=== PATIENT | male | born 1960 | race Caucasian/White ===

== ENCOUNTER 2017-08-21 08:51 | Inpatient (IN) | payer OTHER ==
[2017-08-21 10:01] VITALS: BMI 24.3
--- NOTE | 2017-08-21 10:26 | HP ---
Admission [facility] Chief Complaint: I keep using, I want to stop, I need help, maybe halfway after detox Allergies/Adverse Reactions: Allergies Allergy/AdvReac Type Severity Reaction Status Date / Time No Known Drug Allergies Allergy Verified 08/21/17 10:13 History of Present Illness: 57 yo gentleman here for detox from alcohol, also using crack/cocaine. History of black outs, no seizures. Urine tox + opiates but patient denies use of opiates - states he was in [facility] Emergency Room last night because of chronic right ankle pain and was given a shot of 2mg morphine sulfate. Urine tox + benzo but states benzo + must be mixed with cocaine as he does not use that separately. Exam Limitations: Clinical Condition - Ebola screening Have you traveled outside of the country in the last 21 days: No (N) Have you had contact with anyone from an Ebola affected area: No Have you been sick,other than usual withdrawal symptoms: No Do you have a fever: No - Review of Systems Constitutional: Loss of Appetite, Malaise, Changes in sleep, Weakness, Unintentional Wgt. Loss EENT: reports: Blurred Vision Respiratory: reports: No Symptoms reported Cardiac: reports: No Symptoms Reported GI: reports: Nausea, Poor Appetite : reports: Frequency Musculoskeletal: reports: Back Pain, Muscle Pain Integumentary: reports: Dryness Neuro: reports: Headache Endocrine: reports: No Symptoms Reported Hematology: reports: No Symptoms Reported Psychiatric: reports: Judgement Intact, Mood/Affect Appropiate, Anxious Other Systems: Reviewed and Negative Patient History - Patient Medical History Hx Anemia: No Hx Asthma: No Hx Chronic Obstructive Pulmonary Disease (COPD): No Hx Cancer: No Hx Cardiac Disorders: No Hx Congestive Heart Failure: No Hx Hypertension: Yes (on meds) Hx Hypercholesterolemia: Yes (on meds) Hx Pacemaker: No HX Cerebrovascular Accident: No Hx Seizures: No Hx Dementia: No Hx Diabetes: Yes (on meds, well controlled) Hx Gastrointestinal Disorders: No Hx Liver Disease: No Hx Genitourinary Disorders: No Hx Sexually Transmitted Disorders: No Hx Renal Disease (ESRD): No Hx Thyroid Disease: No Hx Human Immunodeficiency Virus (HIV): No Hx Hepatitis C: No Hx Depression: Yes Hx Suicide Attempt: Yes (Attempted to cut wrist in 2009; DENIES CURRENT IDEATIONS) Hx Bipolar Disorder: Yes (on meds, [facility]) Hx Schizophrenia: Yes - Patient Surgical History Past Surgical History: Yes Hx Neurologic Surgery: No Hx Cataract Extraction: No Hx Cardiac Surgery: No Hx Lung Surgery: No Hx Breast Surgery: No Hx Breast Biopsy: No Hx Abdominal Surgery: No Hx Appendectomy: Yes (at age 6) Hx Cholecystectomy: No Hx Genitourinary Surgery: No Hx Section: No Hx Orthopedic Surgery: Yes (hx right ankle fracture ) Anesthesia Reaction: No - PPD History Previous Implant?: Yes Documented Results: Negative w/proof Implanted On Prior [facility] Admission?: Yes Date: 04/07/15 Results: 0MM PPD to be Administered?: No - Reproductive History Patient is a Female of Child Bearing Age (11 -55 yrs old): No (male) Patient : No - Smoking Cessation Smoking history: Current every day smoker Have you smoked in the past 12 months: Yes Aproximately how many cigarettes per day: 20 Hx Chewing Tobacco Use: No Initiated information on smoking cessation: Yes 'Breaking Loose' booklet given: 08/21/17 (give on floor) - Substance & Tx. History Hx Alcohol Use: Yes Hx Substance Use: Yes Substance Use Type: Alcohol, Cocaine Hx Substance Use Treatment: Yes (detox, rehab) - Substances Abused Cocaine Route: Inhalation Frequency: Daily Amount used: 4 GRAM Age of first use: 20 Date of Last Use: 08/20/17 Crack Route: Smoking Frequency: 1-3 times last 30 days Amount used: 1GRAM Age of first use: 34 Date of Last Use: 07/22/17 ETOH Route: Oral Frequency: Daily Amount used: 2 PINT Age of first use: 20 Date of Last Use: 08/21/17 Family Disease History - Family Disease History Family Disease History: Diabetes: Grandparent, Mother (living, ), Heart Disease : Father (, renal failure), Other: Father, Mother, Brother (one living - healthy, ), Sister (two living - healthy) Admission Physical Exam [facility] - Vital Signs Vital Signs: Vital Signs - 24 hr 08/21/17 09:54 Temperature 96.5 F L Pulse Rate 72 Respiratory 18 Rate Blood Pressure 138/72 - Physical General Appearance: Yes: Nourished, Appropriately Dressed, Mild Distress, Anxious HEENTM: Yes: Hearing grossly Normal, Normal ENT Inspection, Normocephalic, Normal Voice Respiratory: Yes: Normal Breath Sounds, No Respiratory Distress Neck: Yes: No masses,lesions,Nodules Breast: Yes: Breast Exam Deferred Cardiology: Yes: Regular Rhythm, Regular Rate Abdominal: Yes: Non Tender, Flat Genitourinary: Yes: Frequency Back: Yes: Normal Inspection Musculoskeletal: Yes: full range of Motion, Gait Steady Extremities: Yes: Other (left ankle mildly reduced ROM, non red, states chronic pain) Neurological: Yes: Fully Oriented, Alert, Normal Mood/Affect, Normal Response Integumentary: Yes: Normal Color, Warm Lymphatic: Yes: Within Normal Limits - Diagnostic (1) Alcohol dependence with uncomplicated withdrawal Current Visit: Yes Status: Chronic (2) Cocaine dependence Current Visit: Yes Status: Chronic Qualifiers: Substance use status: in withdrawal Qualified Code(s): F14.23 - Cocaine dependence with withdrawal (3) Diabetes mellitus Current Visit: Yes Status: Chronic Qualifiers: Diabetes mellitus type: type 2 Diabetes mellitus complication status: without complication Diabetes mellitus residential insulin use: without residential use Qualified Code(s): E11.9 - Type 2 diabetes mellitus without complications Comment: 85 (4) Ankle arthropathy Current Visit: Yes Status: Chronic (5) Hypercholesterolemia Current Visit: Yes Status: Chronic (6) HTN (hypertension) Current Visit: Yes Status: Chronic Qualifiers: Hypertension type: essential hypertension Qualified Code(s): I10 - Essential (primary) hypertension (7) Nicotine dependence Current Visit: Yes Status: Chronic Qualifiers: Nicotine product type: cigarettes Substance use status: uncomplicated Qualified Code(s): F17.210 - Nicotine dependence, cigarettes, uncomplicated Cleared for Admission S - Detox or Rehab [facility] Level of Care: Medically Managed Detox Regimen/Protocol: Librium [facility] Breath Alcohol Content Breath Alcohol Content: 0 Urine Drug Screen - Results Urine Drug Screen Results: PALLAVI-Cocaine, OPI-Opiates, BZO-Benzodiazepines
[2017-08-21] MEDS ORDERED: ACETAMINOPHEN 325 MG TABLET (FP) PO PRN (10:32)
[2017-08-21] MEDS ORDERED: MAGNESIUM HYDROX 2400MG/30ML ORAL SUSPENSION 30 ML CUP PO PRN (10:32)
[2017-08-21] MEDS ORDERED: hydrOXYzine PAMOATE 25 MG CAPSULE (FP) PO PRN (10:32)
[2017-08-21] MEDS ORDERED: MENTHOL/PHENOL 1 EACH UD MM PRN (10:32)
[2017-08-21] MEDS ORDERED: chlordiazePOXIDE HCL 25 MG CAPSULE PO PRN (10:32)
[2017-08-21] MEDS ORDERED: MAG HYDROX/AL HYDROX/SIMETH 30 ML UNIT-DOSE CUP PO PRN (10:32)
[2017-08-21] MEDS ORDERED: P-EPHED 60MG/TRIPROLIDI 2.5MG TABLET PO PRN (10:32)
[2017-08-21] MEDS ORDERED: MAGNESIUM CITRATE 300 ML BOTTLE PO PRN (10:32)
[2017-08-21] MEDS ORDERED: guaiFENesin/D-METHORPHAN HB 10 ML UNIT-DOSE CUPS PO PRN (10:32)
[2017-08-21] MEDS ORDERED: LOPERAMIDE HCL 2 MG CAPSULE PO PRN (10:32)
[2017-08-21] MEDS ORDERED: chlordiazePOXIDE HCL 25 MG CAPSULE PO ONE ×2 (12:00→17:50)
[2017-08-21] MEDS ORDERED: INSULIN (NOVOLOG) ASPART 100 UNITS/ML 10ML VIAL ONE (17:15)
[2017-08-21] MEDS: INSULIN SLIDING SCALE (NOVOLOG) 1 VIAL SQ SCH ×2 (17:16→22:46)
[2017-08-21] MEDS: metFORMIN HCL 500 MG TABLET (FP) PO SCH (17:19)
[2017-08-21 17:35] LABS: URINE APPEARANCE CLEAR; URINE BILIRUBIN NEGATIVE (NEGATIVE); URINE BLOOD NEGATIVE (NEGATIVE); URINE COLOR YELLOW; URINE GLUCOSE (UA) NEGATIVE (NEGATIVE); URINE KETONE NEGATIVE (NEGATIVE); URINE LEUK ESTERASE NEGATIVE (NEGATIVE); URINE NITRITE NEGATIVE (NEGATIVE); URINE PROTEIN NEGATIVE (NEGATIVE); URINE UROBILINOGEN NEGATIVE mg/dL (0.2-1.0)
[2017-08-21] MEDS: THIAMINE HCL 100 MG TABLET (FP) PO SCH (22:46)
[2017-08-21] MEDS: chlordiazePOXIDE HCL 25 MG CAPSULE PO SCH (22:46)
[2017-08-22] MEDS: chlordiazePOXIDE HCL 25 MG CAPSULE PO SCH ×4 (05:36→22:37)
[2017-08-22] MEDS: metFORMIN HCL 500 MG TABLET (FP) PO SCH ×2 (08:00→16:53)
[2017-08-22] MEDS: INSULIN SLIDING SCALE (NOVOLOG) 1 VIAL SQ SCH ×4 (08:00→22:37)
[2017-08-22] MEDS ORDERED: LISINOPRIL 5 MG TABLET (FP) PO SCH (10:00)
[2017-08-22] MEDS ORDERED: ASPIRIN 81 MG CHEWABLE TABLETS PO SCH (10:00)
[2017-08-22] MEDS ORDERED: PRENATAL VITAMINS W/ FOLIC ACID TABLET (FP) PO SCH (10:00)
[2017-08-22 10:31] LABS: HEMATOCRIT 40.5 % (35.4-49); HEMOGLOBIN 13.9 GM/dL (11.7-16.9); MCHC 34.3 g/dl (32.0-35.9); MEAN CELL VOLUME 93.3 fl (80-96); MEAN PLT VOLUME 10.1 fl (7.5-11.1); PLATELET COUNT 182 K/MM3 (134-434); RBC 4.34 M/mm3 (4.00-5.60); RDW 13.2 % (11.9-15.9); WHITE BLOOD COUNT 6.2 K/mm3 (4.0-10.0)
[2017-08-22 10:35] LABS: ALBUMIN 3.8 g/dl (3.4-5.0); ANION GAP 3 (8-16); BILIRUBIN,TOTAL 0.5 mg/dL (0.2-1.0); BLOOD UREA NITROGEN 19 mg/dL (7-18); CALCIUM 8.3 mg/dL (8.5-10.1); CHLORIDE 104 mmol/L (98-107); CO2 32 mmol/L (21-32); CREATININE 0.8 mg/dL (0.7-1.3); GLUCOSE,RANDOM 168 mg/dL (74-106); POTASSIUM 4.1 mmol/L (3.5-5.1); SGOT/AST 79 U/L (15-37); SGPT/ALT 86 U/L (12-78); SODIUM 139 mmol/L (136-145); TOT PROT 7.1 g/dl (6.4-8.2)
[2017-08-22 10:37] LABS: ALK PHOS 123 U/L (45-117)
--- NOTE | 2017-08-22 11:04 | CONSULT ---
[facility] Psychiatric Consult - Data Date of interview: 08/22/17 Admission source: [facility] Identifying data: Mr Veliz is a 57 years old single male, father of a 39 years old stepson, unemployed on SSI, homeless seeking detox treatment for alcohol and cocaine Substance Abuse History: Reports history of alcohol and cocaine use. Refer to addiction counselor's note for further information Medical History: Significant for history of hypertension, hyperlipidemia, type 2 diabetes mellitus and history of surgeries for fracture right ankle and removal of appendix. Smokes cigarettes 1ppd Psychiatric History: Reports being diagnosed with Schizoaffective Disorder in 2001 and has had multiple psychiatric hospitalizations.Most recent in 2000 at [facility]. Reports receiving OPD care at [facility] and he is prescribed Seroquel 200 mg po HS and Trazadone 100 mg po HS. As per pharmacy claims, patient filled scripts for Seroquel 200 mg #60, Trazadone 100 # 30 from provider Swati Harvey and Haldol 5 mg #3, Cogentin 1 mg #3 by provider Pedro Myers. 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 Reports history of multiple suicidal attempts by cutting wrist, abdomen. At present, reports feeling depressed and sleeping poorly Physical/Sexual Abuse/Trauma History: Denies history of emotional, physical or sexual abuse as well as DV relationship Additional Comment: Denies criminal history Mental Status Exam - Mental Status Exam Alert and Oriented to: Time, Place, Person Cognitive Function: Fair Patient Appearance: Well Groomed Mood: Depressed Affect: Appropriate Patient Behavior: Cooperative Speech Pattern: Clear Voice Loudness: Normal Thought Process: Intact, Goal Oriented Hallucinations: Denies Suicidal Ideation: Denies Homicidal Ideation: Denies Insight/Judgement: Poor Sleep: Poorly Appetite: Good Muscle strength/Tone: Normal Gait/Station: Normal Psychiatric Findings - Problem List ([place] 1, 2,3) (1) Schizoaffective disorder Current Visit: No Status: Chronic (2) Bipolar disorder, curr episode depressed, severe, w/psychotic features Current Visit: No Status: Ruled-out (3) Substance induced mood disorder Current Visit: Yes Status: Acute (4) Substance-induced sleep disorder Current Visit: Yes Status: Acute (5) Alcohol dependence with uncomplicated withdrawal Current Visit: Yes Status: Acute (6) Cocaine dependence Current Visit: Yes Status: Acute Qualifiers: Substance use status: in withdrawal Qualified Code(s): F14.23 - Cocaine dependence with withdrawal (7) Nicotine dependence Current Visit: Yes Status: Chronic Qualifiers: Nicotine product type: cigarettes Substance use status: uncomplicated Qualified Code(s): F17.210 - Nicotine dependence, cigarettes, uncomplicated (8) Ankle arthropathy Current Visit: Yes Status: Chronic (9) Diabetes mellitus Current Visit: Yes Status: Chronic Qualifiers: Diabetes mellitus type: type 2 Diabetes mellitus complication status: without complication Diabetes mellitus buttermaker continuous churn insulin use: without buttermaker continuous churn use Qualified Code(s): E11.9 - Type 2 diabetes mellitus without complications Comment: 85 (10) HTN (hypertension) Current Visit: Yes Status: Chronic Qualifiers: Hypertension type: essential hypertension Qualified Code(s): I10 - Essential (primary) hypertension (11) Hypercholesterolemia Current Visit: Yes Status: Chronic - Initial Treatment Plan Initial Treatment Plan: 1) Continue Seroquel 200 mg po BID and Trazadone 100 mg po HS. 2) Continue inpatient detoxification
--- NOTE | 2017-08-22 12:22 | PN ---
S CIWA - CIWA Score Nausea/Vomitin-Mild Nausea/No Vomiting Muscle Tremors: 4-Moderate,w/Arms Extend Anxiety: 4-Mod. Anxious/Guarded Agitation: 4-Moderately Restless Paroxysmal Sweats: 1-Minimal Palms Moist Orientation: 0-Oriented Tacttile Disturbances: 1-Very Mild Itch/Numbness Auditory Disturbances: 0-None Visual Disturbances: 0-None Headache: 1-Very Mild CIWA-Ar Total Score: 16 BHS Progress Note (SOAP) Subjective: sweat tremor restlessness anxiety mild headache Objective: 08/22/17 12:21 Vital Signs Temperature 97.9 F 08/22/17 10:34 Pulse Rate 66 08/22/17 10:34 Respiratory Rate 18 08/22/17 10:34 Blood Pressure 124/67 08/22/17 10:34 O2 Sat by Pulse Oximetry (%) Laboratory Last Values WBC 6.2 K/mm3 (4.0-10.0) 08/22/17 06:00 RBC 4.34 M/mm3 (4.00-5.60) 08/22/17 06:00 Hgb 13.9 GM/dL (11.7-16.9) 08/22/17 06:00 Hct 40.5 % (35.4-49) 08/22/17 06:00 MCV 93.3 fl (80-96) 08/22/17 06:00 MCH 32.0 pg (25.7-33.7) 08/22/17 06:00 MCHC 34.3 g/dl (32.0-35.9) 08/22/17 06:00 RDW 13.2 % (11.9-15.9) 08/22/17 06:00 Plt Count 182 K/MM3 (134-434) 08/22/17 06:00 MPV 10.1 fl (7.5-11.1) D 08/22/17 06:00 Sodium 139 mmol/L (136-145) 08/22/17 06:00 Potassium 4.1 mmol/L (3.5-5.1) 08/22/17 06:00 Chloride 104 mmol/L (98-107) 08/22/17 06:00 Carbon Dioxide 32 mmol/L (21-32) 08/22/17 06:00 Anion Gap 3 (8-16) L 08/22/17 06:00 BUN 19 mg/dL (7-18) H D 08/22/17 06:00 Creatinine 0.8 mg/dL (0.7-1.3) 08/22/17 06:00 Creat Clearance w eGFR > 60 (>60) 08/22/17 06:00 POC Glucometer 150 UNITS (80-120) 08/22/17 11:16 Random Glucose 168 mg/dL (74-106) H D 08/22/17 06:00 Calcium 8.3 mg/dL (8.5-10.1) L 08/22/17 06:00 Total Bilirubin 0.5 mg/dL (0.2-1.0) D 08/22/17 06:00 AST 79 U/L (15-37) H D 08/22/17 06:00 ALT 86 U/L (12-78) H D 08/22/17 06:00 Alkaline Phosphatase 123 U/L (45-117) H 08/22/17 06:00 Total Protein 7.1 g/dl (6.4-8.2) 08/22/17 06:00 Albumin 3.8 g/dl (3.4-5.0) 08/22/17 06:00 Urine Color Yellow 08/21/17 15:25 Urine Appearance Clear 08/21/17 15:25 Urine pH 6.0 (5.0-8.0) 08/21/17 15:25 Ur Specific [place] 1.026 (1.001-1.035) 08/21/17 15:25 Urine Protein Negative (NEGATIVE) 08/21/17 15:25 Urine Glucose (UA) Negative (NEGATIVE) 08/21/17 15:25 Urine Ketones Negative (NEGATIVE) 08/21/17 15:25 Urine Blood Negative (NEGATIVE) 08/21/17 15:25 Urine Nitrite Negative (NEGATIVE) 08/21/17 15:25 Urine Bilirubin Negative (NEGATIVE) 08/21/17 15:25 Urine Urobilinogen Negative mg/dL (0.2-1.0) 08/21/17 15:25 Ur Leukocyte Esterase Negative (NEGATIVE) 08/21/17 15:25 lab noted Assessment: 08/22/17 12:22 rosy michelle Plan: continue detox
--- NOTE | 2017-08-22 14:29 | EKG ---
Test Reason : Blood Pressure : / mmHG Vent. Rate : 074 BPM Atrial Rate : 074 BPM P-R Int : 156 ms QRS Dur : 102 ms QT Int : 392 ms P-R-T Axes : 067 -08 059 degrees QTc Int : 435 ms NORMAL SINUS RHYTHM POSSIBLE LEFT ATRIAL ENLARGEMENT INCOMPLETE RIGHT BUNDLE BRANCH BLOCK LEFT VENTRICULAR HYPERTROPHY ABNORMAL ECG NO PREVIOUS ECGS AVAILABLE Confirmed by MD TAMI, YANDEL ([id number]) on 08/22/2017 2:29:16 PM Referred By: Confirmed By:YANDEL GARRETT MD
[2017-08-22] MEDS: QUEtiapine FUMARATE 200 MG TABLET PO SCH ×2 (14:50→22:37)
[2017-08-22] MEDS ORDERED: traZODone HCL 100 MG TABLET (FP) PO SCH (22:00)
[2017-08-22] MEDS: THIAMINE HCL 100 MG TABLET (FP) PO SCH (22:37)
[2017-08-23] MEDS: chlordiazePOXIDE HCL 25 MG CAPSULE PO SCH (05:33)
[2017-08-23] MEDS: metFORMIN HCL 500 MG TABLET (FP) PO SCH (06:14)
[2017-08-23] MEDS: INSULIN SLIDING SCALE (NOVOLOG) 1 VIAL SQ SCH (07:10)
--- NOTE | 2017-08-23 09:35 | PN ---
S CIWA - CIWA Score Nausea/Vomitin Muscle Tremors: 3 Anxiety: 3 Agitation: 3 Paroxysmal Sweats: 1-Minimal Palms Moist Orientation: 0-Oriented Tacttile Disturbances: 1-Very Mild Itch/Numbness Auditory Disturbances: 1-Very Mild Visual Disturbances: 0-None Headache: 2-Mild CIWA-Ar Total Score: 17 BHS Progress Note (SOAP) Subjective: ALERT,IRRITABLE,ANXIOUS,INTERRUPTED SLEEP,TREMOR,PAIN IN THE BODY Objective: 08/23/17 09:33 Vital Signs Temperature 97.3 F L 08/23/17 06:00 Pulse Rate 104 H 08/23/17 06:00 Respiratory Rate 18 08/23/17 06:00 Blood Pressure 124/66 08/23/17 06:00 O2 Sat by Pulse Oximetry (%) Assessment: 08/23/17 09:34 WITHDRAWAL SYMPTOM Plan: CONTINUE DETOX
--- NOTE | 2017-08-23 09:36 | PN ---
S Progress Note Note: PATIENT DID NOT WANT TO COMPLETE TREATMENT,SEEN BY COUNSELOR,SIGNED RELEASE AMA, HAD ALL MEDICATIONS AT HOME
--- NOTE | 2017-08-23 09:42 | DS ---
[place] [facility] Discharge Summary Admission Date: 08/21/17 Discharge Date: 08/23/17 - History Additional Comments: PATIENT DID NOT WANT TO COMPLETE TREATMENT,SEEN BY COUNSELOR,SIGNED RELEASE AMA, HAS ALL MEDICATIONS AT HOME Pertinent Past History: ALCOHOL DEPENDENCE COCAINE DEPENDENCE HYPERTENSION TYPE 2 DM NICOTINE DEPENDENCE - Physical Exam Results Vital Signs: Vital Signs Temperature 97.3 F L 08/23/17 06:00 Pulse Rate 104 H 08/23/17 06:00 Respiratory Rate 18 08/23/17 06:00 Blood Pressure 124/66 08/23/17 06:00 O2 Sat by Pulse Oximetry (%) Pertinent Admission Physical Exam Findings: WITHDRAWAL SIGNS AND SYMPTOM - Medication Discharge Medications: Ambulatory Orders metFORMIN HCL [Glucophage -] 500 mg PO BID 12/13/14 Aspirin [ASA -] 81 mg PO DAILY #0 tab.chew 04/06/15 traZODone HCL [Desyrel -] 50 mg PO HS #30 tablet 08/24/15 Lisinopril [Zestril] 2.5 mg PO DAILY 08/21/17 Quetiapine Fumarate [Seroquel] 200 mg PO BID 08/21/17 - AMA Did Patient Leave Against Medical Advice: Yes
[2017-08-23 11:17] VITALS: BP 119/50; PULSE 85; TEMP 97.7
[2017-08-23] MEDS ORDERED: chlordiazePOXIDE 5 MG CAPSULE PO SCH (23:00)
[2017-08-24] MEDS ORDERED: chlordiazePOXIDE HCL 10 MG CAPSULE PO SCH (23:00)
== END 2017-08-23 10:00 | disposition left against medical advice (07) | DRG 770 ==
LOC: YASAS 08:51 → Y6N 12:58
PROVIDERS: ADMIT Internal Medicine; ATTEND Internal Medicine
PROC: HZ2ZZZZ Detoxification Services for Substance Abuse Treatment (ICD-10-PCS; principal; 2017-08-21)
DX: F10.230 Alcohol dependence with withdrawal, uncomplicated (principal); F14.20 Cocaine dependence, uncomplicated; F17.210 Nicotine dependence, cigarettes, uncomplicated; F25.9 Schizoaffective disorder, unspecified; F31.5 Bipolar disorder, current episode depressed, severe, with psychotic features; F19.24 Other psychoactive substance dependence with psychoactive substance-induced mood disorder; F19.282 Other psychoactive substance dependence with psychoactive substance-induced sleep disorder; I10 Essential (primary) hypertension; E11.9 Type 2 diabetes mellitus without complications; E78.5 Hyperlipidemia, unspecified; M12 Other and unspecified arthropathy; Z79.84 Long term (current) use of oral hypoglycemic drugs; Z91.5 Personal history of self-harm
CPT/HCPCS: 36415; 80053; 81003; 82962; 85027; 86593; 93005; 93010

== ENCOUNTER 2017-09-20 09:43 | Inpatient (IN) | payer OTHER ==
[2017-09-20 09:59] VITALS: BMI 24.4
--- NOTE | 2017-09-20 12:41 | HP ---
CIWA Score - CIWA Score Nausea/Vomitin Muscle Tremors: 3 Anxiety: 3 Agitation: 3 Paroxysmal Sweats: 1-Minimal Palms Moist Orientation: 0-Oriented Tacttile Disturbances: 2-Mild Itch/Numbness/Burn Auditory Disturbances: 2-Mild Harshness/Frighten Visual Disturbances: 2-Mild Sensitivity Headache: 2-Mild CIWA-Ar Total Score: 21 Admission ROS BHS - HPI Chief Complaint: i am here to stop drinking alcohol ,cocaine and crack Allergies/Adverse Reactions: Allergies Allergy/AdvReac Type Severity Reaction Status Date / Time No Known Drug Allergies Allergy Verified 09/20/17 13:57 tuna oil Allergy Verified 09/20/17 13:57 History of Present Illness: THIS 57 YEARS OLD MALE WITH ALCOHOL,CRACK DEPENDENCE,SEEKING DETOX,WITHDRAWAL SYMPTOM,LAST DETOX [facility] 08/21/17 TO 08/23/17 SYNCOPE ALCOHOL RELATED HYPERTENSION,TYPE 2 DM, BIPOLAR DISORDER,DEPRESSION NICOTINE DEPENDENCE LONGEST PERIOD OF SOBRIETY 1 YEAR Exam Limitations: No Limitations - Ebola screening Have you traveled outside of the country in the last 21 days: No Have you had contact with anyone from an Ebola affected area: No Have you been sick,other than usual withdrawal symptoms: No Do you have a fever: No - Review of Systems Constitutional: Loss of Appetite, Malaise, Night Sweats, Changes in sleep, Weakness, Unintentional Wgt. Loss EENT: reports: Tearing, Nose Congestion Respiratory: reports: No Symptoms reported Cardiac: reports: No Symptoms Reported GI: reports: Nausea, Vomiting, Abdominal cramping : reports: No Symptoms Reported Musculoskeletal: reports: Back Pain, Muscle Pain Integumentary: reports: Dryness Neuro: reports: Headache, Tremors Endocrine: reports: No Symptoms Reported Hematology: reports: No Symptoms Reported Psychiatric: reports: No Sypmtoms Reported, Judgement Intact, Mood/Affect Appropiate, Orientated x3, other (BIPOLAR DISORDER DEPRESSION) Patient History - Patient Medical History Hx Anemia: No Hx Asthma: No Hx Chronic Obstructive Pulmonary Disease (COPD): No Hx Cancer: No Hx Cardiac Disorders: No Hx Congestive Heart Failure: No Hx Hypertension: Yes (on meds) Hx Hypercholesterolemia: Yes (on meds) Hx Pacemaker: No HX Cerebrovascular Accident: No Hx Seizures: No Hx Dementia: No Hx Diabetes: Yes (on meds, well controlled) Hx Gastrointestinal Disorders: No Hx Liver Disease: No Hx Genitourinary Disorders: No Hx Sexually Transmitted Disorders: No Hx Renal Disease (ESRD): No Hx Thyroid Disease: No Hx Human Immunodeficiency Virus (HIV): No Hx Hepatitis C: No Hx Depression: Yes Hx Suicide Attempt: Yes (Attempted to cut wrist in 2009; DENIES CURRENT IDEATIONS) Hx Bipolar Disorder: Yes (on meds, [facility]) Hx Schizophrenia: Yes Other Medical History: NO SUICIDAL,NO HOMICIDAL - Patient Surgical History Past Surgical History: Yes Hx Neurologic Surgery: No Hx Cataract Extraction: No Hx Cardiac Surgery: No Hx Lung Surgery: No Hx Breast Surgery: No Hx Breast Biopsy: No Hx Abdominal Surgery: No Hx Appendectomy: Yes (at age 6) Hx Cholecystectomy: No Hx Genitourinary Surgery: No Hx Section: No Hx Orthopedic Surgery: Yes (hx right ankle fracture ) Anesthesia Reaction: No - PPD History Previous Implant?: Yes Documented Results: Negative w/o proof Date: 04/07/15 Results: 0MM PPD to be Administered?: Yes - Smoking Cessation Smoking history: Current every day smoker Have you smoked in the past 12 months: Yes Aproximately how many cigarettes per day: 20 Hx Chewing Tobacco Use: No Initiated information on smoking cessation: Yes 'Breaking Loose' booklet given: 09/20/17 - Substance & Tx. History Hx Alcohol Use: Yes Hx Substance Use: Yes Substance Use Type: Alcohol, Cocaine Hx Substance Use Treatment: Yes ([facility] 08/21/17 TO 08/23/17) - Substances Abused Alcohol Route: Oral Frequency: Daily Amount used: ONE AND A HALF PNIT OF CECI Age of first use: 20 Date of Last Use: 09/20/17 Crack Route: Smoking Frequency: Daily Amount used: 180$ Age of first use: 20 Date of Last Use: 09/20/17 Family Disease History - Family Disease History Family Disease History: Diabetes: Grandparent, Mother (living, ), Heart Disease : Father (, renal failure), Other: Father, Mother, Brother (one living - healthy, ), Sister (two living - healthy) Admission Physical Exam S - Vital Signs Vital Signs: Vital Signs - 24 hr 09/20/17 09:58 Temperature 96.1 F L Pulse Rate 84 Respiratory 16 Rate Blood Pressure 137/77 - Physical General Appearance: Yes: Moderate Distress, Irritable, Sweating, Anxious HEENTM: Yes: Normal ENT Inspection, Normocephalic, BOOGIE, Pharynx Normal Respiratory: Yes: Lungs Clear, Normal Breath Sounds, No Respiratory Distress Neck: Yes: Within Normal Limits, Supple, Trachea in good position Breast: Yes: Within Normal Limits Cardiology: Yes: Within Normal Limits, Regular Rhythm, Regular Rate, S1, S2 Abdominal: Yes: Within Normal Limits, Normal Bowel Sounds, Non Tender, Flat, Soft Genitourinary: Yes: Within Normal Limits Back: Yes: Muscle Spasm Musculoskeletal: Yes: Back pain, Muscle Pain Extremities: Yes: Within Normal Limits, Normal Range of Motion, Tremors Neurological: Yes: 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 instructor II-XII NML intact, Fully Oriented, Alert, Motor Strength 5/5 Integumentary: Yes: Dry Lymphatic: Yes: Within Normal Limits - Diagnostic (1) Alcohol dependence with uncomplicated withdrawal Status: Acute (2) Bipolar disorder Status: Acute (3) Cocaine dependence Status: Acute Qualifiers: Substance use status: uncomplicated Qualified Code(s): F14.20 - Cocaine dependence, uncomplicated (4) HTN (hypertension) Status: Chronic Qualifiers: Hypertension type: essential hypertension Qualified Code(s): I10 - Essential (primary) hypertension (5) Hypercholesterolemia Status: Chronic (6) Nicotine dependence Status: Acute Qualifiers: Nicotine product type: cigarettes Substance use status: in withdrawal Qualified Code(s): F17.213 - Nicotine dependence, cigarettes, with withdrawal (7) DM2 (diabetes mellitus, type 2) Status: Chronic Cleared for Admission [facility] - Detox or Rehab [facility] Level of Care: Medically Managed Detox Regimen/Protocol: Librium S Breath Alcohol Content Breath Alcohol Content: 0 Urine Drug Screen - Results Drug Screen Negative: No Urine Drug Screen Results: PALLAVI-Cocaine, BZO-Benzodiazepines
[2017-09-20] MEDS ORDERED: hydrOXYzine PAMOATE 25 MG CAPSULE (FP) PO PRN (13:11)
[2017-09-20] MEDS ORDERED: MAGNESIUM CITRATE 300 ML BOTTLE PO PRN (13:11)
[2017-09-20] MEDS ORDERED: MAG HYDROX/AL HYDROX/SIMETH 30 ML UNIT-DOSE CUP PO PRN (13:11)
[2017-09-20] MEDS ORDERED: NICOTINE POLACRILEX 2 MG GUM BC PRN (13:11)
[2017-09-20] MEDS ORDERED: LOPERAMIDE HCL 2 MG CAPSULE PO PRN (13:11)
[2017-09-20] MEDS ORDERED: guaiFENesin/D-METHORPHAN HB 10 ML UNIT-DOSE CUPS PO PRN (13:11)
[2017-09-20] MEDS ORDERED: chlordiazePOXIDE HCL 25 MG CAPSULE PO PRN (13:11)
[2017-09-20] MEDS ORDERED: IBUPROFEN 400 MG TABLET (FP) PO PRN (13:11)
[2017-09-20] MEDS ORDERED: MENTHOL/PHENOL 1 EACH UD MM PRN (13:11)
[2017-09-20] MEDS ORDERED: ACETAMINOPHEN 325 MG TABLET (FP) PO PRN (13:11)
[2017-09-20] MEDS ORDERED: MAGNESIUM HYDROX 2400MG/30ML ORAL SUSPENSION 30 ML CUP PO PRN (13:11)
[2017-09-20] MEDS ORDERED: P-EPHED 60MG/TRIPROLIDI 2.5MG TABLET PO PRN (13:11)
[2017-09-20] MEDS ORDERED: chlordiazePOXIDE HCL 25 MG CAPSULE PO ONE (15:30)
[2017-09-20] MEDS: chlordiazePOXIDE HCL 25 MG CAPSULE PO SCH ×2 (17:43→22:18)
[2017-09-20] MEDS: metFORMIN HCL 500 MG TABLET (FP) PO SCH (17:43)
[2017-09-20 20:17] LABS: URINE APPEARANCE SLCLOUDY; URINE BILIRUBIN NEGATIVE (<2.0 mg/dL); URINE BLOOD NEGATIVE (NEGATIVE); URINE COLOR YELLOW; URINE GLUCOSE (UA) NEGATIVE (NEGATIVE); URINE KETONE NEGATIVE (NEGATIVE); URINE LEUK ESTERASE NEGATIVE (NEGATIVE); URINE NITRITE NEGATIVE (NEGATIVE); URINE PROTEIN NEGATIVE (NEGATIVE)
[2017-09-20] MEDS ORDERED: MELATONIN 5 MG TABLETS PO PRN (22:00)
[2017-09-20] MEDS: ATORVASTATIN CA 40 MG TABLET (FP) PO SCH (22:18)
[2017-09-20] MEDS: THIAMINE HCL 100 MG TABLET (FP) PO SCH (22:18)
[2017-09-21] MEDS: chlordiazePOXIDE HCL 25 MG CAPSULE PO SCH ×4 (05:43→22:23)
[2017-09-21] MEDS: metFORMIN HCL 500 MG TABLET (FP) PO SCH ×2 (06:19→17:06)
[2017-09-21 09:56] LABS: HEMATOCRIT 41.5 % (35.4-49); HEMOGLOBIN 14.2 GM/dL (11.7-16.9); MCH 31.7 pg (25.7-33.7); MCHC 34.3 g/dl (32.0-35.9); MEAN CELL VOLUME 92.6 fl (80-96); PLATELET COUNT 216 K/MM3 (134-434); RBC 4.47 M/mm3 (4.00-5.60); RDW 13.4 % (11.9-15.9); WHITE BLOOD COUNT 7.6 K/mm3 (4.0-10.0)
[2017-09-21 10:11] LABS: CHLORIDE 104 mmol/L (98-107); POTASSIUM 4.5 mmol/L (3.5-5.1); SODIUM 140 mmol/L (136-145)
--- NOTE | 2017-09-21 10:15 | EKG ---
Test Reason : Blood Pressure : / mmHG Vent. Rate : 076 BPM Atrial Rate : 076 BPM P-R Int : 144 ms QRS Dur : 096 ms QT Int : 380 ms P-R-T Axes : 067 -11 047 degrees QTc Int : 427 ms NORMAL SINUS RHYTHM MINIMAL VOLTAGE CRITERIA FOR LVH, MAY BE NORMAL VARIANT BORDERLINE ECG WHEN COMPARED WITH ECG OF 21-AUG-2017 15:01, NO SIGNIFICANT CHANGE WAS FOUND Confirmed by Baudilio Edwards MD ([id number]) on 09/21/2017 10:14:40 AM Referred By: Confirmed By:Baudilio Edwards MD
[2017-09-21 10:16] LABS: ALBUMIN 3.9 g/dl (3.4-5.0); ALK PHOS 130 U/L (45-117); ANION GAP 5 (8-16); BILIRUBIN,TOTAL 0.3 mg/dL (0.2-1.0); BLOOD UREA NITROGEN 19 mg/dL (7-18); CALCIUM 9.2 mg/dL (8.5-10.1); CO2 31 mmol/L (21-32); CREATININE 0.8 mg/dL (0.7-1.3); GLUCOSE,RANDOM 89 mg/dL (74-106); SGOT/AST 76 U/L (15-37); SGPT/ALT 67 U/L (12-78); TOT PROT 7.5 g/dl (6.4-8.2)
[2017-09-21] MEDS: LISINOPRIL 5 MG TABLET (FP) PO SCH (10:16)
[2017-09-21] MEDS: ASPIRIN 81 MG CHEWABLE TABLETS PO SCH (10:16)
[2017-09-21] MEDS: PRENATAL VITAMINS W/ FOLIC ACID TABLET (FP) PO SCH (10:17)
--- NOTE | 2017-09-21 11:12 | PN ---
[facility] CIWA - CIWA Score Nausea/Vomitin-No Nausea/No Vomiting Muscle Tremors: 4-Moderate,w/Arms Extend Anxiety: 4-Mod. Anxious/Guarded Agitation: 4-Moderately Restless Paroxysmal Sweats: 1-Minimal Palms Moist Orientation: 0-Oriented Tacttile Disturbances: 3-Moderate Itch/Numb/Burn Auditory Disturbances: 0-None Visual Disturbances: 0-None Headache: 0-None Present CIWA-Ar Total Score: 16 [facility] Progress Note (SOAP) Subjective: ANXIETY,SWEATS,IRRITABILITY,TREMORS, INTERMITTENT SLEEP. REPORTS HE TAKES SEROQUEL FOR SLEEP. Objective: 09/21/17 11:12 Vital Signs Temperature 97.4 F L 09/21/17 09:13 Pulse Rate 81 09/21/17 09:13 Respiratory Rate 20 09/21/17 09:13 Blood Pressure 110/68 09/21/17 09:13 O2 Sat by Pulse Oximetry (%) Laboratory Last Values WBC 7.6 K/mm3 (4.0-10.0) 09/21/17 06:10 RBC 4.47 M/mm3 (4.00-5.60) 09/21/17 06:10 Hgb 14.2 GM/dL (11.7-16.9) 09/21/17 06:10 Hct 41.5 % (35.4-49) 09/21/17 06:10 MCV 92.6 fl (80-96) 09/21/17 06:10 MCH 31.7 pg (25.7-33.7) 09/21/17 06:10 MCHC 34.3 g/dl (32.0-35.9) 09/21/17 06:10 RDW 13.4 % (11.9-15.9) 09/21/17 06:10 Plt Count 216 K/MM3 (134-434) 09/21/17 06:10 MPV 10.0 fl (7.5-11.1) 09/21/17 06:10 Sodium 140 mmol/L (136-145) 09/21/17 06:10 Potassium 4.5 mmol/L (3.5-5.1) 09/21/17 06:10 Chloride 104 mmol/L (98-107) 09/21/17 06:10 Carbon Dioxide 31 mmol/L (21-32) 09/21/17 06:10 Anion Gap 5 (8-16) L 09/21/17 06:10 BUN 19 mg/dL (7-18) H 09/21/17 06:10 Creatinine 0.8 mg/dL (0.7-1.3) 09/21/17 06:10 Creat Clearance w eGFR > 60 (>60) 09/21/17 06:10 POC Glucometer 151 UNITS (80-120) 09/21/17 05:42 Random Glucose 89 mg/dL (74-106) D 09/21/17 06:10 Calcium 9.2 mg/dL (8.5-10.1) 09/21/17 06:10 Total Bilirubin 0.3 mg/dL (0.2-1.0) D 09/21/17 06:10 AST 76 U/L (15-37) H 09/21/17 06:10 ALT 67 U/L (12-78) D 09/21/17 06:10 Alkaline Phosphatase 130 U/L (45-117) H 09/21/17 06:10 Total Protein 7.5 g/dl (6.4-8.2) 09/21/17 06:10 Albumin 3.9 g/dl (3.4-5.0) 09/21/17 06:10 Urine Color Yellow 09/20/17 17:30 Urine Appearance Slcloudy 09/20/17 17:30 Urine pH 7.0 (5.0-8.0) 09/20/17 17:30 Ur Specific [place] 1.020 (1.001-1.035) 09/20/17 17:30 Urine Protein Negative (NEGATIVE) 09/20/17 17:30 Urine Glucose (UA) Negative (NEGATIVE) 09/20/17 17:30 Urine Ketones Negative (NEGATIVE) 09/20/17 17:30 Urine Blood Negative (NEGATIVE) 09/20/17 17:30 Urine Nitrite Negative (NEGATIVE) 09/20/17 17:30 Urine Bilirubin Negative (<2.0 mg/dL) 09/20/17 17:30 Urine Urobilinogen 2.0 mg/dL (0.2-1.0) 09/20/17 17:30 Ur Leukocyte Esterase Negative (NEGATIVE) 09/20/17 17:30 Assessment: 09/21/17 11:12 WITHDRAWAL SX Plan: CONTINUE DETOX FOLLOW UP WITH PSYCH CONSULT TODAY
--- NOTE | 2017-09-21 12:58 | CONSULT ---
[facility] Psychiatric Consult - Data Date of interview: 09/21/17 Admission source: [facility] Identifying data: This is one of [facility] admissions to [facility] for this 57 y/ o male seeking detox treatment on for lcohol and cocaine (crack ) dependence.Patient is single without children,homeless,unemployed and supported on SSI benefits. Substance Abuse History: Confirmed by patient in this session.Details in current [facility] report : Smoking history: Current every day smoker. Have you smoked in the past 12 months: Yes. Aproximately how many cigarettes per day: 20. Hx Chewing Tobacco Use: No. Initiated information on smoking cessation: Yes. 'Breaking Loose' booklet given: 09/20/17. - Substance & Tx. History. Hx Alcohol Use: Yes. Hx Substance Use: Yes. Substance Use Type: Alcohol, Cocaine. Hx Substance Use Treatment: Yes ([facility] 08/21/17 TO 08/23/17). - Substances Abused. Alcohol. Route: Oral. Frequency: Daily. Amount used: ONE AND A HALF PNIT OF CECI. Age of first use: 20. Date of Last Use: . Crack. Route: Smoking. Frequency: Daily. Amount used: 180$. Age of first use: 20. Date of Last Use: 09/20/17 Medical History: Diabetes mellitus,hypertension,dyslipidemia,history of appendectomy + orthosurgery for fracture of right ankle. Psychiatric History: Extensive history of mental illness.Multiple psychiatric hospitalizations ([facility]).Patient endorses the diagnosis of Bipolar Disorder.He sees a psychiatrist at the [facility].Medicated with seroquel 200 mg po bid + trazodone 50 mg po hs as per self -report.Onset of psychiatric disturbances had occurred around age 27.Mr Richard admits to a history of suicide attempts (self-mutilation). Physical/Sexual Abuse/Trauma History: Patient denies. Additional Comment: Urine Drug Screen Results: PALLAVI-Cocaine, BZO- Benzodiazepines.Noted. Mental Status Exam - Mental Status Exam Alert and Oriented to: Time, Place, Person Cognitive Function: Good Patient Appearance: Well Groomed Mood: Nervous, Withdrawn Affect: Mood Congruent Patient Behavior: Fatigued, Cooperative Speech Pattern: Clear Voice Loudness: Normal Thought Process: Goal Oriented Thought Disorder: Not Present Hallucinations: Denies Suicidal Ideation: Denies Homicidal Ideation: Denies Insight/Judgement: Fair Sleep: Poorly, Difficulty falling asleep Appetite: Good Muscle strength/Tone: Normal Gait/Station: Normal Psychiatric Findings - Problem List ([place] 1, 2,3) (1) Alcohol dependence with uncomplicated withdrawal Current Visit: Yes Status: Acute (2) Cocaine dependence Current Visit: Yes Status: Acute Qualifiers: Substance use status: uncomplicated Qualified Code(s): F14.20 - Cocaine dependence, uncomplicated (3) Nicotine dependence Current Visit: Yes Status: Acute Qualifiers: Nicotine product type: cigarettes Substance use status: in withdrawal Qualified Code(s): F17.213 - Nicotine dependence, cigarettes, with withdrawal (4) Substance induced mood disorder Current Visit: Yes Status: Acute (5) Schizoaffective disorder Current Visit: Yes Status: Chronic (6) Insomnia Current Visit: Yes Status: Acute - Initial Treatment Plan Initial Treatment Plan: Records revisited.Psychoeducation.Detoxification in progress.Sleep hygiene.Medications : seroquel 200 mg po hs + 100 mg po daily ( reduced) + trazodone 50 mg po hs.Side effects/benefits of both drugs are discused with the patient,including the potential for priapism,metabolic syndrome,oversedation and abnormal involuntary movements.Mr Veliz agrees with this careplan.Observation.
[2017-09-21] MEDS ORDERED: QUEtiapine FUMARATE 100 MG TABLET (FP) PO SCH (13:00)
[2017-09-21] MEDS: QUEtiapine FUMARATE 100 MG TABLET (FP) PO SCH (15:43)
[2017-09-21] MEDS ORDERED: QUEtiapine FUMARATE 200 MG TABLET PO SCH (22:00)
[2017-09-21] MEDS ORDERED: traZODone HCL 50 MG TABLET (FP) PO SCH (22:00)
[2017-09-21] MEDS: ATORVASTATIN CA 40 MG TABLET (FP) PO SCH (22:23)
[2017-09-21] MEDS: THIAMINE HCL 100 MG TABLET (FP) PO SCH (22:23)
[2017-09-22] MEDS: chlordiazePOXIDE HCL 25 MG CAPSULE PO SCH (05:26)
[2017-09-22 06:05] VITALS: BP 100/63; PULSE 67; TEMP 97.2
[2017-09-22] MEDS: metFORMIN HCL 500 MG TABLET (FP) PO SCH (07:39)
[2017-09-22] MEDS: PRENATAL VITAMINS W/ FOLIC ACID TABLET (FP) PO SCH (09:26)
[2017-09-22] MEDS: QUEtiapine FUMARATE 100 MG TABLET (FP) PO SCH (09:26)
[2017-09-22] MEDS: LISINOPRIL 5 MG TABLET (FP) PO SCH (09:26)
[2017-09-22] MEDS: ASPIRIN 81 MG CHEWABLE TABLETS PO SCH (09:26)
--- NOTE | 2017-09-22 11:25 | PN ---
[facility] Progress Note (SOAP) Subjective: PT DECLINED TO CONTINUE WITH DETOX STATING " I GOT BUSINESS TO TAKE CARE OF". ALERT O X 3. Objective: 09/22/17 11:24 Vital Signs Temperature 97.2 F L 09/22/17 06:05 Pulse Rate 67 09/22/17 06:05 Respiratory Rate 18 09/22/17 06:05 Blood Pressure 100/63 09/22/17 06:05 O2 Sat by Pulse Oximetry (%) Laboratory Last Values WBC 7.6 K/mm3 (4.0-10.0) 09/21/17 06:10 RBC 4.47 M/mm3 (4.00-5.60) 09/21/17 06:10 Hgb 14.2 GM/dL (11.7-16.9) 09/21/17 06:10 Hct 41.5 % (35.4-49) 09/21/17 06:10 MCV 92.6 fl (80-96) 09/21/17 06:10 MCH 31.7 pg (25.7-33.7) 09/21/17 06:10 MCHC 34.3 g/dl (32.0-35.9) 09/21/17 06:10 RDW 13.4 % (11.9-15.9) 09/21/17 06:10 Plt Count 216 K/MM3 (134-434) 09/21/17 06:10 MPV 10.0 fl (7.5-11.1) 09/21/17 06:10 Sodium 140 mmol/L (136-145) 09/21/17 06:10 Potassium 4.5 mmol/L (3.5-5.1) 09/21/17 06:10 Chloride 104 mmol/L (98-107) 09/21/17 06:10 Carbon Dioxide 31 mmol/L (21-32) 09/21/17 06:10 Anion Gap 5 (8-16) L 09/21/17 06:10 BUN 19 mg/dL (7-18) H 09/21/17 06:10 Creatinine 0.8 mg/dL (0.7-1.3) 09/21/17 06:10 Creat Clearance w eGFR > 60 (>60) 09/21/17 06:10 POC Glucometer 114 UNITS (80-120) 09/22/17 05:25 Random Glucose 89 mg/dL (74-106) D 09/21/17 06:10 Calcium 9.2 mg/dL (8.5-10.1) 09/21/17 06:10 Total Bilirubin 0.3 mg/dL (0.2-1.0) D 09/21/17 06:10 AST 76 U/L (15-37) H 09/21/17 06:10 ALT 67 U/L (12-78) D 09/21/17 06:10 Alkaline Phosphatase 130 U/L (45-117) H 09/21/17 06:10 Total Protein 7.5 g/dl (6.4-8.2) 09/21/17 06:10 Albumin 3.9 g/dl (3.4-5.0) 09/21/17 06:10 Urine Color Yellow 09/20/17 17:30 Urine Appearance Slcloudy 09/20/17 17:30 Urine pH 7.0 (5.0-8.0) 09/20/17 17:30 Ur Specific [place] 1.020 (1.001-1.035) 09/20/17 17:30 Urine Protein Negative (NEGATIVE) 09/20/17 17:30 Urine Glucose (UA) Negative (NEGATIVE) 09/20/17 17:30 Urine Ketones Negative (NEGATIVE) 09/20/17 17:30 Urine Blood Negative (NEGATIVE) 09/20/17 17:30 Urine Nitrite Negative (NEGATIVE) 09/20/17 17:30 Urine Bilirubin Negative (<2.0 mg/dL) 09/20/17 17:30 Urine Urobilinogen 2.0 mg/dL (0.2-1.0) 09/20/17 17:30 Ur Leukocyte Esterase Negative (NEGATIVE) 09/20/17 17:30 HIV 1&2 Antibody Screen Negative 09/21/17 06:10 HIV P24 Antigen Negative 09/21/17 06:10 Assessment: 09/22/17 11:24 NAD Plan: PT SIGNED AMA
--- NOTE | 2017-09-22 11:48 | DS ---
[facility] Detox Discharge Summary Admission Date: 09/20/17 Discharge Date: 09/22/17 - History Present History: Alcohol Dependence, Cocaine Dependence Additional Comments: PT SIGNED OUT AMA STATING "I GOT BUSINESS TO TAKE CARE OF". PT STATES HIS PRIMARY CARE IS WITH [facility] AND WILL FOLLOW UP FOR HIS MEDICAL CARE NEEDED. - Physical Exam Results Vital Signs: Vital Signs Temperature 97.2 F L 09/22/17 06:05 Pulse Rate 67 09/22/17 06:05 Respiratory Rate 18 09/22/17 06:05 Blood Pressure 100/63 09/22/17 06:05 O2 Sat by Pulse Oximetry (%) - Medication Discharge Medications: Ambulatory Orders metFORMIN HCL [Glucophage -] 500 mg PO BID 12/13/14 Aspirin [ASA -] 81 mg PO DAILY #0 tab.chew 04/06/15 traZODone HCL [Desyrel -] 50 mg PO HS #30 tablet 08/24/15 Lisinopril [Zestril] 2.5 mg PO DAILY 08/21/17 Quetiapine Fumarate [Seroquel] 200 mg PO BID 08/21/17 Atorvastatin Ca [Lipitor] 40 mg PO HS 09/20/17 - Diagnosis (1) DM2 (diabetes mellitus, type 2) Status: Chronic (2) Alcohol dependence with uncomplicated withdrawal Status: Acute (3) Cocaine dependence Status: Acute Qualifiers: Substance use status: uncomplicated Qualified Code(s): F14.20 - Cocaine dependence, uncomplicated (4) HTN (hypertension) Status: Chronic Qualifiers: Hypertension type: essential hypertension Qualified Code(s): I10 - Essential (primary) hypertension (5) Hypercholesterolemia Status: Chronic (6) Nicotine dependence Status: Acute Qualifiers: Nicotine product type: cigarettes Substance use status: in withdrawal Qualified Code(s): F17.213 - Nicotine dependence, cigarettes, with withdrawal
[2017-09-22] MEDS ORDERED: chlordiazePOXIDE 5 MG CAPSULE PO SCH (17:00)
[2017-09-23] MEDS ORDERED: chlordiazePOXIDE HCL 10 MG CAPSULE PO SCH (17:00)
== END 2017-09-22 09:10 | disposition left against medical advice (07) | DRG 770 ==
LOC: YASAS 09:43 → Y3N 14:56
PROVIDERS: ADMIT Internal Medicine; ATTEND Internal Medicine
PROC: HZ2ZZZZ Detoxification Services for Substance Abuse Treatment (ICD-10-PCS; principal; 2017-09-20)
DX: F10.230 Alcohol dependence with withdrawal, uncomplicated (principal); F14.20 Cocaine dependence, uncomplicated; F17.213 Nicotine dependence, cigarettes, with withdrawal; F20.9 Schizophrenia, unspecified; F19.24 Other psychoactive substance dependence with psychoactive substance-induced mood disorder; G47.00 Insomnia, unspecified; I10 Essential (primary) hypertension; E78.00 Pure hypercholesterolemia, unspecified; E11.9 Type 2 diabetes mellitus without complications; Z79.84 Long term (current) use of oral hypoglycemic drugs
CPT/HCPCS: 36415; 80053; 81003; 82962; 85027; 86593; 87389; 93005; 93010

== ENCOUNTER 2017-10-29 11:03 | Inpatient (IN) | payer OTHER ==
[2017-10-29 12:20] VITALS: BMI 24.6
--- NOTE | 2017-10-29 15:38 | HP ---
Admission [facility] Chief Complaint: "I want to stop using." Patient is here for Rehab for Alcohol and Cocaine. Allergies/Adverse Reactions: Allergies Allergy/AdvReac Type Severity Reaction Status Date / Time No Known Drug Allergies Allergy Verified 10/29/17 15:02 TUNA FISH Allergy Severe Rash Uncoded 10/29/17 15:02 History of Present Illness: Patient is a 57 YO male here for Rehab for Alcohol and Cocaine use. Patient has had several previous Detox admissions at [facility] (Last: 09/2017, Left AMA). Patient had a Detox admission at [facility] ([place], [place] that he completed yesterday. Patient fell on sidewalk near [facility] yesterday after leaving Detox unit there. Patient was taken back to [facility] ER for evaluation. Patient currently wearing supportive boot on Right lower leg and using a cane to assist with ambulation. Patient advised to follow-up at [facility] in 1 month (as recommended by ER medical provider) after discharge from Rehab for further medical evaluation. Exam Limitations: No Limitations - Ebola screening Have you traveled outside of the country in the last 21 days: No Have you had contact with anyone from an Ebola affected area: No Have you been sick,other than usual withdrawal symptoms: No Do you have a fever: No - Review of Systems Constitutional: Malaise, Changes in sleep EENT: reports: No Symptoms Reported Respiratory: reports: No Symptoms reported Cardiac: reports: No Symptoms Reported GI: reports: No Symptoms Reported : reports: No Symptoms Reported Musculoskeletal: reports: No Symptoms Reported Integumentary: reports: No Symptoms Reported Neuro: reports: Headache Endocrine: reports: No Symptoms Reported Hematology: reports: No Symptoms Reported Psychiatric: reports: Judgement Intact, Mood/Affect Appropiate, Orientated x3, Depressed (Takes meds.) Other Systems: Reviewed and Negative Patient History - Patient Medical History Hx Anemia: No Hx Asthma: No Hx Chronic Obstructive Pulmonary Disease (COPD): No Hx Cancer: No Hx Cardiac Disorders: No Hx Congestive Heart Failure: No Hx Hypertension: Yes (on meds) Hx Hypercholesterolemia: Yes (on meds) Hx Pacemaker: No HX Cerebrovascular Accident: No Hx Seizures: No Hx Dementia: No Hx Diabetes: Yes (on meds, well controlled) Hx Gastrointestinal Disorders: No Hx Liver Disease: No Hx Genitourinary Disorders: No Hx Sexually Transmitted Disorders: No Hx Renal Disease (ESRD): No Hx Thyroid Disease: No Hx Human Immunodeficiency Virus (HIV): No (Last Tested: 2016: NEGATIVE.) Hx Hepatitis C: No (Never Tested.) Hx Depression: Yes (Meds.) Hx Suicide Attempt: Yes (Attempted to cut wrist in 2009; DENIES CURRENT IDEATIONS) Hx Bipolar Disorder: Yes (on meds, [facility]) Hx Schizophrenia: Yes (Meds.) Other Medical History: Fall, fracture of bone in right foot, yesterday. Currently wearing boot. - Patient Surgical History Past Surgical History: Yes Hx Neurologic Surgery: No Hx Cataract Extraction: No Hx Cardiac Surgery: No Hx Lung Surgery: No Hx Breast Surgery: No Hx Breast Biopsy: No Hx Abdominal Surgery: No Hx Appendectomy: Yes (at age 6) Hx Cholecystectomy: No Hx Genitourinary Surgery: No Hx Section: No Hx Orthopedic Surgery: No Other Surgical History: DENIES. Anesthesia Reaction: No - PPD History Previous Implant?: Yes Documented Results: Negative w/o proof Implanted On Prior [facility] Admission?: Yes Date: 04/07/15 Results: 0MM PPD to be Administered?: Yes - Reproductive History Patient is a Female of Child Bearing Age (11 -55 yrs old): No (PATIENT IS MALE.) - Smoking Cessation Smoking history: Current every day smoker Have you smoked in the past 12 months: Yes Aproximately how many cigarettes per day: 20 Cigars Per Day: 0 Hx Chewing Tobacco Use: No Initiated information on smoking cessation: Yes 'Breaking Loose' booklet given: 10/29/17 (GIVEN TO PATIENT.) - Substance & Tx. History Hx Alcohol Use: Yes Hx Substance Use: Yes Substance Use Type: Alcohol, Cocaine Hx Substance Use Treatment: Yes (Detox at [facility] (11/05); Previous Detox at [facility] (Last: 10/06).) - Substances Abused Cocaine Route: Inhalation Frequency: Daily Amount used: $80 Age of first use: 24 Date of Last Use: 10/24/17 Alcohol-dave Route: Oral Frequency: Daily Amount used: 1 1/2 pts. Age of first use: 20 Date of Last Use: 10/24/17 Family Disease History - Family Disease History Family Disease History: Diabetes: Grandparent, Mother (living.), Other: Father ( , renal failure), Mother, Brother (one living -healthy, ), Sister (two living - healthy) Admission Physical Exam S - Vital Signs Vital Signs: Vital Signs - 24 hr 10/29/17 12:18 Temperature 97.6 F Pulse Rate 88 Respiratory 20 Rate Blood Pressure 117/82 - Physical General Appearance: Yes: No Apparent Distress, Nourished, Appropriately Dressed , Anxious, Other (Patient ambulates with asssitance of a cane and wearing supportive boot on Right lower leg.) HEENTM: Yes: Hearing grossly Normal, Normocephalic, Normal Voice, BOO[place], Pharynx Normal Respiratory: Yes: Chest Non-Tender, Lungs Clear, No Respiratory Distress, No Accessory Muscle Use Neck: Yes: No masses,lesions,Nodules, Supple, Trachea in good position Breast: Yes: Breast Exam Deferred Cardiology: Yes: Regular Rhythm, Regular Rate, S1, S2 Abdominal: Yes: Normal Bowel Sounds, Non Tender, Flat, Soft Genitourinary: Yes: Within Normal Limits Back: Yes: Normal Inspection Musculoskeletal: Yes: Gait Steady Extremities: Yes: Normal Capillary Refill, Other (Supportive boot on Right Lower Leg for injury to Right foot that occurred yesterday.) Neurological: Yes: Fully Oriented, Alert, Normal Mood/Affect, Normal Response Integumentary: Yes: Normal Color, Dry, Warm Lymphatic: Yes: Within Normal Limits - Diagnostic (1) Alcohol dependence, uncomplicated Current Visit: Yes Status: Chronic (2) Bipolar disorder Current Visit: Yes Status: Chronic Qualifiers: Active/Remission status: remission status unspecified Qualified Code(s): F31.9 - Bipolar disorder, unspecified (3) Cocaine dependence Current Visit: Yes Status: Acute Qualifiers: Substance use status: uncomplicated Qualified Code(s): F14.20 - Cocaine dependence, uncomplicated (4) Insomnia Current Visit: Yes Status: Chronic Qualifiers: Insomnia type: unspecified Qualified Code(s): G47.00 - Insomnia, unspecified (5) Nicotine dependence Current Visit: Yes Status: Chronic Qualifiers: Nicotine product type: cigarettes Substance use status: uncomplicated Qualified Code(s): F17.210 - Nicotine dependence, cigarettes, uncomplicated (6) DM2 (diabetes mellitus, type 2) Current Visit: Yes Status: Chronic Qualifiers: Diabetes mellitus economics consultant insulin use: without chcf use Diabetes mellitus complication status: without complication Qualified Code(s): E11.9 - Type 2 diabetes mellitus without complications (7) HTN (hypertension) Current Visit: Yes Status: Chronic Qualifiers: Hypertension type: essential hypertension Qualified Code(s): I10 - Essential (primary) hypertension (8) Hypercholesterolemia Current Visit: Yes Status: Chronic (9) Use of cane as ambulatory aid Current Visit: Yes Status: Acute (10) Injury of right foot Current Visit: Yes Status: Acute Qualifiers: Encounter type: subsequent encounter Qualified Code(s): S99.921D - Unspecified injury of right foot, subsequent encounter (11) History of schizophrenia Current Visit: Yes Status: Suspected (12) Depression Current Visit: Yes Status: Chronic Qualifiers: Depression Type: unspecified Qualified Code(s): F32.9 - Major depressive disorder, single episode, unspecified Cleared for Admission [facility] - Detox or Rehab Claeared for Rehab Admission: Yes [facility] Breath Alcohol Content Breath Alcohol Content: 0 Urine Drug Screen - Results Drug Screen Negative: No Urine Drug Screen Results: PALLAVI-Cocaine, BZO-Benzodiazepines Inpatient Rehab Admission - Initial Determination Are CD services needed?: Yes Free of communicable disease: Yes Not in need of hospitalization: Yes - Rehab Admission Criteria Previous failed treatment: Yes Poor recovery environment: Yes Comorbidities: Yes Patient is meeting Inpatient Rehab admission criteria:: Yes
[2017-10-29] MEDS ORDERED: MAG HYDROX/AL HYDROX/SIMETH 30 ML UNIT-DOSE CUP PO PRN (16:09)
[2017-10-29] MEDS ORDERED: MENTHOL/PHENOL 1 EACH UD MM PRN (16:09)
[2017-10-29] MEDS ORDERED: guaiFENesin/D-METHORPHAN HB 10 ML UNIT-DOSE CUPS PO PRN (16:09)
[2017-10-29] MEDS ORDERED: MAGNESIUM HYDROX 2400MG/30ML ORAL SUSPENSION 30 ML CUP PO PRN (16:09)
[2017-10-29] MEDS ORDERED: MAGNESIUM CITRATE 300 ML BOTTLE PO PRN (16:09)
[2017-10-29] MEDS ORDERED: LOPERAMIDE HCL 2 MG CAPSULE PO PRN (16:09)
[2017-10-29] MEDS ORDERED: P-EPHED 60MG/TRIPROLIDI 2.5MG TABLET PO PRN (16:09)
[2017-10-29] MEDS ORDERED: ACETAMINOPHEN 325 MG TABLET (FP) PO PRN (16:26)
[2017-10-29] MEDS ORDERED: TUBERCULIN PPD 5 TU/0.1ML VIAL ID ONE (17:16)
[2017-10-29] MEDS: metFORMIN HCL 500 MG TABLET (FP) PO SCH (17:21)
[2017-10-29] MEDS: ASPIRIN 81 MG CHEWABLE TABLETS PO SCH (17:22)
[2017-10-29] MEDS: LISINOPRIL 5 MG TABLET (FP) PO SCH (17:22)
--- NOTE | 2017-10-29 20:12 | PN ---
[facility] Progress Note Note: Psychiatrist chief controller tower note: Called by nursing staff to order medications for newly admitted patient from [facility] today. Medications reconciled.Seroquel 200 mg po BID ad Trazadone 100 mg po HS ordered
[2017-10-29] MEDS: traZODone HCL 50 MG TABLET (FP) PO SCH (21:35)
[2017-10-29] MEDS: THIAMINE HCL 100 MG TABLET (FP) PO SCH (21:35)
[2017-10-29] MEDS: QUEtiapine FUMARATE 100 MG TABLET (FP) PO SCH (21:35)
[2017-10-29] MEDS: ATORVASTATIN CA 40 MG TABLET (FP) PO SCH (21:36)
[2017-10-29] MEDS ORDERED: MELATONIN 5 MG TABLETS PO PRN (22:00)
[2017-10-30] MEDS: metFORMIN HCL 500 MG TABLET (FP) PO SCH ×2 (06:44→16:37)
--- NOTE | 2017-10-30 09:22 | EKG ---
Test Reason : Blood Pressure : / mmHG Vent. Rate : 086 BPM Atrial Rate : 086 BPM P-R Int : 138 ms QRS Dur : 102 ms QT Int : 394 ms P-R-T Axes : 069 -03 072 degrees QTc Int : 471 ms NORMAL SINUS RHYTHM POSSIBLE LEFT ATRIAL ENLARGEMENT BORDERLINE ECG WHEN COMPARED WITH ECG OF 20-SEP-2017 15:36, NONSPECIFIC T WAVE ABNORMALITY NOW EVIDENT IN LATERAL LEADS Confirmed by PAMELA MADRID, JOSESITO ([id number]) on 10/30/2017 9:22:37 AM Referred By: Jose Alberto Neff Confirmed By:JOSESITO SANTIAGO MD
[2017-10-30] MEDS: ASPIRIN 81 MG CHEWABLE TABLETS PO SCH (10:04)
[2017-10-30] MEDS: QUEtiapine FUMARATE 100 MG TABLET (FP) PO SCH ×2 (10:04→21:26)
[2017-10-30] MEDS: PRENATAL VITAMINS W/ FOLIC ACID TABLET (FP) PO SCH (10:04)
[2017-10-30] MEDS: LISINOPRIL 5 MG TABLET (FP) PO SCH (10:04)
[2017-10-30] MEDS: PANTOPRAZOLE 40 MG TABLET (FP) PO SCH (10:05)
[2017-10-30 10:06] LABS: HEMATOCRIT 38.3 % (35.4-49); HEMOGLOBIN 13.4 GM/dL (11.7-16.9); MCHC 34.9 g/dl (32.0-35.9); MEAN CELL VOLUME 91.8 fl (80-96); MEAN PLT VOLUME 9.4 fl (7.5-11.1); PLATELET COUNT 187 K/MM3 (134-434); RBC 4.17 M/mm3 (4.00-5.60); RDW 13.4 % (11.9-15.9); WHITE BLOOD COUNT 5.7 K/mm3 (4.0-10.0)
[2017-10-30] MEDS: IBUPROFEN 400 MG TABLET (FP) PO PRN ×2 (10:07→21:28)
[2017-10-30 10:32] LABS: ALBUMIN 3.2 g/dl (3.4-5.0); ALK PHOS 109 U/L (45-117); ANION GAP 5 (8-16); BILIRUBIN,TOTAL 0.8 mg/dL (0.2-1.0); BLOOD UREA NITROGEN 15 mg/dL (7-18); CALCIUM 8.1 mg/dL (8.5-10.1); CHLORIDE 105 mmol/L (98-107); CO2 29 mmol/L (21-32); CREATININE 0.7 mg/dL (0.7-1.3); GLUCOSE,RANDOM 126 mg/dL (74-106); POTASSIUM 3.8 mmol/L (3.5-5.1); SGOT/AST 87 U/L (15-37); SGPT/ALT 95 U/L (12-78); SODIUM 139 mmol/L (136-145); TOT PROT 6.2 g/dl (6.4-8.2)
[2017-10-30 16:52] LABS: URINE APPEARANCE CLEAR; URINE BILIRUBIN NEGATIVE (<2.0 mg/dL); URINE COLOR YELLOW; URINE GLUCOSE (UA) NEGATIVE (NEGATIVE); URINE KETONE NEGATIVE (NEGATIVE); URINE LEUK ESTERASE NEGATIVE (NEGATIVE); URINE NITRITE NEGATIVE (NEGATIVE); URINE PROTEIN NEGATIVE (NEGATIVE)
[2017-10-30] MEDS: THIAMINE HCL 100 MG TABLET (FP) PO SCH (21:26)
[2017-10-30] MEDS: ATORVASTATIN CA 40 MG TABLET (FP) PO SCH (21:26)
[2017-10-30] MEDS: traZODone HCL 50 MG TABLET (FP) PO SCH (21:26)
[2017-10-31] MEDS: metFORMIN HCL 500 MG TABLET (FP) PO SCH (06:47)
[2017-10-31 07:12] VITALS: TEMP 97.8
[2017-10-31] MEDS: IBUPROFEN 400 MG TABLET (FP) PO PRN (07:25)
[2017-10-31] MEDS: QUEtiapine FUMARATE 100 MG TABLET (FP) PO SCH (10:01)
[2017-10-31] MEDS: ASPIRIN 81 MG CHEWABLE TABLETS PO SCH (10:01)
[2017-10-31] MEDS: LISINOPRIL 5 MG TABLET (FP) PO SCH (10:01)
[2017-10-31] MEDS: PANTOPRAZOLE 40 MG TABLET (FP) PO SCH (10:02)
[2017-10-31] MEDS: PRENATAL VITAMINS W/ FOLIC ACID TABLET (FP) PO SCH (10:02)
[2017-10-31 11:24] VITALS: BP 122/42; PULSE 81
--- NOTE | 2017-10-31 13:44 | PN ---
S Progress Note Note: Psychiatrist land acquisition specialist note: Called by nursing staff regarding patient wanting to leave today against medical advice. Reportedly patient was determined to leave despite encouragement by nursing staff to stay to complete the program. Told by nursing staff that patient has enough supply of medications(Seroquel 200 mg po BID & Trazadone 100 mg po HS) till he can see his medical provider. Refer to nursing staff note for further information
== END 2017-10-31 13:50 | disposition left against medical advice (07) | DRG 770 ==
LOC: YASAS 11:03 → Y5N 15:36
PROVIDERS: ADMIT Psychiatry & Neurology Psychiatry; ATTEND Psychiatry & Neurology Psychiatry
PROC: HZ42ZZZ Group Counseling for Substance Abuse Treatment, Cognitive-Behavioral (ICD-10-PCS; principal; 2017-10-29)
DX: F10.20 Alcohol dependence, uncomplicated (principal); F14.20 Cocaine dependence, uncomplicated; F17.210 Nicotine dependence, cigarettes, uncomplicated; F20.9 Schizophrenia, unspecified; F31.9 Bipolar disorder, unspecified; G47.00 Insomnia, unspecified; I10 Essential (primary) hypertension; E78.00 Pure hypercholesterolemia, unspecified; R26.89 Other abnormalities of gait and mobility; Z99.89 Dependence on other enabling machines and devices; S99.821D Other specified injuries of right foot, subsequent encounter; Z91.81 History of falling; E11.9 Type 2 diabetes mellitus without complications; Z79.84 Long term (current) use of oral hypoglycemic drugs
CPT/HCPCS: 36415; 80053; 81003; 82962; 85027; 86593; 93005; 93010

== ENCOUNTER 2018-05-07 08:02 | Inpatient (IN) | payer OTHER ==
[2018-05-07 08:58] VITALS: BMI 26.6
--- NOTE | 2018-05-07 10:32 | HP ---
CIWA Score Nausea/Vomitin Muscle Tremors: 2 Anxiety: 3 Agitation: 0-Normal Activity Paroxysmal Sweats: No Perspiration Orientation: 1-Uncertain about Date Tacttile Disturbances: 0-None Auditory Disturbances: 1-Very Mild Visual Disturbances: 1-Very Mild Sensitivity Headache: 3-Moderate CIWA-Ar Total Score: 13 - Admission Criteria OASAS Guidelines: Admission for Medically Managed Detox: Requires at least one of the followin. CIWA greater than 12 2. Seizures within the past 24 hours 3. Delirium tremens within the past 24 hours 4. Hallucinations within the past 24 hours 5. Acute intervention needed for co occurring medical disorder 6. Acute intervention needed for co occurring psychiatric disorder 7. Severe withdrawal that cannot be handled at a lower level of care (continued vomiting, continued diarrhea, abnormal vital signs) requiring intravenous medication and/or fluids 8. Patient presents the following: CIWA greater than 12, Acute intervention needed for co-occurring med or psych disorder Admission Criteria Met: Admission criteria met Admission ROS S - [facility] Chief Complaint: I'm tired, I have to stop, want to really try Allergies/Adverse Reactions: Allergies Allergy/AdvReac Type Severity Reaction Status Date / Time No Known Drug Allergies Allergy Verified 05/07/18 09:01 TUNA FISH Allergy Severe Rash Uncoded 05/07/18 09:01 History of Present Illness: 58 yo gentleman here for detox from alcohol. This is one of multiple admissions for treatment. Reviewed with him that has not completed treatment here, leaving AMA, every visit for the last year including rehab. Counseled him that recovery is more likely if he stays and then goes to aftercare program. He agrees. He denies seizures but does have black outs. He is homeless, states 'I lost everything'. Exam Limitations: Clinical Condition - Ebola screening Have you traveled outside of the country in the last 21 days: No (N) Have you had contact with anyone from an Ebola affected area: No Have you been sick,other than usual withdrawal symptoms: No Do you have a fever: No - Review of Systems Constitutional: Loss of Appetite, Changes in sleep, Weakness EENT: reports: Blurred Vision Respiratory: reports: No Symptoms reported Cardiac: reports: No Symptoms Reported GI: reports: Nausea, Poor Appetite, Abdominal cramping Musculoskeletal: reports: No Symptoms Reported Integumentary: reports: Dryness Neuro: reports: Headache, Tremors Endocrine: reports: No Symptoms Reported Hematology: reports: No Symptoms Reported Psychiatric: reports: Judgement Intact, Mood/Affect Appropiate, Anxious Other Systems: Reviewed and Negative Patient History - Patient Medical History Hx Anemia: No Hx Asthma: No Hx Chronic Obstructive Pulmonary Disease (COPD): No Hx Cancer: No Hx Cardiac Disorders: No Hx Congestive Heart Failure: No Hx Hypertension: Yes (ON LISINOPRIL) Hx Hypercholesterolemia: Yes (on meds-LIPITOR) Hx Pacemaker: No HX Cerebrovascular Accident: No Hx Seizures: No Hx Dementia: No Hx Diabetes: Yes (NIDDM-ON METFORMIN 500 MG PO BID) Hx Gastrointestinal Disorders: Yes (acid reflux-ON OMEPRAZOLE 40 MG PO DAILY) Hx Liver Disease: No Hx Genitourinary Disorders: No Hx Sexually Transmitted Disorders: No (DENIES) Hx Renal Disease (ESRD): No Hx Thyroid Disease: No Hx Human Immunodeficiency Virus (HIV): No (Last Tested: 2016: NEGATIVE HX) Hx Hepatitis C: No (NEGATIVE TEST RESULT 9 MONTHS AGO) Hx Depression: Yes (ON MEDS) Hx Suicide Attempt: Yes (10-15 YEARS AGO cut abdominal wall) Hx Bipolar Disorder: Yes (on meds, [facility]) Hx Schizophrenia: Yes (hospitalized 2013) - Patient Surgical History Past Surgical History: Yes Hx Neurologic Surgery: No Hx Cataract Extraction: No Hx Cardiac Surgery: No Hx Lung Surgery: No Hx Breast Surgery: No Hx Breast Biopsy: No Hx Abdominal Surgery: No Hx Appendectomy: Yes (at age 6) Hx Cholecystectomy: No Hx Genitourinary Surgery: No Hx Section: No Hx Orthopedic Surgery: No Other Surgical History: DENIES. Anesthesia Reaction: No - PPD History Previous Implant?: Yes Documented Results: Negative w/proof Implanted On Prior [facility] Admission?: Yes Date: 10/31/17 Results: NEGATIVE PPD to be Administered?: No - Reproductive History Patient is a Female of Child Bearing Age (11 -55 yrs old): No (male) - Smoking Cessation Smoking history: Current every day smoker Have you smoked in the past 12 months: Yes Aproximately how many cigarettes per day: 20 Cigars Per Day: 0 Hx Chewing Tobacco Use: No Initiated information on smoking cessation: Yes 'Breaking Loose' booklet given: 05/07/18 (give on floor) - Substances Abused Alcohol Route: Oral Frequency: Daily Amount used: 1-2 PINTS OF CECI Age of first use: 20 Date of Last Use: 05/07/18 Cocaine Route: Inhalation Frequency: Daily Amount used: 1-2 GRAMS Age of first use: 24 Date of Last Use: 05/07/18 Crack Route: Smoking Frequency: 1-2 times per week Amount used: 1.5 GRAMS Age of first use: 34 Date of Last Use: 05/06/18 Family Disease History - Family Disease History Family Disease History: Diabetes: Grandparent, Mother (living.), Other: Father ( , renal failure), Mother, Brother (one living -healthy, ), Sister (two living - healthy) Admission Physical Exam [facility] - Vital Signs Vital Signs: Vital Signs - 24 hr 05/07/18 08:54 Temperature 98.0 F Pulse Rate 89 Respiratory 18 Rate Blood Pressure 128/80 - Physical General Appearance: Yes: Nourished, Appropriately Dressed, Moderate Distress, Tremorous, Anxious HEENTM: Yes: EOMI, Hearing grossly Normal, Normocephalic, Normal Voice, Pharynx Normal Respiratory: Yes: Normal Breath Sounds, No Respiratory Distress Neck: Yes: No masses,lesions,Nodules, Supple Breast: Yes: Breast Exam Deferred Cardiology: Yes: Regular Rhythm, Regular Rate Abdominal: Yes: Non Tender, Soft Genitourinary: Yes: Frequency Back: Yes: Normal Inspection Musculoskeletal: Yes: full range of Motion, Gait Steady Extremities: Yes: Normal Inspection, Normal Range of Motion, Non-Tender, Tremors Neurological: Yes: Alert, Motor Strength 5/5, Normal Mood/Affect, Normal Response Integumentary: Yes: Normal Color, Dry, Warm Lymphatic: Yes: Within Normal Limits - Addiitonal Findings: SOP=045 - Diagnostic (1) Alcohol dependence with uncomplicated withdrawal Current Visit: Yes Status: Chronic (2) Cocaine dependence Current Visit: Yes Status: Chronic Qualifiers: Substance use status: uncomplicated Qualified Code(s): F14.20 - Cocaine dependence, uncomplicated (3) Nicotine dependence Current Visit: Yes Status: Chronic Qualifiers: Nicotine product type: cigarettes Substance use status: uncomplicated Qualified Code(s): F17.210 - Nicotine dependence, cigarettes, uncomplicated (4) DM2 (diabetes mellitus, type 2) Current Visit: Yes Status: Chronic Qualifiers: Diabetes mellitus shelter insulin use: without athletics director use Diabetes mellitus complication status: without complication Qualified Code(s): E11.9 - Type 2 diabetes mellitus without complications Cleared for Admission [facility] - Detox or Rehab [facility] Level of Care: Medically Managed Detox Regimen/Protocol: Librium [facility] Breath Alcohol Content Breath Alcohol Content: 0 Urine Drug Screen - Results Drug Screen Negative: No Urine Drug Screen Results: PALLAVI-Cocaine, BZO-Benzodiazepines
[2018-05-07] MEDS ORDERED: NICOTINE POLACRILEX 4 MG GUM BUC PRN (10:40)
[2018-05-07] MEDS ORDERED: ACETAMINOPHEN 325 MG TABLET (FP) PO PRN (10:40)
[2018-05-07] MEDS ORDERED: IBUPROFEN 400 MG TABLET (FP) PO PRN (10:40)
[2018-05-07] MEDS ORDERED: chlordiazePOXIDE HCL 25 MG CAPSULE PO PRN (10:40)
[2018-05-07] MEDS ORDERED: MENTHOL/PHENOL 1 EACH UD MM PRN (10:40)
[2018-05-07] MEDS ORDERED: MAG HYDROX/AL HYDROX/SIMETH 30 ML UNIT-DOSE CUP PO PRN (10:40)
[2018-05-07] MEDS ORDERED: LOPERAMIDE HCL 2 MG CAPSULE PO PRN (10:40)
[2018-05-07] MEDS ORDERED: MAGNESIUM HYDROX 2400MG/30ML ORAL SUSPENSION 30 ML CUP PO PRN (10:40)
[2018-05-07] MEDS ORDERED: guaiFENesin/D-METHORPHAN HB 10 ML UNIT-DOSE CUPS PO PRN (10:40)
[2018-05-07] MEDS ORDERED: MAGNESIUM CITRATE 300 ML BOTTLE PO PRN (10:40)
[2018-05-07] MEDS ORDERED: P-EPHED 60MG/TRIPROLIDI 2.5MG TABLET PO PRN (10:40)
[2018-05-07] MEDS: INSULIN SLIDING SCALE (NOVOLOG) 1 VIAL SQ SCH ×3 (11:57→22:29)
[2018-05-07] MEDS: ASPIRIN COATED 81 MG TABLET.EC PO SCH (12:14)
[2018-05-07] MEDS: LISINOPRIL 5 MG TABLET (FP) PO SCH (12:14)
[2018-05-07] MEDS: PANTOPRAZOLE 20 MG TABLET (FP) PO SCH (12:16)
--- NOTE | 2018-05-07 14:57 | EKG ---
Test Reason : Blood Pressure : / mmHG Vent. Rate : 092 BPM Atrial Rate : 092 BPM P-R Int : 142 ms QRS Dur : 098 ms QT Int : 354 ms P-R-T Axes : 065 -21 056 degrees QTc Int : 437 ms NORMAL SINUS RHYTHM VOLTAGE CRITERIA FOR LEFT VENTRICULAR HYPERTROPHY LEFT ATRIAL ENLARGEMENT LATERAL INFARCT , AGE UNDETERMINED ABNORMAL ECG WHEN COMPARED WITH ECG OF 06-FEB-2018 11:30, NO SIGNIFICANT CHANGE WAS FOUND Confirmed by Gerald Ledbetter ([id number]) on 05/07/2018 2:57:26 PM Referred By: Confirmed By:Gerald Ledbetter
[2018-05-07] MEDS: metFORMIN HCL 500 MG TABLET (FP) PO SCH (16:45)
[2018-05-07] MEDS: chlordiazePOXIDE HCL 25 MG CAPSULE PO SCH ×2 (17:46→22:27)
[2018-05-07] MEDS ORDERED: INSULIN (NOVOLOG) ASPART 100 UNITS/ML 10ML VIAL ONE (17:47)
[2018-05-07 19:32] LABS: URINE APPEARANCE CLEAR; URINE BILIRUBIN NEGATIVE (<2.0 mg/dL); URINE COLOR YELLOW; URINE GLUCOSE (UA) NEGATIVE (NEGATIVE); URINE KETONE NEGATIVE (NEGATIVE); URINE LEUK ESTERASE NEGATIVE (NEGATIVE); URINE NITRITE NEGATIVE (NEGATIVE); URINE PROTEIN NEGATIVE (NEGATIVE); URINE UROBILINOGEN NEGATIVE mg/dL (0.2-1.0)
[2018-05-07] MEDS: THIAMINE HCL 100 MG TABLET (FP) PO SCH (22:27)
[2018-05-07] MEDS: MELATONIN 5 MG TABLETS PO PRN (22:28)
[2018-05-08] MEDS: chlordiazePOXIDE HCL 25 MG CAPSULE PO SCH ×4 (05:23→23:12)
[2018-05-08] MEDS ORDERED: INSULIN (NOVOLOG) ASPART 100 UNITS/ML 10ML VIAL ONE ×3 (07:39→16:40)
[2018-05-08] MEDS: INSULIN SLIDING SCALE (NOVOLOG) 1 VIAL SQ SCH ×4 (07:44→22:02)
[2018-05-08] MEDS: metFORMIN HCL 500 MG TABLET (FP) PO SCH ×2 (07:44→16:42)
--- NOTE | 2018-05-08 08:26 | CONSULT ---
[facility] Psychiatric Consult - Data Date of interview: 05/08/18 Admission source: Sef-referred Identifying data: Mr Veliz is a 58 years old single male, unemployed on SSI, homeless seeking detox treament for alcohol and cocaine Substance Abuse History: Reports history of alchol and coccaine use. Refer to addiction counselor's summary for further information Medical History: Significant for diabetes mellitus, hypertension, dyslipidemia, GERD, history of appendectomy and orthosurgery for fracture of right ankle. Smokes cigarettes 1 ppd Psychiatric History: Patient presents with an extensive history of mental illness. He is diagnosed with Schizoaffective Disorder in 2001. Reports multiple psychiatric hospitalizations at various facilities including [facility] and recently at [facility]. Mr Ramos sees a psychiatrist at the [facility] and he is prescribed Seroquel 200 mg po BID and Trazodone 100 mg po HS. Reports history of previous suicidal attempts by self-mutilation(wrist and abdomen). At present , reports feeling depressed and sleeping poorly Physical/Sexual Abuse/Trauma History: Denies history of emotional, physical or sexual abuse as well as DV relationship Additional Comment: Reports history of one previous arrest on charges of cocaine possession Mental Status Exam - Mental Status Exam Alert and Oriented to: Time, Place, Person Cognitive Function: Fair Patient Appearance: Well Groomed Mood: Depressed Affect: Appropriate Patient Behavior: Cooperative Speech Pattern: Clear Voice Loudness: Normal Thought Process: Intact, Goal Oriented Thought Disorder: Not Present Hallucinations: Denies Suicidal Ideation: Denies Homicidal Ideation: Denies Insight/Judgement: Fair Sleep: Poorly Appetite: Good Muscle strength/Tone: Normal Gait/Station: Normal Psychiatric Findings - Problem List ([place] 1, 2,3) (1) Schizoaffective disorder Current Visit: Yes Status: Chronic (2) Substance induced mood disorder Current Visit: Yes Status: Acute (3) Substance-induced sleep disorder Current Visit: Yes Status: Acute (4) Alcohol dependence with uncomplicated withdrawal Current Visit: Yes Status: Acute (5) Cocaine dependence Current Visit: Yes Status: Acute Qualifiers: Substance use status: uncomplicated Qualified Code(s): F14.20 - Cocaine dependence, uncomplicated (6) Nicotine dependence Current Visit: Yes Status: Chronic Qualifiers: Nicotine product type: cigarettes Substance use status: uncomplicated Qualified Code(s): F17.210 - Nicotine dependence, cigarettes, uncomplicated (7) Diabetes mellitus Current Visit: No Status: Chronic Qualifiers: Diabetes mellitus type: type 2 Diabetes mellitus custodial insulin use: without custodial use Diabetes mellitus complication status: without complication Qualified Code(s): E11.9 - Type 2 diabetes mellitus without complications Comment: 85 (8) HTN (hypertension) Current Visit: No Status: Chronic Qualifiers: Hypertension type: essential hypertension Qualified Code(s): I10 - Essential (primary) hypertension (9) Hypercholesterolemia Current Visit: No Status: Chronic (10) GERD (gastroesophageal reflux disease) Current Visit: Yes Status: Chronic - Initial Treatment Plan Initial Treatment Plan: 1) Continue Seroquel 200 mg po BID. 2) Continue inpatient detoxification
[2018-05-08] MEDS: LISINOPRIL 5 MG TABLET (FP) PO SCH (10:20)
[2018-05-08] MEDS: PRENATAL VITAMINS W/ FOLIC ACID TABLET (FP) PO SCH (10:20)
[2018-05-08] MEDS: QUEtiapine FUMARATE 200 MG TABLET PO SCH ×2 (10:21→21:56)
[2018-05-08] MEDS: ASPIRIN COATED 81 MG TABLET.EC PO SCH (10:21)
[2018-05-08] MEDS: PANTOPRAZOLE 20 MG TABLET (FP) PO SCH (10:22)
[2018-05-08 10:33] LABS: HEMATOCRIT 40.8 % (35.4-49); HEMOGLOBIN 13.7 GM/dL (11.7-16.9); MCH 30.9 pg (25.7-33.7); MCHC 33.7 g/dl (32.0-35.9); MEAN CELL VOLUME 91.7 fl (80-96); MEAN PLT VOLUME 9.8 fl (7.5-11.1); PLATELET COUNT 236 K/MM3 (134-434); RBC 4.45 M/mm3 (4.00-5.60); RDW 13.4 % (11.9-15.9); WHITE BLOOD COUNT 6.4 K/mm3 (4.0-10.0)
[2018-05-08 10:50] LABS: ALBUMIN 3.2 g/dl (3.4-5.0); ALK PHOS 120 U/L (45-117); ANION GAP 8 MMOL/L (8-16); BILIRUBIN,TOTAL 0.4 mg/dL (0.2-1); BLOOD UREA NITROGEN 16 mg/dL (7-18); CALCIUM 8.3 mg/dL (8.5-10.1); CHLORIDE 102 mmol/L (98-107); CO2 27 mmol/L (21-32); CREATININE 0.7 mg/dL (0.55-1.3); GLUCOSE,RANDOM 130 mg/dL (74-106); SGOT/AST 98 U/L (15-37); SGPT/ALT 82 U/L (13-61); SODIUM 138 mmol/L (136-145); TOT PROT 6.2 g/dl (6.4-8.2)
--- NOTE | 2018-05-08 14:45 | PN ---
[facility] CIWA - CIWA Score Nausea/Vomitin-Mild Nausea/No Vomiting Muscle Tremors: 2 Anxiety: 1-Mildly Anxious Agitation: 2 Paroxysmal Sweats: 1-Minimal Palms Moist Orientation: 1-Uncertain about Date Tacttile Disturbances: 1-Very Mild Itch/Numbness Auditory Disturbances: 1-Very Mild Visual Disturbances: 0-None Headache: 1-Very Mild CIWA-Ar Total Score: 11 BHS Progress Note (SOAP) Subjective: sweat tremor anxiety restlessness trouble sleep at night Objective: 05/08/18 15:04 Vital Signs Temperature 99.0 F 05/08/18 14:13 Pulse Rate 110 H 05/08/18 14:13 Respiratory Rate 18 05/08/18 14:13 Blood Pressure 131/70 05/08/18 14:13 O2 Sat by Pulse Oximetry (%) Laboratory Last Values WBC 6.4 K/mm3 (4.0-10.0) 05/08/18 07:40 RBC 4.45 M/mm3 (4.00-5.60) 05/08/18 07:40 Hgb 13.7 GM/dL (11.7-16.9) 05/08/18 07:40 Hct 40.8 % (35.4-49) 05/08/18 07:40 MCV 91.7 fl (80-96) 05/08/18 07:40 MCH 30.9 pg (25.7-33.7) 05/08/18 07:40 MCHC 33.7 g/dl (32.0-35.9) 05/08/18 07:40 RDW 13.4 % (11.9-15.9) 05/08/18 07:40 Plt Count 236 K/MM3 (134-434) 05/08/18 07:40 MPV 9.8 fl (7.5-11.1) 05/08/18 07:40 Sodium 138 mmol/L (136-145) 05/08/18 07:40 Potassium 4.0 mmol/L (3.5-5.1) 05/08/18 07:40 Chloride 102 mmol/L (98-107) 05/08/18 07:40 Carbon Dioxide 27 mmol/L (21-32) 05/08/18 07:40 Anion Gap 8 MMOL/L (8-16) 05/08/18 07:40 BUN 16 mg/dL (7-18) 05/08/18 07:40 Creatinine 0.7 mg/dL (0.55-1.3) 05/08/18 07:40 Creat Clearance w eGFR > 60 (>60) 05/08/18 07:40 POC Glucometer 120 UNITS (80-120) 05/08/18 11:41 Random Glucose 130 mg/dL (74-106) H 05/08/18 07:40 Calcium 8.3 mg/dL (8.5-10.1) L 05/08/18 07:40 Total Bilirubin 0.4 mg/dL (0.2-1) 05/08/18 07:40 AST 98 U/L (15-37) H 05/08/18 07:40 ALT 82 U/L (13-61) H 05/08/18 07:40 Alkaline Phosphatase 120 U/L (45-117) H 05/08/18 07:40 Total Protein 6.2 g/dl (6.4-8.2) L 05/08/18 07:40 Albumin 3.2 g/dl (3.4-5.0) L 05/08/18 07:40 Urine Color Yellow 05/07/18 17:30 Urine Appearance Clear 05/07/18 17:30 Urine pH 7.0 (5.0-8.0) 05/07/18 17:30 Ur Specific [place] 1.020 (1.010-1.035) 05/07/18 17:30 Urine Protein Negative (NEGATIVE) 05/07/18 17:30 Urine Glucose (UA) Negative (NEGATIVE) 05/07/18 17:30 Urine Ketones Negative (NEGATIVE) 05/07/18 17:30 Urine Blood Negative (NEGATIVE) 05/07/18 17:30 Urine Nitrite Negative (NEGATIVE) 05/07/18 17:30 Urine Bilirubin Negative (<2.0 mg/dL) 05/07/18 17:30 Urine Urobilinogen Negative mg/dL (0.2-1.0) 05/07/18 17:30 Ur Leukocyte Esterase Negative (NEGATIVE) 05/07/18 17:30 RPR Titer Nonreactive (NONREACTIVE) 05/08/18 07:40 lab noted Assessment: 05/08/18 15:05 withdrawal sx Plan: continue detox
[2018-05-08] MEDS: THIAMINE HCL 100 MG TABLET (FP) PO SCH (22:01)
[2018-05-09] MEDS: chlordiazePOXIDE HCL 25 MG CAPSULE PO SCH ×2 (06:22→10:24)
[2018-05-09] MEDS: INSULIN SLIDING SCALE (NOVOLOG) 1 VIAL SQ SCH ×4 (08:00→22:07)
[2018-05-09] MEDS: ASPIRIN COATED 81 MG TABLET.EC PO SCH (10:24)
[2018-05-09] MEDS: PRENATAL VITAMINS W/ FOLIC ACID TABLET (FP) PO SCH (10:24)
[2018-05-09] MEDS: metFORMIN HCL 500 MG TABLET (FP) PO SCH ×2 (10:24→17:03)
[2018-05-09] MEDS: PANTOPRAZOLE 20 MG TABLET (FP) PO SCH (10:24)
[2018-05-09] MEDS: LISINOPRIL 5 MG TABLET (FP) PO SCH (10:24)
[2018-05-09] MEDS: QUEtiapine FUMARATE 200 MG TABLET PO SCH ×2 (10:24→22:07)
--- NOTE | 2018-05-09 14:26 | PN ---
S CIWA - CIWA Score Nausea/Vomitin-No Nausea/No Vomiting Muscle Tremors: 2 Anxiety: 2 Agitation: 2 Paroxysmal Sweats: 1-Minimal Palms Moist Orientation: 0-Oriented Tacttile Disturbances: 1-Very Mild Itch/Numbness Auditory Disturbances: 0-None Visual Disturbances: 0-None Headache: 1-Very Mild CIWA-Ar Total Score: 9 BHS Progress Note (SOAP) Subjective: tremor sweat anxiety restlessness gi distress diarrhea Objective: 05/09/18 14:25 Vital Signs Temperature 98.2 F 05/09/18 12:50 Pulse Rate 90 05/09/18 12:50 Respiratory Rate 16 05/09/18 12:50 Blood Pressure 97/54 L 05/09/18 12:50 O2 Sat by Pulse Oximetry (%) Laboratory Last Values WBC 6.4 K/mm3 (4.0-10.0) 05/08/18 07:40 RBC 4.45 M/mm3 (4.00-5.60) 05/08/18 07:40 Hgb 13.7 GM/dL (11.7-16.9) 05/08/18 07:40 Hct 40.8 % (35.4-49) 05/08/18 07:40 MCV 91.7 fl (80-96) 05/08/18 07:40 MCH 30.9 pg (25.7-33.7) 05/08/18 07:40 MCHC 33.7 g/dl (32.0-35.9) 05/08/18 07:40 RDW 13.4 % (11.9-15.9) 05/08/18 07:40 Plt Count 236 K/MM3 (134-434) 05/08/18 07:40 MPV 9.8 fl (7.5-11.1) 05/08/18 07:40 Sodium 138 mmol/L (136-145) 05/08/18 07:40 Potassium 4.0 mmol/L (3.5-5.1) 05/08/18 07:40 Chloride 102 mmol/L (98-107) 05/08/18 07:40 Carbon Dioxide 27 mmol/L (21-32) 05/08/18 07:40 Anion Gap 8 MMOL/L (8-16) 05/08/18 07:40 BUN 16 mg/dL (7-18) 05/08/18 07:40 Creatinine 0.7 mg/dL (0.55-1.3) 05/08/18 07:40 Creat Clearance w eGFR > 60 (>60) 05/08/18 07:40 POC Glucometer 113 UNITS (80-120) 05/09/18 11:29 Random Glucose 130 mg/dL (74-106) H 05/08/18 07:40 Calcium 8.3 mg/dL (8.5-10.1) L 05/08/18 07:40 Total Bilirubin 0.4 mg/dL (0.2-1) 05/08/18 07:40 AST 98 U/L (15-37) H 05/08/18 07:40 ALT 82 U/L (13-61) H 05/08/18 07:40 Alkaline Phosphatase 120 U/L (45-117) H 05/08/18 07:40 Total Protein 6.2 g/dl (6.4-8.2) L 05/08/18 07:40 Albumin 3.2 g/dl (3.4-5.0) L 05/08/18 07:40 Urine Color Yellow 05/07/18 17:30 Urine Appearance Clear 05/07/18 17:30 Urine pH 7.0 (5.0-8.0) 05/07/18 17:30 Ur Specific [place] 1.020 (1.010-1.035) 05/07/18 17:30 Urine Protein Negative (NEGATIVE) 05/07/18 17:30 Urine Glucose (UA) Negative (NEGATIVE) 05/07/18 17:30 Urine Ketones Negative (NEGATIVE) 05/07/18 17:30 Urine Blood Negative (NEGATIVE) 05/07/18 17:30 Urine Nitrite Negative (NEGATIVE) 05/07/18 17:30 Urine Bilirubin Negative (<2.0 mg/dL) 05/07/18 17:30 Urine Urobilinogen Negative mg/dL (0.2-1.0) 05/07/18 17:30 Ur Leukocyte Esterase Negative (NEGATIVE) 05/07/18 17:30 RPR Titer Nonreactive (NONREACTIVE) 05/08/18 07:40 lab noted Assessment: 05/09/18 14:26 withdrawal sx 05/09/18 14:26 diarrhea Plan: continue detox encourage immodium
[2018-05-09] MEDS ORDERED: INSULIN (NOVOLOG) ASPART 100 UNITS/ML 10ML VIAL ONE ×2 (16:50→22:06)
[2018-05-09] MEDS: chlordiazePOXIDE 5 MG CAPSULE PO SCH ×2 (17:03→22:07)
[2018-05-09] MEDS: MELATONIN 5 MG TABLETS PO PRN (22:07)
[2018-05-09] MEDS: THIAMINE HCL 100 MG TABLET (FP) PO SCH (22:07)
[2018-05-10] MEDS: metFORMIN HCL 500 MG TABLET (FP) PO SCH (06:10)
[2018-05-10] MEDS: chlordiazePOXIDE 5 MG CAPSULE PO SCH ×2 (06:10→10:11)
[2018-05-10] MEDS: INSULIN SLIDING SCALE (NOVOLOG) 1 VIAL SQ SCH ×2 (07:39→11:25)
[2018-05-10] MEDS: PRENATAL VITAMINS W/ FOLIC ACID TABLET (FP) PO SCH (10:10)
[2018-05-10] MEDS: ASPIRIN COATED 81 MG TABLET.EC PO SCH (10:10)
[2018-05-10] MEDS: QUEtiapine FUMARATE 200 MG TABLET PO SCH (10:10)
[2018-05-10] MEDS: LISINOPRIL 5 MG TABLET (FP) PO SCH (10:11)
[2018-05-10] MEDS: PANTOPRAZOLE 20 MG TABLET (FP) PO SCH (10:11)
--- NOTE | 2018-05-10 11:31 | PN ---
BHS Progress Note (SOAP) Subjective: feeling better no tremor sleep better at night less sweat social with peers in day room attend groups Objective: 05/10/18 11:30 Vital Signs Temperature 97.7 F 05/10/18 09:36 Pulse Rate 77 05/10/18 09:36 Respiratory Rate 18 05/10/18 09:36 Blood Pressure 126/74 05/10/18 09:36 O2 Sat by Pulse Oximetry (%) Laboratory Last Values WBC 6.4 K/mm3 (4.0-10.0) 05/08/18 07:40 RBC 4.45 M/mm3 (4.00-5.60) 05/08/18 07:40 Hgb 13.7 GM/dL (11.7-16.9) 05/08/18 07:40 Hct 40.8 % (35.4-49) 05/08/18 07:40 MCV 91.7 fl (80-96) 05/08/18 07:40 MCH 30.9 pg (25.7-33.7) 05/08/18 07:40 MCHC 33.7 g/dl (32.0-35.9) 05/08/18 07:40 RDW 13.4 % (11.9-15.9) 05/08/18 07:40 Plt Count 236 K/MM3 (134-434) 05/08/18 07:40 MPV 9.8 fl (7.5-11.1) 05/08/18 07:40 Sodium 138 mmol/L (136-145) 05/08/18 07:40 Potassium 4.0 mmol/L (3.5-5.1) 05/08/18 07:40 Chloride 102 mmol/L (98-107) 05/08/18 07:40 Carbon Dioxide 27 mmol/L (21-32) 05/08/18 07:40 Anion Gap 8 MMOL/L (8-16) 05/08/18 07:40 BUN 16 mg/dL (7-18) 05/08/18 07:40 Creatinine 0.7 mg/dL (0.55-1.3) 05/08/18 07:40 Creat Clearance w eGFR > 60 (>60) 05/08/18 07:40 POC Glucometer 146 UNITS (80-120) 05/10/18 06:09 Random Glucose 130 mg/dL (74-106) H 05/08/18 07:40 Calcium 8.3 mg/dL (8.5-10.1) L 05/08/18 07:40 Total Bilirubin 0.4 mg/dL (0.2-1) 05/08/18 07:40 AST 98 U/L (15-37) H 05/08/18 07:40 ALT 82 U/L (13-61) H 05/08/18 07:40 Alkaline Phosphatase 120 U/L (45-117) H 05/08/18 07:40 Total Protein 6.2 g/dl (6.4-8.2) L 05/08/18 07:40 Albumin 3.2 g/dl (3.4-5.0) L 05/08/18 07:40 Urine Color Yellow 05/07/18 17:30 Urine Appearance Clear 05/07/18 17:30 Urine pH 7.0 (5.0-8.0) 05/07/18 17:30 Ur Specific [place] 1.020 (1.010-1.035) 05/07/18 17:30 Urine Protein Negative (NEGATIVE) 05/07/18 17:30 Urine Glucose (UA) Negative (NEGATIVE) 05/07/18 17:30 Urine Ketones Negative (NEGATIVE) 05/07/18 17:30 Urine Blood Negative (NEGATIVE) 05/07/18 17:30 Urine Nitrite Negative (NEGATIVE) 05/07/18 17:30 Urine Bilirubin Negative (<2.0 mg/dL) 05/07/18 17:30 Urine Urobilinogen Negative mg/dL (0.2-1.0) 05/07/18 17:30 Ur Leukocyte Esterase Negative (NEGATIVE) 05/07/18 17:30 RPR Titer Nonreactive (NONREACTIVE) 05/08/18 07:40 lab noted Assessment: 05/10/18 11:30 mild withdrawal sx Plan: medi faiza supervised detox
[2018-05-10 13:08] VITALS: BP 133/69; PULSE 97; TEMP 97.4
--- NOTE | 2018-05-10 14:45 | DS ---
[facility] Detox Discharge Summary Admission Date: 05/07/18 Discharge Date: 05/10/18 - History Present History: Alcohol Dependence Additional Comments: 58 years old male admitted on 05/07/18 for alcohol withdrawal sx preferred to go to rehab today that he would like to go home for clothe today alert no acute distress denies suicidal denies homocidal no self destructive behavior aftercare [facility] - Physical Exam Results Vital Signs: Vital Signs Temperature 97.4 F L 05/10/18 13:08 Pulse Rate 97 H 05/10/18 13:08 Respiratory Rate 18 05/10/18 13:08 Blood Pressure 133/69 05/10/18 13:08 O2 Sat by Pulse Oximetry (%) Pertinent Admission Physical Exam Findings: alcohol withdrawal sx Vital Signs Temperature 97.4 F L 05/10/18 13:08 Pulse Rate 97 H 05/10/18 13:08 Respiratory Rate 18 05/10/18 13:08 Blood Pressure 133/69 05/10/18 13:08 O2 Sat by Pulse Oximetry (%) Laboratory Last Values WBC 6.4 K/mm3 (4.0-10.0) 05/08/18 07:40 RBC 4.45 M/mm3 (4.00-5.60) 05/08/18 07:40 Hgb 13.7 GM/dL (11.7-16.9) 05/08/18 07:40 Hct 40.8 % (35.4-49) 05/08/18 07:40 MCV 91.7 fl (80-96) 05/08/18 07:40 MCH 30.9 pg (25.7-33.7) 05/08/18 07:40 MCHC 33.7 g/dl (32.0-35.9) 05/08/18 07:40 RDW 13.4 % (11.9-15.9) 05/08/18 07:40 Plt Count 236 K/MM3 (134-434) 05/08/18 07:40 MPV 9.8 fl (7.5-11.1) 05/08/18 07:40 Sodium 138 mmol/L (136-145) 05/08/18 07:40 Potassium 4.0 mmol/L (3.5-5.1) 05/08/18 07:40 Chloride 102 mmol/L (98-107) 05/08/18 07:40 Carbon Dioxide 27 mmol/L (21-32) 05/08/18 07:40 Anion Gap 8 MMOL/L (8-16) 05/08/18 07:40 BUN 16 mg/dL (7-18) 05/08/18 07:40 Creatinine 0.7 mg/dL (0.55-1.3) 05/08/18 07:40 Creat Clearance w eGFR > 60 (>60) 05/08/18 07:40 POC Glucometer 132 UNITS (80-120) 05/10/18 11:21 Random Glucose 130 mg/dL (74-106) H 05/08/18 07:40 Calcium 8.3 mg/dL (8.5-10.1) L 05/08/18 07:40 Total Bilirubin 0.4 mg/dL (0.2-1) 05/08/18 07:40 AST 98 U/L (15-37) H 05/08/18 07:40 ALT 82 U/L (13-61) H 05/08/18 07:40 Alkaline Phosphatase 120 U/L (45-117) H 05/08/18 07:40 Total Protein 6.2 g/dl (6.4-8.2) L 05/08/18 07:40 Albumin 3.2 g/dl (3.4-5.0) L 05/08/18 07:40 Urine Color Yellow 05/07/18 17:30 Urine Appearance Clear 05/07/18 17:30 Urine pH 7.0 (5.0-8.0) 05/07/18 17:30 Ur Specific [place] 1.020 (1.010-1.035) 05/07/18 17:30 Urine Protein Negative (NEGATIVE) 05/07/18 17:30 Urine Glucose (UA) Negative (NEGATIVE) 05/07/18 17:30 Urine Ketones Negative (NEGATIVE) 05/07/18 17:30 Urine Blood Negative (NEGATIVE) 05/07/18 17:30 Urine Nitrite Negative (NEGATIVE) 05/07/18 17:30 Urine Bilirubin Negative (<2.0 mg/dL) 05/07/18 17:30 Urine Urobilinogen Negative mg/dL (0.2-1.0) 05/07/18 17:30 Ur Leukocyte Esterase Negative (NEGATIVE) 05/07/18 17:30 RPR Titer Nonreactive (NONREACTIVE) 05/08/18 07:40 lab noted - Treatment Hospital Course: Detox Protocol Followed, Detoxed Safely, Responded well, Discharged Condition Good, Rehab Referral Accepted Patient has Accepted a Rehab Referral to: [facility] - Medication Discharge Medications: Ambulatory Orders Lisinopril [Zestril] 2.5 mg PO DAILY 08/21/17 Quetiapine Fumarate [Seroquel] 200 mg PO BID 08/21/17 Omeprazole 20 mg PO DAILY PRN 10/29/17 traZODone HCL [Desyrel -] 100 mg PO HS PRN 10/29/17 Aspirin [Aspirin EC] 81 mg PO DAILY 05/07/18 Quetiapine Fumarate [Seroquel -] 200 mg PO BID #60 tablet 05/08/18 Lisinopril [Prinivil] 2.5 mg PO DAILY #14 tablet 05/10/18 metFORMIN HCL [Glucophage -] 500 mg PO BID #60 tablet 05/10/18 - Diagnosis (1) Diabetes mellitus Current Visit: Yes Status: Chronic Qualifiers: Diabetes mellitus type: type 2 Diabetes mellitus exterminator insulin use: without custodial use Diabetes mellitus complication status: without complication Qualified Code(s): E11.9 - Type 2 diabetes mellitus without complications (2) Hypercholesterolemia Current Visit: Yes Status: Chronic (3) HTN (hypertension) Current Visit: Yes Status: Chronic Qualifiers: Hypertension type: essential hypertension Qualified Code(s): I10 - Essential (primary) hypertension (4) Alcohol dependence with uncomplicated withdrawal Current Visit: Yes Status: Acute (5) Nicotine dependence Current Visit: Yes Status: Acute Qualifiers: Nicotine product type: cigarettes Substance use status: in withdrawal Qualified Code(s): F17.213 - Nicotine dependence, cigarettes, with withdrawal (6) GERD (gastroesophageal reflux disease) Current Visit: Yes Status: Chronic Qualifiers: Esophagitis presence: without esophagitis Qualified Code(s): K21.9 - Gastro -esophageal reflux disease without esophagitis - AMA Did Patient Leave Against Medical Advice: No
[2018-05-10] MEDS ORDERED: chlordiazePOXIDE HCL 10 MG CAPSULE PO SCH (17:00)
== END 2018-05-10 02:49 | disposition home or self-care (01) | DRG 774 ==
LOC: YASAS 08:02 → Y6N 10:48
PROC: HZ2ZZZZ Detoxification Services for Substance Abuse Treatment (ICD-10-PCS; principal; 2018-05-07)
DX: F10.230 Alcohol dependence with withdrawal, uncomplicated (principal); F14.20 Cocaine dependence, uncomplicated; F17.213 Nicotine dependence, cigarettes, with withdrawal; F25.9 Schizoaffective disorder, unspecified; F31.9 Bipolar disorder, unspecified; F19.24 Other psychoactive substance dependence with psychoactive substance-induced mood disorder; F19.282 Other psychoactive substance dependence with psychoactive substance-induced sleep disorder; I10 Essential (primary) hypertension; E11.9 Type 2 diabetes mellitus without complications; Z79.84 Long term (current) use of oral hypoglycemic drugs; E78.00 Pure hypercholesterolemia, unspecified; K21.9 Gastro-esophageal reflux disease without esophagitis; Z91.5 Personal history of self-harm
CPT/HCPCS: 36415; 80053; 81003; 82962; 85027; 86593; 93005; 93010

== ENCOUNTER 2018-06-10 09:38 | Inpatient (IN) | payer OTHER ==
[2018-06-10 10:02] VITALS: BMI 26.4
--- NOTE | 2018-06-10 11:07 | HP ---
CIWA Score - Admission Criteria OASAS Guidelines: Admission for Medically Managed Detox: Requires at least one of the followin. CIWA greater than 12 2. Seizures within the past 24 hours 3. Delirium tremens within the past 24 hours 4. Hallucinations within the past 24 hours 5. Acute intervention needed for co occurring medical disorder 6. Acute intervention needed for co occurring psychiatric disorder 7. Severe withdrawal that cannot be handled at a lower level of care (continued vomiting, continued diarrhea, abnormal vital signs) requiring intravenous medication and/or fluids 8. Admission ROS [facility] Allergies/Adverse Reactions: Allergies Allergy/AdvReac Type Severity Reaction Status Date / Time No Known Drug Allergies Allergy Verified 06/10/18 10:06 TUNA FISH Allergy Severe Rash Uncoded 06/10/18 10:06 History of Present Illness: patient here requesting rehab from etoh and cocaine use , reports in the past 1.5 pints daily , tremors if not drinking , denies seizures , + blackouts , etoh use since age 14 , completed recent detox @ [facility] 2 days ago , denies alcohol use since , + cocaine use 1 gr/day via inhalation x 10 years , latest yesterday , 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 tobacco use : 1 ppd , requesting nrt w/ gum PMHX : DM , HTN , HLD , depression, SAD, bipolar d/o PSHX : appy age 6 MEds : Metformin , Seroquel, aspirin , lisinopril - latest rx > 2 months ago , has not been taking meds Shx : homeless , unemployed . Exam Limitations: No Limitations - Ebola screening Have you traveled outside of the country in the last 21 days: No (N) Have you had contact with anyone from an Ebola affected area: No Have you been sick,other than usual withdrawal symptoms: No Do you have a fever: No - Review of Systems Constitutional: No Symptoms Reported EENT: reports: No Symptoms Reported Respiratory: reports: No Symptoms reported Cardiac: reports: No Symptoms Reported GI: reports: No Symptoms Reported : reports: No Symptoms Reported Musculoskeletal: reports: No Symptoms Reported Integumentary: reports: No Symptoms Reported Neuro: reports: Headache Hematology: reports: No Symptoms Reported Psychiatric: reports: Orientated x3, Anxious Patient History - Patient Medical History Hx Anemia: No Hx Asthma: No Hx Chronic Obstructive Pulmonary Disease (COPD): No Hx Cancer: No Hx Cardiac Disorders: No Hx Congestive Heart Failure: No Hx Hypertension: Yes Hx Hypercholesterolemia: Yes (on meds-LIPITOR) Hx Pacemaker: No HX Cerebrovascular Accident: No Hx Seizures: No Hx Dementia: No Hx Diabetes: Yes (NIDDM) Hx Gastrointestinal Disorders: Yes (acid reflux) Hx Liver Disease: No Hx Genitourinary Disorders: No Hx Sexually Transmitted Disorders: No Hx Renal Disease (ESRD): No Hx Thyroid Disease: No Hx Human Immunodeficiency Virus (HIV): No (Last Tested: 2017: NEGATIVE HX) Hx Hepatitis C: No (NEGATIVE TEST RESULT 9 MONTHS AGO) Hx Depression: Yes Hx Suicide Attempt: No Hx Bipolar Disorder: Yes (on meds, sees [facility]) Hx Schizophrenia: No - Patient Surgical History Past Surgical History: Yes Hx Neurologic Surgery: No Hx Cataract Extraction: No Hx Cardiac Surgery: No Hx Lung Surgery: No Hx Breast Surgery: No Hx Breast Biopsy: No Hx Abdominal Surgery: No Hx Appendectomy: Yes (at age 6) Hx Cholecystectomy: No Hx Genitourinary Surgery: No Hx Section: No Hx Orthopedic Surgery: No Other Surgical History: DENIES. Anesthesia Reaction: No - PPD History Previous Implant?: Yes Documented Results: Negative w/proof Implanted On Prior R Admission?: Yes Date: 10/31/17 Results: 0 mm - Smoking Cessation Smoking history: Current every day smoker Have you smoked in the past 12 months: Yes Aproximately how many cigarettes per day: 20 Cigars Per Day: 0 Hx Chewing Tobacco Use: No Initiated information on smoking cessation: No - Substances Abused Crack Route: Smoking Frequency: Daily Amount used: $80 Age of first use: 34 Date of Last Use: 06/10/18 Alcohol-dave Route: Oral Frequency: Daily Amount used: 1 pt. Age of first use: 20 Date of Last Use: 06/10/18 Family Disease History - Family Disease History Family Disease History: Diabetes: Grandparent, Mother (living.), Other: Father ( , renal failure), Mother, Brother (one living -healthy, ), Sister (two living - healthy) Admission Physical Exam [facility] - Vital Signs Vital Signs: Vital Signs - 24 hr 06/10/18 10:00 Temperature 97.2 F L Pulse Rate 95 H Respiratory 20 Rate Blood Pressure 131/76 - Physical General Appearance: Yes: No Apparent Distress, Disheveled HEENTM: Yes: EOMI, Hearing grossly Normal, Normocephalic, Normal Voice, Other ( bifocals- did not bring , poor dentition, missing teeth) Respiratory: Yes: Chest Non-Tender, Lungs Clear, Normal Breath Sounds Neck: Yes: No masses,lesions,Nodules, Trachea in good position Breast: Yes: Breast Exam Deferred Cardiology: Yes: Regular Rhythm, Regular Rate, S1, S2, Tachycardia Abdominal: Yes: Within Normal Limits Genitourinary: Yes: Within Normal Limits Back: Yes: Normal Inspection Extremities: Yes: Normal Capillary Refill, Normal Inspection Neurological: Yes: Motor Strength 5/5, Normal Mood/Affect Integumentary: Yes: Within Normal Limits - Diagnostic (1) Cocaine dependence Current Visit: No Status: Chronic Qualifiers: Substance use status: uncomplicated Qualified Code(s): F14.20 - Cocaine dependence, uncomplicated (2) Nicotine dependence Current Visit: Yes Status: Chronic Qualifiers: Nicotine product type: cigarettes Substance use status: in withdrawal Qualified Code(s): F17.213 - Nicotine dependence, cigarettes, with withdrawal (3) Alcohol dependence, uncomplicated Current Visit: No Status: Chronic [facility] Breath Alcohol Content Breath Alcohol Content: 0 Urine Drug Screen - Results Drug Screen Negative: No Urine Drug Screen Results: PALLAVI-Cocaine, BZO-Benzodiazepines Inpatient Rehab Admission - Initial Determination Are CD services needed?: Yes Free of communicable disease: Yes Not in need of hospitalization: Yes - Rehab Admission Criteria Previous failed treatment: Yes Poor recovery environment: Yes Comorbidities: Yes Lacks judgement: Yes Patient is meeting Inpatient Rehab admission criteria:: Yes
[2018-06-10] MEDS ORDERED: ACETAMINOPHEN 325 MG TABLET (FP) PO PRN (11:10)
[2018-06-10] MEDS ORDERED: IBUPROFEN 400 MG TABLET (FP) PO PRN (11:10)
[2018-06-10] MEDS ORDERED: MAGNESIUM CITRATE 300 ML BOTTLE PO PRN (11:10)
[2018-06-10] MEDS ORDERED: MAGNESIUM HYDROX 2400MG/30ML ORAL SUSPENSION 30 ML CUP PO PRN (11:10)
[2018-06-10] MEDS ORDERED: guaiFENesin/D-METHORPHAN HB 10 ML UNIT-DOSE CUPS PO PRN (11:10)
[2018-06-10] MEDS ORDERED: MENTHOL/PHENOL 1 EACH UD MM PRN (11:10)
[2018-06-10] MEDS ORDERED: NICOTINE POLACRILEX 2 MG GUM BUC PRN (11:10)
[2018-06-10] MEDS ORDERED: hydrOXYzine PAMOATE 25 MG CAPSULE (FP) PO PRN (11:10)
[2018-06-10] MEDS ORDERED: MAG HYDROX/AL HYDROX/SIMETH 30 ML UNIT-DOSE CUP PO PRN (11:10)
[2018-06-10] MEDS ORDERED: P-EPHED 60MG/TRIPROLIDI 2.5MG TABLET PO PRN (11:10)
[2018-06-10] MEDS: PANTOPRAZOLE 20 MG TABLET (FP) PO SCH (12:56)
[2018-06-10] MEDS: metFORMIN HCL 500 MG TABLET (FP) PO SCH ×2 (12:58→17:37)
--- NOTE | 2018-06-10 13:51 | HP ---
Psychiatrist Admission - Data Date of interview: 06/10/18 Admission source[facility] Identifying data: This is one of the multiple admissions to this facility for this 58 yo single H childless,undomiciled,supported by SSI. Medical History: DM,HTN,Arthritis. Psychiatric History: Long and extensive psychiatric history.Patient was dx with Schizoaffective disorder.He reports multiple psychiatric hospitalizations.Patient obtains psychotropic medivatons from [facility] .Current medications:Seroquel 200 mg po bid and Trazodone 100 mg po hs. Physical/Sexual Abuse/Trauma History: patient denies Vital Signs: Vital Signs - 24 hr 06/10/18 06/10/18 10:00 13:19 Temperature 97.2 F L 98.2 F Pulse Rate 95 H 79 Respiratory 20 18 Rate Blood Pressure 131/76 135/88 Allergies/Adverse Reactions: Allergies Allergy/AdvReac Type Severity Reaction Status Date / Time No Known Drug Allergies Allergy Verified 06/10/18 10:06 TUNA FISH Allergy Severe Rash Uncoded 06/10/18 10:06 Concur with the findings of this exam: Yes - Substance Abuse/Tx History Hx Alcohol Use: Yes Hx Substance Use: Yes Substance Use Type: Alcohol, Cocaine Hx Substance Use Treatment: Yes (longest abstinence about 2 years) Mental Status Exam - Mental Status Exam Alert and Oriented to: Time, Place, Person Cognitive Function: Grossly Intact Patient Appearance: Unkempt Mood: Euthymic Affect: Mood Congruent Patient Behavior: Cooperative Speech Pattern: Clear Voice Loudness: Normal Thought Process: Goal Oriented Thought Disorder: Being Controlled Hallucinations: Denies Suicidal Ideation: Denies Homicidal Ideation: Denies Insight/Judgement: Fair Sleep: Fair Appetite: Good Muscle strength/Tone: Normal Gait/Station: Normal Psychiatric Findings - Problem List ([place] 1, 2,3) (1) Ankle arthropathy Current Visit: Yes Status: Chronic (2) Bipolar disorder Current Visit: Yes Status: Chronic Qualifiers: Active/Remission status: remission status unspecified Qualified Code(s): F31.9 - Bipolar disorder, unspecified (3) Cocaine dependence Current Visit: Yes Status: Chronic (4) Nicotine dependence Current Visit: Yes Status: Chronic Qualifiers: Nicotine product type: cigarettes Substance use status: in withdrawal Qualified Code(s): F17.213 - Nicotine dependence, cigarettes, with withdrawal (5) HTN (hypertension) Current Visit: Yes Status: Acute (6) Diabetes Current Visit: Yes Status: Acute Qualifiers: Diabetes mellitus care home insulin use: with policy writer use - Initial Treatment Plan Initial Treatment Plan: Continue Seroquel 200 mg po bid and Trazodone 100 mg po hs.
[2018-06-10] MEDS ORDERED: QUEtiapine FUMARATE 200 MG TABLET PO SCH (14:20)
[2018-06-10 15:38] LABS: ALBUMIN 3.8 g/dl (3.4-5.0); ALK PHOS 121 U/L (45-117); ANION GAP 8 MMOL/L (8-16); BILIRUBIN,TOTAL 0.4 mg/dL (0.2-1); BLOOD UREA NITROGEN 25 mg/dL (7-18); CALCIUM 8.8 mg/dL (8.5-10.1); CHLORIDE 105 mmol/L (98-107); CO2 25 mmol/L (21-32); GLUCOSE,RANDOM 119 mg/dL (74-106); SGOT/AST 88 U/L (15-37); SGPT/ALT 68 U/L (13-61); SODIUM 139 mmol/L (136-145); TOT PROT 7.1 g/dl (6.4-8.2)
[2018-06-10 15:40] LABS: HEMATOCRIT 42.3 % (35.4-49); HEMOGLOBIN 13.7 GM/dL (11.7-16.9); MCH 29.7 pg (25.7-33.7); MCHC 32.3 g/dl (32.0-35.9); MEAN CELL VOLUME 91.9 fl (80-96); MEAN PLT VOLUME 9.7 fl (7.5-11.1); PLATELET COUNT 263 K/MM3 (134-434); RDW 13.4 % (11.9-15.9); WHITE BLOOD COUNT 9.6 K/mm3 (4.0-10.0)
[2018-06-10] MEDS: INSULIN SLIDING SCALE (NOVOLOG) 1 VIAL SQ SCH (17:38)
[2018-06-10 21:02] LABS: URINE APPEARANCE CLEAR; URINE BILIRUBIN NEGATIVE (<2.0 mg/dL); URINE COLOR YELLOW; URINE GLUCOSE (UA) NEGATIVE (NEGATIVE); URINE KETONE 1+ (NEGATIVE); URINE LEUK ESTERASE NEGATIVE (NEGATIVE); URINE NITRITE NEGATIVE (NEGATIVE); URINE PROTEIN NEGATIVE (NEGATIVE); URINE UROBILINOGEN NEGATIVE mg/dL (0.2-1.0)
[2018-06-10] MEDS: QUEtiapine FUMARATE 200 MG TABLET PO SCH (21:38)
[2018-06-10] MEDS: THIAMINE HCL 100 MG TABLET (FP) PO SCH (21:38)
[2018-06-10] MEDS: traZODone HCL 100 MG TABLET (FP) PO PRN (21:39)
[2018-06-10] MEDS ORDERED: MELATONIN 5 MG TABLETS PO PRN (22:00)
[2018-06-11] MEDS: metFORMIN HCL 500 MG TABLET (FP) PO SCH ×2 (06:33→16:51)
[2018-06-11] MEDS: INSULIN SLIDING SCALE (NOVOLOG) 1 VIAL SQ SCH ×2 (06:33→16:52)
[2018-06-11 07:05] VITALS: PULSE 93; TEMP 99
[2018-06-11] MEDS ORDERED: LISINOPRIL 5 MG TABLET (FP) PO SCH (10:00)
[2018-06-11] MEDS ORDERED: PRENATAL VITAMINS W/ FOLIC ACID TABLET (FP) PO SCH (10:00)
[2018-06-11] MEDS ORDERED: ASPIRIN COATED 81 MG TABLET.EC PO SCH (10:00)
[2018-06-11] MEDS: QUEtiapine FUMARATE 200 MG TABLET PO SCH ×2 (10:08→21:33)
[2018-06-11] MEDS: PANTOPRAZOLE 20 MG TABLET (FP) PO SCH (10:08)
[2018-06-11 11:28] VITALS: BP 130/71
[2018-06-11] MEDS ORDERED: INSULIN (NOVOLOG) ASPART 100 UNITS/ML 10ML VIAL ONE (16:14)
[2018-06-11] MEDS: THIAMINE HCL 100 MG TABLET (FP) PO SCH (21:33)
[2018-06-11] MEDS: traZODone HCL 100 MG TABLET (FP) PO PRN (21:35)
[2018-06-12] MEDS: metFORMIN HCL 500 MG TABLET (FP) PO SCH (06:22)
== END 2018-06-12 07:30 | disposition left against medical advice (07) | DRG 770 ==
LOC: YASAS 09:38 → Y5N 12:02
PROVIDERS: ADMIT Psychiatry & Neurology Psychiatry; ATTEND Psychiatry & Neurology Psychiatry
PROC: HZ42ZZZ Group Counseling for Substance Abuse Treatment, Cognitive-Behavioral (ICD-10-PCS; principal; 2018-06-10)
DX: F10.20 Alcohol dependence, uncomplicated (principal); F14.20 Cocaine dependence, uncomplicated; F17.213 Nicotine dependence, cigarettes, with withdrawal; F25.9 Schizoaffective disorder, unspecified; F31.9 Bipolar disorder, unspecified; I10 Essential (primary) hypertension; E78.00 Pure hypercholesterolemia, unspecified; E11.9 Type 2 diabetes mellitus without complications; Z79.4 Long term (current) use of insulin; K21.9 Gastro-esophageal reflux disease without esophagitis; M12.9 Arthropathy, unspecified
CPT/HCPCS: 36415; 80053; 81003; 82962; 85027; 86593

== ENCOUNTER 2018-08-16 09:34 | Inpatient (IN) | payer OTHER ==
[2018-08-16 10:08] VITALS: BMI 25.0
--- NOTE | 2018-08-16 11:10 | HP ---
CIWA Score Nausea/Vomitin Muscle Tremors: 2 Anxiety: 2 Agitation: 2 Paroxysmal Sweats: 1-Minimal Palms Moist Orientation: 0-Oriented Tacttile Disturbances: 1-Very Mild Itch/Numbness Auditory Disturbances: 1-Very Mild Visual Disturbances: 0-None Headache: 2-Mild CIWA-Ar Total Score: 13 - Admission Criteria OASAS Guidelines: Admission for Medically Managed Detox: Requires at least one of the followin. CIWA greater than 12 2. Seizures within the past 24 hours 3. Delirium tremens within the past 24 hours 4. Hallucinations within the past 24 hours 5. Acute intervention needed for co occurring medical disorder 6. Acute intervention needed for co occurring psychiatric disorder 7. Severe withdrawal that cannot be handled at a lower level of care (continued vomiting, continued diarrhea, abnormal vital signs) requiring intravenous medication and/or fluids 8. Patient presents the following: CIWA greater than 12 Admission Criteria Met: Admission criteria met Admission ROS [facility] - HPI Chief Complaint: i need help to stop drinking alcohol,cocaine Allergies/Adverse Reactions: Allergies Allergy/AdvReac Type Severity Reaction Status Date / Time No Known Drug Allergies Allergy Verified 08/16/18 10:31 TUNA FISH Allergy Severe Rash Uncoded 08/16/18 10:31 History of Present Illness: this 58 years old male with alcohol and cocaine dependence,seeking detox, withdrawal symptom,multiple admissions in detox, but keep relapsing,last detox [facility] 05/07/18 to 05/10/18,rehab 06/10/18 to history of hypertension,hypercholesterolemia,type 2 dm bipolar,schizophrenia nicotine dependence 1 pack/day, weight loss plan for rehab after detox Exam Limitations: No Limitations - Ebola screening Have you traveled outside of the country in the last 21 days: No Have you had contact with anyone from an Ebola affected area: No Have you been sick,other than usual withdrawal symptoms: No Do you have a fever: No - Review of Systems Constitutional: Loss of Appetite, Malaise, Night Sweats, Changes in sleep, Weakness, Unintentional Wgt. Loss EENT: reports: Nose Congestion Respiratory: reports: No Symptoms reported Cardiac: reports: No Symptoms Reported GI: reports: Diarrhea, Nausea, Poor Appetite : reports: No Symptoms Reported Musculoskeletal: reports: Back Pain, Muscle Pain Integumentary: reports: Dryness Neuro: reports: Headache, Tremors Endocrine: reports: No Symptoms Reported Hematology: reports: No Symptoms Reported Psychiatric: reports: No Sypmtoms Reported, Judgement Intact, Mood/Affect Appropiate, Orientated x3, other (bipolar,schizophrenia) Other Systems: Reviewed and Negative Patient History - Patient Medical History Hx Anemia: No Hx Asthma: No Hx Chronic Obstructive Pulmonary Disease (COPD): No Hx Cancer: No Hx Cardiac Disorders: No Hx Congestive Heart Failure: No Hx Hypertension: Yes (on med) Hx Hypercholesterolemia: Yes (on meds-LIPITOR) Hx Pacemaker: No HX Cerebrovascular Accident: No Hx Seizures: No Hx Dementia: No Hx Diabetes: Yes (NIDDM) Hx Gastrointestinal Disorders: Yes (acid reflux) Hx Liver Disease: No Hx Genitourinary Disorders: No Hx Sexually Transmitted Disorders: No Hx Renal Disease (ESRD): No Hx Thyroid Disease: No Hx Human Immunodeficiency Virus (HIV): No (Last Tested: 2016: NEGATIVE HX) Hx Hepatitis C: No (NEGATIVE TEST RESULT 9 MONTHS AGO) Hx Depression: Yes Hx Suicide Attempt: Yes (cutter at age 43) Hx Bipolar Disorder: Yes (on meds, [facility]) Hx Schizophrenia: Yes Other Medical History: no suicidal,no homicidal - Patient Surgical History Past Surgical History: Yes Hx Neurologic Surgery: No Hx Cataract Extraction: No Hx Cardiac Surgery: No Hx Lung Surgery: No Hx Breast Surgery: No Hx Breast Biopsy: No Hx Abdominal Surgery: No Hx Appendectomy: Yes (at age 6) Hx Cholecystectomy: No Hx Genitourinary Surgery: No Hx Section: No Hx Orthopedic Surgery: No Other Surgical History: DENIES. Anesthesia Reaction: No - PPD History Previous Implant?: Yes Documented Results: Negative w/proof Implanted On Prior [facility] Admission?: Yes Date: 10/31/17 Results: 0 mm PPD to be Administered?: No - Smoking Cessation Smoking history: Current every day smoker Have you smoked in the past 12 months: Yes Aproximately how many cigarettes per day: 20 Cigars Per Day: 0 Hx Chewing Tobacco Use: No Initiated information on smoking cessation: Yes 'Breaking Loose' booklet given: 08/16/18 - Substance & Tx. History Hx Alcohol Use: Yes Hx Substance Use: Yes Substance Use Type: Alcohol, Cocaine Hx Substance Use Treatment: Yes - Substances Abused Cocaine Route: Inhalation Frequency: Daily Amount used: $100 Age of first use: 24 Date of Last Use: 08/16/18 Alcohol-dave Route: Oral Frequency: Daily Amount used: 1 pt. Age of first use: 20 Date of Last Use: 08/16/18 Family Disease History - Family Disease History Family Disease History: Diabetes: Grandparent, Mother (living.), Other: Father ( , renal failure), Mother, Brother (one living -healthy, ), Sister (two living - healthy) Admission Physical Exam [facility] - Vital Signs Vital Signs: Vital Signs - 24 hr 08/16/18 10:05 Temperature 97.7 F Pulse Rate 73 Respiratory 20 Rate Blood Pressure 140/77 - Physical General Appearance: Yes: Moderate Distress, Tremorous, Irritable, Sweating, Anxious HEENTM: Yes: Normal ENT Inspection, [place], Pharynx Normal Respiratory: Yes: Lungs Clear, Normal Breath Sounds, No Respiratory Distress Neck: Yes: Within Normal Limits, Supple, Trachea in good position Breast: Yes: Within Normal Limits Cardiology: Yes: Within Normal Limits, Regular Rhythm, Regular Rate, S1, S2 Abdominal: Yes: Within Normal Limits, Normal Bowel Sounds, Non Tender, Flat, Soft, Surgical Scar (s/p appendectomy) Genitourinary: Yes: Within Normal Limits Back: Yes: Muscle Spasm Musculoskeletal: Yes: full range of Motion, Back pain, Muscle Pain Extremities: Yes: Within Normal Limits, Normal Range of Motion, Tremors, Inflammation Neurological: Yes: Fully Oriented, Alert, Motor Strength 5/5 Integumentary: Yes: Dry Lymphatic: Yes: Within Normal Limits - Diagnostic (1) Alcohol dependence with uncomplicated withdrawal Current Visit: Yes Status: Acute (2) HTN (hypertension) Current Visit: No Status: Acute (3) Cocaine dependence Current Visit: Yes Status: Chronic Qualifiers: Substance use status: uncomplicated Qualified Code(s): F14.20 - Cocaine dependence, uncomplicated (4) Hypercholesterolemia Current Visit: No Status: Chronic (5) Nicotine dependence Current Visit: Yes Status: Chronic Qualifiers: Nicotine product type: cigarettes Substance use status: in withdrawal Qualified Code(s): F17.213 - Nicotine dependence, cigarettes, with withdrawal (6) History of schizophrenia Current Visit: No Status: Suspected (7) Bipolar disorder Current Visit: Yes Status: Acute (8) Weight loss Current Visit: Yes Status: Acute Cleared for Admission [facility] - Detox or Rehab [facility] Level of Care: Medically Managed Detox Regimen/Protocol: Librium [facility] Breath Alcohol Content Breath Alcohol Content: 0.003 Urine Drug Screen - Results Drug Screen Negative: No Urine Drug Screen Results: PALLAVI-Cocaine, BZO-Benzodiazepines Inpatient Rehab Admission - Rehab Decision to Admit Inpatient rehab admission?: No
[2018-08-16] MEDS ORDERED: hydrOXYzine PAMOATE 25 MG CAPSULE (FP) PO PRN (11:21)
[2018-08-16] MEDS ORDERED: LOPERAMIDE HCL 2 MG CAPSULE PO PRN (11:21)
[2018-08-16] MEDS ORDERED: MAGNESIUM HYDROX 2400MG/30ML ORAL SUSPENSION 30 ML CUP PO PRN (11:21)
[2018-08-16] MEDS ORDERED: ACETAMINOPHEN 325 MG TABLET (FP) PO PRN (11:21)
[2018-08-16] MEDS ORDERED: MAG HYDROX/AL HYDROX/SIMETH 30 ML UNIT-DOSE CUP PO PRN (11:21)
[2018-08-16] MEDS ORDERED: IBUPROFEN 400 MG TABLET (FP) PO PRN (11:21)
[2018-08-16] MEDS ORDERED: MAGNESIUM CITRATE 300 ML BOTTLE PO PRN (11:21)
[2018-08-16] MEDS ORDERED: MENTHOL/PHENOL 1 EACH UD MM PRN (11:21)
[2018-08-16] MEDS ORDERED: guaiFENesin/D-METHORPHAN HB 10 ML UNIT-DOSE CUPS PO PRN (11:21)
[2018-08-16] MEDS: chlordiazePOXIDE HCL 25 MG CAPSULE PO PRN (12:31)
--- NOTE | 2018-08-16 16:09 | CONSULT ---
[facility] Psychiatric Consult - Data Date of interview: 08/16/18 Admission source: [facility] Identifying data: One of multiple admissions to [facility] for this 58 y/o male self-referred for detoxification treatment (alcohol and cocaine/ crack). Patient is single without children, homeless, unemployed and supported on SSI benefits. Substance Abuse History: Discussed in this session. Patient admits to consuming dave and wine (one pint daily) and snorting cocaine. Rarely uses crack as per self-report. Approximately 30 years of substance abuse and multiple relapses. Details in current [facility] report as follows : Smoking history: Current every day smoker. Have you smoked in the past 12 months: Yes. Aproximately how many cigarettes per day: 20. Cigars Per Day: 0. Hx Chewing Tobacco Use: No. Initiated information on smoking cessation: Yes. 'Breaking Loose' booklet given : 08/16/18. - Substance & Tx. History. Hx Alcohol Use: Yes. Hx Substance Use : Yes. Substance Use Type: Alcohol, Cocaine. Hx Substance Use Treatment: Yes. - Substances Abused. Cocaine. Route: Inhalation. Frequency: Daily. Amount used: $100. Age of first use: 24. Date of Last Use: 08/16/18. Alcohol-dave. Route: Oral. Frequency: Daily. Amount used: 1 pt. Age of first use: 20. Date of Last Use: 08/16/18 Medical History: Remarkable for diabetes mellitus, hypertension, dyslipidemia, history of appendectomy + orthosurgery for fracture of right ankle. Psychiatric History: Long-standing history of mental illness (onset at age 27). Multiple psychiatric hospitalizations ([facility], [facility], [facility]). Diagnosed with Bipolar Disorder. Mr Ramos sees a psychiatrist at the [facility] walk-in [facility]. Patient is currently prescribed seroquel 100 mg po bid + trazodone 100 mg po hs (confirmed by pharmacy claims of 07/31/18 + 08/02/18. Patient endorses a history of suicide attempts (self-mutilation). Physical/Sexual Abuse/Trauma History: Patient denies. Additional Comment: Urine Drug Screen Results: PALLAVI-Cocaine, BZO- Benzodiazepines. Noted. Mental Status Exam - Mental Status Exam Alert and Oriented to: Time, Place, Person Cognitive Function: Good Patient Appearance: Well Groomed Mood: Nervous, Withdrawn, Anxious Affect: Mood Congruent, Constricted Patient Behavior: Fatigued, Cooperative Speech Pattern: Clear, Appropriate Voice Loudness: Normal Thought Process: Intact, Goal Oriented Thought Disorder: Not Present Hallucinations: Denies Suicidal Ideation: Denies Homicidal Ideation: Denies Insight/Judgement: Poor Sleep: Poorly, Difficulty falling asleep Appetite: Good Muscle strength/Tone: Normal Gait/Station: Normal Psychiatric Findings - Problem List ([place] 1, 2,3) (1) Alcohol dependence with uncomplicated withdrawal Current Visit: Yes Status: Acute (2) Cocaine dependence Current Visit: Yes Status: Chronic Qualifiers: Substance use status: uncomplicated Qualified Code(s): F14.20 - Cocaine dependence, uncomplicated (3) Nicotine dependence Current Visit: Yes Status: Chronic Qualifiers: Nicotine product type: cigarettes Substance use status: in withdrawal Qualified Code(s): F17.213 - Nicotine dependence, cigarettes, with withdrawal (4) Substance induced mood disorder Current Visit: Yes Status: Chronic (5) Schizoaffective disorder Current Visit: Yes Status: Chronic (6) Insomnia Current Visit: Yes Status: Chronic Qualifiers: Insomnia type: unspecified Qualified Code(s): G47.00 - Insomnia, unspecified - Initial Treatment Plan Initial Treatment Plan: Psychoeducation. Sleep hygiene. Detoxification in progress. Support. Resume seroquel 100 mg po bid + trazodone 100 mg po hs. Side effects/benefits of both drugs are discussed with the patient (which includes the potential for priapism). Patient agrees to this plan of care. Observation.
[2018-08-16] MEDS ORDERED: traZODone HCL 100 MG TABLET (FP) PO PRN (16:14)
[2018-08-16] MEDS: chlordiazePOXIDE HCL 25 MG CAPSULE PO SCH ×2 (17:13→22:17)
[2018-08-16] MEDS: metFORMIN HCL 500 MG TABLET (FP) PO SCH (17:13)
--- NOTE | 2018-08-16 18:21 | PN ---
[facility] Progress Note Note: Vital Signs Temperature 97.6 F 08/16/18 17:22 Pulse Rate 74 08/16/18 17:22 Respiratory Rate 17 08/16/18 17:22 Blood Pressure 124/67 08/16/18 17:22 O2 Sat by Pulse Oximetry (%) Laboratory Last Values POC Glucometer 130 UNITS (80-120) 08/16/18 16:39 c/o of nasal congestion and stuffiness reports Actifed does not help with his symptoms. Flonase ordered increase PO fluids continue to monitor
[2018-08-16] MEDS: FLUTICASONE PROP 0.05% 16 GM NASAL SPRAY NS SCH (18:32)
[2018-08-16] MEDS: P-EPHED 60MG/TRIPROLIDI 2.5MG TABLET PO PRN (18:35)
[2018-08-16] MEDS ORDERED: MELATONIN 5 MG TABLETS PO PRN (22:00)
[2018-08-16] MEDS: THIAMINE HCL 100 MG TABLET (FP) PO SCH (22:16)
[2018-08-16] MEDS: QUEtiapine FUMARATE 100 MG TABLET (FP) PO SCH (22:17)
[2018-08-17] MEDS: chlordiazePOXIDE HCL 25 MG CAPSULE PO SCH ×4 (05:40→22:05)
[2018-08-17] MEDS: metFORMIN HCL 500 MG TABLET (FP) PO SCH ×2 (07:50→17:19)
[2018-08-17 10:00] LABS: HEMATOCRIT 40.8 % (35.4-49); HEMOGLOBIN 14.3 GM/dL (11.7-16.9); MCH 32.2 pg (25.7-33.7); MCHC 35.1 g/dl (32.0-35.9); MEAN CELL VOLUME 91.9 fl (80-96); MEAN PLT VOLUME 10.8 fl (7.5-11.1); PLATELET COUNT 227 K/MM3 (134-434); RBC 4.44 M/mm3 (4.00-5.60); RDW 13.9 % (11.9-15.9); WHITE BLOOD COUNT 6.9 K/mm3 (4.0-10.0)
[2018-08-17] MEDS ORDERED: LISINOPRIL 5 MG TABLET (FP) PO SCH (10:00)
[2018-08-17] MEDS: PANTOPRAZOLE 20 MG TABLET (FP) PO SCH (10:09)
[2018-08-17] MEDS: PRENATAL VITAMINS W/ FOLIC ACID TABLET (FP) PO SCH (10:09)
[2018-08-17] MEDS: ASPIRIN COATED 81 MG TABLET.EC PO SCH (10:09)
[2018-08-17] MEDS: FLUTICASONE PROP 0.05% 16 GM NASAL SPRAY NS SCH (10:09)
[2018-08-17] MEDS: LISINOPRIL 5 MG TABLET (FP) PO SCH (10:09)
[2018-08-17 10:15] LABS: ALBUMIN 4.1 g/dl (3.4-5.0); ALK PHOS 113 U/L (45-117); ANION GAP 4 MMOL/L (8-16); BILIRUBIN,TOTAL 0.4 mg/dL (0.2-1); BLOOD UREA NITROGEN 16 mg/dL (7-18); CALCIUM 8.9 mg/dL (8.5-10.1); CHLORIDE 105 mmol/L (98-107); CO2 30 mmol/L (21-32); CREATININE 0.8 mg/dL (0.55-1.3); GLUCOSE,RANDOM 64 mg/dL (74-106); POTASSIUM 3.9 mmol/L (3.5-5.1); SGOT/AST 99 U/L (15-37); SGPT/ALT 89 U/L (13-61); SODIUM 140 mmol/L (136-145); TOT PROT 7.4 g/dl (6.4-8.2)
--- NOTE | 2018-08-17 10:56 | PN ---
S CIWA - CIWA Score Nausea/Vomitin-Mild Nausea/No Vomiting Muscle Tremors: 3 Anxiety: 2 Agitation: 2 Paroxysmal Sweats: 1-Minimal Palms Moist Orientation: 0-Oriented Tacttile Disturbances: 0-None Auditory Disturbances: 0-None Visual Disturbances: 0-None Headache: 1-Very Mild CIWA-Ar Total Score: 10 S Progress Note (SOAP) Subjective: tremor sweating low energy trouble sleep at night Objective: 08/17/18 11:03 Vital Signs Temperature 97.1 F L 08/17/18 09:18 Pulse Rate 67 08/17/18 09:18 Respiratory Rate 18 08/17/18 09:18 Blood Pressure 85/60 L 08/17/18 09:18 O2 Sat by Pulse Oximetry (%) Laboratory Last Values WBC 6.9 K/mm3 (4.0-10.0) 08/17/18 05:45 RBC 4.44 M/mm3 (4.00-5.60) 08/17/18 05:45 Hgb 14.3 GM/dL (11.7-16.9) 08/17/18 05:45 Hct 40.8 % (35.4-49) 08/17/18 05:45 MCV 91.9 fl (80-96) 08/17/18 05:45 MCH 32.2 pg (25.7-33.7) 08/17/18 05:45 MCHC 35.1 g/dl (32.0-35.9) 08/17/18 05:45 RDW 13.9 % (11.9-15.9) 08/17/18 05:45 Plt Count 227 K/MM3 (134-434) 08/17/18 05:45 MPV 10.8 fl (7.5-11.1) D 08/17/18 05:45 Sodium 140 mmol/L (136-145) 08/17/18 05:45 Potassium 3.9 mmol/L (3.5-5.1) 08/17/18 05:45 Chloride 105 mmol/L (98-107) 08/17/18 05:45 Carbon Dioxide 30 mmol/L (21-32) 08/17/18 05:45 Anion Gap 4 MMOL/L (8-16) L 08/17/18 05:45 BUN 16 mg/dL (7-18) 08/17/18 05:45 Creatinine 0.8 mg/dL (0.55-1.3) 08/17/18 05:45 Creat Clearance w eGFR > 60 (>60) 08/17/18 05:45 POC Glucometer 108 UNITS (80-120) 08/17/18 05:40 Random Glucose 64 mg/dL (74-106) L 08/17/18 05:45 Calcium 8.9 mg/dL (8.5-10.1) 08/17/18 05:45 Total Bilirubin 0.4 mg/dL (0.2-1) 08/17/18 05:45 AST 99 U/L (15-37) H 08/17/18 05:45 ALT 89 U/L (13-61) H 08/17/18 05:45 Alkaline Phosphatase 113 U/L (45-117) 08/17/18 05:45 Total Protein 7.4 g/dl (6.4-8.2) 08/17/18 05:45 Albumin 4.1 g/dl (3.4-5.0) 08/17/18 05:45 HIV 1&2 Antibody Screen Negative 08/16/18 11:30 HIV P24 Antigen Negative 08/16/18 11:30 lab noted Assessment: 08/17/18 11:03 withdrawal sx Plan: continue alcohol detox
--- NOTE | 2018-08-17 14:34 | PN ---
[place] Progress Note Note: Psychiatry Attending's note : Brief encounter with patient. Mr Richard is upset about not receiving seroquel in AM. Explanation given to patient : trend of hypotension. Refer to vitals readings of 08/17/18. Seroquel will be back to 100 mg po bid if normal BP. Patient is made aware. Firm limits.
[2018-08-17] MEDS: traZODone HCL 50 MG TABLET (FP) PO SCH (22:04)
[2018-08-17] MEDS: THIAMINE HCL 100 MG TABLET (FP) PO SCH (22:04)
[2018-08-17] MEDS: QUEtiapine FUMARATE 100 MG TABLET (FP) PO SCH (22:04)
[2018-08-18] MEDS: chlordiazePOXIDE HCL 25 MG CAPSULE PO SCH ×2 (05:24→10:09)
[2018-08-18] MEDS: metFORMIN HCL 500 MG TABLET (FP) PO SCH ×2 (07:39→17:08)
[2018-08-18] MEDS: LISINOPRIL 5 MG TABLET (FP) PO SCH (10:09)
[2018-08-18] MEDS: ASPIRIN COATED 81 MG TABLET.EC PO SCH (10:09)
[2018-08-18] MEDS: FLUTICASONE PROP 0.05% 16 GM NASAL SPRAY NS SCH (10:09)
[2018-08-18] MEDS: PANTOPRAZOLE 20 MG TABLET (FP) PO SCH (10:09)
[2018-08-18] MEDS: PRENATAL VITAMINS W/ FOLIC ACID TABLET (FP) PO SCH (10:11)
--- NOTE | 2018-08-18 10:55 | PN ---
[facility] CIWA - CIWA Score Nausea/Vomitin-No Nausea/No Vomiting Muscle Tremors: 1-None Visible, but Childs Anxiety: 1-Mildly Anxious Agitation: 1-Slight > Activity Paroxysmal Sweats: 1-Minimal Palms Moist Orientation: 1-Uncertain about Date Tacttile Disturbances: 0-None Auditory Disturbances: 0-None Visual Disturbances: 0-None Headache: 0-None Present CIWA-Ar Total Score: 5 S Progress Note (SOAP) Subjective: doing well with the detox regimen has mild tremor and little sweating patient is isolated himself in the room seldom social with peers in day room patient denies sadness no suicidal ideation Objective: 08/18/18 10:52 Vital Signs Temperature 98.4 F 08/18/18 09:16 Pulse Rate 65 08/18/18 09:16 Respiratory Rate 16 08/18/18 09:16 Blood Pressure 87/54 L 08/18/18 09:16 O2 Sat by Pulse Oximetry (%) Laboratory Last Values WBC 6.9 K/mm3 (4.0-10.0) 08/17/18 05:45 RBC 4.44 M/mm3 (4.00-5.60) 08/17/18 05:45 Hgb 14.3 GM/dL (11.7-16.9) 08/17/18 05:45 Hct 40.8 % (35.4-49) 08/17/18 05:45 MCV 91.9 fl (80-96) 08/17/18 05:45 MCH 32.2 pg (25.7-33.7) 08/17/18 05:45 MCHC 35.1 g/dl (32.0-35.9) 08/17/18 05:45 RDW 13.9 % (11.9-15.9) 08/17/18 05:45 Plt Count 227 K/MM3 (134-434) 08/17/18 05:45 MPV 10.8 fl (7.5-11.1) D 08/17/18 05:45 Sodium 140 mmol/L (136-145) 08/17/18 05:45 Potassium 3.9 mmol/L (3.5-5.1) 08/17/18 05:45 Chloride 105 mmol/L (98-107) 08/17/18 05:45 Carbon Dioxide 30 mmol/L (21-32) 08/17/18 05:45 Anion Gap 4 MMOL/L (8-16) L 08/17/18 05:45 BUN 16 mg/dL (7-18) 08/17/18 05:45 Creatinine 0.8 mg/dL (0.55-1.3) 08/17/18 05:45 Creat Clearance w eGFR > 60 (>60) 08/17/18 05:45 POC Glucometer 138 UNITS (80-120) 08/18/18 05:23 Random Glucose 64 mg/dL (74-106) L 08/17/18 05:45 Calcium 8.9 mg/dL (8.5-10.1) 08/17/18 05:45 Total Bilirubin 0.4 mg/dL (0.2-1) 08/17/18 05:45 AST 99 U/L (15-37) H 08/17/18 05:45 ALT 89 U/L (13-61) H 08/17/18 05:45 Alkaline Phosphatase 113 U/L (45-117) 08/17/18 05:45 Total Protein 7.4 g/dl (6.4-8.2) 08/17/18 05:45 Albumin 4.1 g/dl (3.4-5.0) 08/17/18 05:45 RPR Titer Nonreactive (NONREACTIVE) 08/17/18 05:45 HIV 1&2 Antibody Screen Negative 08/16/18 11:30 HIV P24 Antigen Negative 08/16/18 11:30 lab noted repeat ast discontinue lisinopril Assessment: 08/18/18 10:54 alcohol withdrawal sx Plan: continue detox
[2018-08-18] MEDS: chlordiazePOXIDE HCL 25 MG CAPSULE PO PRN (15:27)
[2018-08-18] MEDS: chlordiazePOXIDE 5 MG CAPSULE PO SCH ×2 (17:08→22:05)
[2018-08-18] MEDS: traZODone HCL 50 MG TABLET (FP) PO SCH (22:03)
[2018-08-18] MEDS: QUEtiapine FUMARATE 100 MG TABLET (FP) PO SCH (22:04)
[2018-08-18] MEDS: THIAMINE HCL 100 MG TABLET (FP) PO SCH (22:04)
[2018-08-19] MEDS: chlordiazePOXIDE 5 MG CAPSULE PO SCH ×2 (05:51→10:09)
[2018-08-19] MEDS: metFORMIN HCL 500 MG TABLET (FP) PO SCH ×2 (06:17→17:06)
[2018-08-19] MEDS: ASPIRIN COATED 81 MG TABLET.EC PO SCH (10:09)
[2018-08-19] MEDS: PANTOPRAZOLE 20 MG TABLET (FP) PO SCH (10:09)
[2018-08-19] MEDS: FLUTICASONE PROP 0.05% 16 GM NASAL SPRAY NS SCH (10:09)
[2018-08-19] MEDS: PRENATAL VITAMINS W/ FOLIC ACID TABLET (FP) PO SCH (10:09)
[2018-08-19] MEDS: P-EPHED 60MG/TRIPROLIDI 2.5MG TABLET PO PRN (10:10)
--- NOTE | 2018-08-19 16:54 | PN ---
[facility] Progress Note (SOAP) Subjective: Patient denies current Withdrawal / Detox symptoms and reports that he feels well overall. Objective: PATIENT A & O X 3. IN NO ACUTE DISTRESS. 08/19/18 16:53 Vital Signs Temperature 98.0 F 08/19/18 13:49 Pulse Rate 108 H 08/19/18 13:49 Respiratory Rate 18 08/19/18 13:49 Blood Pressure 107/76 08/19/18 13:49 O2 Sat by Pulse Oximetry (%) Laboratory Tests 08/16/18 08/16/18 08/16/18 10:52 11:30 16:39 WBC RBC Hgb Hct MCV MCH MCHC RDW Plt Count MPV Sodium Potassium Chloride Carbon Dioxide Anion Gap BUN Creatinine Creat Clearance w eGFR POC Glucometer 156 130 Random Glucose Calcium Total Bilirubin AST ALT Alkaline Phosphatase Total Protein Albumin RPR Titer HIV 1&2 Antibody Screen Negative HIV P24 Antigen Negative 08/17/18 08/17/18 08/17/18 05:40 05:45 05:45 WBC 6.9 RBC 4.44 Hgb 14.3 Hct 40.8 MCV 91.9 MCH 32.2 MCHC 35.1 RDW 13.9 Plt Count 227 MPV 10.8 D Sodium 140 Potassium 3.9 Chloride 105 Carbon Dioxide 30 Anion Gap 4 L BUN 16 Creatinine 0.8 Creat Clearance w eGFR > 60 POC Glucometer 108 Random Glucose 64 L Calcium 8.9 Total Bilirubin 0.4 AST 99 H ALT 89 H Alkaline Phosphatase 113 Total Protein 7.4 Albumin 4.1 RPR Titer HIV 1&2 Antibody Screen HIV P24 Antigen 08/17/18 08/17/18 08/18/18 05:45 16:37 05:23 WBC RBC Hgb Hct MCV MCH MCHC RDW Plt Count MPV Sodium Potassium Chloride Carbon Dioxide Anion Gap BUN Creatinine Creat Clearance w eGFR POC Glucometer 141 138 Random Glucose Calcium Total Bilirubin AST ALT Alkaline Phosphatase Total Protein Albumin RPR Titer Nonreactive HIV 1&2 Antibody Screen HIV P24 Antigen 08/18/18 08/19/18 08/19/18 16:31 05:51 07:00 WBC RBC Hgb Hct MCV MCH MCHC RDW Plt Count MPV Sodium Potassium Chloride Carbon Dioxide Anion Gap BUN Creatinine Creat Clearance w eGFR POC Glucometer 113 148 Random Glucose Calcium Total Bilirubin AST 33 ALT Alkaline Phosphatase Total Protein Albumin RPR Titer HIV 1&2 Antibody Screen HIV P24 Antigen 08/19/18 16:25 WBC RBC Hgb Hct MCV MCH MCHC RDW Plt Count MPV Sodium Potassium Chloride Carbon Dioxide Anion Gap BUN Creatinine Creat Clearance w eGFR POC Glucometer 140 Random Glucose Calcium Total Bilirubin AST ALT Alkaline Phosphatase Total Protein Albumin RPR Titer HIV 1&2 Antibody Screen HIV P24 Antigen LABS NOTED. Assessment: 08/19/18 16:53 WITHDRAWAL SYMPTOMS. Plan: CONTINUE DETOX. ENCOURAGE AMBULATION. PATIENT SCHEDULED FOR D/C TOMORROW.
[2018-08-19] MEDS: chlordiazePOXIDE HCL 10 MG CAPSULE PO SCH ×2 (17:04→22:00)
[2018-08-19] MEDS: traZODone HCL 50 MG TABLET (FP) PO SCH (22:00)
[2018-08-19] MEDS: QUEtiapine FUMARATE 100 MG TABLET (FP) PO SCH (22:00)
[2018-08-19] MEDS: THIAMINE HCL 100 MG TABLET (FP) PO SCH (22:01)
[2018-08-20] MEDS: chlordiazePOXIDE HCL 10 MG CAPSULE PO SCH (06:02)
[2018-08-20] MEDS: metFORMIN HCL 500 MG TABLET (FP) PO SCH (06:15)
[2018-08-20 06:17] VITALS: BP 121/69; PULSE 69; TEMP 97.8
--- NOTE | 2018-08-20 20:15 | DS ---
[facility] Detox Discharge Summary Admission Date: 08/16/18 Discharge Date: 08/20/18 - History Present History: Alcohol Dependence, Cocaine Dependence Additional Comments: PATIENT GOING ON TO [facility] ([place], [place]) FOR AFTERCARE. PATIENT DECLINED OFFER OF MEDICATION PRESCRIPTION FOR HOME MEDICATION AT TIME OF DISCHARGE FROM DETOX, NOTING THAT HE CURRENTLY HAS ADEQUATE SUPPLIES OF ALL PRESCRIBED HOME MEDICATIONS WITH PERSONAL PROPERTY THAT HE BROUGHT WITH HIM AT TIME OF ADMISSION TO DETOX UNIT. PATIENT WAS DISCHARGED FROM DETOX UNIT IN STABLE MEDICAL CONDITION. Pertinent Past History: HTN, Hypercholesterolemia, NIDDM, Nicotine Dependence, Use Of Cane As Ambulatory Aid, History of Depression, History of Bipolar Disorder, Schizoaffective Disorder,History of G.E.R.D., Insomnia. - Physical Exam Results Vital Signs: Vital Signs Temperature 97.8 F 08/20/18 06:17 Pulse Rate 69 08/20/18 06:17 Respiratory Rate 16 08/20/18 06:17 Blood Pressure 121/69 08/20/18 06:17 O2 Sat by Pulse Oximetry (%) Pertinent Admission Physical Exam Findings: WITHDRAWAL SYMPTOMS. Laboratory Tests 08/16/18 08/16/18 08/16/18 10:52 11:30 16:39 WBC RBC Hgb Hct MCV MCH MCHC RDW Plt Count MPV Sodium Potassium Chloride Carbon Dioxide Anion Gap BUN Creatinine Creat Clearance w eGFR POC Glucometer 156 130 Random Glucose Calcium Total Bilirubin AST ALT Alkaline Phosphatase Total Protein Albumin RPR Titer HIV 1&2 Antibody Screen Negative HIV P24 Antigen Negative 08/17/18 08/17/18 08/17/18 05:40 05:45 05:45 WBC 6.9 RBC 4.44 Hgb 14.3 Hct 40.8 MCV 91.9 MCH 32.2 MCHC 35.1 RDW 13.9 Plt Count 227 MPV 10.8 D Sodium 140 Potassium 3.9 Chloride 105 Carbon Dioxide 30 Anion Gap 4 L BUN 16 Creatinine 0.8 Creat Clearance w eGFR > 60 POC Glucometer 108 Random Glucose 64 L Calcium 8.9 Total Bilirubin 0.4 AST 99 H ALT 89 H Alkaline Phosphatase 113 Total Protein 7.4 Albumin 4.1 RPR Titer HIV 1&2 Antibody Screen HIV P24 Antigen 08/17/18 08/17/18 08/18/18 05:45 16:37 05:23 WBC RBC Hgb Hct MCV MCH MCHC RDW Plt Count MPV Sodium Potassium Chloride Carbon Dioxide Anion Gap BUN Creatinine Creat Clearance w eGFR POC Glucometer 141 138 Random Glucose Calcium Total Bilirubin AST ALT Alkaline Phosphatase Total Protein Albumin RPR Titer Nonreactive HIV 1&2 Antibody Screen HIV P24 Antigen 08/18/18 08/19/18 08/19/18 16:31 05:51 07:00 WBC RBC Hgb Hct MCV MCH MCHC RDW Plt Count MPV Sodium Potassium Chloride Carbon Dioxide Anion Gap BUN Creatinine Creat Clearance w eGFR POC Glucometer 113 148 Random Glucose Calcium Total Bilirubin AST 33 ALT Alkaline Phosphatase Total Protein Albumin RPR Titer HIV 1&2 Antibody Screen HIV P24 Antigen 08/19/18 08/20/18 16:25 06:01 WBC RBC Hgb Hct MCV MCH MCHC RDW Plt Count MPV Sodium Potassium Chloride Carbon Dioxide Anion Gap BUN Creatinine Creat Clearance w eGFR POC Glucometer 140 129 Random Glucose Calcium Total Bilirubin AST ALT Alkaline Phosphatase Total Protein Albumin RPR Titer HIV 1&2 Antibody Screen HIV P24 Antigen LABS NOTED. - Treatment Hospital Course: Detox Protocol Followed, Detoxed Safely, Responded well, Discharged Condition Good, Rehab Referral Accepted Patient has Accepted a Rehab Referral to: [facility] ([place], [place]). - Medication Discharge Medications: Ambulatory Orders Omeprazole 20 mg PO DAILY 10/29/17 traZODone HCL [Desyrel -] 100 mg PO HS PRN 10/29/17 Aspirin [Aspirin EC] 81 mg PO DAILY 05/07/18 metFORMIN HCL [Glucophage -] 500 mg PO BID #60 tablet 05/10/18 Folic Acid - 1 mg PO DAILY 08/16/18 Lisinopril [Prinivil] 5 mg PO DAILY 08/16/18 Quetiapine Fumarate [Seroquel] 100 mg PO BID 08/16/18 Thiamine HCl [Vitamin B1] 100 mg PO DAILY 08/16/18 - Diagnosis (1) Alcohol dependence with uncomplicated withdrawal Status: Acute (2) HTN (hypertension) Status: Acute Qualifiers: Hypertension type: unspecified Qualified Code(s): I10 - Essential (primary ) hypertension (3) Substance induced mood disorder Status: Acute (4) Weight loss Status: Acute (5) Cocaine dependence Status: Chronic Qualifiers: Substance use status: uncomplicated Qualified Code(s): F14.20 - Cocaine dependence, uncomplicated (6) HTN (hypertension) Status: Chronic Qualifiers: Hypertension type: essential hypertension Qualified Code(s): I10 - Essential (primary) hypertension (7) Hypercholesterolemia Status: Chronic (8) Nicotine dependence Status: Chronic Qualifiers: Nicotine product type: cigarettes Substance use status: in withdrawal Qualified Code(s): F17.213 - Nicotine dependence, cigarettes, with withdrawal (9) Schizoaffective disorder Status: Chronic Qualifiers: Schizoaffective disorder type: unspecified Qualified Code(s): F25.9 - Schizoaffective disorder, unspecified - AMA Did Patient Leave Against Medical Advice: No
== END 2018-08-20 08:50 | disposition home or self-care (01) | DRG 774 ==
LOC: YASAS 09:34 → Y3N 11:22
PROVIDERS: ADMIT Surgery; ATTEND Surgery
PROC: HZ2ZZZZ Detoxification Services for Substance Abuse Treatment (ICD-10-PCS; principal; 2018-08-16)
DX: F10.230 Alcohol dependence with withdrawal, uncomplicated (principal); F14.20 Cocaine dependence, uncomplicated; F17.213 Nicotine dependence, cigarettes, with withdrawal; F19.24 Other psychoactive substance dependence with psychoactive substance-induced mood disorder; F25.9 Schizoaffective disorder, unspecified; F31.9 Bipolar disorder, unspecified; I10 Essential (primary) hypertension; E78.5 Hyperlipidemia, unspecified; G47.00 Insomnia, unspecified; E11.9 Type 2 diabetes mellitus without complications; K21.9 Gastro-esophageal reflux disease without esophagitis; Z91.013 Allergy to seafood; Z79.82 Long term (current) use of aspirin; Z79.84 Long term (current) use of oral hypoglycemic drugs; Z91.5 Personal history of self-harm
CPT/HCPCS: 36415; 80053; 82962; 84450; 85027; 86593; 87389

== ENCOUNTER 2018-10-14 09:22 | Inpatient (IN) | payer OTHER ==
[2018-10-14 10:22] VITALS: BMI 25.6
--- NOTE | 2018-10-14 11:35 | HP ---
CIWA Score Nausea/Vomitin Muscle Tremors: 2 Anxiety: 2 Agitation: 2 Paroxysmal Sweats: 1-Minimal Palms Moist Orientation: 0-Oriented Tacttile Disturbances: 1-Very Mild Itch/Numbness Auditory Disturbances: 1-Very Mild Visual Disturbances: 0-None Headache: 2-Mild CIWA-Ar Total Score: 13 - Admission Criteria [facility]ASAS Guidelines: Admission for Medically Managed Detox: Requires at least one of the followin. CIWA greater than 12 2. Seizures within the past 24 hours 3. Delirium tremens within the past 24 hours 4. Hallucinations within the past 24 hours 5. Acute intervention needed for co occurring medical disorder 6. Acute intervention needed for co occurring psychiatric disorder 7. Severe withdrawal that cannot be handled at a lower level of care (continued vomiting, continued diarrhea, abnormal vital signs) requiring intravenous medication and/or fluids 8. Admission ROS [facility] - HPI Chief Complaint: i need help to stop drinking alcohol,cocaine Allergies/Adverse Reactions: Allergies Allergy/AdvReac Type Severity Reaction Status Date / Time No Known Drug Allergies Allergy Verified 10/14/18 10:04 TUNA FISH Allergy Severe Rash Uncoded 10/14/18 10:04 History of Present Illness: this 58 years old male with alcohol and cocaine dependence,seeking detox, withdrawal symptom, multiple admissions in detox but keep relapsing last detox [facility] 08/06/18 to 08/20/18 syncope history of hypertension,type 2 dm nicotine dependence 1 pack/day,does not want nicotine replacement bipolar disorder, on med plan for rehab after detox also has hypercholesterolemia Exam Limitations: No Limitations - Ebola screening Have you traveled outside of the country in the last 21 days: No Have you had contact with anyone from an Ebola affected area: No Do you have a fever: No - Review of Systems Constitutional: Loss of Appetite, Malaise, Night Sweats, Changes in sleep, Weakness, Unintentional Wgt. Loss EENT: reports: Nose Congestion Respiratory: reports: No Symptoms reported Cardiac: reports: No Symptoms Reported GI: reports: Nausea, Vomiting, Abdominal cramping : reports: No Symptoms Reported Musculoskeletal: reports: Back Pain, Muscle Pain Integumentary: reports: Dryness Neuro: reports: Headache, Tremors Endocrine: reports: No Symptoms Reported Hematology: reports: No Symptoms Reported Psychiatric: reports: No Sypmtoms Reported, Judgement Intact, Mood/Affect Appropiate, Orientated x3, other (bipolar disorder) Other Systems: Reviewed and Negative Patient History - Patient Medical History Hx Anemia: No Hx Asthma: No Hx Chronic Obstructive Pulmonary Disease (COPD): No Hx Cancer: No Hx Cardiac Disorders: No Hx Congestive Heart Failure: No Hx Hypertension: Yes (on med) Hx Hypercholesterolemia: Yes (on meds-LIPITOR) Hx Pacemaker: No HX Cerebrovascular Accident: No Hx Seizures: No Hx Dementia: No Hx Diabetes: Yes (NIDDM) Hx Gastrointestinal Disorders: Yes (acid reflux) Hx Liver Disease: No Hx Genitourinary Disorders: No Hx Sexually Transmitted Disorders: No Hx Renal Disease (ESRD): No Hx Thyroid Disease: No Hx Human Immunodeficiency Virus (HIV): No (Last Tested: 2017: NEGATIVE HX) Hx Hepatitis C: No (NEGATIVE TEST RESULT 9 MONTHS AGO) Hx Depression: Yes Hx Suicide Attempt: Yes (cutter at age 43) Hx Bipolar Disorder: Yes (on meds, [facility]) Hx Schizophrenia: Yes Other Medical History: no suicidal,no homicidal - Patient Surgical History Past Surgical History: Yes Hx Neurologic Surgery: No Hx Cataract Extraction: No Hx Cardiac Surgery: No Hx Lung Surgery: No Hx Breast Surgery: No Hx Breast Biopsy: No Hx Abdominal Surgery: No Hx Appendectomy: Yes (at age 6) Hx Cholecystectomy: No Hx Genitourinary Surgery: No Hx Section: No Hx Orthopedic Surgery: No Other Surgical History: DENIES. Anesthesia Reaction: No - PPD History Previous Implant?: Yes Documented Results: Negative w/proof Implanted On Prior [facility] Admission?: Yes Date: 10/31/17 Results: 0 mm PPD to be Administered?: No - Smoking Cessation Smoking history: Current every day smoker Have you smoked in the past 12 months: Yes Aproximately how many cigarettes per day: 20 Cigars Per Day: 0 Hx Chewing Tobacco Use: No Initiated information on smoking cessation: Yes 'Breaking Loose' booklet given: 10/14/18 - Substance & Tx. History Hx Alcohol Use: Yes Hx Substance Use: Yes Substance Use Type: Alcohol, Cocaine Hx Substance Use Treatment: Yes ([facility] 08/16/18 to 08/20/18) - Substances abused Alcohol Substance route: Oral Frequency: Daily Amount used: 1 pint of dave Age of first use: 20 Date of last use: 10/14/18 Cocaine Substance route: Inhalation Frequency: Daily Amount used: 2 gram Age of first use: 24 Date of last use: 10/13/18 Crack Substance route: Smoking Frequency: Daily Amount used: 2 gram and a half Age of first use: 34 Date of last use: 10/14/18 Family Disease History - Family Disease History Family Disease History: Diabetes: Grandparent, Mother (living.), Other: Father ( , renal failure), Mother, Brother (one living -healthy, ), Sister (two living - healthy) Admission Physical Exam [facility] - Vital Signs Vital Signs: Vital Signs - 24 hr 10/14/18 10/14/18 10:03 10:35 Temperature 97.1 F L 97.1 F L Pulse Rate 85 85 Respiratory 20 20 Rate Blood Pressure 116/68 116/68 - Physical General Appearance: Yes: Moderate Distress, Tremorous, Irritable, Sweating, Anxious HEENTM: Yes: Normal ENT Inspection, BOOGIE, Pharynx Normal Respiratory: Yes: Lungs Clear, Normal Breath Sounds, No Respiratory Distress Neck: Yes: Within Normal Limits, Supple, Trachea in good position Breast: Yes: Within Normal Limits Cardiology: Yes: Within Normal Limits, Regular Rhythm, Regular Rate, S1, S2 Abdominal: Yes: Within Normal Limits, Normal Bowel Sounds, Non Tender, Flat, Soft, Surgical Scar Genitourinary: Yes: Within Normal Limits Back: Yes: Muscle Spasm Musculoskeletal: Yes: full range of Motion, Back pain, Muscle Pain Extremities: Yes: Within Normal Limits, Normal Range of Motion, Tremors Neurological: Yes: it security manager II-XII NML intact, Fully Oriented, Alert, Motor Strength 5/5 Integumentary: Yes: Within Normal Limits, Dry Lymphatic: Yes: Within Normal Limits - Diagnostic (1) Alcohol dependence with uncomplicated withdrawal Current Visit: No Status: Acute (2) DM2 (diabetes mellitus, type 2) Current Visit: Yes Status: Acute (3) HTN (hypertension) Current Visit: No Status: Acute Qualifiers: Hypertension type: unspecified Qualified Code(s): I10 - Essential (primary ) hypertension (4) Weight loss Current Visit: No Status: Acute (5) Bipolar disorder Current Visit: No Status: Chronic Qualifiers: Active/Remission status: remission status unspecified Qualified Code(s): F31.9 - Bipolar disorder, unspecified (6) Cocaine dependence Current Visit: No Status: Chronic (7) HTN (hypertension) Current Visit: No Status: Chronic Qualifiers: Hypertension type: essential hypertension Qualified Code(s): I10 - Essential (primary) hypertension (8) Hypercholesterolemia Current Visit: No Status: Chronic Cleared for Admission S - Detox or Rehab [facility] Level of Care: Medically Managed Detox Regimen/Protocol: Librium Breathalyzer - Breathalyzer Breathalyzer: 0 Urine Drug Screen - Test Device Lot number: [id number] Expiration date: 05/20/20 - Control Is test valid?: Yes - Results Drug screen NEGATIVE: No Urine drug screen results: PALLAVI-Cocaine, BZO-Benzodiazepines Inpatient Rehab Admission - Rehab Decision to Admit Inpatient rehab admission?: No
[2018-10-14] MEDS ORDERED: ACETAMINOPHEN 325 MG TABLET (FP) PO PRN ×2 (11:44)
[2018-10-14] MEDS ORDERED: BISMUTH SUBSALICYLATE 524 MG/30 ML UD PO PRN (11:44)
[2018-10-14] MEDS ORDERED: IBUPROFEN 400 MG TABLET (FP) PO PRN (11:44)
[2018-10-14] MEDS ORDERED: MAGNESIUM CITRATE 300 ML BOTTLE PO PRN (11:44)
[2018-10-14] MEDS ORDERED: METHOCARBAMOL 500 MG TABLET PO PRN (11:44)
[2018-10-14] MEDS ORDERED: MAG HYDROX/AL HYDROX/SIMETH 30 ML UNIT-DOSE CUP PO PRN (11:44)
[2018-10-14] MEDS ORDERED: hydrOXYzine PAMOATE 25 MG CAPSULE (FP) PO PRN (11:44)
[2018-10-14] MEDS ORDERED: MAGNESIUM HYDROX 2400MG/30ML ORAL SUSPENSION 30 ML CUP PO PRN (11:44)
[2018-10-14] MEDS ORDERED: MELATONIN 5 MG TABLETS PO PRN (11:44)
[2018-10-14] MEDS: chlordiazePOXIDE HCL 25 MG CAPSULE PO PRN (12:34)
[2018-10-14] MEDS ORDERED: ONDANSETRON *ODT* 4 MG TABLET SL PRN (12:37)
[2018-10-14] MEDS: guaiFENesin 200 MG/10 ML 10 ML UNIT-DOSE CUPS PO PRN ×2 (12:54→19:30)
[2018-10-14 14:49] LABS: ALBUMIN 4.1 g/dl (3.4-5.0); ALK PHOS 135 U/L (45-117); ANION GAP 8 MMOL/L (8-16); BILIRUBIN,TOTAL 0.5 mg/dL (0.2-1); BLOOD UREA NITROGEN 20 mg/dL (7-18); CALCIUM 9.6 mg/dL (8.5-10.1); CHLORIDE 101 mmol/L (98-107); CO2 28 mmol/L (21-32); CREATININE 0.7 mg/dL (0.55-1.3); GLUCOSE,RANDOM 82 mg/dL (74-106); POTASSIUM 3.8 mmol/L (3.5-5.1); SGOT/AST 76 U/L (15-37); SGPT/ALT 66 U/L (13-61); SODIUM 136 mmol/L (136-145); TOT PROT 7.8 g/dl (6.4-8.2)
[2018-10-14 14:52] LABS: HEMATOCRIT 40.8 % (35.4-49); HEMOGLOBIN 14.1 GM/dL (11.7-16.9); MCH 31.1 pg (25.7-33.7); MCHC 34.7 g/dl (32.0-35.9); MEAN CELL VOLUME 89.7 fl (80-96); MEAN PLT VOLUME 9.4 fl (7.5-11.1); PLATELET COUNT 255 K/MM3 (134-434); RBC 4.54 M/mm3 (4.00-5.60); RDW 13.5 % (11.9-15.9); WHITE BLOOD COUNT 10.3 K/mm3 (4.0-10.0)
[2018-10-14] MEDS: MENTHOL/PHENOL 1 EACH UD MM PRN ×2 (16:46→22:15)
[2018-10-14] MEDS: chlordiazePOXIDE HCL 25 MG CAPSULE PO SCH ×2 (17:28→22:13)
[2018-10-14] MEDS: metFORMIN HCL 500 MG TABLET (FP) PO SCH (17:29)
[2018-10-14] MEDS: THIAMINE HCL 100 MG TABLET (FP) PO SCH (22:13)
[2018-10-15 00:01] LABS: PH,URINE 5.5 (5.0-8.0); URINE APPEARANCE TURBID; URINE BILIRUBIN 1+ (NEGATIVE); URINE COLOR DK YELLOW; URINE GLUCOSE (UA) NEGATIVE (NEGATIVE); URINE KETONE TRACE (NEGATIVE); URINE LEUK ESTERASE NEGATIVE (NEGATIVE); URINE NITRITE NEGATIVE (NEGATIVE); URINE PROTEIN NEGATIVE (NEGATIVE)
[2018-10-15] MEDS: chlordiazePOXIDE HCL 25 MG CAPSULE PO SCH ×4 (05:41→22:05)
[2018-10-15] MEDS: guaiFENesin 200 MG/10 ML 10 ML UNIT-DOSE CUPS PO PRN ×3 (05:41→22:08)
[2018-10-15] MEDS: metFORMIN HCL 500 MG TABLET (FP) PO SCH ×2 (06:32→16:51)
[2018-10-15] MEDS ORDERED: ASPIRIN COATED 81 MG TABLET.EC PO SCH (10:00)
[2018-10-15] MEDS ORDERED: PRENATAL VITAMINS W/ FOLIC ACID TABLET (FP) PO SCH (10:00)
[2018-10-15] MEDS ORDERED: LISINOPRIL 5 MG TABLET (FP) PO SCH (10:00)
--- NOTE | 2018-10-15 10:10 | PN ---
S CIWA - CIWA Score Nausea/Vomitin-No Nausea/No Vomiting Muscle Tremors: 3 Anxiety: 3 Agitation: 4-Moderately Restless Paroxysmal Sweats: 3 Orientation: 0-Oriented Tacttile Disturbances: 0-None Auditory Disturbances: 0-None Visual Disturbances: 0-None Headache: 0-None Present CIWA-Ar Total Score: 13 S Progress Note (SOAP) Subjective: I need to see the psychiatrist sweats shakes agitation restless Objective: 10/15/18 10:03 Vital Signs Temperature 97.1 F L 10/15/18 09:46 Pulse Rate 69 10/15/18 09:46 Respiratory Rate 16 10/15/18 09:46 Blood Pressure 128/69 10/15/18 09:46 O2 Sat by Pulse Oximetry (%) Laboratory Tests 10/14/18 10/14/18 10/14/18 11:50 12:00 12:00 WBC 10.3 H RBC 4.54 Hgb 14.1 Hct 40.8 MCV 89.7 MCH 31.1 MCHC 34.7 RDW 13.5 Plt Count 255 MPV 9.4 D Sodium 136 Potassium 3.8 Chloride 101 Carbon Dioxide 28 Anion Gap 8 BUN 20 H Creatinine 0.7 Creat Clearance w eGFR 115.43 POC Glucometer 96 Random Glucose 82 Calcium 9.6 Total Bilirubin 0.5 AST 76 H ALT 66 H Alkaline Phosphatase 135 H Total Protein 7.8 Albumin 4.1 Urine Color Urine Appearance Urine pH Ur Specific [place] Urine Protein Urine Glucose (UA) Urine Ketones Urine Blood Urine Nitrite Urine Bilirubin Urine Urobilinogen Ur Leukocyte Esterase RPR Titer 10/14/18 10/14/18 10/14/18 12:00 16:34 18:40 WBC RBC Hgb Hct MCV MCH MCHC RDW Plt Count MPV Sodium Potassium Chloride Carbon Dioxide Anion Gap BUN Creatinine Creat Clearance w eGFR POC Glucometer 96 Random Glucose Calcium Total Bilirubin AST ALT Alkaline Phosphatase Total Protein Albumin Urine Color Dk yellow Urine Appearance Turbid Urine pH 5.5 Ur Specific [place] 1.037 H Urine Protein Negative Urine Glucose (UA) Negative Urine Ketones Trace H Urine Blood Negative Urine Nitrite Negative Urine Bilirubin 1+ H Urine Urobilinogen 1.0 Ur Leukocyte Esterase Negative RPR Titer Nonreactive 10/15/18 05:40 WBC RBC Hgb Hct MCV MCH MCHC RDW Plt Count MPV Sodium Potassium Chloride Carbon Dioxide Anion Gap BUN Creatinine Creat Clearance w eGFR POC Glucometer 128 Random Glucose Calcium Total Bilirubin AST ALT Alkaline Phosphatase Total Protein Albumin Urine Color Urine Appearance Urine pH Ur Specific [place] Urine Protein Urine Glucose (UA) Urine Ketones Urine Blood Urine Nitrite Urine Bilirubin Urine Urobilinogen Ur Leukocyte Esterase RPR Titer aaox3 ambulating no acute distress Assessment: 10/15/18 10:12 withdrawal sx Plan: continue detox increase fluids psych has been ordered
--- NOTE | 2018-10-15 10:27 | CONSULT ---
[facility] Psychiatric Consult - Data Date of interview: 10/15/18 Admission source: [facility] Identifying data: Readmission to [facility] for this 58 y/o male, sent to [address] [place] [address] for detoxification treatment (alcohol, cocaine/crack). Patient is single without children, homeless, unemployed and supported on SSI benefits. Substance Abuse History: Confirmed by the patient in this interview. Details in current [facility] report as follows : Smoking history: Current every day smoker. Have you smoked in the past 12 months: Yes. Aproximately how many cigarettes per day: 20. Cigars Per Day: 0. Hx Chewing Tobacco Use: No. Initiated information on smoking cessation: Yes. 'Breaking Loose' booklet given: . - Substance & Tx. History. Hx Alcohol Use: Yes. Hx Substance Use: Yes. Substance Use Type: Alcohol, Cocaine. Hx Substance Use Treatment: Yes ([facility] to 08/20/18). - Substances abused. Alcohol. Substance route: Oral. Frequency: Daily. Amount used: 1 pint of dave. Age of first use: 20. Date of last use: 10/14/18. Cocaine. Substance route: Inhalation. Frequency: Daily. Amount used: 2 gram. Age of first use: 24. Date of last use: . Crack. Substance route: Smoking. Frequency: Daily. Amount used: 2 gram and a half. Age of first use: 34. Date of last use: 10/14/18 Medical History: Remarkable for diabetes mellitus, hypertension, GERD, dyslipidemia, history of appendectomy + orthosurgery for fracture of right ankle. Psychiatric History: Patient endorses an extensive history of mental illness ( onset at age 27). Multiple psychiatric hospitalizations ([facility], [facility], [facility]). Diagnosed with Bipolar Disorder. Mr Ramos sees a psychiatrist at the [facility]. Patient reports maintenance on a regimen of seroquel 200 mg po bid + trazodone 100 mg po hs. Patient endorses a history of suicide attempts (self-mutilation). Physical/Sexual Abuse/Trauma History: Patient denies. Additional Comment: Urine drug screen results: PALLAVI-Cocaine, BZO- Benzodiazepines. Noted. Mental Status Exam - Mental Status Exam Alert and Oriented to: Time, Place, Person Cognitive Function: Good Patient Appearance: Well Groomed Mood: Hopeful, Euthymic Affect: Appropriate, Normal Range Patient Behavior: Fatigued, Appropriate, Cooperative Speech Pattern: Clear, Appropriate Voice Loudness: Normal Thought Process: Goal Oriented Thought Disorder: Not Present Hallucinations: Denies Suicidal Ideation: Denies Homicidal Ideation: Denies Insight/Judgement: Poor Sleep: Poorly, Difficulty falling asleep Appetite: Good Muscle strength/Tone: Normal Gait/Station: Normal Psychiatric Findings - Problem List ([place] 1, 2,3) (1) Alcohol dependence with uncomplicated withdrawal Current Visit: Yes Status: Acute (2) Cocaine dependence Current Visit: Yes Status: Chronic Qualifiers: Substance use status: uncomplicated Qualified Code(s): F14.20 - Cocaine dependence, uncomplicated (3) Nicotine dependence Current Visit: Yes Status: Chronic Qualifiers: Nicotine product type: cigarettes Substance use status: in withdrawal Qualified Code(s): F17.213 - Nicotine dependence, cigarettes, with withdrawal (4) Insomnia Current Visit: Yes Status: Chronic Qualifiers: Insomnia type: unspecified Qualified Code(s): G47.00 - Insomnia, unspecified (5) Schizoaffective disorder Current Visit: Yes Status: Chronic Qualifiers: Schizoaffective disorder type: unspecified Qualified Code(s): F25.9 - Schizoaffective disorder, unspecified - Initial Treatment Plan Initial Treatment Plan: Psychoeducation. Sleep hygiene. Support. AA meetings. Groups. Principles of relapse prevention (MAT) : discussed with patient. Contact made with pharmacist ([phone]) at the [facility] # [id number] : last contact with this patient was in July 2017. However, Mr Ramos is already known to this fha underwriter. Records ([facility]) are revisited. Will resume seroquel at the dose of 100 mg po daily + 200 mg po hs (reduced) and trazodone 100 mg po hs. Side effects/benefits of both drugs are discussed with patient (including potential for priapism, oversedation and metabolic syndrome). Patient is in agreement with this plan of care. Consent (verbal) addressed to MD. Walton.
[2018-10-15] MEDS: chlordiazePOXIDE HCL 25 MG CAPSULE PO PRN (19:56)
[2018-10-15] MEDS ORDERED: traZODone HCL 50 MG TABLET (FP) PO PRN (22:00)
[2018-10-15] MEDS ORDERED: QUEtiapine FUMARATE 100 MG TABLET (FP) PO SCH (22:00)
[2018-10-15] MEDS ORDERED: QUEtiapine FUMARATE 200 MG TABLET PO SCH (22:00)
[2018-10-15] MEDS: THIAMINE HCL 100 MG TABLET (FP) PO SCH (22:05)
[2018-10-16] MEDS: chlordiazePOXIDE HCL 25 MG CAPSULE PO SCH (06:23)
[2018-10-16] MEDS: metFORMIN HCL 500 MG TABLET (FP) PO SCH (06:23)
[2018-10-16] MEDS: guaiFENesin 200 MG/10 ML 10 ML UNIT-DOSE CUPS PO PRN (06:24)
[2018-10-16 07:00] VITALS: BP 95/46; PULSE 61; TEMP 98.2
[2018-10-16] MEDS ORDERED: QUEtiapine FUMARATE 100 MG TABLET (FP) PO SCH (10:00)
--- NOTE | 2018-10-16 11:37 | PN ---
[facility] Progress Note Note: Patient requested to sign out AMA this morning. Patient stated to provider " I don't want to stay! This place is no good". Patient encouraged to ellaborate but he became angry and said " I want to go!". Despite encouragement to complete detox and explanation of relapse risk factors, patient refused to stay in treatment. Patient denies SI/HI. AMA forms provided by nursing staff and signed by patient. Vital Signs Temperature 98.2 F 10/16/18 06:59 Pulse Rate 61 10/16/18 06:59 Respiratory Rate 18 10/16/18 06:59 Blood Pressure 95/46 L 10/16/18 06:59 O2 Sat by Pulse Oximetry (%)
--- NOTE | 2018-10-16 11:38 | DS ---
[facility] Detox Discharge Summary Admission Date: 10/14/18 Discharge Date: 10/16/18 - History Present History: Alcohol Dependence, Cocaine Dependence - Physical Exam Results Vital Signs: Vital Signs Temperature 98.2 F 10/16/18 06:59 Pulse Rate 61 10/16/18 06:59 Respiratory Rate 18 10/16/18 06:59 Blood Pressure 95/46 L 10/16/18 06:59 O2 Sat by Pulse Oximetry (%) - Medication Discharge Medications: Ambulatory Orders Omeprazole 20 mg PO DAILY 10/29/17 traZODone HCL [Desyrel -] 100 mg PO HS PRN 10/29/17 Aspirin [Aspirin EC] 81 mg PO DAILY 05/07/18 metFORMIN HCL [Glucophage -] 500 mg PO BID #60 tablet 05/10/18 Folic Acid - 1 mg PO DAILY 08/16/18 Lisinopril [Prinivil] 5 mg PO DAILY 08/16/18 Quetiapine Fumarate [Seroquel] 100 mg PO BID 08/16/18 Thiamine HCl [Vitamin B1] 100 mg PO DAILY 08/16/18 - AMA Did Patient Leave Against Medical Advice: Yes
[2018-10-16] MEDS ORDERED: chlordiazePOXIDE HCL 10 MG CAPSULE PO PRN (17:00)
[2018-10-16] MEDS ORDERED: chlordiazePOXIDE HCL 10 MG CAPSULE PO SCH (17:00)
[2018-10-17] MEDS ORDERED: chlordiazePOXIDE HCL 10 MG CAPSULE PO SCH (17:00)
== END 2018-10-16 09:05 | disposition left against medical advice (07) | DRG 770 ==
LOC: YASAS 09:22 → Y6N 11:43
PROVIDERS: ADMIT Surgery; ATTEND Surgery
PROC: HZ2ZZZZ Detoxification Services for Substance Abuse Treatment (ICD-10-PCS; principal; 2018-10-14)
DX: F10.230 Alcohol dependence with withdrawal, uncomplicated (principal); F14.20 Cocaine dependence, uncomplicated; F17.213 Nicotine dependence, cigarettes, with withdrawal; F31.9 Bipolar disorder, unspecified; F25.9 Schizoaffective disorder, unspecified; G47.00 Insomnia, unspecified; I10 Essential (primary) hypertension; E78.00 Pure hypercholesterolemia, unspecified; E11.9 Type 2 diabetes mellitus without complications; Z79.84 Long term (current) use of oral hypoglycemic drugs; R63.4 Abnormal weight loss; Z68.25 Body mass index [BMI] 25.0-25.9, adult; Z91.5 Personal history of self-harm
CPT/HCPCS: 36415; 80053; 81003; 82962; 85027; 86593; Q0162

== ENCOUNTER 2018-11-04 09:42 | Inpatient (IN) | payer OTHER ==
--- NOTE | 2018-11-04 10:45 | HP ---
CIWA Score Nausea/Vomitin Muscle Tremors: 2 Anxiety: 3 Agitation: 3 Paroxysmal Sweats: 1-Minimal Palms Moist Orientation: 0-Oriented Tacttile Disturbances: 1-Very Mild Itch/Numbness Auditory Disturbances: 1-Very Mild Visual Disturbances: 0-None Headache: 2-Mild CIWA-Ar Total Score: 15 - Admission Criteria [facility] Guidelines: Admission for Medically Managed Detox: Requires at least one of the followin. CIWA greater than 12 2. Seizures within the past 24 hours 3. Delirium tremens within the past 24 hours 4. Hallucinations within the past 24 hours 5. Acute intervention needed for co occurring medical disorder 6. Acute intervention needed for co occurring psychiatric disorder 7. Severe withdrawal that cannot be handled at a lower level of care (continued vomiting, continued diarrhea, abnormal vital signs) requiring intravenous medication and/or fluids 8. Admission ROS [facility] - HPI Chief Complaint: i need help to stop drinking alcohol and cocaine Allergies/Adverse Reactions: Allergies Allergy/AdvReac Type Severity Reaction Status Date / Time No Known Drug Allergies Allergy Verified 11/04/18 10:12 TUNA FISH Allergy Severe Rash Uncoded 11/04/18 10:12 History of Present Illness: this 58 years old male with alcohol ,cocaine,crack dependence,seeking detox, withdrawal symptom, multiple admissions in detox but keep relapsing non compliance issue last treatment 10/14/18 to 10/17/18 history of hypertension,type 2 dm, nicotine dependence 1 pack,requesting nicotine gum weight loss longest sobriety 2 years plan for rehab after detox Exam Limitations: No Limitations - Ebola screening Have you traveled outside of the country in the last 21 days: No (N) Have you had contact with anyone from an Ebola affected area: No Do you have a fever: No - Review of Systems Constitutional: Loss of Appetite, Malaise, Night Sweats, Changes in sleep, Weakness, Unintentional Wgt. Loss EENT: reports: Tearing, Nose Congestion Respiratory: reports: No Symptoms reported Cardiac: reports: No Symptoms Reported GI: reports: Diarrhea, Nausea, Poor Appetite, Abdominal cramping : reports: No Symptoms Reported Musculoskeletal: reports: Back Pain, Muscle Pain Integumentary: reports: Dryness Neuro: reports: Headache, Tremors Endocrine: reports: No Symptoms Reported Hematology: reports: No Symptoms Reported Psychiatric: reports: No Sypmtoms Reported, Judgement Intact, Mood/Affect Appropiate, Orientated x3, other (schizophrenia and depression) Patient History - Patient Medical History Hx Anemia: No Hx Asthma: No Hx Chronic Obstructive Pulmonary Disease (COPD): No Hx Cancer: No Hx Cardiac Disorders: No Hx Congestive Heart Failure: No Hx Hypertension: Yes (on med) Hx Hypercholesterolemia: Yes (on meds-LIPITOR) Hx Pacemaker: No HX Cerebrovascular Accident: No Hx Seizures: No Hx Dementia: No Hx Diabetes: Yes (NIDDM) Hx Gastrointestinal Disorders: Yes (acid reflux) Hx Liver Disease: No Hx Genitourinary Disorders: No Hx Sexually Transmitted Disorders: No Hx Renal Disease (ESRD): No Hx Thyroid Disease: No Hx Human Immunodeficiency Virus (HIV): No (last 08/09 negagive) Hx Hepatitis C: No (NEGATIVE TEST RESULT 9 MONTHS AGO) Hx Depression: Yes Hx Suicide Attempt: Yes (cutter at age 43) Hx Bipolar Disorder: Yes (on meds, [facility]) Hx Schizophrenia: Yes Other Medical History: no suicidal,no homicidal - Patient Surgical History Past Surgical History: Yes Hx Neurologic Surgery: No Hx Cataract Extraction: No Hx Cardiac Surgery: No Hx Lung Surgery: No Hx Breast Surgery: No Hx Breast Biopsy: No Hx Abdominal Surgery: No Hx Appendectomy: Yes (at age 6) Hx Cholecystectomy: No Hx Genitourinary Surgery: No Hx Section: No Hx Orthopedic Surgery: No Other Surgical History: DENIES. Anesthesia Reaction: No - PPD History Previous Implant?: Yes Documented Results: Negative w/proof Implanted On Prior [facility] Admission?: Yes Date: 10/31/17 Results: 0 mm PPD to be Administered?: Yes - Smoking Cessation Smoking history: Current every day smoker Have you smoked in the past 12 months: Yes Aproximately how many cigarettes per day: 20 Cigars Per Day: 0 Hx Chewing Tobacco Use: No Initiated information on smoking cessation: Yes 'Breaking Loose' booklet given: 11/04/18 - Substance & Tx. History Hx Alcohol Use: Yes Hx Substance Use: Yes Substance Use Type: Alcohol, Cocaine Hx Substance Use Treatment: Yes ([facility] 10/14/18 to 10/16/18 not completed) - Substances abused Alcohol Substance route: Oral Frequency: Daily Amount used: 1 pint of dave Age of first use: 20 Date of last use: 11/03/18 Cocaine Substance route: Inhalation Frequency: Daily Amount used: 2 gram Age of first use: 24 Date of last use: 11/03/18 Crack Substance route: Smoking Frequency: Daily Amount used: 2 gram and a half Age of first use: 34 Date of last use: 11/03/18 Family Disease History - Family Disease History Family Disease History: Diabetes: Grandparent, Mother (living.), Other: Father ( , renal failure), Mother, Brother (one living -healthy, ), Sister (two living - healthy) Admission Physical Exam [facility] - Vital Signs Vital Signs: Vital Signs - 24 hr 11/04/18 10:05 Temperature 98.1 F Pulse Rate 87 Respiratory 20 Rate Blood Pressure 125/85 - Physical General Appearance: Yes: Moderate Distress, Tremorous, Irritable, Sweating, Anxious HEENTM: Yes: Normal ENT Inspection, BOOGIE, Pharynx Normal Respiratory: Yes: Lungs Clear, Normal Breath Sounds, No Respiratory Distress Neck: Yes: Within Normal Limits, Supple, Trachea in good position Breast: Yes: Within Normal Limits Cardiology: Yes: Within Normal Limits, Regular Rhythm, Regular Rate, S1, S2 Abdominal: Yes: Within Normal Limits, Normal Bowel Sounds, Non Tender, Flat, Soft Genitourinary: Yes: Within Normal Limits Back: Yes: Muscle Spasm Musculoskeletal: Yes: Back pain, Muscle Pain Extremities: Yes: Within Normal Limits, Normal Range of Motion, Tremors Neurological: Yes: child's nurse II-XII NML intact, Fully Oriented, Alert, Motor Strength 5/5 Integumentary: Yes: Dry Lymphatic: Yes: Within Normal Limits - Diagnostic (1) Alcohol dependence with uncomplicated withdrawal Current Visit: Yes Status: Acute (2) DM2 (diabetes mellitus, type 2) Current Visit: No Status: Acute (3) HTN (hypertension) Current Visit: No Status: Acute Qualifiers: Hypertension type: unspecified Qualified Code(s): I10 - Essential (primary ) hypertension (4) Weight loss Current Visit: No Status: Acute (5) Cocaine dependence Current Visit: Yes Status: Chronic Qualifiers: Substance use status: uncomplicated Qualified Code(s): F14.20 - Cocaine dependence, uncomplicated (6) Hypercholesterolemia Current Visit: No Status: Chronic (7) Nicotine dependence Current Visit: Yes Status: Chronic Qualifiers: Nicotine product type: cigarettes Substance use status: in withdrawal Qualified Code(s): F17.213 - Nicotine dependence, cigarettes, with withdrawal (8) Schizoaffective disorder Current Visit: No Status: Chronic Qualifiers: Schizoaffective disorder type: unspecified Qualified Code(s): F25.9 - Schizoaffective disorder, unspecified (9) Syncope Current Visit: Yes Status: Acute Cleared for Admission [facility] - Detox or Rehab [facility] Level of Care: Medically Managed Detox Regimen/Protocol: Librium Breathalyzer - Breathalyzer Breathalyzer: 0 Urine Drug Screen - Test Device Lot number: [id number] Expiration date: 05/20/20 - Control Is test valid?: Yes - Results Drug screen NEGATIVE: No Urine drug screen results: PALLAVI-Cocaine, BZO-Benzodiazepines Inpatient Rehab Admission - Rehab Decision to Admit Inpatient rehab admission?: No
[2018-11-04] MEDS ORDERED: NICOTINE POLACRILEX 2 MG GUM BUC PRN (10:55)
[2018-11-04] MEDS ORDERED: MAG HYDROX/AL HYDROX/SIMETH 30 ML UNIT-DOSE CUP PO PRN (10:55)
[2018-11-04] MEDS ORDERED: MELATONIN 5 MG TABLETS PO PRN (10:55)
[2018-11-04] MEDS ORDERED: IBUPROFEN 400 MG TABLET (FP) PO PRN (10:55)
[2018-11-04] MEDS ORDERED: ACETAMINOPHEN 325 MG TABLET (FP) PO PRN ×2 (10:55)
[2018-11-04] MEDS ORDERED: BISMUTH SUBSALICYLATE 262 MG/15 ML BTL PO PRN (10:55)
[2018-11-04] MEDS ORDERED: MAGNESIUM HYDROX 2400MG/30ML ORAL SUSPENSION 30 ML CUP PO PRN (10:55)
[2018-11-04] MEDS ORDERED: METHOCARBAMOL 500 MG TABLET PO PRN (10:55)
[2018-11-04] MEDS ORDERED: MAGNESIUM CITRATE 300 ML BOTTLE PO PRN (10:55)
[2018-11-04] MEDS ORDERED: MENTHOL/PHENOL 1 EACH UD MM PRN (10:55)
[2018-11-04 11:19] VITALS: BMI 26.1
[2018-11-04] MEDS: chlordiazePOXIDE HCL 25 MG CAPSULE PO PRN (12:12)
[2018-11-04 16:07] LABS: PH,URINE 5.5 (5.0-8.0); URINE APPEARANCE CLEAR; URINE BILIRUBIN NEGATIVE (NEGATIVE); URINE COLOR DK YELLOW; URINE GLUCOSE (UA) NEGATIVE (NEGATIVE); URINE KETONE TRACE (NEGATIVE); URINE LEUK ESTERASE NEGATIVE (NEGATIVE); URINE NITRITE NEGATIVE (NEGATIVE); URINE PROTEIN NEGATIVE (NEGATIVE)
[2018-11-04 16:11] LABS: HEMATOCRIT 43.9 % (35.4-49); HEMOGLOBIN 14.6 GM/dL (11.7-16.9); MCH 30.7 pg (25.7-33.7); MCHC 33.3 g/dl (32.0-35.9); MEAN CELL VOLUME 92.2 fl (80-96); MEAN PLT VOLUME 10.2 fl (7.5-11.1); PLATELET COUNT 263 K/MM3 (134-434); RBC 4.76 M/mm3 (4.00-5.60); RDW 14.1 % (11.9-15.9); WHITE BLOOD COUNT 9.2 K/mm3 (4.0-10.0)
[2018-11-04 16:28] LABS: ALBUMIN 3.9 g/dl (3.4-5.0); BILIRUBIN,TOTAL 0.6 mg/dL (0.2-1); CALCIUM 9.4 mg/dL (8.5-10.1); CREATININE 0.8 mg/dL (0.55-1.3); POTASSIUM 3.9 mmol/L (3.5-5.1); TOT PROT 7.2 g/dl (6.4-8.2)
[2018-11-04] MEDS: chlordiazePOXIDE HCL 25 MG CAPSULE PO SCH ×2 (17:04→22:05)
[2018-11-04] MEDS: metFORMIN HCL 500 MG TABLET (FP) PO SCH (17:04)
--- NOTE | 2018-11-04 17:37 | CONSULT ---
[facility] Psychiatric Consult - Data Date of interview: 11/04/18 Admission source: [facility] Identifying data: Another admission to [facility] for this 58 y/o male, self-referred for detoxification treatment (alcohol, cocaine/crack). Patient is single without children, homeless, unemployed and supported on SSI benefits. Substance Abuse History: Confirmed by the patient. Details ([facility] report) : Smoking history: Current every day smoker. Have you smoked in the past 12 months: Yes. Aproximately how many cigarettes per day: 20. Cigars Per Day: 0. Hx Chewing Tobacco Use: No. Initiated information on smoking cessation: Yes. 'Breaking Loose' booklet given: 11/04/18. - Substance & Tx. History. Hx Alcohol Use: Yes. Hx Substance Use: Yes. Substance Use Type: Alcohol, Cocaine. Hx Substance Use Treatment: Yes ([facility] 10/14/18 to 10/16/18 not completed). - Substances abused. Alcohol. Substance route: Oral. Frequency: Daily. Amount used: 1 pint of dave. Age of first use: 20. Date of last use: 11/03/18. Cocaine. Substance route: Inhalation. Frequency: Daily. Amount used: 2 gram. Age of first use: 24. Date of last use: . Crack. Substance route: Smoking. Frequency: Daily. Amount used: 2 gram and a half. Age of first use: 34. Date of last use: 11/03/18 Medical History: Diabetes mellitus, hypertension, GERD, dyslipidemia, history of appendectomy + orthosurgery for fracture of right ankle. Psychiatric History: Long-standing history of mental illness (onset at age 27). Multiple psychiatric hospitalizations ([facility], [facility]). Diagnosed with Bipolar Disorder. Mr Ramos sees psychiatrists, at times of crisis, at the [facility] walk-in clinic. Patient reports maintenance on a regimen of seroquel 200 mg po hs + haldol 5 mg/bid + cogentin 1 mg/day(confirmed by refills of 10/2018). Patient endorses a history of suicide attempts (self-mutilation). Physical/Sexual Abuse/Trauma History: Patient denies. Additional Comment: Urine drug screen results: PALLAVI-Cocaine, BZO- Benzodiazepines. Noted. Mental Status Exam - Mental Status Exam Alert and Oriented to: Time, Place, Person Cognitive Function: Good Patient Appearance: Well Groomed Mood: Nervous, Withdrawn, Anxious Affect: Mood Congruent Patient Behavior: Fatigued, Cooperative Speech Pattern: Clear Voice Loudness: Normal Thought Process: Goal Oriented Thought Disorder: Not Present Hallucinations: Denies Suicidal Ideation: Denies Homicidal Ideation: Denies Insight/Judgement: Poor Sleep: Poorly, Difficulty falling asleep Appetite: Good Muscle strength/Tone: Normal Gait/Station: Normal Psychiatric Findings - Problem List ([place] 1, 2,3) (1) Alcohol dependence with uncomplicated withdrawal Current Visit: Yes Status: Acute (2) Cocaine dependence Current Visit: Yes Status: Chronic Qualifiers: Substance use status: uncomplicated Qualified Code(s): F14.20 - Cocaine dependence, uncomplicated (3) Nicotine dependence Current Visit: Yes Status: Chronic Qualifiers: Nicotine product type: cigarettes Substance use status: in withdrawal Qualified Code(s): F17.213 - Nicotine dependence, cigarettes, with withdrawal (4) Substance induced mood disorder Current Visit: Yes Status: Chronic (5) Schizoaffective disorder Current Visit: Yes Status: Chronic Comment: By history. (6) Insomnia Current Visit: Yes Status: Chronic Qualifiers: Insomnia type: unspecified Qualified Code(s): G47.00 - Insomnia, unspecified - Initial Treatment Plan Initial Treatment Plan: Psychoeducation. Sleep hygiene. Detoxification. medications discussed with the patient. Mr Veliz requests continuation of seroquel at the dose of 100 mg po hs (reduced) + haldol 5 mg po bid + cogentin 1 mg po daily. Side effects/benefits of these medications are discussed in session. This includes risk nof EPS, tardive dyskinesia, neuroleptic malignant syndrome, akathisia, anticholinergic issues and cardiovascular adverse events. Patient gave his verbal consent for this plan of care. Observation.
[2018-11-04] MEDS ORDERED: QUEtiapine FUMARATE 100 MG TABLET (FP) PO SCH (22:00)
[2018-11-04] MEDS: THIAMINE HCL 100 MG TABLET (FP) PO SCH (22:05)
[2018-11-04] MEDS: HALOPERIDOL 5 MG TABLET (FP) PO SCH ×2 (22:05→22:06)
[2018-11-04] MEDS: ATORVASTATIN CA 10 MG TABLET (FP) PO SCH (22:05)
[2018-11-05] MEDS: chlordiazePOXIDE HCL 25 MG CAPSULE PO SCH ×4 (06:10→22:02)
[2018-11-05] MEDS: metFORMIN HCL 500 MG TABLET (FP) PO SCH ×2 (06:11→17:54)
[2018-11-05] MEDS: PRENATAL VITAMINS W/ FOLIC ACID TABLET (FP) PO SCH (10:13)
[2018-11-05] MEDS: HALOPERIDOL 5 MG TABLET (FP) PO SCH (10:14)
[2018-11-05] MEDS: LISINOPRIL 5 MG TABLET (FP) PO SCH (10:14)
[2018-11-05] MEDS: BENZTROPINE MESYLATE 1 MG TABLET (FP) PO SCH (10:14)
[2018-11-05] MEDS: ASPIRIN COATED 81 MG TABLET.EC PO SCH (10:15)
--- NOTE | 2018-11-05 11:47 | PN ---
[facility] Progress Note Note: Psychiatry Attending's note : Brief meeting with patient. At his request. Reason : adjustment of medications. Mr Veliz wants increase of seroquel dose. Patient is already known to this health technical writer. Seroquel is raised to 200 mg po hs. Consent given.
--- NOTE | 2018-11-05 12:27 | PN ---
S CIWA - CIWA Score Nausea/Vomitin-No Nausea/No Vomiting Muscle Tremors: 4-Moderate,w/Arms Extend Anxiety: 4-Mod. Anxious/Guarded Agitation: 4-Moderately Restless Paroxysmal Sweats: 1-Minimal Palms Moist Orientation: 0-Oriented Tacttile Disturbances: 0-None Auditory Disturbances: 0-None Visual Disturbances: 0-None Headache: 0-None Present CIWA-Ar Total Score: 13 BHS Progress Note (SOAP) Subjective: C/O ANXIETY, SWEATS,"STOMACH SHAKES"-W/S. INTERMITTENT SLEEP. Objective: 11/05/18 12:26 Vital Signs 11/05/18 11/05/18 06:05 09:26 Temperature 97.8 F 97.1 F L Pulse Rate 73 78 Respiratory 18 18 Rate Blood Pressure 99/60 108/72 Laboratory Tests 11/04/18 11/04/18 11/04/18 10:59 11:15 11:15 WBC 9.2 RBC 4.76 Hgb 14.6 Hct 43.9 MCV 92.2 MCH 30.7 MCHC 33.3 RDW 14.1 Plt Count 263 MPV 10.2 Sodium 136 Potassium 3.9 Chloride 103 Carbon Dioxide 25 Anion Gap 9 BUN 24 H Creatinine 0.8 Est GFR (CKD-EPI)AfAm 113.33 Est GFR (CKD-EPI)NonAf 97.78 POC Glucometer 142 Random Glucose 119 H Calcium 9.4 Total Bilirubin 0.6 AST 114 H ALT 97 H Alkaline Phosphatase 120 H Total Protein 7.2 Albumin 3.9 Urine Color Urine Appearance Urine pH Ur Specific [place] Urine Protein Urine Glucose (UA) Urine Ketones Urine Blood Urine Nitrite Urine Bilirubin Urine Urobilinogen Ur Leukocyte Esterase RPR Titer HIV 1&2 Antibody Screen HIV P24 Antigen 11/04/18 11/04/18 11/04/18 11:15 11:15 11:15 WBC RBC Hgb Hct MCV MCH MCHC RDW Plt Count MPV Sodium Potassium Chloride Carbon Dioxide Anion Gap BUN Creatinine Est GFR (CKD-EPI)AfAm Est GFR (CKD-EPI)NonAf POC Glucometer Random Glucose Calcium Total Bilirubin AST ALT Alkaline Phosphatase Total Protein Albumin Urine Color Dk yellow Urine Appearance Clear Urine pH 5.5 Ur Specific [place] 1.037 H Urine Protein Negative Urine Glucose (UA) Negative Urine Ketones Trace H Urine Blood Negative Urine Nitrite Negative Urine Bilirubin Negative Urine Urobilinogen 1.0 Ur Leukocyte Esterase Negative RPR Titer Nonreactive HIV 1&2 Antibody Screen Negative HIV P24 Antigen Negative 11/04/18 11/05/18 16:20 05:53 WBC RBC Hgb Hct MCV MCH MCHC RDW Plt Count MPV Sodium Potassium Chloride Carbon Dioxide Anion Gap BUN Creatinine Est GFR (CKD-EPI)AfAm Est GFR (CKD-EPI)NonAf POC Glucometer 138 132 Random Glucose Calcium Total Bilirubin AST ALT Alkaline Phosphatase Total Protein Albumin Urine Color Urine Appearance Urine pH Ur Specific [place] Urine Protein Urine Glucose (UA) Urine Ketones Urine Blood Urine Nitrite Urine Bilirubin Urine Urobilinogen Ur Leukocyte Esterase RPR Titer HIV 1&2 Antibody Screen HIV P24 Antigen Assessment: 11/05/18 12:26 WITHDRAWAL SX Plan: CONTINUE DETOX INCREASE PO FLUIDS
[2018-11-05] MEDS: chlordiazePOXIDE HCL 25 MG CAPSULE PO PRN ×2 (15:05→20:58)
[2018-11-05] MEDS: hydrOXYzine PAMOATE 25 MG CAPSULE (FP) PO PRN (18:21)
[2018-11-05] MEDS: ATORVASTATIN CA 10 MG TABLET (FP) PO SCH (22:02)
[2018-11-05] MEDS: THIAMINE HCL 100 MG TABLET (FP) PO SCH (22:02)
[2018-11-05] MEDS: QUEtiapine FUMARATE 200 MG TABLET PO SCH (22:02)
[2018-11-06] MEDS: chlordiazePOXIDE HCL 25 MG CAPSULE PO SCH ×2 (05:21→10:13)
[2018-11-06] MEDS: metFORMIN HCL 500 MG TABLET (FP) PO SCH ×2 (06:25→16:59)
[2018-11-06] MEDS: HALOPERIDOL 5 MG TABLET (FP) PO SCH (10:12)
[2018-11-06] MEDS: BENZTROPINE MESYLATE 1 MG TABLET (FP) PO SCH (10:12)
[2018-11-06] MEDS: ASPIRIN COATED 81 MG TABLET.EC PO SCH (10:12)
[2018-11-06] MEDS: LISINOPRIL 5 MG TABLET (FP) PO SCH (10:13)
[2018-11-06] MEDS: PRENATAL VITAMINS W/ FOLIC ACID TABLET (FP) PO SCH (10:13)
--- NOTE | 2018-11-06 11:53 | PN ---
S CIWA - CIWA Score Nausea/Vomitin-Mild Nausea/No Vomiting Muscle Tremors: 2 Anxiety: 2 Agitation: 2 Paroxysmal Sweats: 1-Minimal Palms Moist Orientation: 0-Oriented Tacttile Disturbances: 0-None Auditory Disturbances: 0-None Visual Disturbances: 0-None Headache: 0-None Present CIWA-Ar Total Score: 8 S Progress Note (SOAP) Subjective: diabetes in good control bp within range feeling anxious encourage discuss aftercare with staff Objective: 11/06/18 12:26 Vital Signs Temperature 97.4 F L 11/06/18 09:14 Pulse Rate 90 11/06/18 09:14 Respiratory Rate 20 11/06/18 09:14 Blood Pressure 109/75 11/06/18 09:14 O2 Sat by Pulse Oximetry (%) Laboratory Last Values WBC 9.2 K/mm3 (4.0-10.0) 11/04/18 11:15 RBC 4.76 M/mm3 (4.00-5.60) 11/04/18 11:15 Hgb 14.6 GM/dL (11.7-16.9) 11/04/18 11:15 Hct 43.9 % (35.4-49) 11/04/18 11:15 MCV 92.2 fl (80-96) 11/04/18 11:15 MCH 30.7 pg (25.7-33.7) 11/04/18 11:15 MCHC 33.3 g/dl (32.0-35.9) 11/04/18 11:15 RDW 14.1 % (11.9-15.9) 11/04/18 11:15 Plt Count 263 K/MM3 (134-434) 11/04/18 11:15 MPV 10.2 fl (7.5-11.1) 11/04/18 11:15 Sodium 136 mmol/L (136-145) 11/04/18 11:15 Potassium 3.9 mmol/L (3.5-5.1) 11/04/18 11:15 Chloride 103 mmol/L (98-107) 11/04/18 11:15 Carbon Dioxide 25 mmol/L (21-32) 11/04/18 11:15 Anion Gap 9 MMOL/L (8-16) 11/04/18 11:15 BUN 24 mg/dL (7-18) H 11/04/18 11:15 Creatinine 0.8 mg/dL (0.55-1.3) 11/04/18 11:15 Est GFR (CKD-EPI)AfAm 113.33 11/04/18 11:15 Est GFR (CKD-EPI)NonAf 97.78 11/04/18 11:15 POC Glucometer 124 UNITS (80-120) 11/06/18 05:20 Random Glucose 119 mg/dL (74-106) H 11/04/18 11:15 Calcium 9.4 mg/dL (8.5-10.1) 11/04/18 11:15 Total Bilirubin 0.6 mg/dL (0.2-1) 11/04/18 11:15 AST 114 U/L (15-37) H 11/04/18 11:15 ALT 97 U/L (13-61) H 11/04/18 11:15 Alkaline Phosphatase 120 U/L (45-117) H 11/04/18 11:15 Total Protein 7.2 g/dl (6.4-8.2) 11/04/18 11:15 Albumin 3.9 g/dl (3.4-5.0) 11/04/18 11:15 Urine Color Dk yellow 11/04/18 11:15 Urine Appearance Clear 11/04/18 11:15 Urine pH 5.5 (5.0-8.0) 11/04/18 11:15 Ur Specific [place] 1.037 (1.010-1.035) H 11/04/18 11:15 Urine Protein Negative (NEGATIVE) 11/04/18 11:15 Urine Glucose (UA) Negative (NEGATIVE) 11/04/18 11:15 Urine Ketones Trace (NEGATIVE) H 11/04/18 11:15 Urine Blood Negative (NEGATIVE) 11/04/18 11:15 Urine Nitrite Negative (NEGATIVE) 11/04/18 11:15 Urine Bilirubin Negative (NEGATIVE) 11/04/18 11:15 Urine Urobilinogen 1.0 mg/dL (0.2-1.0) 11/04/18 11:15 Ur Leukocyte Esterase Negative (NEGATIVE) 11/04/18 11:15 RPR Titer Nonreactive (NONREACTIVE) 11/04/18 11:15 HIV 1&2 Antibody Screen Negative 11/04/18 11:15 HIV P24 Antigen Negative 11/04/18 11:15 lab noted ast elevation Assessment: 11/06/18 12:28 alcohol withdrawal sx discuss alcohol misuse related ast elevation Plan: continue detox
[2018-11-06] MEDS: chlordiazePOXIDE HCL 10 MG CAPSULE PO SCH ×2 (16:59→22:02)
[2018-11-06] MEDS ORDERED: chlordiazePOXIDE HCL 10 MG CAPSULE PO PRN (17:00)
[2018-11-06] MEDS: hydrOXYzine PAMOATE 25 MG CAPSULE (FP) PO PRN (17:17)
[2018-11-06] MEDS ORDERED: MELATONIN 5 MG TABLETS PO PRN (21:11)
[2018-11-06] MEDS: ATORVASTATIN CA 10 MG TABLET (FP) PO SCH (22:02)
[2018-11-06] MEDS: QUEtiapine FUMARATE 200 MG TABLET PO SCH (22:02)
[2018-11-06] MEDS: THIAMINE HCL 100 MG TABLET (FP) PO SCH (22:02)
[2018-11-07] MEDS: chlordiazePOXIDE HCL 10 MG CAPSULE PO SCH ×2 (05:17→10:40)
[2018-11-07] MEDS: metFORMIN HCL 500 MG TABLET (FP) PO SCH (06:11)
[2018-11-07 09:14] VITALS: TEMP 97
[2018-11-07] MEDS: HALOPERIDOL 5 MG TABLET (FP) PO SCH (10:40)
[2018-11-07] MEDS: PRENATAL VITAMINS W/ FOLIC ACID TABLET (FP) PO SCH (10:40)
[2018-11-07] MEDS: BENZTROPINE MESYLATE 1 MG TABLET (FP) PO SCH (10:41)
[2018-11-07] MEDS: ASPIRIN COATED 81 MG TABLET.EC PO SCH (10:41)
[2018-11-07] MEDS: LISINOPRIL 5 MG TABLET (FP) PO SCH (10:41)
--- NOTE | 2018-11-07 13:16 | PN ---
S CIWA - CIWA Score Nausea/Vomitin-Mild Nausea/No Vomiting Muscle Tremors: 1-None Visible, but [place] Anxiety: 1-Mildly Anxious Agitation: 1-Slight > Activity Paroxysmal Sweats: No Perspiration Orientation: 0-Oriented Tacttile Disturbances: 0-None Auditory Disturbances: 0-None Visual Disturbances: 0-None Headache: 0-None Present CIWA-Ar Total Score: 4 [facility] Progress Note (SOAP) Subjective: feeling better indigestion request tracy diane tracy diane ordered Objective: 11/07/18 13:15 Vital Signs Temperature 97.0 F L 11/07/18 09:13 Pulse Rate 69 11/07/18 09:13 Respiratory Rate 18 11/07/18 09:13 Blood Pressure 140/83 11/07/18 09:13 O2 Sat by Pulse Oximetry (%) Laboratory Last Values WBC 9.2 K/mm3 (4.0-10.0) 11/04/18 11:15 RBC 4.76 M/mm3 (4.00-5.60) 11/04/18 11:15 Hgb 14.6 GM/dL (11.7-16.9) 11/04/18 11:15 Hct 43.9 % (35.4-49) 11/04/18 11:15 MCV 92.2 fl (80-96) 11/04/18 11:15 MCH 30.7 pg (25.7-33.7) 11/04/18 11:15 MCHC 33.3 g/dl (32.0-35.9) 11/04/18 11:15 RDW 14.1 % (11.9-15.9) 11/04/18 11:15 Plt Count 263 K/MM3 (134-434) 11/04/18 11:15 MPV 10.2 fl (7.5-11.1) 11/04/18 11:15 Sodium 136 mmol/L (136-145) 11/04/18 11:15 Potassium 3.9 mmol/L (3.5-5.1) 11/04/18 11:15 Chloride 103 mmol/L (98-107) 11/04/18 11:15 Carbon Dioxide 25 mmol/L (21-32) 11/04/18 11:15 Anion Gap 9 MMOL/L (8-16) 11/04/18 11:15 BUN 24 mg/dL (7-18) H 11/04/18 11:15 Creatinine 0.8 mg/dL (0.55-1.3) 11/04/18 11:15 Est GFR (CKD-EPI)AfAm 113.33 11/04/18 11:15 Est GFR (CKD-EPI)NonAf 97.78 11/04/18 11:15 POC Glucometer 117 UNITS (80-120) 11/07/18 05:16 Random Glucose 119 mg/dL (74-106) H 11/04/18 11:15 Calcium 9.4 mg/dL (8.5-10.1) 11/04/18 11:15 Total Bilirubin 0.6 mg/dL (0.2-1) 11/04/18 11:15 AST 50 U/L (15-37) H 11/07/18 09:00 ALT 97 U/L (13-61) H 11/04/18 11:15 Alkaline Phosphatase 120 U/L (45-117) H 11/04/18 11:15 Total Protein 7.2 g/dl (6.4-8.2) 11/04/18 11:15 Albumin 3.9 g/dl (3.4-5.0) 11/04/18 11:15 Urine Color Dk yellow 11/04/18 11:15 Urine Appearance Clear 11/04/18 11:15 Urine pH 5.5 (5.0-8.0) 11/04/18 11:15 Ur Specific [place] 1.037 (1.010-1.035) H 11/04/18 11:15 Urine Protein Negative (NEGATIVE) 11/04/18 11:15 Urine Glucose (UA) Negative (NEGATIVE) 11/04/18 11:15 Urine Ketones Trace (NEGATIVE) H 11/04/18 11:15 Urine Blood Negative (NEGATIVE) 11/04/18 11:15 Urine Nitrite Negative (NEGATIVE) 11/04/18 11:15 Urine Bilirubin Negative (NEGATIVE) 11/04/18 11:15 Urine Urobilinogen 1.0 mg/dL (0.2-1.0) 11/04/18 11:15 Ur Leukocyte Esterase Negative (NEGATIVE) 11/04/18 11:15 RPR Titer Nonreactive (NONREACTIVE) 11/04/18 11:15 HIV 1&2 Antibody Screen Negative 11/04/18 11:15 HIV P24 Antigen Negative 11/04/18 11:15 lab noted Assessment: 11/07/18 13:16 withdrawal sx Plan: continue detox
[2018-11-07 13:26] VITALS: BP 132/73; PULSE 72
[2018-11-07] MEDS ORDERED: chlordiazePOXIDE HCL 10 MG CAPSULE PO SCH (17:00)
--- NOTE | 2018-11-07 20:23 | DS ---
[facility] Detox Discharge Summary Admission Date: 11/04/18 Discharge Date: 11/07/18 - History Present History: Alcohol Dependence, Cocaine Dependence Additional Comments: PATIENT DID NOT WISH TO REMAIN TO COMPLETE DETOX REGIMEN. ROOF SLATER UNABLE TO DO MEDICAL ASSESSMENT ON PATIENT PRIOR TO LEAVING DETOX UNIT DUE TO FACT THAT PATIENT LEFT DETOX UNIT BEFORE RN WAS EVEN ABLE TO MAKE ROOF SLATER AWARE THAT HE WAS LEAVING AGAINST MEDICAL ADVICE. Pertinent Past History: TYpe II DM, HTN, Hypercholesterolemia, Nicotine Dependence, Weight Loss, G.E.R.D., Depression, Bipolar Disorder, Schizophrenia, History Of Syncope, Schizoaffective Disorder, Insomnia. - Physical Exam Results Vital Signs: Vital Signs Temperature 97.0 F L 11/07/18 13:24 Pulse Rate 72 11/07/18 13:24 Respiratory Rate 18 11/07/18 13:24 Blood Pressure 132/73 11/07/18 13:24 O2 Sat by Pulse Oximetry (%) Pertinent Admission Physical Exam Findings: WITHDRAWAL SYMPTOMS. Laboratory Tests 11/04/18 11/04/18 11/04/18 10:59 11:15 11:15 WBC 9.2 RBC 4.76 Hgb 14.6 Hct 43.9 MCV 92.2 MCH 30.7 MCHC 33.3 RDW 14.1 Plt Count 263 MPV 10.2 Sodium 136 Potassium 3.9 Chloride 103 Carbon Dioxide 25 Anion Gap 9 BUN 24 H Creatinine 0.8 Est GFR (CKD-EPI)AfAm 113.33 Est GFR (CKD-EPI)NonAf 97.78 POC Glucometer 142 Random Glucose 119 H Calcium 9.4 Total Bilirubin 0.6 AST 114 H ALT 97 H Alkaline Phosphatase 120 H Total Protein 7.2 Albumin 3.9 Urine Color Urine Appearance Urine pH Ur Specific Carbon Urine Protein Urine Glucose (UA) Urine Ketones Urine Blood Urine Nitrite Urine Bilirubin Urine Urobilinogen Ur Leukocyte Esterase RPR Titer HIV 1&2 Antibody Screen HIV P24 Antigen 11/04/18 11/04/18 11/04/18 11:15 11:15 11:15 WBC RBC Hgb Hct MCV MCH MCHC RDW Plt Count MPV Sodium Potassium Chloride Carbon Dioxide Anion Gap BUN Creatinine Est GFR (CKD-EPI)AfAm Est GFR (CKD-EPI)NonAf POC Glucometer Random Glucose Calcium Total Bilirubin AST ALT Alkaline Phosphatase Total Protein Albumin Urine Color Dk yellow Urine Appearance Clear Urine pH 5.5 Ur Specific Carbon 1.037 H Urine Protein Negative Urine Glucose (UA) Negative Urine Ketones Trace H Urine Blood Negative Urine Nitrite Negative Urine Bilirubin Negative Urine Urobilinogen 1.0 Ur Leukocyte Esterase Negative RPR Titer Nonreactive HIV 1&2 Antibody Screen Negative HIV P24 Antigen Negative 11/04/18 11/05/18 11/05/18 16:20 05:53 16:55 WBC RBC Hgb Hct MCV MCH MCHC RDW Plt Count MPV Sodium Potassium Chloride Carbon Dioxide Anion Gap BUN Creatinine Est GFR (CKD-EPI)AfAm Est GFR (CKD-EPI)NonAf POC Glucometer 138 132 152 Random Glucose Calcium Total Bilirubin AST ALT Alkaline Phosphatase Total Protein Albumin Urine Color Urine Appearance Urine pH Ur Specific Carbon Urine Protein Urine Glucose (UA) Urine Ketones Urine Blood Urine Nitrite Urine Bilirubin Urine Urobilinogen Ur Leukocyte Esterase RPR Titer HIV 1&2 Antibody Screen HIV P24 Antigen 11/06/18 11/06/18 11/07/18 05:20 16:26 05:16 WBC RBC Hgb Hct MCV MCH MCHC RDW Plt Count MPV Sodium Potassium Chloride Carbon Dioxide Anion Gap BUN Creatinine Est GFR (CKD-EPI)AfAm Est GFR (CKD-EPI)NonAf POC Glucometer 124 146 117 Random Glucose Calcium Total Bilirubin AST ALT Alkaline Phosphatase Total Protein Albumin Urine Color Urine Appearance Urine pH Ur Specific Carbon Urine Protein Urine Glucose (UA) Urine Ketones Urine Blood Urine Nitrite Urine Bilirubin Urine Urobilinogen Ur Leukocyte Esterase RPR Titer HIV 1&2 Antibody Screen HIV P24 Antigen 11/07/18 11/07/18 09:00 16:17 WBC RBC Hgb Hct MCV MCH MCHC RDW Plt Count MPV Sodium Potassium Chloride Carbon Dioxide Anion Gap BUN Creatinine Est GFR (CKD-EPI)AfAm Est GFR (CKD-EPI)NonAf POC Glucometer 138 Random Glucose Calcium Total Bilirubin AST 50 H ALT Alkaline Phosphatase Total Protein Albumin Urine Color Urine Appearance Urine pH Ur Specific Carbon Urine Protein Urine Glucose (UA) Urine Ketones Urine Blood Urine Nitrite Urine Bilirubin Urine Urobilinogen Ur Leukocyte Esterase RPR Titer HIV 1&2 Antibody Screen HIV P24 Antigen LABS NOTED. - Treatment Hospital Course: Detox Protocol Followed, Detoxed Safely - Medication Discharge Medications: Ambulatory Orders Omeprazole 20 mg PO DAILY 10/29/17 traZODone HCL [Desyrel -] 100 mg PO HS PRN 10/29/17 Aspirin [Aspirin EC] 81 mg PO DAILY 05/07/18 Folic Acid - 1 mg PO DAILY 08/16/18 Quetiapine Fumarate [Seroquel] 100 mg PO BID 08/16/18 Benztropine Mesylate [Cogentin -] 1 mg PO DAILY 11/04/18 Haloperidol [Haldol -] 5 mg PO BID 11/04/18 Atorvastatin Ca [Lipitor] 10 mg PO HS #30 tablet 11/07/18 Lisinopril [Prinivil] 2.5 mg PO DAILY #30 tablet 11/07/18 metFORMIN HCL [Glucophage -] 500 mg PO BID #60 tablet 11/07/18 - Diagnosis (1) Alcohol dependence with uncomplicated withdrawal Status: Acute (2) DM2 (diabetes mellitus, type 2) Status: Acute Qualifiers: Diabetes mellitus longterm insulin use: without longterm use Diabetes mellitus complication status: with unspecified complications Qualified Code(s) : E11.8 - Type 2 diabetes mellitus with unspecified complications (3) HTN (hypertension) Status: Acute Qualifiers: Hypertension type: unspecified Qualified Code(s): I10 - Essential (primary ) hypertension (4) Syncope Status: Acute Qualifiers: Syncope type: unspecified Qualified Code(s): R55 - Syncope and collapse (5) Weight loss Status: Acute (6) Cocaine dependence Status: Chronic Qualifiers: Substance use status: uncomplicated Qualified Code(s): F14.20 - Cocaine dependence, uncomplicated (7) HTN (hypertension) Status: Chronic Qualifiers: Hypertension type: essential hypertension Qualified Code(s): I10 - Essential (primary) hypertension (8) Hypercholesterolemia Status: Chronic (9) Nicotine dependence Status: Chronic Qualifiers: Nicotine product type: cigarettes Substance use status: in withdrawal Qualified Code(s): F17.213 - Nicotine dependence, cigarettes, with withdrawal (10) Schizoaffective disorder Status: Chronic Qualifiers: Schizoaffective disorder type: unspecified Qualified Code(s): F25.9 - Schizoaffective disorder, unspecified (11) Substance induced mood disorder Status: Chronic - AMA Did Patient Leave Against Medical Advice: Yes (PATIENT DID NOT WISH TO REMAIN TO COMPLETE DETOX REGIMEN.)
== END 2018-11-07 16:50 | disposition left against medical advice (07) | DRG 770 ==
LOC: YASAS 09:42 → Y3N 10:55
PROVIDERS: ADMIT Surgery; ATTEND Surgery
PROC: HZ2ZZZZ Detoxification Services for Substance Abuse Treatment (ICD-10-PCS; principal; 2018-11-04)
DX: F10.230 Alcohol dependence with withdrawal, uncomplicated (principal); F14.20 Cocaine dependence, uncomplicated; F17.213 Nicotine dependence, cigarettes, with withdrawal; F25.9 Schizoaffective disorder, unspecified; F20.9 Schizophrenia, unspecified; F31.9 Bipolar disorder, unspecified; F19.24 Other psychoactive substance dependence with psychoactive substance-induced mood disorder; I10 Essential (primary) hypertension; E11.9 Type 2 diabetes mellitus without complications; Z79.84 Long term (current) use of oral hypoglycemic drugs; E78.00 Pure hypercholesterolemia, unspecified; E78.5 Hyperlipidemia, unspecified; K21.9 Gastro-esophageal reflux disease without esophagitis; G47.00 Insomnia, unspecified; R63.4 Abnormal weight loss; Z68.26 Body mass index [BMI] 26.0-26.9, adult; Z91.5 Personal history of self-harm
CPT/HCPCS: 36415; 80053; 81003; 82962; 84450; 85027; 86593; 87389

== ENCOUNTER 2018-12-02 08:25 | Inpatient (IN) | payer OTHER ==
[2018-12-02 10:28] VITALS: BMI 26.1
--- NOTE | 2018-12-02 10:51 | HP ---
CIWA Score Nausea/Vomitin Muscle Tremors: 2 Anxiety: 3 Agitation: 2 Paroxysmal Sweats: 1-Minimal Palms Moist Orientation: 0-Oriented Tacttile Disturbances: 1-Very Mild Itch/Numbness Auditory Disturbances: 1-Very Mild Visual Disturbances: 0-None Headache: 2-Mild CIWA-Ar Total Score: 14 - Admission Criteria OASAS Guidelines: Admission for Medically Managed Detox: Requires at least one of the followin. CIWA greater than 12 2. Seizures within the past 24 hours 3. Delirium tremens within the past 24 hours 4. Hallucinations within the past 24 hours 5. Acute intervention needed for co occurring medical disorder 6. Acute intervention needed for co occurring psychiatric disorder 7. Severe withdrawal that cannot be handled at a lower level of care (continued vomiting, continued diarrhea, abnormal vital signs) requiring intravenous medication and/or fluids 8. Admission ROS [facility] - HPI Chief Complaint: i need help to stop drinking alcohol and cocaine Allergies/Adverse Reactions: Allergies Allergy/AdvReac Type Severity Reaction Status Date / Time No Known Drug Allergies Allergy Verified 11/04/18 10:12 nitroglycerin AdvReac Intermediate Rash Verified 12/02/18 10:10 TUNA FISH Allergy Severe Rash Uncoded 12/02/18 10:08 History of Present Illness: this 58 years old male with alcohol and cocaine dependence,seeking detox, withdrawal symptom multiple admissions in the past,last detox [facility] 11/04/18 to 11/07/18 but keep relapsing syncope history of hypertension,type 2 dm, nicotine dependence 1 pack,requesting gum bipolar,schizophrenia,depression longest sobriety 2 years plan for rehab after detox history of appendectomy,fx of right ankle Exam Limitations: No Limitations - Ebola screening Have you traveled outside of the country in the last 21 days: No (N) Have you had contact with anyone from an Ebola affected area: No Do you have a fever: No - Review of Systems Constitutional: Malaise, Changes in sleep, Weakness, Unintentional Wgt. Loss EENT: reports: Tearing, Nose Congestion Respiratory: reports: No Symptoms reported Cardiac: reports: No Symptoms Reported GI: reports: Diarrhea, Nausea, Abdominal cramping : reports: No Symptoms Reported Musculoskeletal: reports: Back Pain, Muscle Pain Integumentary: reports: Dryness Neuro: reports: Headache, Tremors Endocrine: reports: No Symptoms Reported (type 2 dm) Hematology: reports: No Symptoms Reported Psychiatric: reports: No Sypmtoms Reported, Judgement Intact, Mood/Affect Appropiate, Orientated x3, Anxious (bipolar disorder), Depressed, other Other Systems: Reviewed and Negative Patient History - Patient Medical History Hx Anemia: No Hx Asthma: No Hx Chronic Obstructive Pulmonary Disease (COPD): No Hx Cancer: No Hx Cardiac Disorders: No Hx Congestive Heart Failure: No Hx Hypertension: Yes (on med) Hx Hypercholesterolemia: Yes (on meds-LIPITOR) Hx Pacemaker: No HX Cerebrovascular Accident: No Hx Seizures: No Hx Dementia: No Hx Diabetes: Yes (NIDDM) Hx Gastrointestinal Disorders: Yes (acid reflux) Hx Liver Disease: No Hx Genitourinary Disorders: No Hx Sexually Transmitted Disorders: No Hx Renal Disease (ESRD): No Hx Thyroid Disease: No Hx Human Immunodeficiency Virus (HIV): No (last 08/09 negative) Hx Hepatitis C: No (NEGATIVE TEST RESULT 9 MONTHS AGO) Hx Depression: Yes Hx Suicide Attempt: Yes (cutter at age 43) Hx Bipolar Disorder: Yes (on meds, [facility]) Hx Schizophrenia: Yes Other Medical History: no suicidal,no homicidal - Patient Surgical History Past Surgical History: Yes Hx Neurologic Surgery: No Hx Cataract Extraction: No Hx Cardiac Surgery: No Hx Lung Surgery: No Hx Breast Surgery: No Hx Breast Biopsy: No Hx Abdominal Surgery: No Hx Appendectomy: Yes (at age 6) Hx Cholecystectomy: No Hx Genitourinary Surgery: No Hx Section: No Hx Orthopedic Surgery: No Other Surgical History: DENIES. Anesthesia Reaction: No - PPD History Previous Implant?: Yes Documented Results: Negative w/o proof Implanted On Prior [facility] Admission?: Yes Date: 10/31/17 Results: 0 mm PPD to be Administered?: Yes - Smoking Cessation Smoking history: Current every day smoker Have you smoked in the past 12 months: Yes Aproximately how many cigarettes per day: 20 Cigars Per Day: 0 Hx Chewing Tobacco Use: No Initiated information on smoking cessation: Yes 'Breaking Loose' booklet given: 12/02/18 - Substance & Tx. History Hx Alcohol Use: Yes Hx Substance Use: Yes Substance Use Type: Alcohol, Cocaine Hx Substance Use Treatment: Yes ([facility] 10/25/18 to 11/07/18) - Substances abused Alcohol Substance route: Oral Frequency: Daily Amount used: 1.5 pint of dave Age of first use: 20 Date of last use: 12/02/18 Cocaine Substance route: Inhalation Frequency: Daily Amount used: 2 gram Age of first use: 20 Date of last use: 12/02/18 Crack Substance route: Smoking Frequency: Daily Amount used: 3 grams Age of first use: 34 Date of last use: 12/02/18 Family Disease History - Family Disease History Family Disease History: Diabetes: Grandparent, Mother (living.), Other: Father ( , renal failure), Mother, Brother (one living -healthy, ), Sister (two living - healthy) Admission Physical Exam S - Vital Signs Vital Signs: Vital Signs - 24 hr 12/02/18 10:18 Temperature 97.4 F L Pulse Rate 68 Respiratory 18 Rate Blood Pressure 140/84 - Physical General Appearance: Yes: Moderate Distress, Tremorous, Irritable, Sweating, Anxious HEENTM: Yes: Normal ENT Inspection, BOOGIE, Pharynx Normal Respiratory: Yes: Lungs Clear, Normal Breath Sounds, No Respiratory Distress Neck: Yes: Within Normal Limits, Supple, Trachea in good position Breast: Yes: Within Normal Limits Cardiology: Yes: Within Normal Limits, Regular Rhythm, Regular Rate, S1, S2 Abdominal: Yes: Within Normal Limits, Normal Bowel Sounds, Non Tender, Flat, Soft, Surgical Scar (history of appendectomy) Genitourinary: Yes: Within Normal Limits Back: Yes: Muscle Spasm Extremities: Yes: Within Normal Limits, Normal Range of Motion, Tremors Neurological: Yes: boss dyer II-XII NML intact, Fully Oriented, Alert, Motor Strength 5/5 Integumentary: Yes: Dry Lymphatic: Yes: Within Normal Limits - Diagnostic (1) Alcohol dependence with uncomplicated withdrawal Current Visit: No Status: Acute (2) DM2 (diabetes mellitus, type 2) Current Visit: No Status: Acute Qualifiers: Diabetes mellitus costume director insulin use: without intermediate use Diabetes mellitus complication status: with unspecified complications (3) HTN (hypertension) Current Visit: No Status: Acute Qualifiers: Hypertension type: unspecified Qualified Code(s): I10 - Essential (primary ) hypertension (4) Syncope Current Visit: No Status: Acute Qualifiers: Syncope type: unspecified Qualified Code(s): R55 - Syncope and collapse (5) Weight loss Current Visit: No Status: Acute (6) Bipolar disorder Current Visit: No Status: Chronic Qualifiers: Active/Remission status: remission status unspecified Qualified Code(s): F31.9 - Bipolar disorder, unspecified (7) Cocaine dependence Current Visit: No Status: Chronic Qualifiers: Substance use status: uncomplicated Qualified Code(s): F14.20 - Cocaine dependence, uncomplicated (8) Hypercholesterolemia Current Visit: No Status: Chronic (9) Dehydration Current Visit: Yes Status: Acute (10) History of appendectomy Current Visit: Yes Status: Acute Cleared for Admission [facility] - Detox or Rehab [facility] Level of Care: Medically Managed Detox Regimen/Protocol: Librium Breathalyzer - Breathalyzer Breathalyzer: 0 Urine Drug Screen - Test Device Lot number: [id number] Expiration date: 05/20/20 - Control Is test valid?: Yes - Results Drug screen NEGATIVE: No Urine drug screen results: PALLAVI-Cocaine, BZO-Benzodiazepines Inpatient Rehab Admission - Rehab Decision to Admit Inpatient rehab admission?: No
[2018-12-02] MEDS ORDERED: MELATONIN 5 MG TABLETS PO PRN (10:58)
[2018-12-02] MEDS ORDERED: hydrOXYzine PAMOATE 25 MG CAPSULE (FP) PO PRN (10:58)
[2018-12-02] MEDS ORDERED: BISMUTH SUBSALICYLATE 262 MG/15 ML BTL PO PRN (10:58)
[2018-12-02] MEDS ORDERED: NICOTINE POLACRILEX 2 MG GUM BUC PRN (10:58)
[2018-12-02] MEDS ORDERED: MAG HYDROX/AL HYDROX/SIMETH 30 ML UNIT-DOSE CUP PO PRN (10:58)
[2018-12-02] MEDS ORDERED: MAGNESIUM HYDROX 2400MG/30ML ORAL SUSPENSION 30 ML CUP PO PRN (10:58)
[2018-12-02] MEDS ORDERED: MENTHOL/PHENOL 1 EACH UD MM PRN (10:58)
[2018-12-02] MEDS ORDERED: METHOCARBAMOL 500 MG TABLET PO PRN (10:58)
[2018-12-02] MEDS ORDERED: MAGNESIUM CITRATE 300 ML BOTTLE PO PRN (10:58)
[2018-12-02] MEDS ORDERED: ACETAMINOPHEN 325 MG TABLET (FP) PO PRN ×2 (10:58)
[2018-12-02] MEDS: chlordiazePOXIDE HCL 25 MG CAPSULE PO PRN (11:50)
[2018-12-02 15:20] LABS: HEMATOCRIT 38.5 % (35.4-49); HEMOGLOBIN 13.4 GM/dL (11.7-16.9); MCH 31.3 pg (25.7-33.7); MCHC 34.7 g/dl (32.0-35.9); MEAN CELL VOLUME 90.2 fl (80-96); PLATELET COUNT 211 K/MM3 (134-434); RBC 4.27 M/mm3 (4.00-5.60); RDW 13.9 % (11.9-15.9); WHITE BLOOD COUNT 9.1 K/mm3 (4.0-10.0)
[2018-12-02 15:53] LABS: BILIRUBIN,TOTAL 0.4 mg/dL (0.2-1); BLOOD UREA NITROGEN 15.4 mg/dL (7-18); CREATININE 0.7 mg/dL (0.55-1.3); POTASSIUM 3.9 mmol/L (3.5-5.1); TOT PROT 7.4 g/dl (6.4-8.2)
[2018-12-02] MEDS: chlordiazePOXIDE HCL 25 MG CAPSULE PO SCH ×2 (17:01→22:20)
[2018-12-02] MEDS: metFORMIN HCL 500 MG TABLET (FP) PO SCH (17:01)
--- NOTE | 2018-12-02 18:42 | CONSULT ---
[facility] Psychiatric Consult - Data Date of interview: 12/02/18 Admission source: [facility] Identifying data: Readmission to [facility] for this 58 y/o male, self- referred for detoxification treatment (alcohol, cocaine/crack). Patient is single without children, homeless, unemployed and supported on SSI benefits. Substance Abuse History: Confirmed by the patient. Details in current [facility] report as follows : Smoking history: Current every day smoker. Have you smoked in the past 12 months: Yes. Aproximately how many cigarettes per day: 20. Cigars Per Day: 0. Hx Chewing Tobacco Use: No. Initiated information on smoking cessation: Yes. 'Breaking Loose' booklet given: 12/02/18. - Substance & Tx. History. Hx Alcohol Use: Yes. Hx Substance Use: Yes. Substance Use Type : Alcohol, Cocaine. Hx Substance Use Treatment: Yes ([facility] 10/25/18 to 11/07/18). - Substances abused. Alcohol. Substance route: Oral. Frequency: Daily. Amount used: 1.5 pint of dave. Age of first use: 20. Date of last use: . Cocaine. Substance route: Inhalation. Frequency: Daily. Amount used: 2 gram. Age of first use: 20. Date of last use: 12/02/18. Crack. Substance route: Smoking. Frequency: Daily. Amount used: 3 grams. Age of first use: 34. Date of last use: 12/02/18 Medical History: Medical profile is remarkable for diabetes mellitus, hypertension, GERD, dyslipidemia, history of appendectomy + orthosurgery for fracture of right ankle. Psychiatric History: No change in psychiatric history profile since encounter of 10/2018. : long-standing history of mental illness (onset at age 27). Multiple psychiatric hospitalizations ([facility], [facility]). Diagnosed with Bipolar Disorder. Mr Ramos sees psychiatrists, at times of crisis, at the [facility] walk-in clinic. Patient reports maintenance on a regimen of seroquel 100 mg po bid + haldol 5 mg po daily + cogentin 1 mg/day. Patient endorses a history of suicide attempts (self-mutilation). Physical/Sexual Abuse/Trauma History: Patient denies. Additional Comment: Urine drug screen results: PALLAVI-Cocaine, BZO- Benzodiazepines. Noted. Mental Status Exam - Mental Status Exam Alert and Oriented to: Time, Place, Person Cognitive Function: Good Patient Appearance: Well Groomed Mood: Nervous, Withdrawn, Anxious Affect: Mood Congruent, Constricted Patient Behavior: Fatigued, Appropriate, Cooperative Speech Pattern: Clear, Appropriate Voice Loudness: Normal Thought Process: Intact, Goal Oriented Thought Disorder: Not Present Hallucinations: Denies Suicidal Ideation: Denies Homicidal Ideation: Denies Insight/Judgement: Poor Sleep: Poorly, Difficulty falling asleep Appetite: Good Muscle strength/Tone: Normal Gait/Station: Normal Psychiatric Findings - Problem List ([place] 1, 2,3) (1) Alcohol dependence with uncomplicated withdrawal Current Visit: Yes Status: Acute (2) Cocaine dependence Current Visit: Yes Status: Chronic (3) Nicotine dependence Current Visit: Yes Status: Chronic Qualifiers: Nicotine product type: cigarettes Substance use status: in withdrawal Qualified Code(s): F17.213 - Nicotine dependence, cigarettes, with withdrawal (4) Substance induced mood disorder Current Visit: Yes Status: Chronic (5) Schizoaffective disorder Current Visit: Yes Status: Suspected Qualifiers: Schizoaffective disorder type: unspecified Qualified Code(s): F25.9 - Schizoaffective disorder, unspecified (6) History of schizophrenia Current Visit: Yes Status: Chronic (7) Insomnia Current Visit: Yes Status: Chronic Qualifiers: Insomnia type: unspecified Qualified Code(s): G47.00 - Insomnia, unspecified - Initial Treatment Plan Initial Treatment Plan: Psychoeducation. Sleep hygiene. Detoxification. AA meetings. Medications resumed as : seroquel 100 mg po bid + haldol 5 mg po daily + cogentin 1 mg po daily. Side effects/benefits of each medication are discussed with the patient. Review did include risk of EPS, tardive dyskinesia, neuroleptic malignant syndrome, akathisia, anticholinergic issues and cardiovascular adverse events. Patient gave his verbal consent for this plan of care. Observation.
[2018-12-02] MEDS: traZODone HCL 50 MG TABLET (FP) PO PRN (22:20)
[2018-12-02] MEDS: ATORVASTATIN CA 10 MG TABLET (FP) PO SCH (22:20)
[2018-12-02] MEDS: QUEtiapine FUMARATE 100 MG TABLET (FP) PO SCH (22:20)
[2018-12-02] MEDS: THIAMINE HCL 100 MG TABLET (FP) PO SCH (22:20)
[2018-12-03] MEDS: chlordiazePOXIDE HCL 25 MG CAPSULE PO SCH ×4 (05:24→22:06)
[2018-12-03] MEDS: metFORMIN HCL 500 MG TABLET (FP) PO SCH ×2 (07:48→16:52)
[2018-12-03] MEDS: PRENATAL VITAMINS W/ FOLIC ACID TABLET (FP) PO SCH (10:33)
[2018-12-03] MEDS: ASPIRIN COATED 81 MG TABLET.EC PO SCH (10:33)
[2018-12-03] MEDS: BENZTROPINE MESYLATE 1 MG TABLET (FP) PO SCH (10:33)
[2018-12-03] MEDS: QUEtiapine FUMARATE 100 MG TABLET (FP) PO SCH ×2 (10:33→22:06)
[2018-12-03] MEDS: PANTOPRAZOLE 40 MG TABLET (FP) PO SCH (10:33)
[2018-12-03] MEDS: LISINOPRIL 5 MG TABLET (FP) PO SCH (10:36)
--- NOTE | 2018-12-03 10:53 | PN ---
S CIWA - CIWA Score Nausea/Vomitin-No Nausea/No Vomiting Muscle Tremors: 2 Anxiety: 2 Agitation: 2 Paroxysmal Sweats: 2 Orientation: 0-Oriented Tacttile Disturbances: 0-None Auditory Disturbances: 0-None Visual Disturbances: 0-None Headache: 2-Mild CIWA-Ar Total Score: 10 S Progress Note (SOAP) Subjective: c/o sweats, headache, shakes, and anxiety. Objective: 12/03/18 10:50 Vital Signs 12/03/18 12/03/18 12/03/18 03:30 06:13 06:30 Temperature 98.1 F Pulse Rate 56 L Respiratory 18 18 18 Rate Blood Pressure 114/71 12/03/18 09:32 Temperature 97.4 F L Pulse Rate 74 Respiratory 19 Rate Blood Pressure 117/75 Lab Results WBC 9.1 K/mm3 (4.0-10.0) 12/02/18 11:00 RBC 4.27 M/mm3 (4.00-5.60) 12/02/18 11:00 Hgb 13.4 GM/dL (11.7-16.9) 12/02/18 11:00 Hct 38.5 % (35.4-49) 12/02/18 11:00 MCV 90.2 fl (80-96) 12/02/18 11:00 MCHC 34.7 g/dl (32.0-35.9) 12/02/18 11:00 RDW 13.9 % (11.9-15.9) 12/02/18 11:00 Plt Count 211 K/MM3 (134-434) 12/02/18 11:00 Sodium 139 mmol/L (136-145) 12/02/18 11:00 Potassium 3.9 mmol/L (3.5-5.1) 12/02/18 11:00 Chloride 103 mmol/L (98-107) 12/02/18 11:00 Carbon Dioxide 28 mmol/L (21-32) 12/02/18 11:00 Anion Gap 7 MMOL/L (8-16) L 12/02/18 11:00 BUN 15.4 mg/dL (7-18) 12/02/18 11:00 Creatinine 0.7 mg/dL (0.55-1.3) 12/02/18 11:00 Random Glucose 83 mg/dL (74-106) 12/02/18 11:00 Calcium 9.0 mg/dL (8.5-10.1) 12/02/18 11:00 Labs noted. Assessment: 12/03/18 10:52 AOX3, in no acute distress Full ROM, ambulating in the unit. Withdrawal symptoms. Plan: continue detox
[2018-12-03] MEDS: HALOPERIDOL 5 MG TABLET (FP) PO SCH (12:42)
[2018-12-03] MEDS: traZODone HCL 50 MG TABLET (FP) PO PRN (22:06)
[2018-12-03] MEDS: ATORVASTATIN CA 10 MG TABLET (FP) PO SCH (22:06)
[2018-12-03] MEDS: THIAMINE HCL 100 MG TABLET (FP) PO SCH (22:06)
[2018-12-04] MEDS: chlordiazePOXIDE HCL 25 MG CAPSULE PO SCH ×2 (05:45→10:05)
[2018-12-04] MEDS: metFORMIN HCL 500 MG TABLET (FP) PO SCH ×2 (06:01→17:30)
[2018-12-04] MEDS: chlordiazePOXIDE HCL 25 MG CAPSULE PO PRN (07:42)
[2018-12-04] MEDS: HALOPERIDOL 5 MG TABLET (FP) PO SCH (09:22)
[2018-12-04] MEDS: IBUPROFEN 400 MG TABLET (FP) PO PRN ×2 (09:22→17:31)
[2018-12-04] MEDS: BENZTROPINE MESYLATE 1 MG TABLET (FP) PO SCH (09:23)
[2018-12-04] MEDS: QUEtiapine FUMARATE 100 MG TABLET (FP) PO SCH ×2 (09:23→22:39)
[2018-12-04] MEDS: PRENATAL VITAMINS W/ FOLIC ACID TABLET (FP) PO SCH (09:23)
[2018-12-04] MEDS: LISINOPRIL 5 MG TABLET (FP) PO SCH (09:23)
[2018-12-04] MEDS: PANTOPRAZOLE 40 MG TABLET (FP) PO SCH (09:23)
[2018-12-04] MEDS: ASPIRIN COATED 81 MG TABLET.EC PO SCH (09:23)
--- NOTE | 2018-12-04 11:49 | PN ---
S CIWA - CIWA Score Nausea/Vomitin Muscle Tremors: 2 Anxiety: 2 Agitation: 1-Slight > Activity Paroxysmal Sweats: 2 Orientation: 0-Oriented Tacttile Disturbances: 0-None Auditory Disturbances: 0-None Visual Disturbances: 1-Very Mild Sensitivity Headache: 0-None Present CIWA-Ar Total Score: 10 S Progress Note (SOAP) Subjective: SWEATY, SHAKY, POOR SLEEP Objective: 12/04/18 11:47 Laboratory Tests 12/02/18 12/02/18 12/02/18 11:00 11:00 11:00 WBC 9.1 RBC 4.27 Hgb 13.4 Hct 38.5 MCV 90.2 MCH 31.3 MCHC 34.7 RDW 13.9 Plt Count 211 MPV 10.0 Sodium 139 Potassium 3.9 Chloride 103 Carbon Dioxide 28 Anion Gap 7 L BUN 15.4 Creatinine 0.7 Est GFR (CKD-EPI)AfAm 119.72 Est GFR (CKD-EPI)NonAf 103.30 POC Glucometer Random Glucose 83 Calcium 9.0 Total Bilirubin 0.4 AST 54 H ALT 58 Alkaline Phosphatase 123 H Total Protein 7.4 Albumin 4.0 RPR Titer Nonreactive 12/02/18 12/02/18 12/03/18 11:03 16:17 05:23 WBC RBC Hgb Hct MCV MCH MCHC RDW Plt Count MPV Sodium Potassium Chloride Carbon Dioxide Anion Gap BUN Creatinine Est GFR (CKD-EPI)AfAm Est GFR (CKD-EPI)NonAf POC Glucometer 94 118 106 Random Glucose Calcium Total Bilirubin AST ALT Alkaline Phosphatase Total Protein Albumin RPR Titer 12/03/18 12/04/18 16:44 05:45 WBC RBC Hgb Hct MCV MCH MCHC RDW Plt Count MPV Sodium Potassium Chloride Carbon Dioxide Anion Gap BUN Creatinine Est GFR (CKD-EPI)AfAm Est GFR (CKD-EPI)NonAf POC Glucometer 105 118 Random Glucose Calcium Total Bilirubin AST ALT Alkaline Phosphatase Total Protein Albumin RPR Titer Vital Signs - 24 hr 12/03/18 12/03/18 12/03/18 13:38 17:59 21:37 Temperature 97.6 F 97.6 F 96.8 F L Pulse Rate 77 75 70 Respiratory 18 17 18 Rate Blood Pressure 118/68 113/75 122/76 12/04/18 12/04/18 12/04/18 00:30 03:30 06:30 Temperature Pulse Rate Respiratory 18 18 18 Rate Blood Pressure 12/04/18 12/04/18 06:39 09:22 Temperature 97.6 F 97.4 F L Pulse Rate 59 L 87 Respiratory 18 18 Rate Blood Pressure 113/68 97/70 12/04/18 11:48 ALERT, AMBULATORY ORIENTED Assessment: 12/04/18 11:47 ETOH DEP/ETOH WITHDRAWAL Plan: CONT DETOX PROTOCOL
[2018-12-04] MEDS ORDERED: chlordiazePOXIDE HCL 10 MG CAPSULE PO PRN (17:00)
[2018-12-04] MEDS: chlordiazePOXIDE HCL 10 MG CAPSULE PO SCH ×2 (17:30→22:40)
[2018-12-04] MEDS: THIAMINE HCL 100 MG TABLET (FP) PO SCH (22:39)
[2018-12-04] MEDS: ATORVASTATIN CA 10 MG TABLET (FP) PO SCH (22:39)
[2018-12-05] MEDS: chlordiazePOXIDE HCL 10 MG CAPSULE PO SCH ×2 (05:31→10:06)
[2018-12-05] MEDS: metFORMIN HCL 500 MG TABLET (FP) PO SCH (06:20)
[2018-12-05 09:26] VITALS: BP 132/88; PULSE 78; TEMP 99
[2018-12-05] MEDS: QUEtiapine FUMARATE 100 MG TABLET (FP) PO SCH (10:03)
[2018-12-05] MEDS: PANTOPRAZOLE 40 MG TABLET (FP) PO SCH (10:03)
[2018-12-05] MEDS: BENZTROPINE MESYLATE 1 MG TABLET (FP) PO SCH (10:03)
[2018-12-05] MEDS: PRENATAL VITAMINS W/ FOLIC ACID TABLET (FP) PO SCH (10:04)
[2018-12-05] MEDS: LISINOPRIL 5 MG TABLET (FP) PO SCH (10:04)
[2018-12-05] MEDS: ASPIRIN COATED 81 MG TABLET.EC PO SCH (10:05)
[2018-12-05] MEDS: IBUPROFEN 400 MG TABLET (FP) PO PRN (10:08)
--- NOTE | 2018-12-05 16:51 | PN ---
S CIWA - CIWA Score Nausea/Vomitin-No Nausea/No Vomiting Muscle Tremors: None Anxiety: 0-No Anxiety, at Ease Agitation: 1-Slight > Activity Paroxysmal Sweats: No Perspiration Orientation: 0-Oriented Tacttile Disturbances: 0-None Auditory Disturbances: 0-None Visual Disturbances: 0-None Headache: 0-None Present CIWA-Ar Total Score: 1 [facility] Progress Note (SOAP) Subjective: Patient denies current Withdrawal / Detox symptoms and reports that he feels well overall at this time. Objective: PATIENT A & O X 3, OBSERVED AMBULATING ON UNIT UNASSISTED. IN NO ACUTE DISTRESS. 12/05/18 16:49 Vital Signs Temperature 99.0 F 12/05/18 09:25 Pulse Rate 78 12/05/18 09:25 Respiratory Rate 18 12/05/18 09:25 Blood Pressure 132/88 12/05/18 09:25 O2 Sat by Pulse Oximetry (%) Laboratory Tests 12/02/18 12/02/18 12/02/18 11:00 11:00 11:00 WBC 9.1 RBC 4.27 Hgb 13.4 Hct 38.5 MCV 90.2 MCH 31.3 MCHC 34.7 RDW 13.9 Plt Count 211 MPV 10.0 Sodium 139 Potassium 3.9 Chloride 103 Carbon Dioxide 28 Anion Gap 7 L BUN 15.4 Creatinine 0.7 Est GFR (CKD-EPI)AfAm 119.72 Est GFR (CKD-EPI)NonAf 103.30 POC Glucometer Random Glucose 83 Calcium 9.0 Total Bilirubin 0.4 AST 54 H ALT 58 Alkaline Phosphatase 123 H Total Protein 7.4 Albumin 4.0 RPR Titer Nonreactive 12/02/18 12/02/18 12/03/18 11:03 16:17 05:23 WBC RBC Hgb Hct MCV MCH MCHC RDW Plt Count MPV Sodium Potassium Chloride Carbon Dioxide Anion Gap BUN Creatinine Est GFR (CKD-EPI)AfAm Est GFR (CKD-EPI)NonAf POC Glucometer 94 118 106 Random Glucose Calcium Total Bilirubin AST ALT Alkaline Phosphatase Total Protein Albumin RPR Titer 12/03/18 12/04/18 12/04/18 16:44 05:45 16:28 WBC RBC Hgb Hct MCV MCH MCHC RDW Plt Count MPV Sodium Potassium Chloride Carbon Dioxide Anion Gap BUN Creatinine Est GFR (CKD-EPI)AfAm Est GFR (CKD-EPI)NonAf POC Glucometer 105 118 131 Random Glucose Calcium Total Bilirubin AST ALT Alkaline Phosphatase Total Protein Albumin RPR Titer 12/05/18 05:31 WBC RBC Hgb Hct MCV MCH MCHC RDW Plt Count MPV Sodium Potassium Chloride Carbon Dioxide Anion Gap BUN Creatinine Est GFR (CKD-EPI)AfAm Est GFR (CKD-EPI)NonAf POC Glucometer 125 Random Glucose Calcium Total Bilirubin AST ALT Alkaline Phosphatase Total Protein Albumin RPR Titer LABS NOTED. Assessment: 12/05/18 16:50 COMPLETION OF DETOX REGIMEN. Plan: SINCE PATIENT DENIES CURRENT WITHDRAWAL / DETOX SYMPTOMS AND REPORTS THAT HE FEELS WELL OVERALL, AT PATIENTS REQUEST, HE WAS GRANTED AN EARLY DISCHARGE FROM DETOX UNIT TODAY SO THAT HE MAY PROCEED ON TO AFTERCARE PLAN - [facility] ( [place], [place]).
--- NOTE | 2018-12-05 16:57 | DS ---
[facility] Detox Discharge Summary Admission Date: 12/02/18 Discharge Date: 12/05/18 - History Present History: Alcohol Dependence, Cocaine Dependence Additional Comments: PATIENT DENIES CURRENT WITHDRAWAL / DETOX SYMPTOMS AND REPORTS THAT HE FEELS WELL OVERALL AT TIME OF DISCHARGE FROM DETOX UNIT. PATIENT GOING TO [facility] ( [place], [place]) FOR AFTERCARE. PATIENT DECLINED OFFER OF MEDICATION PRESCRIPTION FOR HOME MEDICATION AT TIME OF DISCHARGE FROM DETOX, NOTING THAT HE CURRENTLY HAS ADEQUATE SUPPLIES OF ALL PRESCRIBED HOME MEDICATIONS. PATIENT WAS DISCHARGED FORM DETOX UNIT IN STABLE MEDICAL CONDITION. Pertinent Past History: HTN, Type II DM, Hypercholesterolemia, History Of Syncope, Weight Loss, Bipolar Disorder, History Of Appendectomy, Nicotine Dependence, Schziophrenia, Depression, History Of fracture Of Right Ankle, Acid Reflux. - Physical Exam Results Vital Signs: Vital Signs Temperature 99.0 F 12/05/18 09:25 Pulse Rate 78 12/05/18 09:25 Respiratory Rate 18 12/05/18 09:25 Blood Pressure 132/88 12/05/18 09:25 O2 Sat by Pulse Oximetry (%) Pertinent Admission Physical Exam Findings: WITHDRAWAL SYMPTOMS. Laboratory Tests 12/02/18 12/02/18 12/02/18 11:00 11:00 11:00 WBC 9.1 RBC 4.27 Hgb 13.4 Hct 38.5 MCV 90.2 MCH 31.3 MCHC 34.7 RDW 13.9 Plt Count 211 MPV 10.0 Sodium 139 Potassium 3.9 Chloride 103 Carbon Dioxide 28 Anion Gap 7 L BUN 15.4 Creatinine 0.7 Est GFR (CKD-EPI)AfAm 119.72 Est GFR (CKD-EPI)NonAf 103.30 POC Glucometer Random Glucose 83 Calcium 9.0 Total Bilirubin 0.4 AST 54 H ALT 58 Alkaline Phosphatase 123 H Total Protein 7.4 Albumin 4.0 RPR Titer Nonreactive 12/02/18 12/02/18 12/03/18 11:03 16:17 05:23 WBC RBC Hgb Hct MCV MCH MCHC RDW Plt Count MPV Sodium Potassium Chloride Carbon Dioxide Anion Gap BUN Creatinine Est GFR (CKD-EPI)AfAm Est GFR (CKD-EPI)NonAf POC Glucometer 94 118 106 Random Glucose Calcium Total Bilirubin AST ALT Alkaline Phosphatase Total Protein Albumin RPR Titer 12/03/18 12/04/18 12/04/18 16:44 05:45 16:28 WBC RBC Hgb Hct MCV MCH MCHC RDW Plt Count MPV Sodium Potassium Chloride Carbon Dioxide Anion Gap BUN Creatinine Est GFR (CKD-EPI)AfAm Est GFR (CKD-EPI)NonAf POC Glucometer 105 118 131 Random Glucose Calcium Total Bilirubin AST ALT Alkaline Phosphatase Total Protein Albumin RPR Titer 12/05/18 05:31 WBC RBC Hgb Hct MCV MCH MCHC RDW Plt Count MPV Sodium Potassium Chloride Carbon Dioxide Anion Gap BUN Creatinine Est GFR (CKD-EPI)AfAm Est GFR (CKD-EPI)NonAf POC Glucometer 125 Random Glucose Calcium Total Bilirubin AST ALT Alkaline Phosphatase Total Protein Albumin RPR Titer LABS NOTED. - Treatment Hospital Course: Detox Protocol Followed, Detoxed Safely, Responded well, Discharged Condition Good, Rehab Referral Accepted Patient has Accepted a Rehab Referral to: [facility] ([place], [place]). - Medication Discharge Medications: Ambulatory Orders Omeprazole 20 mg PO DAILY 10/29/17 traZODone HCL [Desyrel -] 100 mg PO HS PRN 10/29/17 Aspirin [Aspirin EC] 81 mg PO DAILY 05/07/18 Folic Acid - 1 mg PO DAILY 08/16/18 Quetiapine Fumarate [Seroquel] 100 mg PO BID 08/16/18 Benztropine Mesylate [Cogentin -] 1 mg PO DAILY 11/04/18 Haloperidol [Haldol -] 5 mg PO BID 11/04/18 Atorvastatin Ca [Lipitor] 10 mg PO HS #30 tablet 11/07/18 Lisinopril [Prinivil] 2.5 mg PO DAILY #30 tablet 11/07/18 metFORMIN HCL [Glucophage -] 500 mg PO BID #60 tablet 11/07/18 - Diagnosis (1) Alcohol dependence with uncomplicated withdrawal Status: Acute (2) DM2 (diabetes mellitus, type 2) Status: Chronic Qualifiers: Diabetes mellitus retirement insulin use: without retirement use Diabetes mellitus complication status: with other specified complication Qualified Code (s): E11.69 - Type 2 diabetes mellitus with other specified complication (3) Dehydration Status: Acute (4) HTN (hypertension) Status: Acute Qualifiers: Hypertension type: unspecified Qualified Code(s): I10 - Essential (primary ) hypertension (5) History of appendectomy Status: Acute (6) Syncope Status: Acute Qualifiers: Syncope type: unspecified Qualified Code(s): R55 - Syncope and collapse (7) Weight loss Status: Acute (8) Bipolar disorder Status: Chronic Qualifiers: Active/Remission status: remission status unspecified Qualified Code(s): F31.9 - Bipolar disorder, unspecified (9) Cocaine dependence Status: Chronic Qualifiers: Substance use status: uncomplicated Qualified Code(s): F14.20 - Cocaine dependence, uncomplicated (10) Depression Status: Chronic Qualifiers: Depression Type: unspecified Qualified Code(s): F32.9 - Major depressive disorder, single episode, unspecified (11) Hypercholesterolemia Status: Chronic (12) History of schizophrenia Status: Chronic (13) Insomnia Status: Chronic Qualifiers: Insomnia type: unspecified Qualified Code(s): G47.00 - Insomnia, unspecified (14) Substance induced mood disorder Status: Chronic (15) Schizoaffective disorder Status: Suspected Qualifiers: Schizoaffective disorder type: unspecified Qualified Code(s): F25.9 - Schizoaffective disorder, unspecified - AMA Did Patient Leave Against Medical Advice: No
[2018-12-05] MEDS ORDERED: chlordiazePOXIDE HCL 10 MG CAPSULE PO SCH (17:00)
== END 2018-12-05 11:31 | disposition home or self-care (01) | DRG 774 ==
LOC: YASAS 08:25 → Y3N 11:00
PROVIDERS: ADMIT Surgery; ATTEND Surgery
PROC: HZ2ZZZZ Detoxification Services for Substance Abuse Treatment (ICD-10-PCS; principal; 2018-12-02)
DX: F10.230 Alcohol dependence with withdrawal, uncomplicated (principal); F14.20 Cocaine dependence, uncomplicated; F17.210 Nicotine dependence, cigarettes, uncomplicated; F19.24 Other psychoactive substance dependence with psychoactive substance-induced mood disorder; F31.9 Bipolar disorder, unspecified; F25.9 Schizoaffective disorder, unspecified; E11.69 Type 2 diabetes mellitus with other specified complication; E86.0 Dehydration; I10 Essential (primary) hypertension; R63.4 Abnormal weight loss; E78.5 Hyperlipidemia, unspecified; G47.00 Insomnia, unspecified; K21.9 Gastro-esophageal reflux disease without esophagitis; Z90.89 Acquired absence of other organs; Z91.013 Allergy to seafood; Z88.8 Allergy status to other drugs, medicaments and biological substances; Z91.5 Personal history of self-harm
CPT/HCPCS: 36415; 80053; 82962; 85027; 86593

== ENCOUNTER 2018-12-21 09:09 | Inpatient (IN) | payer OTHER ==
[2018-12-21 09:45] VITALS: BMI 26.1
--- NOTE | 2018-12-21 10:31 | HP ---
CIWA Score Nausea/Vomitin-No Nausea/No Vomiting Muscle Tremors: 1-None Visible, but [place] Anxiety: 0-No Anxiety, at Ease Agitation: 0-Normal Activity Paroxysmal Sweats: No Perspiration Orientation: 0-Oriented Tacttile Disturbances: 0-None Auditory Disturbances: 0-None Visual Disturbances: 0-None Headache: 0-None Present CIWA-Ar Total Score: 1 - Admission Criteria OASAS Guidelines: Admission for Medically Managed Detox: Requires at least one of the followin. CIWA greater than 12 2. Seizures within the past 24 hours 3. Delirium tremens within the past 24 hours 4. Hallucinations within the past 24 hours 5. Acute intervention needed for co occurring medical disorder 6. Acute intervention needed for co occurring psychiatric disorder 7. Severe withdrawal that cannot be handled at a lower level of care (continued vomiting, continued diarrhea, abnormal vital signs) requiring intravenous medication and/or fluids 8. Admission ROS [facility] Chief Complaint: Seeking rehab from alcohol use Allergies/Adverse Reactions: Allergies Allergy/AdvReac Type Severity Reaction Status Date / Time nitroglycerin AdvReac Intermediate Rash Verified 12/21/18 09:26 TUNA FISH Allergy Severe Rash Uncoded 12/21/18 09:26 History of Present Illness: 58 y/o/m here seeking rehab for alcohol use. He states he was in detox at [facility] from 12/19 until this morning and is now here for rehab. He states his last drink was Wednesday morning and that he was drinking a pint and a half of dave daily. He states his heavy drinking started 4 years ago. He is using a gram and half of cocaine daily and states he last used it on 12/18. He has been using cocaine for more than 35 years. He states he was using it every morning and night. He is smoking a pack of cigarettes daily. He states he does not want any nicotine patches or gum while he is in rehab. He has multiple admissions for detox and rehab in the past and has relapsed. He had an extended period of sobriety from [id number] and he relapsed after from his . He is on SSI and is currently homeless. Patient has a history of HTN, HLD, DM type II, schizoaffective disorder, and depression. He denies any history of seizures or blackouts. He would like to go to [facility]. - Ebola screening Have you traveled outside of the country in the last 21 days: No Have you had contact with anyone from an Ebola affected area: No Do you have a fever: No - Review of Systems Constitutional: No Symptoms Reported EENT: reports: No Symptoms Reported Respiratory: reports: No Symptoms reported Cardiac: reports: No Symptoms Reported GI: reports: No Symptoms Reported : reports: No Symptoms Reported Musculoskeletal: reports: No Symptoms Reported Integumentary: reports: Rash Neuro: reports: No Symptoms reported Endocrine: reports: No Symptoms Reported Hematology: reports: No Symptoms Reported Psychiatric: reports: No Sypmtoms Reported Other Systems: Reviewed and Negative Patient History - Patient Medical History Hx Anemia: No Hx Asthma: No Hx Chronic Obstructive Pulmonary Disease (COPD): No Hx Cancer: No Hx Cardiac Disorders: No Hx Congestive Heart Failure: No Hx Hypertension: Yes (on meds) Hx Hypercholesterolemia: Yes (on meds-LIPITOR) Hx Pacemaker: No HX Cerebrovascular Accident: No Hx Seizures: No Hx Dementia: No Hx Diabetes: Yes (BGM 94mg/dl) Hx Gastrointestinal Disorders: No Hx Liver Disease: No Hx Genitourinary Disorders: No Hx Sexually Transmitted Disorders: No Hx Renal Disease (ESRD): No Hx Thyroid Disease: No Hx Human Immunodeficiency Virus (HIV): No (last 08/09 negative) Hx Hepatitis C: No (NEGATIVE TEST RESULT 9 MONTHS AGO) Hx Depression: Yes Hx Suicide Attempt: No Hx Bipolar Disorder: Yes (on meds, [facility]) Hx Schizophrenia: Yes Other Medical History: no suicidal or homicidal ideations - Patient Surgical History Past Surgical History: Yes Hx Neurologic Surgery: No Hx Cataract Extraction: No Hx Cardiac Surgery: No Hx Lung Surgery: No Hx Breast Surgery: No Hx Breast Biopsy: No Hx Abdominal Surgery: No Hx Appendectomy: Yes (at age 6) Hx Cholecystectomy: No Hx Genitourinary Surgery: No Hx Section: No Hx Orthopedic Surgery: No Other Surgical History: DENIES. Anesthesia Reaction: No - PPD History Previous Implant?: Yes Documented Results: Negative w/o proof Implanted On Prior [facility] Admission?: Yes Date: 12/04/18 Results: 0 mm - Smoking Cessation Smoking history: Current every day smoker Have you smoked in the past 12 months: Yes Aproximately how many cigarettes per day: 20 Cigars Per Day: 0 Hx Chewing Tobacco Use: No Initiated information on smoking cessation: Yes 'Breaking Loose' booklet given: 12/21/18 - Substance & Tx. History Hx Alcohol Use: Yes Hx Substance Use: Yes Substance Use Type: Alcohol, Cocaine - Substances abused Alcohol Substance route: Oral Frequency: Daily Amount used: 1.5 pint of dave Age of first use: 17 Date of last use: 12/18/18 Cocaine Substance route: Inhalation Frequency: Daily Amount used: 1-2 gram Age of first use: 20 Date of last use: 12/18/18 Crack Substance route: Smoking Frequency: Daily Amount used: 1-2 grams Age of first use: 34 Date of last use: 12/19/18 Family Disease History - Family Disease History Family Disease History: Diabetes: Grandparent, Mother (living.), Other: Father ( , renal failure), Mother, Brother (one living -healthy, ), Sister (two living - healthy) Admission Physical Exam [facility] - Vital Signs Vital Signs: Vital Signs - 24 hr 12/21/18 09:20 Temperature 98.0 F Pulse Rate 74 Respiratory 18 Rate Blood Pressure 103/62 - Physical General Appearance: Yes: Disheveled HEENTM: Yes: EOMI, Hearing grossly Normal Respiratory: Yes: Lungs Clear, Normal Breath Sounds Neck: Yes: Supple Cardiology: Yes: Regular Rhythm, Regular Rate, S1, S2 Abdominal: Yes: Normal Bowel Sounds, Non Tender, Soft. 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 intact, Fully Oriented, Alert, Motor Strength 5/5 Integumentary: Yes: Rash (erythematous macular rash on the nose and cheeks) - Diagnostic (1) Bipolar disorder Current Visit: No Status: Acute (2) Dehydration Current Visit: No Status: Acute (3) Diabetes Current Visit: No Status: Acute Qualifiers: Diabetes mellitus [facility] insulin use: with [facility] use (4) HTN (hypertension) Current Visit: No Status: Acute Qualifiers: Hypertension type: unspecified Qualified Code(s): I10 - Essential (primary ) hypertension (5) History of appendectomy Current Visit: No Status: Acute (6) Alcohol dependence Current Visit: No Status: Chronic (7) Cocaine dependence Current Visit: No Status: Chronic Qualifiers: Substance use status: uncomplicated Qualified Code(s): F14.20 - Cocaine dependence, uncomplicated (8) Depression Current Visit: No Status: Chronic Qualifiers: Depression Type: unspecified Qualified Code(s): F32.9 - Major depressive disorder, single episode, unspecified (9) Nicotine dependence Current Visit: No Status: Chronic Qualifiers: Nicotine product type: cigarettes Substance use status: in withdrawal Qualified Code(s): F17.213 - Nicotine dependence, cigarettes, with withdrawal Cleared for Admission [facility] - Detox or Rehab Claeared for Rehab Admission: Yes Breathalyzer - Breathalyzer Breathalyzer: 0 Urine Drug Screen - Test Device Lot number: [id number] Expiration date: 05/20/20 - Control Is test valid?: Yes - Results Drug screen NEGATIVE: No Urine drug screen results: PALLAVI-Cocaine, BZO-Benzodiazepines Inpatient Rehab Admission - Rehab Decision to Admit Inpatient rehab admission?: Yes - Initial Determination Are CD services needed?: Yes Free of communicable disease: Yes Not in need of hospitalization: Yes - Rehab Admission Criteria Previous failed treatment: Yes Poor recovery environment: Yes Comorbidities: Yes Lacks judgement: No Patient is meeting Inpatient Rehab admission criteria:: Yes
[2018-12-21] MEDS ORDERED: hydrOXYzine PAMOATE 25 MG CAPSULE (FP) PO PRN (10:47)
[2018-12-21] MEDS ORDERED: MAGNESIUM CITRATE 300 ML BOTTLE PO PRN (10:47)
[2018-12-21] MEDS ORDERED: IBUPROFEN 400 MG TABLET (FP) PO PRN (10:47)
[2018-12-21] MEDS ORDERED: MAG HYDROX/AL HYDROX/SIMETH 30 ML UNIT-DOSE CUP PO PRN (10:47)
[2018-12-21] MEDS ORDERED: MENTHOL/PHENOL 1 EACH UD MM PRN (10:47)
[2018-12-21] MEDS ORDERED: P-EPHED 60MG/TRIPROLIDI 2.5MG TABLET PO PRN (10:47)
[2018-12-21] MEDS ORDERED: ACETAMINOPHEN 325 MG TABLET (FP) PO PRN (10:47)
[2018-12-21] MEDS ORDERED: LOPERAMIDE HCL 2 MG CAPSULE PO PRN (10:47)
[2018-12-21] MEDS ORDERED: MAGNESIUM HYDROX 2400MG/30ML ORAL SUSPENSION 30 ML CUP PO PRN (10:47)
[2018-12-21] MEDS ORDERED: guaiFENesin 200 MG/10 ML 10 ML UNIT-DOSE CUPS PO PRN (10:47)
--- NOTE | 2018-12-21 11:14 | PN ---
[facility] Progress Note Note: this 58 years old male with alcohol and cocaine dependence seeking detox, completed detox from [facility],discharged today i personally present,review the history and examination by Dr.Harmanpree Whitaker agreed and concurred for inpatient rehab admission
[2018-12-21 14:50] LABS: HEMATOCRIT 39.2 % (35.4-49); MCH 30.7 pg (25.7-33.7); MCHC 33.2 g/dl (32.0-35.9); MEAN CELL VOLUME 92.2 fl (80-96); MEAN PLT VOLUME 10.2 fl (7.5-11.1); PLATELET COUNT 199 K/MM3 (134-434); RBC 4.25 M/mm3 (4.00-5.60); RDW 13.7 % (11.9-15.9); WHITE BLOOD COUNT 6.9 K/mm3 (4.0-10.0)
[2018-12-21 15:01] LABS: ALBUMIN 3.6 g/dl (3.4-5.0); BILIRUBIN,TOTAL 0.3 mg/dL (0.2-1); BLOOD UREA NITROGEN 12.9 mg/dL (7-18); CALCIUM 8.6 mg/dL (8.5-10.1); CREATININE 0.9 mg/dL (0.55-1.3); POTASSIUM 3.8 mmol/L (3.5-5.1); TOT PROT 6.6 g/dl (6.4-8.2)
--- NOTE | 2018-12-21 15:12 | CONSULT ---
[facility] Psychiatric Consult - Data Date of interview: 12/21/18 Admission source: [facility] Identifying data: Direct admission to [address] for this 58 y/o male, discharged today from [facility] (detoxification) who requested rehabilitative care to address substance use disorder (alcohol, cocaine/crack, nicotine) co-morbid with Bipolar disorder. Patient is single without children, homeless, unemployed and supported on SSI benefits. Substance Abuse History: Discussed in this session. Patient confirms current [facility] report on his patterns of substance use : Smoking history: Current every day smoker. Have you smoked in the past 12 months: Yes. Aproximately how many cigarettes per day: 20. Cigars Per Day: 0. Hx Chewing Tobacco Use: No. Initiated information on smoking cessation: Yes. 'Breaking Loose' booklet given : 12/21/18. - Substance & Tx. History. Hx Alcohol Use: Yes. Hx Substance Use : Yes. Substance Use Type: Alcohol, Cocaine. - Substances abused. Alcohol. Substance route: Oral. Frequency: Daily. Amount used: 1.5 pint of dave. Age of first use: 17. Date of last use: 12/18/18. Cocaine. Substance route: Inhalation. Frequency: Daily. Amount used: 1-2 gram. Age of first use: 20. Date of last use: 12/18/18. Crack. Substance route: Smoking. Frequency: Daily. Amount used: 1-2 grams. Age of first use: 34. Date of last use: 12/19/18 Medical History: No change since encounter of 12/02/18. History as follows : medical profile is remarkable for diabetes mellitus, hypertension, GERD, dyslipidemia, history of appendectomy + orthosurgery for fracture of right ankle. Psychiatric History: patient endorses a long-standing history of mental illness (onset at age 27). Multiple psychiatric hospitalizations ([facility], [facility]). Diagnosed with Bipolar Disorder. Mr Ramos utilizes the [facility]PD walk- in clinic for psychiatric aftercare. Patient is prescribed seroquel 100 mg po bid + haldol 5 mg po daily + cogentin 1 mg/day + trazodone 100 mg/hs ( medications received at [facility]). History of suicide attempts (self-mutilation). Physical/Sexual Abuse/Trauma History: Patient denies. Additional Comment: Urine drug screen results: PALLAVI-Cocaine, BZO- Benzodiazepines. Noted. Mental Status Exam - Mental Status Exam Alert and Oriented to: Time, Place, Person Cognitive Function: Good Patient Appearance: Well Groomed Mood: Withdrawn, Anxious Affect: Mood Congruent, Constricted Patient Behavior: Fatigued, Appropriate, Cooperative Speech Pattern: Clear Voice Loudness: Normal Thought Process: Goal Oriented Thought Disorder: Not Present Hallucinations: Denies Suicidal Ideation: Denies Homicidal Ideation: Denies Insight/Judgement: Fair Sleep: Well (on trazodone + seroquel) Appetite: Good Muscle strength/Tone: Normal Gait/Station: Normal Psychiatric Findings - Problem List ([place] 1, 2,3) (1) Alcohol dependence Status: Chronic Qualifiers: Substance use status: uncomplicated Qualified Code(s): F10.20 - Alcohol dependence, uncomplicated (2) Cocaine dependence Status: Chronic Qualifiers: Substance use status: uncomplicated Qualified Code(s): F14.20 - Cocaine dependence, uncomplicated (3) Nicotine dependence Status: Chronic Qualifiers: Nicotine product type: cigarettes Substance use status: in withdrawal Qualified Code(s): F17.213 - Nicotine dependence, cigarettes, with withdrawal (4) Substance induced mood disorder Status: Chronic (5) Schizoaffective disorder Status: Chronic Comment: By history. (6) Insomnia Status: Chronic Qualifiers: Insomnia type: unspecified Qualified Code(s): G47.00 - Insomnia, unspecified - Initial Treatment Plan Initial Treatment Plan: Psychoeducation. Sleep hygiene. AA meetings. Motivational counseling for maintenance of sobriety. Medications : seroquel 100 mg po bid + cogentin 1 mg po daily + trazodone 100 mg po hs + haldol 5 mg po daily. Side effects/benefits of each drug of this regimen are explained to patient, which include risk of priapism, abnormal involuntary movements, anticholinergic manifestations, metabolic syndrome, oversedation/falls, tardive dyskinesia, dystonia, akathisia, neuroleptic malignant syndrome and cardiac adverse events. Mr Veliz has expressed agreement with this plan of care. Verbal consent granted to MD. Walton.
[2018-12-21] MEDS ORDERED: traZODone HCL 100 MG TABLET (FP) PO PRN (15:48)
[2018-12-21] MEDS: metFORMIN HCL 500 MG TABLET (FP) PO SCH (16:53)
[2018-12-21] MEDS ORDERED: MELATONIN 5 MG TABLETS PO PRN (22:00)
[2018-12-21] MEDS ORDERED: THIAMINE HCL 100 MG TABLET (FP) PO SCH (22:00)
[2018-12-21] MEDS ORDERED: QUEtiapine FUMARATE 100 MG TABLET (FP) PO SCH (22:00)
[2018-12-21] MEDS ORDERED: ATORVASTATIN CA 10 MG TABLET (FP) PO SCH (22:00)
[2018-12-22] MEDS: metFORMIN HCL 500 MG TABLET (FP) PO SCH (06:31)
[2018-12-22 06:46] VITALS: BP 136/81; PULSE 73; TEMP 98.2
[2018-12-22 09:32] LABS: URINE APPEARANCE CLOUDY; URINE BILIRUBIN NEGATIVE (NEGATIVE); URINE COLOR YELLOW; URINE GLUCOSE (UA) NEGATIVE (NEGATIVE); URINE KETONE NEGATIVE (NEGATIVE); URINE LEUK ESTERASE NEGATIVE (NEGATIVE); URINE NITRITE NEGATIVE (NEGATIVE); URINE PROTEIN NEGATIVE (NEGATIVE); URINE UROBILINOGEN 0.2 mg/dL (0.2-1.0)
--- NOTE | 2018-12-22 09:34 | PN ---
[facility] Progress Note (SOAP) Subjective: PT WAS ADMITTED YESTERDAY BUT DECLINED TO CONTINUE WITH REHAB FOR PERSONAL REASONS STATING IT WAS NOT HIS IDEA TO BE HERE. PT REPORTS HE HAS PRIMARY CARE AT [facility] AND HAS OWN MEDICATIONS AT HOME. PT DECLINED AFTERCARE REFERRAL AND WAS INSTRUCTED TO FOLLOW UP WITH AA MEETINGS. PT IS ALERT O X 3. DENIES S/H/I. Objective: 12/22/18 11:37 Vital Signs - 24 hr 12/21/18 12/22/18 12/22/18 12:22 00:44 03:30 Temperature 97.6 F Pulse Rate 82 Respiratory 18 18 18 Rate Blood Pressure 138/86 12/22/18 06:46 Temperature 98.2 F Pulse Rate 73 Respiratory 18 Rate Blood Pressure 136/81 Laboratory Tests 12/21/18 12/21/18 12/21/18 11:00 11:00 11:00 WBC 6.9 RBC 4.25 Hgb 13.0 Hct 39.2 MCV 92.2 MCH 30.7 MCHC 33.2 RDW 13.7 Plt Count 199 MPV 10.2 Sodium 141 Potassium 3.8 Chloride 109 H Carbon Dioxide 26 Anion Gap 6 L BUN 12.9 Creatinine 0.9 Est GFR (CKD-EPI)AfAm 107.97 Est GFR (CKD-EPI)NonAf 93.16 POC Glucometer Random Glucose 126 H Calcium 8.6 Total Bilirubin 0.3 AST 21 ALT 40 Alkaline Phosphatase 120 H Total Protein 6.6 Albumin 3.6 Urine Color Urine Appearance Urine pH Ur Specific [place] Urine Protein Urine Glucose (UA) Urine Ketones Urine Blood Urine Nitrite Urine Bilirubin Urine Urobilinogen Ur Leukocyte Esterase RPR Titer Nonreactive 12/21/18 12/21/18 12/21/18 11:15 16:52 18:45 WBC RBC Hgb Hct MCV MCH MCHC RDW Plt Count MPV Sodium Potassium Chloride Carbon Dioxide Anion Gap BUN Creatinine Est GFR (CKD-EPI)AfAm Est GFR (CKD-EPI)NonAf POC Glucometer 152 137 Random Glucose Calcium Total Bilirubin AST ALT Alkaline Phosphatase Total Protein Albumin Urine Color Yellow Urine Appearance Cloudy Urine pH 5.0 Ur Specific [place] 1.021 Urine Protein Negative Urine Glucose (UA) Negative Urine Ketones Negative Urine Blood Negative Urine Nitrite Negative Urine Bilirubin Negative Urine Urobilinogen 0.2 Ur Leukocyte Esterase Negative RPR Titer 12/22/18 06:29 WBC RBC Hgb Hct MCV MCH MCHC RDW Plt Count MPV Sodium Potassium Chloride Carbon Dioxide Anion Gap BUN Creatinine Est GFR (CKD-EPI)AfAm Est GFR (CKD-EPI)NonAf POC Glucometer 119 Random Glucose Calcium Total Bilirubin AST ALT Alkaline Phosphatase Total Protein Albumin Urine Color Urine Appearance Urine pH Ur Specific [place] Urine Protein Urine Glucose (UA) Urine Ketones Urine Blood Urine Nitrite Urine Bilirubin Urine Urobilinogen Ur Leukocyte Esterase RPR Titer Home Medications Medication Instructions Recorded Omeprazole 20 mg PO DAILY 10/29/17 traZODone HCL [Desyrel -] 100 mg PO HS PRN 10/29/17 Aspirin [Aspirin EC] 81 mg PO DAILY 05/07/18 Folic Acid - 1 mg PO DAILY 08/16/18 Quetiapine Fumarate [Seroquel] 200 mg PO BID 08/16/18 Benztropine Mesylate [Cogentin -] 1 mg PO DAILY 11/04/18 Haloperidol [Haldol -] 5 mg PO DAILY 11/04/18 Atorvastatin Ca [Lipitor] 10 mg PO HS #30 tablet 11/07/18 Lisinopril [Prinivil] 2.5 mg PO DAILY #30 tablet 11/07/18 metFORMIN HCL [Glucophage -] 500 mg PO BID #60 tablet 11/07/18 Assessment: 12/22/18 11:38 NAD ALCOHOL USE DISORDER COCAINE DEPENDENCE NICOTINE DEPENDENCE HTN DM Plan: PT SIGNED OUT AMA FOLLOW UP WITH CD AFTERCARE/AA RECOMMENDED. FOLLOW UP WITH PCP AT [facility] 1-2 WEEKS AFTER DISCHARGE FOR MEDICAL MANAGEMENT.
[2018-12-22] MEDS ORDERED: PANTOPRAZOLE 20 MG TABLET (FP) PO SCH (10:00)
[2018-12-22] MEDS ORDERED: BENZTROPINE MESYLATE 1 MG TABLET (FP) PO SCH (10:00)
[2018-12-22] MEDS ORDERED: PRENATAL VITAMINS W/ FOLIC ACID TABLET (FP) PO SCH (10:00)
[2018-12-22] MEDS ORDERED: HALOPERIDOL 5 MG TABLET (FP) PO SCH (10:00)
[2018-12-22] MEDS ORDERED: ASPIRIN COATED 81 MG TABLET.EC PO SCH (10:00)
[2018-12-22] MEDS ORDERED: LISINOPRIL 5 MG TABLET (FP) PO SCH (10:00)
== END 2018-12-22 08:30 | disposition left against medical advice (07) | DRG 770 ==
LOC: YASAS 09:09 → Y5N 11:13
PROVIDERS: ADMIT Neuromusculoskeletal Medicine & OMM; ATTEND Neuromusculoskeletal Medicine & OMM
PROC: HZ42ZZZ Group Counseling for Substance Abuse Treatment, Cognitive-Behavioral (ICD-10-PCS; principal; 2018-12-20)
DX: F10.20 Alcohol dependence, uncomplicated (principal); F13.20 Sedative, hypnotic or anxiolytic dependence, uncomplicated; F14.20 Cocaine dependence, uncomplicated; F17.210 Nicotine dependence, cigarettes, uncomplicated; F25.9 Schizoaffective disorder, unspecified; F19.24 Other psychoactive substance dependence with psychoactive substance-induced mood disorder; F31.9 Bipolar disorder, unspecified; I10 Essential (primary) hypertension; E11.9 Type 2 diabetes mellitus without complications; Z79.4 Long term (current) use of insulin; K21.9 Gastro-esophageal reflux disease without esophagitis; G47.00 Insomnia, unspecified; E78.5 Hyperlipidemia, unspecified; E86.0 Dehydration; Z91.5 Personal history of self-harm
CPT/HCPCS: 36415; 80053; 81003; 82962; 85027; 86593

== ENCOUNTER 2018-12-31 08:53 | Inpatient (IN) | payer OTHER ==
[2018-12-31 09:35] VITALS: BMI 25.3
--- NOTE | 2018-12-31 10:39 | HP ---
CIWA Score Nausea/Vomitin Muscle Tremors: 2 Anxiety: 2 Agitation: 2 Paroxysmal Sweats: 3 Orientation: 0-Oriented Tacttile Disturbances: 1-Very Mild Itch/Numbness Auditory Disturbances: 0-None Visual Disturbances: 2-Mild Sensitivity Headache: 2-Mild CIWA-Ar Total Score: 17 - Admission Criteria OASAS Guidelines: Admission for Medically Managed Detox: Requires at least one of the followin. CIWA greater than 12 2. Seizures within the past 24 hours 3. Delirium tremens within the past 24 hours 4. Hallucinations within the past 24 hours 5. Acute intervention needed for co occurring medical disorder 6. Acute intervention needed for co occurring psychiatric disorder 7. Severe withdrawal that cannot be handled at a lower level of care (continued vomiting, continued diarrhea, abnormal vital signs) requiring intravenous medication and/or fluids 8. Patient presents the following: CIWA greater than 12 Admission Criteria Met: Admission criteria met Admission ROS [facility] Chief Complaint: I want to get clean so I can go to [place] Allergies/Adverse Reactions: Allergies Allergy/AdvReac Type Severity Reaction Status Date / Time tuna oil Allergy Severe Rash Verified 12/31/18 09:21 nitroglycerin AdvReac Intermediate Rash Verified 12/31/18 09:21 TUNA FISH Allergy Severe Rash Uncoded 12/21/18 09:26 History of Present Illness: Patient is a 58 years old male seeking detox for alcohol use. He was recently in detox at [facility] and following that, he was admitted to [facility] for rehab on and signed out AMA on 12/22. He reports being homeless and is planning to move in with his brother in [place]. He denies any history of seizures related to intoxication but has had blackouts, last episode a year and half ago. Exam Limitations: No Limitations - Ebola screening Have you traveled outside of the country in the last 21 days: No (N) Have you had contact with anyone from an Ebola affected area: No Have you been sick,other than usual withdrawal symptoms: No Do you have a fever: No - Review of Systems Constitutional: Chills, Changes in sleep EENT: reports: Blurred Vision Respiratory: reports: No Symptoms reported Cardiac: reports: No Symptoms Reported GI: reports: Diarrhea, Poor Appetite, Abdominal cramping : reports: No Symptoms Reported Musculoskeletal: reports: Joint Pain, Muscle Weakness Integumentary: reports: No Symptoms Reported Neuro: reports: Headache, Numbness, Tremors Endocrine: reports: No Symptoms Reported Hematology: reports: No Symptoms Reported Psychiatric: reports: Anxious, Depressed Other Systems: Reviewed and Negative Patient History - Patient Medical History Hx Anemia: No Hx Asthma: No Hx Chronic Obstructive Pulmonary Disease (COPD): No Hx Cancer: No Hx Cardiac Disorders: No Hx Congestive Heart Failure: No Hx Hypertension: Yes Hx Hypercholesterolemia: Yes Hx Pacemaker: No HX Cerebrovascular Accident: No Hx Seizures: No Hx Dementia: No Hx Diabetes: Yes Hx Gastrointestinal Disorders: No Hx Liver Disease: No Hx Genitourinary Disorders: No Hx Sexually Transmitted Disorders: No Hx Renal Disease (ESRD): No Hx Thyroid Disease: No Hx Human Immunodeficiency Virus (HIV): No Hx Hepatitis C: No Hx Depression: Yes Hx Suicide Attempt: No Hx Bipolar Disorder: Yes (on meds, [facility]) Hx Schizophrenia: Yes - Patient Surgical History Past Surgical History: Yes Hx Neurologic Surgery: No Hx Cataract Extraction: No Hx Cardiac Surgery: No Hx Lung Surgery: No Hx Breast Surgery: No Hx Breast Biopsy: No Hx Abdominal Surgery: No Hx Appendectomy: Yes (at age 6) Hx Cholecystectomy: No Hx Genitourinary Surgery: No Hx Section: No Hx Orthopedic Surgery: No Anesthesia Reaction: No - PPD History Previous Implant?: Yes Documented Results: Negative w/proof Implanted On Prior [facility] Admission?: Yes Date: 12/04/18 Results: 0 mm PPD to be Administered?: No - Smoking Cessation Smoking history: Current every day smoker Have you smoked in the past 12 months: Yes Aproximately how many cigarettes per day: 20 Cigars Per Day: 0 Hx Chewing Tobacco Use: No Initiated information on smoking cessation: Yes 'Breaking Loose' booklet given: 12/31/18 - Substances abused Alcohol Substance route: Oral Frequency: Daily Amount used: 1.5 pint of dave Age of first use: 17 Date of last use: 12/31/18 Cocaine Substance route: Inhalation Frequency: Daily Amount used: 1-2 gram Age of first use: 20 Date of last use: 12/30/18 Crack Substance route: Smoking Frequency: Daily Amount used: 1-2 grams Age of first use: 34 Date of last use: 12/30/18 Family Disease History - Family Disease History Family Disease History: Diabetes: Grandparent, Mother (living.), Other: Father ( , renal failure), Mother, Brother (one living -healthy), Sister (two living - healthy) Admission Physical Exam [facility] - Vital Signs Vital Signs: Vital Signs - 24 hr 12/31/18 09:17 Temperature 97.0 F L Pulse Rate 86 Respiratory 18 Rate Blood Pressure 118/82 - Physical General Appearance: Yes: No Apparent Distress HEENTM: Yes: Hearing grossly Normal, Normal ENT Inspection, Normocephalic, Normal Voice, BOOGIE, Pharynx Normal, Other (missing some teeth) Respiratory: Yes: Chest Non-Tender, Lungs Clear, No Respiratory Distress, No Accessory Muscle Use Neck: Yes: No masses,lesions,Nodules, Supple Breast: Yes: Breast Exam Deferred Cardiology: Yes: Regular Rhythm, Regular Rate, S1, S2 Abdominal: Yes: Normal Bowel Sounds, Non Tender, Soft Genitourinary: Yes: Within Normal Limits Back: Yes: Normal Inspection Musculoskeletal: Yes: full range of Motion, Gait Steady, Pelvis Stable Extremities: Yes: Tremors Neurological: Yes: hybrid tester II-XII NML intact, Fully Oriented, Alert, Normal Mood/ Affect, Normal Response Integumentary: Yes: Clammy, Rash (on the face) Lymphatic: Yes: Within Normal Limits Cleared for Admission [facility] - Detox or Rehab [facility] Level of Care: Medically Managed Detox Regimen/Protocol: [facility] for Rehab Admission: No Breathalyzer - Breathalyzer Breathalyzer: 0 Urine Drug Screen - Test Device Lot number: [id number] Expiration date: 10/18/20 - Control Is test valid?: Yes - Results Drug screen NEGATIVE: No Urine drug screen results: PALLAVI-Cocaine, BZO-Benzodiazepines
[2018-12-31] MEDS ORDERED: hydrOXYzine HCL 25 MG TABLET (FP) PO PRN (10:45)
[2018-12-31] MEDS ORDERED: MAGNESIUM HYDROX 2400MG/30ML ORAL SUSPENSION 30 ML CUP PO PRN (10:45)
[2018-12-31] MEDS ORDERED: MAGNESIUM CITRATE 300 ML BOTTLE PO PRN (10:45)
[2018-12-31] MEDS ORDERED: NICOTINE POLACRILEX 2 MG GUM BUC PRN (10:45)
[2018-12-31] MEDS ORDERED: ACETAMINOPHEN 325 MG TABLET (FP) PO PRN ×2 (10:45)
[2018-12-31] MEDS ORDERED: MENTHOL/PHENOL 1 EACH UD MM PRN (10:45)
[2018-12-31] MEDS ORDERED: IBUPROFEN 400 MG TABLET (FP) PO PRN (10:45)
[2018-12-31] MEDS ORDERED: BISMUTH SUBSALICYLATE 524 MG/30 ML UD PO PRN (10:45)
[2018-12-31] MEDS ORDERED: MELATONIN 5 MG TABLETS PO PRN (10:45)
[2018-12-31] MEDS ORDERED: METHOCARBAMOL 500 MG TABLET PO PRN (10:45)
[2018-12-31] MEDS ORDERED: MAG HYDROX/AL HYDROX/SIMETH 30 ML UNIT-DOSE CUP PO PRN (10:45)
[2018-12-31] MEDS: chlordiazePOXIDE HCL 25 MG CAPSULE PO SCH ×2 (12:27→22:17)
[2018-12-31] MEDS: LISINOPRIL 5 MG TABLET (FP) PO SCH (12:27)
[2018-12-31] MEDS: NICOTINE 14 MG/24 HOURS TOPICAL PATCH TD SCH (12:29)
[2018-12-31] MEDS: metFORMIN HCL 500 MG TABLET (FP) PO SCH (17:22)
[2018-12-31] MEDS: chlordiazePOXIDE HCL 10 MG CAPSULE PO PRN (17:23)
[2018-12-31] MEDS: THIAMINE HCL 100 MG TABLET (FP) PO SCH (22:17)
[2018-12-31] MEDS: ATORVASTATIN CA 10 MG TABLET (FP) PO SCH (22:17)
[2019-01-01] MEDS: chlordiazePOXIDE HCL 25 MG CAPSULE PO SCH ×3 (05:32→22:14)
[2019-01-01] MEDS: metFORMIN HCL 500 MG TABLET (FP) PO SCH ×2 (08:04→17:29)
[2019-01-01] MEDS: LISINOPRIL 5 MG TABLET (FP) PO SCH (10:05)
[2019-01-01] MEDS: NICOTINE 14 MG/24 HOURS TOPICAL PATCH TD SCH (10:06)
[2019-01-01] MEDS: PRENATAL VITAMINS W/ FOLIC ACID TABLET (FP) PO SCH (10:06)
[2019-01-01] MEDS: chlordiazePOXIDE HCL 10 MG CAPSULE PO PRN ×2 (10:08→20:18)
--- NOTE | 2019-01-01 12:20 | PN ---
[facility] CIWA - CIWA Score Nausea/Vomitin-Mild Nausea/No Vomiting Muscle Tremors: 3 Anxiety: 4-Mod. Anxious/Guarded Agitation: 4-Moderately Restless Paroxysmal Sweats: 3 Orientation: 0-Oriented Tacttile Disturbances: 0-None Auditory Disturbances: 0-None Visual Disturbances: 0-None Headache: 0-None Present CIWA-Ar Total Score: 15 BHS Progress Note (SOAP) Subjective: Stomachache, diarrhea, tremor, interrupted sleep, anxious Objective: 01/01/19 12:17 Last Vital Signs Temp Pulse Resp BP Pulse Ox 97.9 F 78 18 119/74 01/01/19 10:03 01/01/19 10:03 01/01/19 10:03 01/01/19 10:03 No admission labs; lab results 12/21/18 noted Assessment: 01/01/19 12:18 Withdrawal symptoms Plan: Continue detox Encouraged PO water intake
--- NOTE | 2019-01-01 13:43 | CONSULT ---
[facility] Psychiatric Consult - Data Date of interview: 01/01/19 Admission source: Self-referred Identifying data: Mr Ramos is a 58 years old single male, unemployed receiving SSI, homeless seeking detox treatment for alcohol and cocaine Substance Abuse History: Reports history of alcohol, crack cocaine use. Refer to addiction counselor's summary for further information Medical History: Significant for for diabetes mellitus, hypertension, GERD, dyslipidemia, history of appendectomy and orthosurgery for fracture of right ankle. Smokes cigarettes 1 ppd Psychiatric History: Patient is known to this facility from multiple previous admissions. He was last seen on 12/21/[address] Bolivar while admitted to detox in this facility. He endorses a long-standing history of mental illness, onset at age 27 carrying the diagnosis of Bipolar Disorder. Reports multiple psychiatric hospitalizations at various facilities including [facility], [facility]. Reports he goes to [facility] for psychiatric aftercare. Patient is prescribed Seroquel 100 mg/bid, Haldol 5 mg/day, Cogentin 1 mg/day and Trazodone 100 mg/hs. When seen by Dr Bolivar recently, he was prescribed continued on his medications. Reports that he has been taking his medications since discharge from this facility on 12/22/18. Reports previous suicide attempts (self-mutilation). At Present, denies experiencing psychotic, manic or depressive symptoms, S/H ideations. However, reports sleeping poorly without his medications Physical/Sexual Abuse/Trauma History: Denies history of emotional, physical or sexual abuse as well as DV relationship Additional Comment: Denies criminal history Psychiatric Findings - Problem List (Broad Top 1, 2,3) (1) Schizoaffective disorder Current Visit: No Status: Chronic Comment: By history. (2) Bipolar disorder Current Visit: No Status: Ruled-out (3) Substance-induced sleep disorder Current Visit: No Status: Acute (4) Alcohol dependence with uncomplicated withdrawal Current Visit: No Status: Acute (5) Cocaine dependence Current Visit: No Status: Acute Qualifiers: Substance use status: uncomplicated Qualified Code(s): F14.20 - Cocaine dependence, uncomplicated (6) Nicotine dependence Current Visit: No Status: Chronic Qualifiers: Nicotine product type: cigarettes Substance use status: in withdrawal Qualified Code(s): F17.213 - Nicotine dependence, cigarettes, with withdrawal (7) HTN (hypertension) Current Visit: No Status: Chronic Qualifiers: Hypertension type: essential hypertension Qualified Code(s): I10 - Essential (primary) hypertension (8) Hypercholesterolemia Current Visit: No Status: Chronic (9) DM2 (diabetes mellitus, type 2) Current Visit: No Status: Chronic Qualifiers: Diabetes mellitus intermediate designer insulin use: without intermediate designer use Diabetes mellitus complication status: with other specified complication Qualified Code (s): E11.69 - Type 2 diabetes mellitus with other specified complication (10) GERD (gastroesophageal reflux disease) Current Visit: No Status: Chronic Qualifiers: Esophagitis presence: without esophagitis Qualified Code(s): K21.9 - Gastro -esophageal reflux disease without esophagitis (11) History of appendectomy Current Visit: No Status: Resolved - Initial Treatment Plan Initial Treatment Plan: 1) Continue Seroquel 100 mg po BID, Haldol 5 mg po daily and Trazadone 100 mg po HS. 2) Start Cogentin 1 mg po daily as per patient request. 3) Continue inpatient detoxification
[2019-01-01] MEDS: HALOPERIDOL 5 MG TABLET (FP) PO SCH ×2 (14:24→14:58)
[2019-01-01] MEDS: BENZTROPINE MESYLATE 1 MG TABLET (FP) PO SCH (14:57)
[2019-01-01] MEDS: ATORVASTATIN CA 10 MG TABLET (FP) PO SCH (22:13)
[2019-01-01] MEDS: THIAMINE HCL 100 MG TABLET (FP) PO SCH (22:14)
[2019-01-01] MEDS: QUEtiapine FUMARATE 100 MG TABLET (FP) PO SCH (22:14)
[2019-01-01] MEDS: traZODone HCL 100 MG TABLET (FP) PO SCH (22:14)
[2019-01-02] MEDS: chlordiazePOXIDE 5 MG CAPSULE PO SCH ×3 (05:28→22:24)
[2019-01-02] MEDS: metFORMIN HCL 500 MG TABLET (FP) PO SCH ×2 (06:38→17:12)
[2019-01-02] MEDS: HALOPERIDOL 5 MG TABLET (FP) PO SCH (09:04)
[2019-01-02] MEDS: PRENATAL VITAMINS W/ FOLIC ACID TABLET (FP) PO SCH (09:04)
[2019-01-02] MEDS: QUEtiapine FUMARATE 100 MG TABLET (FP) PO SCH ×2 (09:04→22:24)
[2019-01-02] MEDS: LISINOPRIL 5 MG TABLET (FP) PO SCH (09:04)
[2019-01-02] MEDS: NICOTINE 14 MG/24 HOURS TOPICAL PATCH TD SCH (09:04)
[2019-01-02] MEDS: BENZTROPINE MESYLATE 1 MG TABLET (FP) PO SCH (09:04)
[2019-01-02] MEDS: chlordiazePOXIDE HCL 10 MG CAPSULE PO PRN ×2 (09:05→18:56)
--- NOTE | 2019-01-02 11:51 | PN ---
S CIWA - CIWA Score Nausea/Vomitin-No Nausea/No Vomiting Muscle Tremors: 2 Anxiety: 3 Agitation: 2 Paroxysmal Sweats: No Perspiration Orientation: 0-Oriented Tacttile Disturbances: 2-Mild Itch/Numbness/Burn Auditory Disturbances: 0-None Visual Disturbances: 0-None Headache: 3-Moderate CIWA-Ar Total Score: 12 BHS Progress Note (SOAP) Subjective: Anxious, Tremors, Headache. Objective: PATIENT A & O X 3, OBSERVED AMBULATING ON UNIT UNASSISTED. IN NO ACUTE DISTRESS. 01/02/19 11:55 Vital Signs Temperature 97.7 F 01/02/19 09:03 Pulse Rate 86 01/02/19 09:03 Respiratory Rate 16 01/02/19 09:03 Blood Pressure 120/58 L 01/02/19 09:03 O2 Sat by Pulse Oximetry (%) Laboratory Tests 12/31/18 12/31/18 01/01/19 11:36 17:10 05:31 POC Glucometer 85 176 118 01/01/19 16:33 POC Glucometer 116 ADMISSION LAB RESULT SPENDING. Assessment: 01/02/19 11:54 WITHDRAWAL SYMPTOMS. Plan: CONTINUE DETOX.
[2019-01-02] MEDS: ATORVASTATIN CA 10 MG TABLET (FP) PO SCH (22:23)
[2019-01-02] MEDS: THIAMINE HCL 100 MG TABLET (FP) PO SCH (22:24)
[2019-01-02] MEDS: traZODone HCL 100 MG TABLET (FP) PO SCH (22:24)
[2019-01-02 23:57] LABS: BASO % 0.7 % (0-2.0); EOS % 7.1 % (0-4.5); HEMATOCRIT 35.8 % (35.4-49); HEMOGLOBIN 12.5 GM/dL (11.7-16.9); LYMPH % 29.2 % (8-40); MCH 31.2 pg (25.7-33.7); MCHC 34.9 g/dl (32.0-35.9); MEAN CELL VOLUME 89.6 fl (80-96); MEAN PLT VOLUME 9.8 fl (7.5-11.1); MONO % 7.7 % (3.8-10.2); NEUT % 55.3 % (42.8-82.8); PLATELET COUNT 177 K/MM3 (134-434); RBC 3.99 M/mm3 (4.00-5.60); RDW 13.3 % (11.9-15.9); WHITE BLOOD COUNT 5.8 K/mm3 (4.0-10.0)
[2019-01-03] MEDS ORDERED: chlordiazePOXIDE HCL 10 MG CAPSULE PO PRN
[2019-01-03 00:05] LABS: ALBUMIN 3.3 g/dl (3.4-5.0); BILIRUBIN,TOTAL 0.5 mg/dL (0.2-1); BLOOD UREA NITROGEN 16.2 mg/dL (7-18); CALCIUM 8.2 mg/dL (8.5-10.1); CREATININE 0.8 mg/dL (0.55-1.3); POTASSIUM 4.2 mmol/L (3.5-5.1); TOT PROT 6.3 g/dl (6.4-8.2)
[2019-01-03] MEDS ORDERED: chlordiazePOXIDE HCL 10 MG CAPSULE PO SCH (05:00)
--- NOTE | 2019-01-03 08:24 | PN ---
[facility] CIWA - CIWA Score Nausea/Vomitin-Mild Nausea/No Vomiting Muscle Tremors: 1-None Visible, but [place] Anxiety: 1-Mildly Anxious Agitation: 1-Slight > Activity Paroxysmal Sweats: No Perspiration Orientation: 0-Oriented Tacttile Disturbances: 0-None Auditory Disturbances: 0-None Visual Disturbances: 0-None Headache: 1-Very Mild CIWA-Ar Total Score: 5 BHS Progress Note (SOAP) Subjective: alert,no complaint Objective: 01/03/19 08:22 Vital Signs Temperature 98.1 F 01/03/19 07:10 Pulse Rate 87 01/03/19 07:10 Respiratory Rate 18 01/03/19 07:10 Blood Pressure 116/70 01/03/19 07:10 O2 Sat by Pulse Oximetry (%) 01/03/19 08:23 glucose 126 Assessment: 01/03/19 08:23 no withdrawal symptom Plan: stable for discharge today,follow up with after care program as arrangement
--- NOTE | 2019-01-03 08:29 | DS ---
[facility] Detox Discharge Summary Admission Date: 12/31/18 Discharge Date: 01/03/19 - History Present History: Alcohol Dependence, Cocaine Dependence Additional Comments: follow up with after care program as arrangement and primary care physician for medical problem Pertinent Past History: hypertension type 2 dm gerd bipolar disorder schizoaffective disorder s/p appendectomy - Physical Exam Results Vital Signs: Vital Signs Temperature 98.1 F 01/03/19 07:10 Pulse Rate 87 01/03/19 07:10 Respiratory Rate 18 01/03/19 07:10 Blood Pressure 116/70 01/03/19 07:10 O2 Sat by Pulse Oximetry (%) Pertinent Admission Physical Exam Findings: withdrawal signs and symptom Vital Signs Temperature 98.1 F 01/03/19 07:10 Pulse Rate 87 01/03/19 07:10 Respiratory Rate 18 01/03/19 07:10 Blood Pressure 116/70 01/03/19 07:10 O2 Sat by Pulse Oximetry (%) Laboratory Last Values WBC 5.8 K/mm3 (4.0-10.0) 01/02/19 14:30 RBC 3.99 M/mm3 (4.00-5.60) L 01/02/19 14:30 Hgb 12.5 GM/dL (11.7-16.9) 01/02/19 14:30 Hct 35.8 % (35.4-49) 01/02/19 14:30 MCV 89.6 fl (80-96) 01/02/19 14:30 MCH 31.2 pg (25.7-33.7) 01/02/19 14:30 MCHC 34.9 g/dl (32.0-35.9) 01/02/19 14:30 RDW 13.3 % (11.9-15.9) 01/02/19 14:30 Plt Count 177 K/MM3 (134-434) 01/02/19 14:30 MPV 9.8 fl (7.5-11.1) 01/02/19 14:30 Absolute Neuts (auto) 3.2 K/mm3 (1.5-8.0) 01/02/19 14:30 Neutrophils % 55.3 % (42.8-82.8) 01/02/19 14:30 Lymphocytes % 29.2 % (8-40) 01/02/19 14:30 Monocytes % 7.7 % (3.8-10.2) 01/02/19 14:30 Eosinophils % 7.1 % (0-4.5) H 01/02/19 14:30 Basophils % 0.7 % (0-2.0) 01/02/19 14:30 Nucleated RBC % 0 % (0-0) 01/02/19 14:30 Sodium 141 mmol/L (136-145) 01/02/19 14:30 Potassium 4.2 mmol/L (3.5-5.1) 01/02/19 14:30 Chloride 108 mmol/L (98-107) H 01/02/19 14:30 Carbon Dioxide 28 mmol/L (21-32) 01/02/19 14:30 Anion Gap 6 MMOL/L (8-16) L 01/02/19 14:30 BUN 16.2 mg/dL (7-18) 01/02/19 14:30 Creatinine 0.8 mg/dL (0.55-1.3) 01/02/19 14:30 Est GFR (CKD-EPI)AfAm 113.33 01/02/19 14:30 Est GFR (CKD-EPI)NonAf 97.78 01/02/19 14:30 POC Glucometer 126 UNITS (80-120) 01/03/19 06:08 Random Glucose 145 mg/dL (74-106) H 01/02/19 14:30 Calcium 8.2 mg/dL (8.5-10.1) L 01/02/19 14:30 Total Bilirubin 0.5 mg/dL (0.2-1) 01/02/19 14:30 AST 39 U/L (15-37) H 01/02/19 14:30 ALT 54 U/L (13-61) 01/02/19 14:30 Alkaline Phosphatase 112 U/L (45-117) 01/02/19 14:30 Total Protein 6.3 g/dl (6.4-8.2) L 01/02/19 14:30 Albumin 3.3 g/dl (3.4-5.0) L 01/02/19 14:30 - Treatment Hospital Course: Detox Protocol Followed, Detoxed Safely, Responded well, Discharged Condition Good Patient has Accepted a Rehab Referral to: declined - Medication Discharge Medications: Ambulatory Orders Omeprazole 20 mg PO DAILY 10/29/17 traZODone HCL [Desyrel -] 100 mg PO HS PRN 10/29/17 Aspirin [Aspirin EC] 81 mg PO DAILY 05/07/18 Folic Acid - 1 mg PO DAILY 08/16/18 Quetiapine Fumarate [Seroquel] 200 mg PO BID 08/16/18 Benztropine Mesylate [Cogentin -] 1 mg PO DAILY 11/04/18 Haloperidol [Haldol -] 5 mg PO DAILY 11/04/18 Atorvastatin Ca [Lipitor] 10 mg PO HS #30 tablet 11/07/18 Lisinopril [Prinivil] 2.5 mg PO DAILY #30 tablet 11/07/18 metFORMIN HCL [Glucophage -] 500 mg PO BID #60 tablet 11/07/18 - Diagnosis (1) Alcohol dependence with uncomplicated withdrawal Current Visit: No Status: Acute (2) Cocaine dependence Current Visit: No Status: Acute Qualifiers: Substance use status: uncomplicated Qualified Code(s): F14.20 - Cocaine dependence, uncomplicated (3) Dehydration Current Visit: No Status: Acute (4) HTN (hypertension) Current Visit: No Status: Acute Qualifiers: Hypertension type: unspecified Qualified Code(s): I10 - Essential (primary ) hypertension (5) Syncope Current Visit: No Status: Acute Qualifiers: Syncope type: unspecified Qualified Code(s): R55 - Syncope and collapse (6) Weight loss Current Visit: No Status: Acute (7) Bipolar disorder Current Visit: No Status: Chronic Qualifiers: Active/Remission status: remission status unspecified Qualified Code(s): F31.9 - Bipolar disorder, unspecified (8) DM2 (diabetes mellitus, type 2) Current Visit: No Status: Chronic Qualifiers: Diabetes mellitus mcc insulin use: without oysterman use Diabetes mellitus complication status: with other specified complication Qualified Code (s): E11.69 - Type 2 diabetes mellitus with other specified complication (9) GERD (gastroesophageal reflux disease) Current Visit: No Status: Chronic Qualifiers: Esophagitis presence: without esophagitis Qualified Code(s): K21.9 - Gastro -esophageal reflux disease without esophagitis (10) Schizoaffective disorder Current Visit: No Status: Suspected Qualifiers: Schizoaffective disorder type: unspecified Qualified Code(s): F25.9 - Schizoaffective disorder, unspecified (11) History of appendectomy Current Visit: No Status: Resolved (12) Bipolar disorder Current Visit: No Status: Ruled-out - AMA Did Patient Leave Against Medical Advice: No
[2019-01-03 09:24] VITALS: BP 125/69; PULSE 78; TEMP 97.7
[2019-01-04] MEDS ORDERED: chlordiazePOXIDE HCL 10 MG CAPSULE PO ONE (05:00)
== END 2019-01-03 08:57 | disposition home or self-care (01) | DRG 774 ==
LOC: YASAS 08:53 → Y6N 11:12
PROVIDERS: ADMIT Surgery; ATTEND Surgery
PROC: HZ2ZZZZ Detoxification Services for Substance Abuse Treatment (ICD-10-PCS; principal; 2018-12-31)
DX: F10.230 Alcohol dependence with withdrawal, uncomplicated (principal); F14.20 Cocaine dependence, uncomplicated; F17.213 Nicotine dependence, cigarettes, with withdrawal; F31.9 Bipolar disorder, unspecified; F25.9 Schizoaffective disorder, unspecified; F19.282 Other psychoactive substance dependence with psychoactive substance-induced sleep disorder; I10 Essential (primary) hypertension; E86.0 Dehydration; R63.4 Abnormal weight loss; E11.69 Type 2 diabetes mellitus with other specified complication; K21.9 Gastro-esophageal reflux disease without esophagitis; E78.5 Hyperlipidemia, unspecified; Z79.84 Long term (current) use of oral hypoglycemic drugs; Z91.013 Allergy to seafood
CPT/HCPCS: 36415; 80053; 82962; 85025

== ENCOUNTER 2019-01-29 08:58 | Inpatient (IN) | payer OTHER | END 2019-02-02 09:22 | disposition home or self-care (01) | LOC: YASAS 08:58 → Y6N 01-31 10:28 ==

== ENCOUNTER 2019-02-14 11:14 | Inpatient (IN) | payer OTHER ==
[2019-02-14 12:02] VITALS: BMI 26.1
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
[2019-02-14] MEDS ORDERED: MENTHOL/PHENOL 1 EACH UD MM PRN (12:58)
[2019-02-14] MEDS ORDERED: MAGNESIUM CITRATE 300 ML BOTTLE PO PRN (12:58)
[2019-02-14] MEDS ORDERED: IBUPROFEN 400 MG TABLET (FP) PO PRN (12:58)
[2019-02-14] MEDS ORDERED: MELATONIN 5 MG TABLETS PO PRN (12:58)
[2019-02-14] MEDS ORDERED: NICOTINE POLACRILEX 2 MG GUM BUC PRN (12:58)
[2019-02-14] MEDS ORDERED: MAG HYDROX/AL HYDROX/SIMETH 30 ML UNIT-DOSE CUP PO PRN (12:58)
[2019-02-14] MEDS ORDERED: MAGNESIUM HYDROX 2400MG/30ML ORAL SUSPENSION 30 ML CUP PO PRN (12:58)
[2019-02-14] MEDS ORDERED: BISMUTH SUBSALICYLATE 262 MG/15 ML BTL PO PRN (12:58)
[2019-02-14] MEDS ORDERED: hydrOXYzine PAMOATE 25 MG CAPSULE (FP) PO PRN (12:58)
[2019-02-14] MEDS ORDERED: ACETAMINOPHEN 325 MG TABLET (FP) PO PRN ×2 (12:58)
--- NOTE | 2019-02-14 14:41 | CONSULT ---
[facility] Psychiatric Consult - Data Date of interview: 02/14/19 Admission source: [facility] Identifying data: Revisit to [facility] for this 58 y/o male, self- referred for detoxification (alcohol, cocaine/crack, nicotine) co-morbid with Bipolar disorder. Patient is single without children, homeless, unemployed and supported on SSI benefits. Substance Abuse History: Discussed with patient. Confirms current [facility] report on his addictions as follows : Smoking history: Current every day smoker. Have you smoked in the past 12 months: Yes. Aproximately how many cigarettes per day : 20. Cigars Per Day: 0. Hx Chewing Tobacco Use: No. - Substances abused. * * Alcohol. Substance route: Oral. Frequency: Daily. Amount used: 1 pint of dave. Age of first use: 17. Date of last use: 02/08/19. Cocaine. Substance route: Inhalation. Frequency: Daily. Amount used: 2gram. Age of first use: 20. Date of last use: 02/13/19. Crack. Substance route: Smoking. Frequency: Daily. Amount used: 2 grams. Age of first use: 34. Date of last use: 02/13/19 Medical History: No change since encounter of 01/31/19. History as follows : diabetes mellitus, hypertension, GERD, dyslipidemia, history of appendectomy + orthosurgery for fracture of right ankle. Psychiatric History: No changes in psychiatric longitudinal history since meeting of 01/31/19. Patient still endorses a long-standing history of mental illness (onset at age 27). Multiple psychiatric hospitalizations ([facility], [facility]). Diagnosed with Bipolar Disorder. Mr Veliz endorses a preference for frequent utilization of detox/rehab inpatient units for refills of medications. Patient was discharged from [facility] this month (02/02/19) with scripts for seroquel 200 mg po bid + trazodone 100 mg/hs. History of suicide attempts (self- mutilation). Physical/Sexual Abuse/Trauma History: No reported history of abuse. Additional Comment: Urine drug screen results: PALLAVI-Cocaine, BZO- Benzodiazepines. Noted. Mental Status Exam - Mental Status Exam Alert and Oriented to: Time, Place, Person Cognitive Function: Good Patient Appearance: Unkempt, Disheveled Mood: Nervous, Anxious Affect: Mood Congruent Patient Behavior: Fatigued, Appropriate, Cooperative Speech Pattern: Clear, Appropriate Voice Loudness: Normal Thought Process: Goal Oriented Thought Disorder: Not Present Hallucinations: Denies Suicidal Ideation: Denies Homicidal Ideation: Denies Insight/Judgement: Poor Sleep: Poorly, Difficulty falling asleep Appetite: Good Muscle strength/Tone: Normal Gait/Station: Normal Psychiatric Findings - Problem List ([place] 1, 2,3) (1) Alcohol dependence with uncomplicated withdrawal Current Visit: Yes Status: Acute (2) Cocaine dependence Current Visit: Yes Status: Chronic Qualifiers: Substance use status: uncomplicated Qualified Code(s): F14.20 - Cocaine dependence, uncomplicated (3) Nicotine dependence Current Visit: Yes Status: Chronic Qualifiers: Nicotine product type: cigarettes Substance use status: in withdrawal Qualified Code(s): F17.213 - Nicotine dependence, cigarettes, with withdrawal (4) Substance induced mood disorder Current Visit: Yes Status: Chronic (5) Schizoaffective disorder Current Visit: Yes Status: Chronic Qualifiers: Schizoaffective disorder type: unspecified Qualified Code(s): F25.9 - Schizoaffective disorder, unspecified Comment: By history. (6) Insomnia Current Visit: Yes Status: Chronic Qualifiers: Insomnia type: unspecified Qualified Code(s): G47.00 - Insomnia, unspecified (7) Non-compliance Current Visit: Yes Status: Acute Comment: Non-compliant with aftercare. - Initial Treatment Plan Initial Treatment Plan: Psychoeducation. Sleep hygiene. Detoxification. Support. AA meetings. Groups. Resume seroquel 200 mg po hs + trazodone 100 mg po hs. Side effects/benefits are discussed with patient (including risk of priapism, metabolic syndrome, cardiovascular adverse events, sedation, orthostasis). Mr Veliz insists on getting back on his medications. Gave verbal consent to MD. Walton.
[2019-02-14] MEDS: metFORMIN HCL 500 MG TABLET (FP) PO SCH ×2 (14:56→17:21)
[2019-02-14] MEDS: ASPIRIN COATED 81 MG TABLET.EC PO SCH (14:56)
[2019-02-14] MEDS: chlordiazePOXIDE HCL 25 MG CAPSULE PO SCH ×2 (14:56→22:35)
[2019-02-14] MEDS ORDERED: traZODone HCL 50 MG TABLET (FP) PO PRN (15:35)
[2019-02-14] MEDS ORDERED: QUEtiapine FUMARATE 200 MG TABLET PO SCH (22:00)
[2019-02-14] MEDS: THIAMINE HCL 100 MG TABLET (FP) PO SCH (22:35)
[2019-02-14] MEDS: ATORVASTATIN CA 10 MG TABLET (FP) PO SCH (22:36)
[2019-02-15] MEDS: chlordiazePOXIDE HCL 25 MG CAPSULE PO SCH ×3 (05:33→21:55)
[2019-02-15] MEDS: metFORMIN HCL 500 MG TABLET (FP) PO SCH ×2 (08:04→16:40)
[2019-02-15] MEDS: chlordiazePOXIDE HCL 10 MG CAPSULE PO PRN (10:33)
[2019-02-15] MEDS: ASPIRIN COATED 81 MG TABLET.EC PO SCH (10:33)
[2019-02-15] MEDS: PANTOPRAZOLE 20 MG TABLET (FP) PO SCH (10:33)
[2019-02-15] MEDS: PRENATAL VITAMINS W/ FOLIC ACID TABLET (FP) PO SCH (10:34)
--- NOTE | 2019-02-15 15:08 | PN ---
[place] Progress Note Note: Psychiatry Attending's note : Approached by patient. Request : titration of seroquel. Mr Veliz is ambulatory. Steady gait. Normal vitals. Plan : seroquel 200 mg po bid. Side effects/benefits re-discussed. Patient is in agreement with this plan of care.
--- NOTE | 2019-02-15 15:23 | PN ---
S CIWA - CIWA Score Nausea/Vomitin-Mild Nausea/No Vomiting Muscle Tremors: 2 Anxiety: 4-Mod. Anxious/Guarded Agitation: 3 Paroxysmal Sweats: 2 Orientation: 0-Oriented Tacttile Disturbances: 0-None Auditory Disturbances: 0-None Visual Disturbances: 0-None Headache: 0-None Present CIWA-Ar Total Score: 12 S Progress Note (SOAP) Subjective: 58 years old male multiple patient [facility] admission since 2014 was admitted on 02/14/19 for alcohol withdrawal sx management doing well with libirm detox regimen sleep better at night mild tremor ambulating on hallway social with peers encourage to discuss aftercare with staff Objective: 02/15/19 15:25 Vital Signs Temperature 97.5 F L 02/15/19 13:20 Pulse Rate 71 02/15/19 13:20 Respiratory Rate 16 02/15/19 13:20 Blood Pressure 119/71 02/15/19 13:20 O2 Sat by Pulse Oximetry (%) Laboratory Last Values POC Glucometer 122 UNITS (80-120) 02/15/19 05:34 02/15/19 15:25 lab see 01/201902/15/19 15:26 unremarkable result no admission lab necessary at this time Assessment: 02/15/19 15:27 alcohol withdrawal sx alert oriented x 3 long history of diabetes 02/15/19 15:29 treated with metformin 500 mg po bid with bgm bid before meals glucose level within acceptable range Plan: continue libirm detox regimen
[2019-02-15] MEDS: ATORVASTATIN CA 10 MG TABLET (FP) PO SCH (21:55)
[2019-02-15] MEDS: THIAMINE HCL 100 MG TABLET (FP) PO SCH (21:56)
[2019-02-15] MEDS: QUEtiapine FUMARATE 200 MG TABLET PO SCH (21:56)
[2019-02-16] MEDS: chlordiazePOXIDE 5 MG CAPSULE PO SCH ×2 (05:33→13:18)
[2019-02-16] MEDS: metFORMIN HCL 500 MG TABLET (FP) PO SCH (07:50)
[2019-02-16] MEDS: PANTOPRAZOLE 20 MG TABLET (FP) PO SCH (09:10)
[2019-02-16] MEDS: ASPIRIN COATED 81 MG TABLET.EC PO SCH (09:10)
[2019-02-16] MEDS: PRENATAL VITAMINS W/ FOLIC ACID TABLET (FP) PO SCH (09:11)
[2019-02-16] MEDS: QUEtiapine FUMARATE 200 MG TABLET PO SCH (09:11)
--- NOTE | 2019-02-16 09:39 | PN ---
[facility] CIWA - CIWA Score Nausea/Vomitin-Mild Nausea/No Vomiting Muscle Tremors: 2 Anxiety: 3 Agitation: 2 Paroxysmal Sweats: No Perspiration Orientation: 0-Oriented Tacttile Disturbances: 0-None Auditory Disturbances: 0-None Visual Disturbances: 0-None Headache: 0-None Present CIWA-Ar Total Score: 8 S Progress Note (SOAP) Subjective: doing well with librium detox regimen sleep better at night, appeared well-rested ambulating on hallway discuss aftercare with staff prefers revelation to maintain sobriety Objective: 02/16/19 09:40 Vital Signs Temperature 97 F L 02/16/19 09:16 Pulse Rate 73 02/16/19 09:16 Respiratory Rate 16 02/16/19 09:16 Blood Pressure 118/78 02/16/19 09:16 O2 Sat by Pulse Oximetry (%) Laboratory Last Values POC Glucometer 119 UNITS (80-120) 02/16/19 05:35 02/16/19 09:42 lab see 01/2019 unremarkable no need for repeat lab Assessment: 02/16/19 09:42 alcohol withdrawal sx alert oriented x 3 speech clearly denies dizziness ambulating on hallway steady gait abdomen soft non tender pulmonary clear lung bilaterally Plan: continue librium detox regimen
[2019-02-16] MEDS: chlordiazePOXIDE HCL 10 MG CAPSULE PO PRN (16:28)
--- NOTE | 2019-02-16 16:57 | DS ---
[facility] Detox Discharge Summary Admission Date: 02/14/19 Discharge Date: 02/16/19 - History Present History: Alcohol Dependence Pertinent Past History: Pt admitted 3 days ago for alcohol detox- pt wants to leave AMA today- pt gives no reason. Has left early during prior admissions. Pt does need any medications. Will f/u PCP. - Physical Exam Results Vital Signs: Vital Signs Temperature 97.8 F 02/16/19 13:20 Pulse Rate 79 02/16/19 13:20 Respiratory Rate 18 02/16/19 13:20 Blood Pressure 126/78 02/16/19 13:20 O2 Sat by Pulse Oximetry (%) - Treatment Hospital Course: Detox Protocol Followed - Medication Discharge Medications: Ambulatory Orders Omeprazole 20 mg PO DAILY 10/29/17 traZODone HCL [Desyrel -] 100 mg PO HS PRN 10/29/17 Aspirin [Aspirin EC] 81 mg PO DAILY 05/07/18 Folic Acid - 1 mg PO DAILY 08/16/18 Quetiapine Fumarate [Seroquel] 200 mg PO BID 08/16/18 Benztropine Mesylate [Cogentin -] 1 mg PO DAILY 11/04/18 Haloperidol [Haldol -] 5 mg PO DAILY 11/04/18 Atorvastatin Ca [Lipitor] 10 mg PO HS #30 tablet 11/07/18 Lisinopril [Prinivil] 2.5 mg PO DAILY #30 tablet 11/07/18 metFORMIN HCL [Glucophage -] 500 mg PO BID #60 tablet 11/07/18 Ibuprofen [Motrin -] 600 mg PO PRN 02/14/19 - AMA Did Patient Leave Against Medical Advice: Yes
[2019-02-16 17:55] VITALS: BP 122/77; PULSE 83; TEMP 97.6
[2019-02-17] MEDS ORDERED: chlordiazePOXIDE HCL 10 MG CAPSULE PO PRN
[2019-02-17] MEDS ORDERED: chlordiazePOXIDE HCL 10 MG CAPSULE PO SCH (05:00)
[2019-02-18] MEDS ORDERED: chlordiazePOXIDE HCL 10 MG CAPSULE PO ONE (05:00)
== END 2019-02-16 16:50 | disposition left against medical advice (07) | DRG 770 ==
LOC: YASAS 11:14 → Y3N 13:34
PROVIDERS: ADMIT Surgery; ATTEND Surgery
PROC: HZ2ZZZZ Detoxification Services for Substance Abuse Treatment (ICD-10-PCS; principal; 2019-02-14)
DX: F10.230 Alcohol dependence with withdrawal, uncomplicated (principal); F14.20 Cocaine dependence, uncomplicated; F17.213 Nicotine dependence, cigarettes, with withdrawal; F25.9 Schizoaffective disorder, unspecified; F19.24 Other psychoactive substance dependence with psychoactive substance-induced mood disorder; F31.9 Bipolar disorder, unspecified; E78.00 Pure hypercholesterolemia, unspecified; E11.9 Type 2 diabetes mellitus without complications; Z79.84 Long term (current) use of oral hypoglycemic drugs; G47.00 Insomnia, unspecified; Z91.19 Patient's noncompliance with other medical treatment and regimen
CPT/HCPCS: 82962

== ENCOUNTER 2019-03-06 11:05 | Inpatient (IN) | payer OTHER | END 2019-03-08 08:45 | disposition home or self-care (01) | LOC: YASAS 11:05 → Y3W 12:36 ==

== ENCOUNTER 2019-03-25 09:57 | Inpatient (IN) | payer OTHER ==
[2019-03-25 10:42] VITALS: BMI 26.5
--- NOTE | 2019-03-25 11:13 | HP ---
CIWA Score Nausea/Vomitin Muscle Tremors: 2 Anxiety: 2 Agitation: 2 Paroxysmal Sweats: 3 Orientation: 0-Oriented Tacttile Disturbances: 2-Mild Itch/Numbness/Burn Auditory Disturbances: 0-None Visual Disturbances: 0-None Headache: 2-Mild CIWA-Ar Total Score: 15 - Admission Criteria OASAS Guidelines: Admission for Medically Managed Detox: Requires at least one of the followin. CIWA greater than 12 2. Seizures within the past 24 hours 3. Delirium tremens within the past 24 hours 4. Hallucinations within the past 24 hours 5. Acute intervention needed for co occurring medical disorder 6. Acute intervention needed for co occurring psychiatric disorder 7. Severe withdrawal that cannot be handled at a lower level of care (continued vomiting, continued diarrhea, abnormal vital signs) requiring intravenous medication and/or fluids 8. Patient presents the following: CIWA greater than 12 Admission Criteria Met: Admission criteria met Admitting History and Physical - Admission Chief Complaint: I need detox from alcohol, cocaine and crack History of Present Illness: 59 year old male with multiple detox admissions presents for detox. He denies blackouts recently, last episode about 2 years ago. He denies seizures as well. History Source: Patient Limitations to Obtaining History: No Limitations - Past Medical History Cardiovascular: Yes: HTN, Hyperlipdemia Hepatobiliary: Yes: Hepatitis C Psych: Yes: Bipolar, Depression, Schizophrenia Musculoskeletal: Yes: Chronic low back pain - Past Surgical History Past Surgical History: Yes: Appendectomy - Smoking History Smoking history: Current every day smoker Have you smoked in the past 12 months: Yes Aproximately how many cigarettes per day: 20 - Alcohol/Substance Use Hx Alcohol Use: Yes (1.5 pints cognac daily) History of Substance Use: reports: Cocaine - Social History Usual Living Arrangement: Yes: Alone, Other (homeless) Do you think of yourself as: Straight/Heterosexual ADL: Independent History of Recent Travel: No Admission ROS S - HPI Chief Complaint: I need detox from alcohol, cocaine and crack Allergies/Adverse Reactions: Allergies Allergy/AdvReac Type Severity Reaction Status Date / Time tuna oil Allergy Severe Rash Verified 03/06/19 11:17 nitroglycerin AdvReac Intermediate Rash Verified 03/06/19 11:17 TUNA FISH Allergy Severe Rash Uncoded 03/06/19 11:17 History of Present Illness: 59 year old male with multiple detox admissions presents for detox. He denies blackouts recently, last episode about 2 years ago. He denies seizures as well. Exam Limitations: No Limitations - Ebola screening Have you traveled outside of the country in the last 21 days: No (N) Have you had contact with anyone from an Ebola affected area: No Have you been sick,other than usual withdrawal symptoms: No Do you have a fever: No - Review of Systems Constitutional: Chills, Loss of Appetite, Changes in sleep EENT: reports: No Symptoms Reported Respiratory: reports: No Symptoms reported Cardiac: reports: No Symptoms Reported GI: reports: Constipated, Nausea, Poor Fluid Intake, Abdominal cramping : reports: No Symptoms Reported Musculoskeletal: reports: Back Pain Integumentary: reports: Rash Neuro: reports: Headache, Numbness Endocrine: reports: Increased Urine Hematology: reports: No Symptoms Reported Psychiatric: reports: Anxious, Depressed Other Systems: Reviewed and Negative Patient History - Patient Medical History Hx Anemia: No Hx Asthma: No Hx Chronic Obstructive Pulmonary Disease (COPD): No Hx Cancer: No Hx Cardiac Disorders: No Hx Congestive Heart Failure: No Hx Hypertension: Yes (on med) Hx Hypercholesterolemia: Yes (on med) Hx Pacemaker: No HX Cerebrovascular Accident: No Hx Seizures: No Hx Dementia: No Hx Diabetes: Yes (type 2 dm) Hx Gastrointestinal Disorders: Yes (GERD) Hx Liver Disease: No Hx Genitourinary Disorders: No Hx Sexually Transmitted Disorders: No Hx Renal Disease (ESRD): No Hx Thyroid Disease: No Hx Human Immunodeficiency Virus (HIV): No Hx Hepatitis C: No Hx Depression: Yes Hx Suicide Attempt: No Hx Bipolar Disorder: Yes (on meds, sees psych at [facility]) Hx Schizophrenia: Yes - Patient Surgical History Past Surgical History: Yes Hx Neurologic Surgery: No Hx Cataract Extraction: No Hx Cardiac Surgery: No Hx Lung Surgery: No Hx Breast Surgery: No Hx Breast Biopsy: No Hx Abdominal Surgery: No Hx Appendectomy: Yes (at age 6) Hx Cholecystectomy: No Hx Genitourinary Surgery: No Hx Section: No Hx Orthopedic Surgery: No Anesthesia Reaction: No - PPD History Previous Implant?: Yes Documented Results: Negative w/proof Implanted On Prior [facility] Admission?: Yes Date: 12/04/18 Results: 0 mm PPD to be Administered?: No - Smoking Cessation Smoking history: Current every day smoker Have you smoked in the past 12 months: Yes Aproximately how many cigarettes per day: 20 Cigars Per Day: 0 Hx Chewing Tobacco Use: No Initiated information on smoking cessation: Yes 'Breaking Loose' booklet given: 03/25/19 - Substances abused Alcohol Substance route: Oral Frequency: Daily Amount used: 1.5 pint of dave Age of first use: 17 Date of last use: 03/25/19 Cocaine Substance route: Inhalation Frequency: Daily Amount used: 2 gram Age of first use: 20 Date of last use: 03/24/19 Crack Substance route: Smoking Frequency: Daily Amount used: 2-3 grams Age of first use: 34 Date of last use: 03/24/19 Admission Physical Exam [facility] - Vital Signs Vital Signs: Vital Signs - 24 hr 03/25/19 10:34 Temperature 97.0 F L Pulse Rate 69 Respiratory 18 Rate Blood Pressure 113/81 - Physical General Appearance: Yes: No Apparent Distress, Alcohol on Breath HEENTM: Yes: Hearing grossly Normal, Normal ENT Inspection, Normocephalic, Normal Voice, Other (poor dentition) Respiratory: Yes: Chest Non-Tender, Normal Breath Sounds, No Respiratory Distress, No Accessory Muscle Use Neck: Yes: No masses,lesions,Nodules, Supple Breast: Yes: Breast Exam Deferred Cardiology: Yes: Regular Rhythm, Regular Rate, S1, S2 Abdominal: Yes: Normal Bowel Sounds, Non Tender, Soft Genitourinary: Yes: Within Normal Limits Back: Yes: Normal Inspection Musculoskeletal: Yes: full range of Motion, Gait Steady, Pelvis Stable, Back pain Extremities: Yes: Non-Tender, Tremors 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 intact, Fully Oriented, Alert, Normal Mood/ Affect, Normal Response Integumentary: Yes: Clammy, Rash (to face) Lymphatic: Yes: Within Normal Limits - Diagnostic (1) Alcohol dependence with uncomplicated withdrawal Current Visit: Yes Status: Acute (2) HTN (hypertension) Current Visit: Yes Status: Chronic Qualifiers: Hypertension type: essential hypertension Qualified Code(s): I10 - Essential (primary) hypertension (3) Hyperlipidemia Current Visit: Yes Status: Chronic Qualifiers: Hyperlipidemia type: pure hypercholesterolemia Qualified Code(s): E78.00 - Pure hypercholesterolemia, unspecified; E78.0 - Pure hypercholesterolemia (4) Bipolar disorder Current Visit: Yes Status: Chronic Qualifiers: Active/Remission status: remission status unspecified Qualified Code(s): F31.9 - Bipolar disorder, unspecified (5) Cocaine dependence Current Visit: No Status: Chronic Qualifiers: Substance use status: uncomplicated Qualified Code(s): F14.20 - Cocaine dependence, uncomplicated (6) DM2 (diabetes mellitus, type 2) Current Visit: Yes Status: Chronic Qualifiers: Diabetes mellitus senior care insulin use: without intermediate accountant use Diabetes mellitus complication status: with other specified complication Qualified Code (s): E11.69 - Type 2 diabetes mellitus with other specified complication (7) Depression Current Visit: Yes Status: Chronic Qualifiers: Depression Type: major depressive disorder Major depression recurrence: recurrent Psychotic features: without psychotic features (8) GERD (gastroesophageal reflux disease) Current Visit: Yes Status: Chronic Qualifiers: Esophagitis presence: without esophagitis Qualified Code(s): K21.9 - Gastro -esophageal reflux disease without esophagitis (9) Nicotine dependence Current Visit: Yes Status: Acute Qualifiers: Nicotine product type: cigarettes Substance use status: uncomplicated Qualified Code(s): F17.210 - Nicotine dependence, cigarettes, uncomplicated Cleared for Admission S - Detox or Rehab [facility] Level of Care: Medically Managed Detox Regimen/Protocol: Librium Breathalyzer - Breathalyzer Breathalyzer: 0.022 Urine Drug Screen - Test Device Lot number: [id number] Expiration date: 11/18/20 - Control Is test valid?: Yes - Results Drug screen NEGATIVE: No Urine drug screen results: PALLAVI-Cocaine, BZO-Benzodiazepines Inpatient Rehab Admission - Rehab Decision to Admit Inpatient rehab admission?: No
[2019-03-25] MEDS ORDERED: ACETAMINOPHEN 325 MG TABLET (FP) PO PRN ×2 (11:26)
[2019-03-25] MEDS ORDERED: MAGNESIUM HYDROX 2400MG/30ML ORAL SUSPENSION 30 ML CUP PO PRN (11:26)
[2019-03-25] MEDS ORDERED: MAG HYDROX/AL HYDROX/SIMETH 30 ML UNIT-DOSE CUP PO PRN (11:26)
[2019-03-25] MEDS ORDERED: MENTHOL/PHENOL 1 EACH UD MM PRN (11:26)
[2019-03-25] MEDS ORDERED: METHOCARBAMOL 500 MG TABLET PO PRN (11:26)
[2019-03-25] MEDS ORDERED: NICOTINE POLACRILEX 2 MG GUM BUC PRN (11:26)
[2019-03-25] MEDS ORDERED: hydrOXYzine PAMOATE 25 MG CAPSULE (FP) PO PRN (11:26)
[2019-03-25] MEDS ORDERED: ONDANSETRON *ODT* 4 MG TABLET SL PRN (11:26)
[2019-03-25] MEDS ORDERED: MAGNESIUM CITRATE 300 ML BOTTLE PO PRN (11:26)
[2019-03-25] MEDS ORDERED: BISMUTH SUBSALICYLATE 524 MG/30 ML UD PO PRN (11:26)
[2019-03-25] MEDS ORDERED: MELATONIN 5 MG TABLETS PO PRN (11:26)
[2019-03-25] MEDS ORDERED: IBUPROFEN 400 MG TABLET (FP) PO PRN (11:26)
[2019-03-25] MEDS ORDERED: HYDROCORTISONE 1% TOPICAL CREAM 30 GM TUBE TP PRN (11:35)
[2019-03-25] MEDS: chlordiazePOXIDE HCL 25 MG CAPSULE PO SCH ×2 (12:39→22:16)
[2019-03-25] MEDS: LISINOPRIL 5 MG TABLET (FP) PO SCH (12:40)
[2019-03-25] MEDS: NICOTINE 14 MG/24 HOURS TOPICAL PATCH TD SCH (12:40)
[2019-03-25] MEDS: metFORMIN HCL 500 MG TABLET (FP) PO SCH (17:12)
[2019-03-25] MEDS: chlordiazePOXIDE HCL 10 MG CAPSULE PO PRN (17:14)
[2019-03-25] MEDS: ATORVASTATIN CA 40 MG TABLET (FP) PO SCH (22:16)
[2019-03-25] MEDS: THIAMINE HCL 100 MG TABLET (FP) PO SCH (22:16)
[2019-03-25] MEDS: traZODone HCL 100 MG TABLET (FP) PO PRN (22:16)
[2019-03-26] MEDS: chlordiazePOXIDE HCL 25 MG CAPSULE PO SCH ×3 (06:24→22:28)
[2019-03-26] MEDS: metFORMIN HCL 500 MG TABLET (FP) PO SCH ×2 (06:24→17:02)
--- NOTE | 2019-03-26 09:02 | CONSULT ---
[facility] Psychiatric Consult - Data Date of interview: 03/26/19 Admission source: Self-referred Identifying data: Mr Ramos is a 59 years old single male, unemployed receiving SSI, homeless seeking detox treatment for alcohol and cocaine Substance Abuse History: Reports history of alcohol, crack cocaine use. Refer to addiction counselor's summary for further information Medical History: Significant for for diabetes mellitus, hypertension, dyslipidemia, GERD, hepatitis C, chronic low back pain, history of appendectomy at age 6and orthosurgery for fracture of right ankle. Smokes cigarettes 1 ppd Psychiatric History: Patient is known to this facility from multiple previous admissions. His most recent admission to this facilility was from 03/06/19 to . He endorses a long-standing history of mental illness, onset at age 27 carrying the diagnosis of Bipolar schizophrenia. Reports multiple psychiatric hospitalizations at various facilities including [facility] , [facility]. Reports he receiving outpatient psychiatri treatment at [facility] [place] with Dr Mary Cole and he is prescribed Seroquel 200 mg/bid and Trazodone 100 mg/hs. This is confirmed by external medication history from [facility] where scripts for Seroquel 200 mg/bid#60 were filled on 02/10/19. He received Trazadone 100 mg/hs# 21 on 02/23/[address] Fernando Wilson. During his admission prior to most recent, he was seen by Dr Bolivar on 02/14/19 and he was prescribed Seroquel 200 mg/bid and Trazadone 100 mg/hs. Reports previous suicide attempts (self-mutilation). At present, denies experiencing psychotic, manic symptoms, S/H ideations. However, reports feeling mildly depressed and sleeping poorly without his medications Physical/Sexual Abuse/Trauma History: Denies history of emotional, physical or sexual abuse as well as DV relationship Additional Comment: Denies criminal history Mental Status Exam - Mental Status Exam Alert and Oriented to: Time, Place, Person Cognitive Function: Fair Patient Appearance: Disheveled Mood: Depressed Affect: Appropriate Speech Pattern: Rambling Voice Loudness: Normal Thought Process: Intact Thought Disorder: Not Present Hallucinations: Denies Suicidal Ideation: Denies Homicidal Ideation: Denies Insight/Judgement: Poor Sleep: Poorly Appetite: Good Muscle strength/Tone: Normal Gait/Station: Normal Psychiatric Findings - Problem List ([place] 1, 2,3) (1) Schizoaffective disorder Current Visit: No Status: Chronic Qualifiers: Schizoaffective disorder type: unspecified Qualified Code(s): F25.9 - Schizoaffective disorder, unspecified Comment: By history. (2) Substance induced mood disorder Current Visit: Yes Status: Acute (3) Substance-induced sleep disorder Current Visit: No Status: Acute (4) Alcohol dependence with uncomplicated withdrawal Current Visit: Yes Status: Acute (5) Cocaine dependence Current Visit: No Status: Acute Qualifiers: Substance use status: uncomplicated Qualified Code(s): F14.20 - Cocaine dependence, uncomplicated (6) Nicotine dependence Current Visit: Yes Status: Chronic (7) GERD (gastroesophageal reflux disease) Current Visit: Yes Status: Chronic Qualifiers: Esophagitis presence: without esophagitis Qualified Code(s): K21.9 - Gastro -esophageal reflux disease without esophagitis (8) HTN (hypertension) Current Visit: Yes Status: Chronic Qualifiers: Hypertension type: essential hypertension Qualified Code(s): I10 - Essential (primary) hypertension (9) Hyperlipidemia Current Visit: Yes Status: Chronic Qualifiers: Hyperlipidemia type: pure hypercholesterolemia Qualified Code(s): E78.00 - Pure hypercholesterolemia, unspecified; E78.0 - Pure hypercholesterolemia (10) DM2 (diabetes mellitus, type 2) Current Visit: Yes Status: Chronic Qualifiers: Diabetes mellitus senior living insulin use: without senior living use Diabetes mellitus complication status: with other specified complication Qualified Code (s): E11.69 - Type 2 diabetes mellitus with other specified complication (11) Low back pain Current Visit: Yes Status: Chronic - Initial Treatment Plan Initial Treatment Plan: 1) Cotinue Seroquel 200 mg po BID and Trazadone 100 mg po HS. 2) Continue inpatient detoxification
[2019-03-26] MEDS: LISINOPRIL 5 MG TABLET (FP) PO SCH (10:03)
[2019-03-26] MEDS: NICOTINE 14 MG/24 HOURS TOPICAL PATCH TD SCH (10:03)
[2019-03-26] MEDS: ASPIRIN COATED 81 MG TABLET.EC PO SCH (10:03)
[2019-03-26] MEDS: PRENATAL VITAMINS W/ FOLIC ACID TABLET (FP) PO SCH (10:03)
[2019-03-26] MEDS: QUEtiapine FUMARATE 100 MG TABLET (FP) PO SCH ×2 (10:04→22:28)
[2019-03-26 10:45] LABS: HEMATOCRIT 39.1 % (35.4-49); HEMOGLOBIN 13.3 GM/dL (11.7-16.9); MCH 31.1 pg (25.7-33.7); MCHC 34.1 g/dl (32.0-35.9); MEAN CELL VOLUME 91.1 fl (80-96); MEAN PLT VOLUME 9.7 fl (7.5-11.1); PLATELET COUNT 212 K/MM3 (134-434); RBC 4.29 M/mm3 (4.00-5.60); RDW 13.8 % (11.9-15.9); WHITE BLOOD COUNT 5.6 K/mm3 (4.0-10.0)
[2019-03-26 10:49] LABS: ALBUMIN 3.3 g/dl (3.4-5.0); BILIRUBIN,TOTAL 0.4 mg/dL (0.2-1); BLOOD UREA NITROGEN 13.7 mg/dL (7-18); CALCIUM 8.5 mg/dL (8.5-10.1); CREATININE 0.8 mg/dL (0.55-1.3); POTASSIUM 3.9 mmol/L (3.5-5.1); TOT PROT 6.3 g/dl (6.4-8.2)
--- NOTE | 2019-03-26 11:38 | PN ---
[facility] CIWA - CIWA Score Nausea/Vomitin-Mild Nausea/No Vomiting Muscle Tremors: 2 Anxiety: 2 Agitation: 1-Slight > Activity Paroxysmal Sweats: 2 Orientation: 0-Oriented Tacttile Disturbances: 1-Very Mild Itch/Numbness Auditory Disturbances: 1-Very Mild Visual Disturbances: 0-None Headache: 0-None Present CIWA-Ar Total Score: 10 S Progress Note (SOAP) Subjective: doing well with librium detox regimen long history of diabetes treated with metformin 500 mg bid initiate bgm bid begin no concentrated sugar diet glucerna for satisfaction Objective: 03/26/19 11:38 Vital Signs Temperature 96.9 F L 03/26/19 09:31 Pulse Rate 96 H 03/26/19 09:31 Respiratory Rate 20 03/26/19 09:31 Blood Pressure 92/66 03/26/19 09:31 O2 Sat by Pulse Oximetry (%) Laboratory Last Values WBC 5.6 K/mm3 (4.0-10.0) 03/26/19 07:30 RBC 4.29 M/mm3 (4.00-5.60) 03/26/19 07:30 Hgb 13.3 GM/dL (11.7-16.9) 03/26/19 07:30 Hct 39.1 % (35.4-49) 03/26/19 07:30 MCV 91.1 fl (80-96) 03/26/19 07:30 MCH 31.1 pg (25.7-33.7) 03/26/19 07:30 MCHC 34.1 g/dl (32.0-35.9) 03/26/19 07:30 RDW 13.8 % (11.9-15.9) 03/26/19 07:30 Plt Count 212 K/MM3 (134-434) 03/26/19 07:30 MPV 9.7 fl (7.5-11.1) 03/26/19 07:30 Sodium 138 mmol/L (136-145) 03/26/19 07:30 Potassium 3.9 mmol/L (3.5-5.1) 03/26/19 07:30 Chloride 104 mmol/L (98-107) 03/26/19 07:30 Carbon Dioxide 28 mmol/L (21-32) 03/26/19 07:30 Anion Gap 6 MMOL/L (8-16) L 03/26/19 07:30 BUN 13.7 mg/dL (7-18) 03/26/19 07:30 Creatinine 0.8 mg/dL (0.55-1.3) 03/26/19 07:30 Est GFR (CKD-EPI)AfAm 112.53 03/26/19 07:30 Est GFR (CKD-EPI)NonAf 97.10 03/26/19 07:30 POC Glucometer 165 UNITS (80-120) 03/26/19 06:22 Random Glucose 148 mg/dL (74-106) H 03/26/19 07:30 Calcium 8.5 mg/dL (8.5-10.1) 03/26/19 07:30 Total Bilirubin 0.4 mg/dL (0.2-1) 03/26/19 07:30 AST 87 U/L (15-37) H 03/26/19 07:30 ALT 77 U/L (13-61) H 03/26/19 07:30 Alkaline Phosphatase 120 U/L (45-117) H 03/26/19 07:30 Total Protein 6.3 g/dl (6.4-8.2) L 03/26/19 07:30 Albumin 3.3 g/dl (3.4-5.0) L 03/26/19 07:30 RPR Titer Nonreactive (NONREACTIVE) 03/26/19 07:30 lab noted Assessment: 03/26/19 11:38 alcohol withdrawal sx Plan: continue librium detox regimen
[2019-03-26] MEDS ORDERED: FLU VACCINE QUAD 60 MCG/0.5 ML (MDV 19-20) IM ONE (12:00)
[2019-03-26] MEDS: PANTOPRAZOLE 20 MG TABLET (FP) PO SCH (15:29)
[2019-03-26] MEDS: chlordiazePOXIDE HCL 10 MG CAPSULE PO PRN (17:03)
[2019-03-26] MEDS: THIAMINE HCL 100 MG TABLET (FP) PO SCH (22:28)
[2019-03-26] MEDS: ATORVASTATIN CA 40 MG TABLET (FP) PO SCH (22:28)
[2019-03-26] MEDS: traZODone HCL 100 MG TABLET (FP) PO PRN (22:28)
[2019-03-27] MEDS: chlordiazePOXIDE 5 MG CAPSULE PO SCH ×3 (06:40→22:10)
[2019-03-27] MEDS: metFORMIN HCL 500 MG TABLET (FP) PO SCH ×2 (08:00→17:07)
[2019-03-27] MEDS: QUEtiapine FUMARATE 100 MG TABLET (FP) PO SCH ×2 (10:13→22:09)
[2019-03-27] MEDS: PANTOPRAZOLE 20 MG TABLET (FP) PO SCH (10:13)
[2019-03-27] MEDS: PRENATAL VITAMINS W/ FOLIC ACID TABLET (FP) PO SCH (10:13)
[2019-03-27] MEDS: LISINOPRIL 5 MG TABLET (FP) PO SCH (10:13)
[2019-03-27] MEDS: chlordiazePOXIDE HCL 10 MG CAPSULE PO PRN (10:13)
[2019-03-27] MEDS: ASPIRIN COATED 81 MG TABLET.EC PO SCH (10:14)
[2019-03-27] MEDS: NICOTINE 14 MG/24 HOURS TOPICAL PATCH TD SCH (10:15)
--- NOTE | 2019-03-27 10:49 | PN ---
[facility] CIWA - CIWA Score Nausea/Vomitin-Mild Nausea/No Vomiting Muscle Tremors: 1-None Visible, but [place] Anxiety: 3 Agitation: 1-Slight > Activity Paroxysmal Sweats: 2 Orientation: 0-Oriented Tacttile Disturbances: 0-None Auditory Disturbances: 0-None Visual Disturbances: 0-None Headache: 0-None Present CIWA-Ar Total Score: 8 S Progress Note (SOAP) Subjective: doing well with librium detox regimen patient requests stay in detox till rehab bed available patient demands to stay longer in detox for rehab "I do not want to go out to use anymore" psychotherapy x 2" along with behavior coping case discuss with counselor that seamless aftercare arrangement Objective: 03/27/19 10:46 Vital Signs Temperature 97.5 F L 03/27/19 09:33 Pulse Rate 76 03/27/19 09:33 Respiratory Rate 18 03/27/19 09:33 Blood Pressure 100/67 03/27/19 09:33 O2 Sat by Pulse Oximetry (%) Laboratory Last Values WBC 5.6 K/mm3 (4.0-10.0) 03/26/19 07:30 RBC 4.29 M/mm3 (4.00-5.60) 03/26/19 07:30 Hgb 13.3 GM/dL (11.7-16.9) 03/26/19 07:30 Hct 39.1 % (35.4-49) 03/26/19 07:30 MCV 91.1 fl (80-96) 03/26/19 07:30 MCH 31.1 pg (25.7-33.7) 03/26/19 07:30 MCHC 34.1 g/dl (32.0-35.9) 03/26/19 07:30 RDW 13.8 % (11.9-15.9) 03/26/19 07:30 Plt Count 212 K/MM3 (134-434) 03/26/19 07:30 MPV 9.7 fl (7.5-11.1) 03/26/19 07:30 Sodium 138 mmol/L (136-145) 03/26/19 07:30 Potassium 3.9 mmol/L (3.5-5.1) 03/26/19 07:30 Chloride 104 mmol/L (98-107) 03/26/19 07:30 Carbon Dioxide 28 mmol/L (21-32) 03/26/19 07:30 Anion Gap 6 MMOL/L (8-16) L 03/26/19 07:30 BUN 13.7 mg/dL (7-18) 03/26/19 07:30 Creatinine 0.8 mg/dL (0.55-1.3) 03/26/19 07:30 Est GFR (CKD-EPI)AfAm 112.53 03/26/19 07:30 Est GFR (CKD-EPI)NonAf 97.10 03/26/19 07:30 POC Glucometer 127 UNITS (80-120) 03/26/19 16:23 Random Glucose 148 mg/dL (74-106) H 03/26/19 07:30 Calcium 8.5 mg/dL (8.5-10.1) 03/26/19 07:30 Total Bilirubin 0.4 mg/dL (0.2-1) 03/26/19 07:30 AST 87 U/L (15-37) H 03/26/19 07:30 ALT 77 U/L (13-61) H 03/26/19 07:30 Alkaline Phosphatase 120 U/L (45-117) H 03/26/19 07:30 Total Protein 6.3 g/dl (6.4-8.2) L 03/26/19 07:30 Albumin 3.3 g/dl (3.4-5.0) L 03/26/19 07:30 RPR Titer Nonreactive (NONREACTIVE) 03/26/19 07:30 lab noted Assessment: 03/27/19 10:47 alcohol withdrawal sx Plan: continue librium detox regimen
[2019-03-27] MEDS: ATORVASTATIN CA 40 MG TABLET (FP) PO SCH (22:09)
[2019-03-27] MEDS: THIAMINE HCL 100 MG TABLET (FP) PO SCH (22:09)
[2019-03-27] MEDS: traZODone HCL 100 MG TABLET (FP) PO PRN (22:10)
[2019-03-28] MEDS ORDERED: chlordiazePOXIDE HCL 10 MG CAPSULE PO PRN
[2019-03-28] MEDS: chlordiazePOXIDE HCL 10 MG CAPSULE PO SCH ×3 (06:12→22:11)
[2019-03-28] MEDS: metFORMIN HCL 500 MG TABLET (FP) PO SCH ×2 (08:22→17:10)
[2019-03-28] MEDS: PANTOPRAZOLE 20 MG TABLET (FP) PO SCH (10:15)
[2019-03-28] MEDS: NICOTINE 14 MG/24 HOURS TOPICAL PATCH TD SCH (10:15)
[2019-03-28] MEDS: ASPIRIN COATED 81 MG TABLET.EC PO SCH (10:15)
[2019-03-28] MEDS: PRENATAL VITAMINS W/ FOLIC ACID TABLET (FP) PO SCH (10:15)
[2019-03-28] MEDS: QUEtiapine FUMARATE 100 MG TABLET (FP) PO SCH ×2 (10:16→22:11)
[2019-03-28] MEDS: LISINOPRIL 5 MG TABLET (FP) PO SCH (10:17)
--- NOTE | 2019-03-28 17:09 | PN ---
S CIWA - CIWA Score Nausea/Vomitin (Stomach Cramping.) Muscle Tremors: None Anxiety: 3 Agitation: 1-Slight > Activity Paroxysmal Sweats: No Perspiration Orientation: 0-Oriented Tacttile Disturbances: 0-None Auditory Disturbances: 0-None Visual Disturbances: 0-None Headache: 0-None Present CIWA-Ar Total Score: 7 [facility] Progress Note (SOAP) Subjective: Stomach Cramping (Mild), Anxious. Objective: PATIENT A & O X 3, OBSERVED AMBULATING ON DETOX UNIT UNASSISTED. IN NO ACUTE DISTRESS. 03/28/19 17:10 Vital Signs Temperature 97.4 F L 03/28/19 14:08 Pulse Rate 85 03/28/19 14:08 Respiratory Rate 18 03/28/19 14:08 Blood Pressure 113/74 03/28/19 14:08 O2 Sat by Pulse Oximetry (%) Laboratory Tests 03/25/19 03/25/19 03/26/19 11:49 17:10 06:22 WBC RBC Hgb Hct MCV MCH MCHC RDW Plt Count MPV Sodium Potassium Chloride Carbon Dioxide Anion Gap BUN Creatinine Est GFR (CKD-EPI)AfAm Est GFR (CKD-EPI)NonAf POC Glucometer 99 140 165 Random Glucose Calcium Total Bilirubin AST ALT Alkaline Phosphatase Total Protein Albumin RPR Titer 03/26/19 03/26/19 03/26/19 07:30 07:30 07:30 WBC 5.6 RBC 4.29 Hgb 13.3 Hct 39.1 MCV 91.1 MCH 31.1 MCHC 34.1 RDW 13.8 Plt Count 212 MPV 9.7 Sodium 138 Potassium 3.9 Chloride 104 Carbon Dioxide 28 Anion Gap 6 L BUN 13.7 Creatinine 0.8 Est GFR (CKD-EPI)AfAm 112.53 Est GFR (CKD-EPI)NonAf 97.10 POC Glucometer Random Glucose 148 H Calcium 8.5 Total Bilirubin 0.4 AST 87 H ALT 77 H Alkaline Phosphatase 120 H Total Protein 6.3 L Albumin 3.3 L RPR Titer Nonreactive 03/26/19 03/27/19 03/28/19 16:23 16:15 16:22 WBC RBC Hgb Hct MCV MCH MCHC RDW Plt Count MPV Sodium Potassium Chloride Carbon Dioxide Anion Gap BUN Creatinine Est GFR (CKD-EPI)AfAm Est GFR (CKD-EPI)NonAf POC Glucometer 127 148 192 Random Glucose Calcium Total Bilirubin AST ALT Alkaline Phosphatase Total Protein Albumin RPR Titer LABS NOTED. PATIENT HAS HAD ELEVATED LIVER ENZYME LEVELS ON PREVIOUS ADMISSIONS. 03/28/19 17:10 Assessment: 03/28/19 17:11 WITHDRAWAL SYMPTOMS. ELEVATED LIVER ENZYMES. Plan: CONTINUE DETOX. PATIENT SCHEDULED FOR D/C FROM DETOX UNIT TOMORROW.
[2019-03-28] MEDS: ATORVASTATIN CA 40 MG TABLET (FP) PO SCH (22:11)
[2019-03-28] MEDS: THIAMINE HCL 100 MG TABLET (FP) PO SCH (22:11)
[2019-03-29] MEDS ORDERED: chlordiazePOXIDE HCL 10 MG CAPSULE PO ONE (05:00)
[2019-03-29] MEDS: metFORMIN HCL 500 MG TABLET (FP) PO SCH (07:57)
--- NOTE | 2019-03-29 08:43 | DS ---
[facility] Detox Discharge Summary Admission Date: 03/25/19 Discharge Date: 03/29/19 - History Present History: Alcohol Dependence Additional Comments: Patient successfully completed detox tx. Patient to follow up with primary care provider, MAT discussed with patient and follow up with next level of care for rehabilitation at [facility]. Pertinent Past History: Bipolar d/o Diabetes Mellitus II Nicotine Dependence - Physical Exam Results Vital Signs: Vital Signs Temperature 98.4 F 03/28/19 21:34 Pulse Rate 62 03/29/19 06:19 Respiratory Rate 18 03/29/19 06:19 Blood Pressure 100/64 03/29/19 06:19 O2 Sat by Pulse Oximetry (%) Pertinent Admission Physical Exam Findings: Vital Signs Temperature 98.4 F 03/28/19 21:34 Pulse Rate 62 03/29/19 06:19 Respiratory Rate 18 03/29/19 06:19 Blood Pressure 100/64 03/29/19 06:19 O2 Sat by Pulse Oximetry (%) Laboratory Last Values WBC 5.6 K/mm3 (4.0-10.0) 03/26/19 07:30 RBC 4.29 M/mm3 (4.00-5.60) 03/26/19 07:30 Hgb 13.3 GM/dL (11.7-16.9) 03/26/19 07:30 Hct 39.1 % (35.4-49) 03/26/19 07:30 MCV 91.1 fl (80-96) 03/26/19 07:30 MCH 31.1 pg (25.7-33.7) 03/26/19 07:30 MCHC 34.1 g/dl (32.0-35.9) 03/26/19 07:30 RDW 13.8 % (11.9-15.9) 03/26/19 07:30 Plt Count 212 K/MM3 (134-434) 03/26/19 07:30 MPV 9.7 fl (7.5-11.1) 03/26/19 07:30 Sodium 138 mmol/L (136-145) 03/26/19 07:30 Potassium 3.9 mmol/L (3.5-5.1) 03/26/19 07:30 Chloride 104 mmol/L (98-107) 03/26/19 07:30 Carbon Dioxide 28 mmol/L (21-32) 03/26/19 07:30 Anion Gap 6 MMOL/L (8-16) L 03/26/19 07:30 BUN 13.7 mg/dL (7-18) 03/26/19 07:30 Creatinine 0.8 mg/dL (0.55-1.3) 03/26/19 07:30 Est GFR (CKD-EPI)AfAm 112.53 03/26/19 07:30 Est GFR (CKD-EPI)NonAf 97.10 03/26/19 07:30 POC Glucometer 192 UNITS (80-120) 03/28/19 16:22 Random Glucose 148 mg/dL (74-106) H 03/26/19 07:30 Calcium 8.5 mg/dL (8.5-10.1) 03/26/19 07:30 Total Bilirubin 0.4 mg/dL (0.2-1) 03/26/19 07:30 AST 87 U/L (15-37) H 03/26/19 07:30 ALT 77 U/L (13-61) H 03/26/19 07:30 Alkaline Phosphatase 120 U/L (45-117) H 03/26/19 07:30 Total Protein 6.3 g/dl (6.4-8.2) L 03/26/19 07:30 Albumin 3.3 g/dl (3.4-5.0) L 03/26/19 07:30 RPR Titer Nonreactive (NONREACTIVE) 03/26/19 07:30 Patient stable Aox3 no acute distress EENT WNL no adventitious breath sounds Full ROM no gait abnormality No edema or erythema - Treatment Hospital Course: Detox Protocol Followed, Detoxed Safely, Responded well, Discharged Condition Good, Rehab Referral Accepted Patient has Accepted a Rehab Referral to: [facility] - Medication Discharge Medications: Ambulatory Orders Omeprazole 40 mg PO DAILY 10/29/17 traZODone HCL [Desyrel -] 100 mg PO HS PRN 10/29/17 Aspirin [Aspirin EC] 81 mg PO DAILY 05/07/18 Folic Acid - 1 mg PO DAILY 08/16/18 Quetiapine Fumarate [Seroquel -] 200 mg PO BID 08/16/18 metFORMIN HCL [Glucophage -] 500 mg PO BID #60 tablet 11/07/18 Ibuprofen [Motrin -] 600 mg PO PRN PRN 02/14/19 Atorvastatin Calcium 40 mg PO DAILY 03/06/19 Lisinopril [Prinivil] 10 mg PO DAILY 03/06/19 - Diagnosis (1) Nicotine dependence Current Visit: Yes Status: Acute Qualifiers: Nicotine product type: cigarettes Substance use status: uncomplicated Qualified Code(s): F17.210 - Nicotine dependence, cigarettes, uncomplicated (2) DM2 (diabetes mellitus, type 2) Current Visit: Yes Status: Chronic Qualifiers: Diabetes mellitus residential insulin use: without residential use Diabetes mellitus complication status: with other specified complication Qualified Code (s): E11.69 - Type 2 diabetes mellitus with other specified complication (3) GERD (gastroesophageal reflux disease) Current Visit: Yes Status: Chronic Qualifiers: Esophagitis presence: without esophagitis Qualified Code(s): K21.9 - Gastro -esophageal reflux disease without esophagitis (4) HTN (hypertension) Current Visit: Yes Status: Chronic Qualifiers: Hypertension type: essential hypertension Qualified Code(s): I10 - Essential (primary) hypertension (5) Hyperlipidemia Current Visit: Yes Status: Chronic Qualifiers: Hyperlipidemia type: pure hypercholesterolemia Qualified Code(s): E78.00 - Pure hypercholesterolemia, unspecified; E78.0 - Pure hypercholesterolemia (6) Low back pain Current Visit: Yes Status: Chronic (7) Nicotine dependence Current Visit: Yes Status: Chronic (8) Cocaine dependence Current Visit: No Status: Acute Qualifiers: Substance use status: uncomplicated Qualified Code(s): F14.20 - Cocaine dependence, uncomplicated (9) HTN (hypertension) Current Visit: Yes Status: Chronic Qualifiers: Hypertension type: essential hypertension Qualified Code(s): I10 - Essential (primary) hypertension - AMA Did Patient Leave Against Medical Advice: No
[2019-03-29 09:10] VITALS: BP 122/83; PULSE 90; TEMP 97.8
[2019-03-29] MEDS: LISINOPRIL 5 MG TABLET (FP) PO SCH (10:19)
[2019-03-29] MEDS: PRENATAL VITAMINS W/ FOLIC ACID TABLET (FP) PO SCH (10:19)
[2019-03-29] MEDS: QUEtiapine FUMARATE 100 MG TABLET (FP) PO SCH (10:20)
[2019-03-29] MEDS: PANTOPRAZOLE 20 MG TABLET (FP) PO SCH (10:20)
[2019-03-29] MEDS: ASPIRIN COATED 81 MG TABLET.EC PO SCH (10:20)
[2019-03-29] MEDS: NICOTINE 14 MG/24 HOURS TOPICAL PATCH TD SCH (10:20)
--- NOTE | 2019-03-29 16:00 | PN ---
[facility] Progress Note Note: Mr Veliz arrived to the [facility] [address] and not quite an hour or so after arrival and just after seeing the nurse, Cary Mckay for nursing assessment pt took his property and requested to leave treatment. Pt was seen and spoken to by the counselor, Eli Peterson and this policy writer sales and patient declined to stay. Pt states he wants to go to [facility] on his own. Pt is alert o x 3. Ambulating with steady gait. Pt Signed out from treatment.
== END 2019-03-29 13:09 | disposition other institution (70) | DRG 774 ==
LOC: YASAS 09:57 → Y3N 11:28
PROVIDERS: ADMIT Allergy & Immunology; ATTEND Allergy & Immunology
PROC: HZ2ZZZZ Detoxification Services for Substance Abuse Treatment (ICD-10-PCS; principal; 2019-03-25)
DX: F10.230 Alcohol dependence with withdrawal, uncomplicated (principal); F14.20 Cocaine dependence, uncomplicated; F17.210 Nicotine dependence, cigarettes, uncomplicated; F25.9 Schizoaffective disorder, unspecified; F19.24 Other psychoactive substance dependence with psychoactive substance-induced mood disorder; F19.282 Other psychoactive substance dependence with psychoactive substance-induced sleep disorder; I10 Essential (primary) hypertension; E11.69 Type 2 diabetes mellitus with other specified complication; K21.9 Gastro-esophageal reflux disease without esophagitis; E78.5 Hyperlipidemia, unspecified; M54.5 Low back pain; G89.29 Other chronic pain; R94.5 Abnormal results of liver function studies; B18.2 Chronic viral hepatitis C; Z79.84 Long term (current) use of oral hypoglycemic drugs; Z91.013 Allergy to seafood; Z88.8 Allergy status to other drugs, medicaments and biological substances
CPT/HCPCS: 36415; 80053; 82962; 85027; 86593

== ENCOUNTER 2019-03-29 13:23 | Inpatient (IN) | payer OTHER ==
[~2019-03-29 13:23] MED LIST: IBUPROFEN 400 MG TABLET (FP) PO PRN; LOPERAMIDE HCL 2 MG CAPSULE PO PRN; MAG HYDROX/AL HYDROX/SIMETH 30 ML UNIT-DOSE CUP PO PRN; MAGNESIUM CITRATE 300 ML BOTTLE PO PRN; MAGNESIUM HYDROX 2400MG/30ML ORAL SUSPENSION 30 ML CUP PO PRN; MENTHOL/PHENOL 1 EACH UD MM PRN; NICOTINE POLACRILEX 2 MG GUM BUC PRN; P-EPHED 60MG/TRIPROLIDI 2.5MG TABLET PO PRN; guaiFENesin 200 MG/10 ML 10 ML UNIT-DOSE CUPS PO PRN
[2019-03-29 13:40] VITALS: BP 105/70; PULSE 84; TEMP 98.2
[2019-03-29] MEDS ORDERED: metFORMIN HCL 500 MG TABLET (FP) PO SCH (16:30)
[2019-03-29] MEDS ORDERED: THIAMINE HCL 100 MG TABLET (FP) PO SCH (22:00)
[2019-03-29] MEDS ORDERED: traZODone HCL 100 MG TABLET (FP) PO SCH (22:00)
[2019-03-29] MEDS ORDERED: MELATONIN 5 MG TABLETS PO PRN (22:00)
[2019-03-30] MEDS ORDERED: PRENATAL VITAMINS W/ FOLIC ACID TABLET (FP) PO SCH (10:00)
[2019-03-30] MEDS ORDERED: NICOTINE 14 MG/24 HOURS TOPICAL PATCH TD SCH (10:00)
[2019-03-30] MEDS ORDERED: ATORVASTATIN CA 40 MG TABLET (FP) PO SCH (10:00)
[2019-03-30] MEDS ORDERED: LISINOPRIL 5 MG TABLET (FP) PO SCH (10:00)
[2019-03-30] MEDS ORDERED: PANTOPRAZOLE 20 MG TABLET (FP) PO SCH (10:00)
[2019-03-30] MEDS ORDERED: ASPIRIN COATED 81 MG TABLET.EC PO SCH (10:00)
--- NOTE | 2019-03-31 11:31 | PN ---
[facility] Progress Note Note: [facility] Progress Note blank Patient Name: PHILLY VELIZ Date of : 1960 Patient Status: Inpatient Attending Provider: Kemal Jeffrey Date: 03/29/19 15:55 Initialization Date: 03/29/19 15:55 [facility] Progress Note Note: Mr Veliz arrived to the [address] and not quite an hour or so after arrival and just after seeing the nurse, Cary Mckay for nursing assessment pt took his property and requested to leave treatment. Pt was seen and spoken to by the counselor, Eli Peterson and this tag writer and patient declined to stay. Pt states he wants to go to [facility] on his own. Pt is alert o x 3. Ambulating with steady gait. Pt Signed out from treatment.
== END 2019-03-29 14:20 | disposition left against medical advice (07) | DRG 770 ==
LOC: YASAS 13:23 → Y5N 13:24
PROVIDERS: ADMIT Neuromusculoskeletal Medicine & OMM; ATTEND Neuromusculoskeletal Medicine & OMM
PROC: HZ42ZZZ Group Counseling for Substance Abuse Treatment, Cognitive-Behavioral (ICD-10-PCS; principal; 2019-03-29)
DX: F10.20 Alcohol dependence, uncomplicated (principal); F14.20 Cocaine dependence, uncomplicated; F17.210 Nicotine dependence, cigarettes, uncomplicated; I10 Essential (primary) hypertension; E11.9 Type 2 diabetes mellitus without complications; K21.9 Gastro-esophageal reflux disease without esophagitis; E78.5 Hyperlipidemia, unspecified; M54.5 Low back pain; G89.29 Other chronic pain; B18.2 Chronic viral hepatitis C; Z79.84 Long term (current) use of oral hypoglycemic drugs; Z91.013 Allergy to seafood; Z88.8 Allergy status to other drugs, medicaments and biological substances

== ENCOUNTER 2019-04-18 10:34 | Inpatient (IN) | payer OTHER ==
[2019-04-18 10:54] VITALS: BMI 27.1
--- NOTE | 2019-04-18 11:35 | HP ---
"CIWA Score Nausea/Vomitin Muscle Tremors: None Anxiety: 1-Mildly Anxious Agitation: 1-Slight > Activity Paroxysmal Sweats: 2 Orientation: 0-Oriented Tacttile Disturbances: 0-None Auditory Disturbances: 0-None Visual Disturbances: 3-Moderate Sensitivity Headache: 5-Severe CIWA-Ar Total Score: 14 - Admission Criteria OASAS Guidelines: Admission for Medically Managed Detox: Requires at least one of the followin. CIWA greater than 12 2. Seizures within the past 24 hours 3. Delirium tremens within the past 24 hours 4. Hallucinations within the past 24 hours 5. Acute intervention needed for co occurring medical disorder 6. Acute intervention needed for co occurring psychiatric disorder 7. Severe withdrawal that cannot be handled at a lower level of care (continued vomiting, continued diarrhea, abnormal vital signs) requiring intravenous medication and/or fluids 8. Admitting History and Physical - Past Medical History Cardiovascular: Yes: HTN, Hyperlipdemia Hepatobiliary: Yes: Hepatitis C Psych: Yes: Bipolar, Depression, Schizophrenia Musculoskeletal: Yes: Chronic low back pain - Past Surgical History Past Surgical History: Yes: Appendectomy - Smoking History Smoking history: Current every day smoker Have you smoked in the past 12 months: Yes Aproximately how many cigarettes per day: 20 - Alcohol/Substance Use Hx Alcohol Use: Yes (1.5 pints cognac daily) History of Substance Use: reports: Cocaine - Social History ADL: Independent History of Recent Travel: No Admission [facility] Allergies/Adverse Reactions: Allergies Allergy/AdvReac Type Severity Reaction Status Date / Time tuna oil Allergy Severe Rash Verified 04/18/19 10:56 nitroglycerin AdvReac Intermediate Rash Verified 04/18/19 10:56 TUNA FISH Allergy Severe Rash Uncoded 04/18/19 10:56 History of Present Illness: Search Terms: daniel montero, 1960 Search Date: 04/18/2019 11:28:16 AM This report was requested by: Anna Farmer | Reference #: [id number] Others' Prescriptions Patient Name: Daniel Montero Date: 1960 Address: [address] [place] [address] Sex: Male Rx Written Rx Dispensed Drug Quantity Days Supply Prescriber Name 03/31/2019 04/03/2019 lorazepam 1 mg tablet 2 1 Mary Cole) 02/06/2019 02/08/2019 chlordiazepoxide 10 mg capsule 20 7 Mary Cole () patient here requesting detox from etoh and cocaine use , reports latest use this morning, 1-2 pint /day since d/c from detox , denies [facility] 03/31/19, admits to [facility] 02/06/19 , reports tremors if not drinking , denies seizures , + blackouts , etoh use since age 14 , completed recent detox @ this facility 03/29/19. 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 tobacco use : 1 ppd , declines nrt PMHX : DM , HTN , HLD , depression, SAD, bipolar d/o PSHX : appy age 6 Meds : Metformin , Seroquel, aspirin , lisinopril Shx : homeless , unemployed . Exam Limitations: Intoxication - Ebola screening Have you traveled outside of the country in the last 21 days: No Have you had contact with anyone from an Ebola affected area: No Do you have a fever: No - Review of Systems Constitutional: See HPI EENT: reports: Other (glasses- lost) Respiratory: reports: No Symptoms reported Cardiac: reports: No Symptoms Reported GI: reports: See HPI, Constipated, Nausea, Poor Fluid Intake, Abdominal cramping : reports: No Symptoms Reported Musculoskeletal: reports: Back Pain (chronic) Integumentary: reports: No Symptoms Reported Neuro: reports: Headache Endocrine: reports: See HPI Psychiatric: reports: Orientated x3, Agitated Patient History - Patient Medical History Hx Anemia: No Hx Asthma: No Hx Chronic Obstructive Pulmonary Disease (COPD): No Hx Cancer: No Hx Cardiac Disorders: No Hx Congestive Heart Failure: No Hx Hypertension: Yes (on med) Hx Hypercholesterolemia: Yes (on med) Hx Pacemaker: No HX Cerebrovascular Accident: No Hx Seizures: No Hx Dementia: No Hx Diabetes: Yes (type 2 dm) Hx Gastrointestinal Disorders: Yes (GERD) Hx Liver Disease: No Hx Genitourinary Disorders: No Hx Sexually Transmitted Disorders: No Hx Renal Disease (ESRD): No Hx Thyroid Disease: No Hx Human Immunodeficiency Virus (HIV): No Hx Hepatitis C: No Hx Depression: Yes Hx Suicide Attempt: No Hx Bipolar Disorder: Yes (on meds, sees psych at [facility]) Hx Schizophrenia: Yes - Patient Surgical History Past Surgical History: Yes Hx Neurologic Surgery: No Hx Cataract Extraction: No Hx Cardiac Surgery: No Hx Lung Surgery: No Hx Breast Surgery: No Hx Breast Biopsy: No Hx Abdominal Surgery: No Hx Appendectomy: Yes (at age 6) Hx Cholecystectomy: No Hx Genitourinary Surgery: No Hx Section: No Hx Orthopedic Surgery: No Other Surgical History: DENIES. Anesthesia Reaction: No - PPD History Date: 12/04/18 Results: 0 mm. - Smoking Cessation Smoking history: Current every day smoker Have you smoked in the past 12 months: Yes Aproximately how many cigarettes per day: 20 Cigars Per Day: 0 Hx Chewing Tobacco Use: No Initiated information on smoking cessation: Yes 'Breaking Loose' booklet given: 04/18/19 - Substances abused Alcohol Substance route: Oral Frequency: Daily Amount used: 2 pint dave Age of first use: 17 Date of last use: 04/18/19 Cocaine Substance route: Inhalation Frequency: Daily Amount used: 2 gram Age of first use: 20 Date of last use: 04/18/19 Crack Substance route: Smoking Frequency: Daily Amount used: 2to4 grams Age of first use: 34 Date of last use: 04/18/19 Admission Physical Exam S - Vital Signs Vital Signs: Vital Signs - 24 hr 04/18/19 10:47 Temperature 97.8 F Pulse Rate 79 Respiratory 18 Rate Blood Pressure 138/78 - Physical General Appearance: Yes: Mild Distress, Anxious HEENTM: Yes: EOMI, Hearing grossly Normal, Normocephalic, Normal Voice Respiratory: Yes: Chest Non-Tender, Lungs Clear, Normal Breath Sounds, No Respiratory Distress, No Accessory Muscle Use Neck: Yes: No masses,lesions,Nodules, Trachea in good position Cardiology: Yes: Regular Rhythm, Regular Rate, S1, S2 Abdominal: Yes: Non Tender, Soft Musculoskeletal: Yes: Gait Steady Extremities: Yes: Normal Inspection, Normal Range of Motion, Non-Tender Neurological: Yes: Fully Oriented, Alert, Motor Strength 5/5, Normal Mood/Affect Integumentary: Yes: Warm, Other (prateek UE extensive scarring from prior self- inflicted injuries prateek LE varicosities) - Diagnostic (1) Alcohol dependence Current Visit: Yes Status: Chronic Qualifiers: Substance use status: with intoxication (2) Cocaine dependence Current Visit: Yes Status: Chronic Qualifiers: Substance use status: uncomplicated Qualified Code(s): F14.20 - Cocaine dependence, uncomplicated (3) Nicotine dependence Current Visit: Yes Status: Chronic Qualifiers: Nicotine product type: cigarettes Breathalyzer - Breathalyzer Breathalyzer: 0.021 Urine Drug Screen - Test Device Lot number: [id number] Expiration date: 11/18/20 - Control Is test valid?: Yes - Results Drug screen NEGATIVE: No Urine drug screen results: PALLAVI-Cocaine, BZO-Benzodiazepines Inpatient Rehab Admission - Rehab Decision to Admit Inpatient rehab admission?: No"
[2019-04-18] MEDS ORDERED: chlordiazePOXIDE HCL 10 MG CAPSULE PO PRN (11:53)
[2019-04-18] MEDS ORDERED: BISMUTH SUBSALICYLATE 262 MG/15 ML BTL PO PRN (11:55)
[2019-04-18] MEDS ORDERED: MAGNESIUM CITRATE 300 ML BOTTLE PO PRN (11:55)
[2019-04-18] MEDS ORDERED: MAG HYDROX/AL HYDROX/SIMETH 30 ML UNIT-DOSE CUP PO PRN (11:55)
[2019-04-18] MEDS ORDERED: METHOCARBAMOL 500 MG TABLET PO PRN (11:55)
[2019-04-18] MEDS ORDERED: MENTHOL/PHENOL 1 EACH UD MM PRN (11:55)
[2019-04-18] MEDS ORDERED: MAGNESIUM HYDROX 2400MG/30ML ORAL SUSPENSION 30 ML CUP PO PRN (11:55)
[2019-04-18] MEDS ORDERED: MELATONIN 5 MG TABLETS PO PRN (11:55)
[2019-04-18] MEDS ORDERED: ACETAMINOPHEN 325 MG TABLET (FP) PO PRN ×2 (11:55)
[2019-04-18] MEDS ORDERED: IBUPROFEN 400 MG TABLET (FP) PO PRN (11:55)
[2019-04-18] MEDS: ASPIRIN 81 MG CHEWABLE TABLETS PO SCH (13:15)
[2019-04-18] MEDS: chlordiazePOXIDE HCL 25 MG CAPSULE PO SCH ×2 (13:15→22:18)
[2019-04-18] MEDS: metFORMIN HCL 500 MG TABLET (FP) PO SCH ×2 (13:15→17:01)
[2019-04-18] MEDS: LISINOPRIL 10 MG TABLET (FP) PO SCH (13:15)
--- NOTE | 2019-04-18 13:29 | CONSULT ---
[facility] Psychiatric Consult - Data Date of interview: 04/18/19 Admission source: Self-referred Identifying data: Mr Ramos is a 59 years old single male, unemployed receiving SSI, homeless seeking detox treatment for alcohol and cocaine Substance Abuse History: Reports history of alcohol, crack cocaine use. Refer to addiction counselor's summary for further information Medical History: Significant for type 2 diabetes mellitus, hypertension, dyslipidemia, GERD, hepatitis C, chronic low back pain, history of appendectomy at age 6 and orthosurgery for fracture of right ankle. Smokes cigarettes 1 ppd Psychiatric History: Patient ws recently seen by editorial writer on 03/26/19 during his most recent admission to this facility. Historical narrative remains consistent. He endorses a long-standing history of mental illness, onset at age 27 carrying the diagnosis of Bipolar schizophrenia. Reports multiple psychiatric hospitalizations at various facilities including [facility], [facility]. Reports he receiving outpatient psychiatric treatment at [facility] with Dr Mary Cole and he is prescribed Seroquel 200 mg/bid and Trazodone 100 mg/ hs. Told editorial writer that he has been taking Seroquel since discharge on 03/29/19 but ran out of Trazadone. When seen by editorial writer on 03/26/19, he was prescribed Seroquel 200 mg/bid and Trazadone 100 mg/hs. Reports previous suicide attempts (self-mutilation). At present, denies experiencing psychotic, manic symptoms, S/ H ideations. However, reports feeling mildly depressed and sleeping poorly without his medications Physical/Sexual Abuse/Trauma History: Denies history of emotional, physical or sexual abuse as well as DV relationship Additional Comment: Denies criminal history Psychiatric Findings - Problem List ([place] 1, 2,3) (1) Schizoaffective disorder Current Visit: No Status: Chronic Qualifiers: Schizoaffective disorder type: unspecified Qualified Code(s): F25.9 - Schizoaffective disorder, unspecified Comment: By history. (2) Substance induced mood disorder Current Visit: No Status: Acute (3) Substance-induced sleep disorder Current Visit: No Status: Acute (4) Alcohol dependence with uncomplicated withdrawal Current Visit: No Status: Acute (5) Cocaine dependence Current Visit: No Status: Acute Qualifiers: Substance use status: uncomplicated Qualified Code(s): F14.20 - Cocaine dependence, uncomplicated (6) Nicotine dependence Current Visit: Yes Status: Chronic Qualifiers: Nicotine product type: cigarettes (7) DM2 (diabetes mellitus, type 2) Current Visit: No Status: Chronic Qualifiers: Diabetes mellitus nursing home insulin use: without nursing home use Diabetes mellitus complication status: with other specified complication Qualified Code (s): E11.69 - Type 2 diabetes mellitus with other specified complication (8) HTN (hypertension) Current Visit: No Status: Chronic Qualifiers: Hypertension type: essential hypertension Qualified Code(s): I10 - Essential (primary) hypertension (9) Hyperlipidemia Current Visit: No Status: Chronic Qualifiers: Hyperlipidemia type: pure hypercholesterolemia Qualified Code(s): E78.00 - Pure hypercholesterolemia, unspecified; E78.0 - Pure hypercholesterolemia (10) Low back pain Current Visit: No Status: Chronic (11) Hepatitis C Current Visit: Yes Status: Chronic (12) GERD (gastroesophageal reflux disease) Current Visit: Yes Status: Chronic - Initial Treatment Plan Initial Treatment Plan: 1) Continue Seroquel 200 mg po BID. 2) Resume Trazadone 100 mg po HS. 3) Continue inpatient detoxification
[2019-04-18] MEDS: traZODone HCL 100 MG TABLET (FP) PO SCH (22:18)
[2019-04-18] MEDS: QUEtiapine FUMARATE 200 MG TABLET PO SCH (22:18)
[2019-04-18] MEDS: THIAMINE HCL 100 MG TABLET (FP) PO SCH (22:18)
[2019-04-18] MEDS: ATORVASTATIN CA 40 MG TABLET (FP) PO SCH (22:18)
[2019-04-19] MEDS ORDERED: chlordiazePOXIDE HCL 10 MG CAPSULE PO SCH ×2 (05:00→13:00)
[2019-04-19] MEDS: chlordiazePOXIDE HCL 25 MG CAPSULE PO SCH ×3 (05:50→22:03)
[2019-04-19] MEDS: metFORMIN HCL 500 MG TABLET (FP) PO SCH ×2 (06:35→17:37)
--- NOTE | 2019-04-19 10:00 | PN ---
S CIWA - CIWA Score Nausea/Vomitin-Mild Nausea/No Vomiting Muscle Tremors: 2 Anxiety: 2 Agitation: 2 Paroxysmal Sweats: No Perspiration Orientation: 0-Oriented Tacttile Disturbances: 1-Very Mild Itch/Numbness Auditory Disturbances: 0-None Visual Disturbances: 0-None Headache: 2-Mild CIWA-Ar Total Score: 10 [facility] Progress Note (SOAP) Subjective: alert,irritable,anxious,interrupted sleep,tremor Objective: 04/19/19 09:59 Vital Signs Temperature 98.4 F 04/19/19 09:12 Pulse Rate 79 04/19/19 09:12 Respiratory Rate 18 04/19/19 09:12 Blood Pressure 108/61 04/19/19 09:12 O2 Sat by Pulse Oximetry (%) Laboratory Last Values POC Glucometer 100 UNITS (80-120) 04/19/19 05:51 Assessment: 04/19/19 10:00 withdrawal symptom Plan: continue detox librium regimen,bgm monitoring
[2019-04-19] MEDS: PRENATAL VITAMINS W/ FOLIC ACID TABLET (FP) PO SCH ×2 (10:40→10:42)
[2019-04-19] MEDS: LISINOPRIL 10 MG TABLET (FP) PO SCH ×2 (10:40→10:42)
[2019-04-19] MEDS: ASPIRIN 81 MG CHEWABLE TABLETS PO SCH ×2 (10:41→10:42)
[2019-04-19] MEDS: QUEtiapine FUMARATE 200 MG TABLET PO SCH ×3 (10:41→22:04)
[2019-04-19] MEDS: hydrOXYzine PAMOATE 25 MG CAPSULE (FP) PO PRN ×2 (10:41→10:43)
[2019-04-19] MEDS ORDERED: chlordiazePOXIDE HCL 25 MG CAPSULE PO PRN (11:02)
--- NOTE | 2019-04-19 11:05 | PN ---
[facility] Progress Note Note: patient with severe withdrawal ,medication adjust
[2019-04-19] MEDS ORDERED: chlordiazePOXIDE HCL 10 MG CAPSULE PO PRN (13:00)
[2019-04-19] MEDS: traZODone HCL 100 MG TABLET (FP) PO SCH (22:03)
[2019-04-19] MEDS: ATORVASTATIN CA 40 MG TABLET (FP) PO SCH (22:04)
[2019-04-19] MEDS: THIAMINE HCL 100 MG TABLET (FP) PO SCH (22:04)
[2019-04-20] MEDS ORDERED: chlordiazePOXIDE HCL 10 MG CAPSULE PO ONE (05:00)
[2019-04-20] MEDS: chlordiazePOXIDE HCL 25 MG CAPSULE PO SCH ×3 (06:14→16:20)
[2019-04-20] MEDS: metFORMIN HCL 500 MG TABLET (FP) PO SCH ×2 (06:14→16:20)
--- NOTE | 2019-04-20 10:09 | PN ---
S CIWA - CIWA Score Nausea/Vomitin-Mild Nausea/No Vomiting Muscle Tremors: 2 Anxiety: 2 Agitation: 2 Paroxysmal Sweats: No Perspiration Orientation: 0-Oriented Tacttile Disturbances: 1-Very Mild Itch/Numbness Auditory Disturbances: 0-None Visual Disturbances: 0-None Headache: 1-Very Mild CIWA-Ar Total Score: 9 [facility] Progress Note (SOAP) Subjective: alert,irritable,anxious,interrupted sleep,tremor Objective: 04/20/19 10:07 Vital Signs Temperature 98.2 F 04/20/19 09:21 Pulse Rate 81 04/20/19 09:21 Respiratory Rate 18 04/20/19 09:21 Blood Pressure 101/67 04/20/19 09:21 O2 Sat by Pulse Oximetry (%) 04/20/19 10:08 bgm 120 Assessment: 04/20/19 10:08 withdrawal symptom Plan: continue detox librium regimen,bgm monitoring
[2019-04-20] MEDS: ASPIRIN 81 MG CHEWABLE TABLETS PO SCH (10:13)
[2019-04-20] MEDS: QUEtiapine FUMARATE 200 MG TABLET PO SCH (10:13)
[2019-04-20] MEDS: LISINOPRIL 10 MG TABLET (FP) PO SCH (10:13)
[2019-04-20] MEDS: PRENATAL VITAMINS W/ FOLIC ACID TABLET (FP) PO SCH (10:13)
[2019-04-20 13:21] VITALS: BP 90/59; PULSE 78; TEMP 97
--- NOTE | 2019-04-20 15:57 | PN ---
[place] Progress Note Note: patient did not want to complete treatment,all attempts to convince patient to stay with no avail,high risks of relapsing explained,patient understood, patient signed release ama
--- NOTE | 2019-04-20 16:05 | DS ---
[facility] Detox Discharge Summary Admission Date: 04/18/19 Discharge Date: 04/20/19 - History Present History: Alcohol Dependence, Cocaine Dependence Additional Comments: patient did not want to complete treatment,signed release ama Pertinent Past History: hypertension type 2 dm hypercholesterolemia hepatitis c asthma - Physical Exam Results Vital Signs: Vital Signs Temperature 97.0 F L 04/20/19 13:20 Pulse Rate 78 04/20/19 13:20 Respiratory Rate 18 04/20/19 13:20 Blood Pressure 90/59 L 04/20/19 13:20 O2 Sat by Pulse Oximetry (%) Pertinent Admission Physical Exam Findings: withdrawal signs and symptom - Medication Discharge Medications: Ambulatory Orders Aspirin [ASA -] 81 mg PO DAILY 04/18/19 Atorvastatin Ca [Lipitor] 40 mg PO HS 04/18/19 Ibuprofen 600 mg PO DAILY 04/18/19 Lisinopril 10 mg PO DAILY 04/18/19 Quetiapine Fumarate [Seroquel -] 200 mg PO BID 04/18/19 metFORMIN HCL [Metformin HCl] 500 mg PO BID 04/18/19 - Diagnosis (1) Cocaine dependence Current Visit: Yes Status: Chronic Qualifiers: Substance use status: uncomplicated Qualified Code(s): F14.20 - Cocaine dependence, uncomplicated (2) Hepatitis C Current Visit: Yes Status: Chronic (3) Nicotine dependence Current Visit: Yes Status: Chronic Qualifiers: Nicotine product type: cigarettes (4) Alcohol dependence with uncomplicated withdrawal Current Visit: No Status: Acute (5) Cocaine dependence Current Visit: No Status: Acute Qualifiers: Substance use status: uncomplicated Qualified Code(s): F14.20 - Cocaine dependence, uncomplicated (6) Dehydration Current Visit: No Status: Acute - AMA Did Patient Leave Against Medical Advice: Yes
[2019-04-21] MEDS ORDERED: chlordiazePOXIDE HCL 25 MG CAPSULE PO SCH (05:00)
[2019-04-22] MEDS ORDERED: chlordiazePOXIDE HCL 10 MG CAPSULE PO PRN
[2019-04-22] MEDS ORDERED: chlordiazePOXIDE HCL 10 MG CAPSULE PO SCH (05:00)
[2019-04-23] MEDS ORDERED: chlordiazePOXIDE HCL 10 MG CAPSULE PO SCH (05:00)
[2019-04-24] MEDS ORDERED: chlordiazePOXIDE HCL 10 MG CAPSULE PO ONE (05:00)
== END 2019-04-20 16:16 | disposition left against medical advice (07) | DRG 770 ==
LOC: YASAS 10:34 → Y6N 12:18
PROVIDERS: ADMIT Allergy & Immunology; ATTEND Allergy & Immunology
PROC: HZ2ZZZZ Detoxification Services for Substance Abuse Treatment (ICD-10-PCS; principal; 2019-04-18)
DX: F10.230 Alcohol dependence with withdrawal, uncomplicated (principal); F14.20 Cocaine dependence, uncomplicated; F17.210 Nicotine dependence, cigarettes, uncomplicated; F19.282 Other psychoactive substance dependence with psychoactive substance-induced sleep disorder; F19.24 Other psychoactive substance dependence with psychoactive substance-induced mood disorder; F25.9 Schizoaffective disorder, unspecified; F31.9 Bipolar disorder, unspecified; I10 Essential (primary) hypertension; E78.5 Hyperlipidemia, unspecified; E78.00 Pure hypercholesterolemia, unspecified; K21.9 Gastro-esophageal reflux disease without esophagitis; J45.909 Unspecified asthma, uncomplicated; B18.2 Chronic viral hepatitis C; M54.5 Low back pain; Z88.8 Allergy status to other drugs, medicaments and biological substances; Z91.013 Allergy to seafood
CPT/HCPCS: 82962

== ENCOUNTER 2019-05-16 11:24 | Inpatient (IN) | payer OTHER ==
[2019-05-16 12:34] VITALS: BMI 27.3
--- NOTE | 2019-05-16 13:09 | HP ---
CIWA Score Nausea/Vomitin Muscle Tremors: None Anxiety: 3 Agitation: 4-Moderately Restless Paroxysmal Sweats: 1-Minimal Palms Moist Orientation: 0-Oriented Tacttile Disturbances: 0-None Auditory Disturbances: 0-None Visual Disturbances: 0-None Headache: 2-Mild CIWA-Ar Total Score: 12 - Admission Criteria OASAS Guidelines: Admission for Medically Managed Detox: Requires at least one of the followin. CIWA greater than 12 2. Seizures within the past 24 hours 3. Delirium tremens within the past 24 hours 4. Hallucinations within the past 24 hours 5. Acute intervention needed for co occurring medical disorder 6. Acute intervention needed for co occurring psychiatric disorder 7. Severe withdrawal that cannot be handled at a lower level of care (continued vomiting, continued diarrhea, abnormal vital signs) requiring intravenous medication and/or fluids 8. Admitting History and Physical - Past Medical History Cardiovascular: Yes: HTN, Hyperlipdemia Hepatobiliary: Yes: Hepatitis C Psych: Yes: Bipolar, Depression, Schizophrenia Musculoskeletal: Yes: Chronic low back pain - Past Surgical History Past Surgical History: Yes: Appendectomy - Smoking History Smoking history: Current every day smoker Have you smoked in the past 12 months: Yes Aproximately how many cigarettes per day: 20 - Alcohol/Substance Use Hx Alcohol Use: Yes (1.5 pints cognac daily) History of Substance Use: reports: Cocaine - Social History ADL: Independent History of Recent Travel: No Admission ROS [facility] - [facility] Allergies/Adverse Reactions: Allergies Allergy/AdvReac Type Severity Reaction Status Date / Time tuna oil Allergy Severe Rash Verified 05/16/19 12:25 nitroglycerin AdvReac Intermediate Rash Verified 05/16/19 12:25 TUNA FISH Allergy Severe Rash Uncoded 05/16/19 12:25 History of Present Illness: 59 y.o M with history of alcohol and cocaine use presenting to [facility] for detox as he needs to get into a [facility] program. He has been drinking and using cocaine for over 15 years. He usually drink 1 pint and a half of dave , 5-6 24 oz of beer daily and sniff about 2-3 gm a day of cocaine. one episode of blackout 2 years ago resulting in hospitalization for long time. No history of withdrawal seizures. last drink was this morning consisting of about 4 cans of beer and last cocaine use was yesterday. No injections. Smokes 1PPD for 30 yrs. PMH: DM, HTN, HLD Psych: Schizophrenia, bipolar, anxiety/panic attack on meds PSH: appendectomy Social Hx: homeless, SSIs for disability PE: VS 97.8, 124/73 mmHg, 79 bpm, 18 Utox: cocaine, Bzo CIWA 12 DENISE 0.027 General : anxious HEENT: seborrheic dermatitis, PERRLA LUNG: VBS B/L HEART: RRR no MRG Abdomen: +BS, NTND neuro: grossly intact Plan: alcohol detox : valium protocol Psych consult - Ebola screening Have you traveled outside of the country in the last 21 days: No Have you had contact with anyone from an Ebola affected area: No Do you have a fever: No Patient History - Patient Medical History Hx Anemia: No Hx Asthma: No Hx Chronic Obstructive Pulmonary Disease (COPD): No Hx Cancer: No Hx Cardiac Disorders: No Hx Congestive Heart Failure: No Hx Hypertension: Yes (on med) Hx Hypercholesterolemia: Yes (on med) Hx Pacemaker: No HX Cerebrovascular Accident: No Hx Seizures: No Hx Dementia: No Hx Diabetes: Yes (type 2 dm) Hx Gastrointestinal Disorders: Yes (GERD) Hx Liver Disease: No Hx Genitourinary Disorders: No Hx Sexually Transmitted Disorders: No Hx Renal Disease (ESRD): No Hx Thyroid Disease: No Hx Human Immunodeficiency Virus (HIV): No Hx Hepatitis C: No Hx Depression: Yes Hx Suicide Attempt: No Hx Bipolar Disorder: Yes (on meds, sees psych at [facility]) Hx Schizophrenia: Yes - Patient Surgical History Past Surgical History: Yes Hx Neurologic Surgery: No Hx Cataract Extraction: No Hx Cardiac Surgery: No Hx Lung Surgery: No Hx Breast Surgery: No Hx Breast Biopsy: No Hx Abdominal Surgery: No Hx Appendectomy: Yes (at age 6) Hx Cholecystectomy: No Hx Genitourinary Surgery: No Hx Section: No Hx Orthopedic Surgery: No Other Surgical History: DENIES. Anesthesia Reaction: No - PPD History Date: 12/04/18 Results: 0 mm. - Smoking Cessation Smoking history: Current every day smoker Have you smoked in the past 12 months: Yes Aproximately how many cigarettes per day: 20 Cigars Per Day: 0 Hx Chewing Tobacco Use: No Initiated information on smoking cessation: Yes 'Breaking Loose' booklet given: 05/16/19 - Substances abused Alcohol Substance route: Oral Frequency: Daily Amount used: 2 pint dave Age of first use: 17 Date of last use: 05/16/19 Cocaine Substance route: Inhalation Frequency: Daily Amount used: 2 gram Age of first use: 20 Date of last use: 05/15/19 Crack Substance route: Smoking Frequency: Daily Amount used: 2-4 grams Age of first use: 34 Date of last use: 05/16/19 Admission Physical Exam [facility] - Vital Signs Vital Signs: Vital Signs - 24 hr 05/16/19 05/16/19 12:24 12:50 Temperature 97.8 F 97.8 F Pulse Rate 79 79 Respiratory 18 18 Rate Blood Pressure 124/73 124/73 Cleared for Admission [facility] - Detox or Rehab [facility] Level of Care: Medically Supervised Breathalyzer - Breathalyzer Breathalyzer: 0.027 Urine Drug Screen - Test Device Lot number: [id number] Expiration date: 01/18/21 - Control Is test valid?: Yes - Results Drug screen NEGATIVE: No Urine drug screen results: PALLAVI-Cocaine, BZO-Benzodiazepines Inpatient Rehab Admission - Rehab Decision to Admit Inpatient rehab admission?: No
[2019-05-16] MEDS ORDERED: MELATONIN 5 MG TABLETS PO PRN (13:27)
[2019-05-16] MEDS ORDERED: ACETAMINOPHEN 325 MG TABLET (FP) PO PRN ×2 (13:27)
[2019-05-16] MEDS ORDERED: IBUPROFEN 400 MG TABLET (FP) PO PRN (13:27)
[2019-05-16] MEDS ORDERED: BISMUTH SUBSALICYLATE 262 MG/15 ML BTL PO PRN (13:27)
[2019-05-16] MEDS ORDERED: MAGNESIUM CITRATE 300 ML BOTTLE PO PRN (13:27)
[2019-05-16] MEDS ORDERED: MAGNESIUM HYDROX 2400MG/30ML ORAL SUSPENSION 30 ML CUP PO PRN (13:27)
[2019-05-16] MEDS ORDERED: MAG HYDROX/AL HYDROX/SIMETH 30 ML UNIT-DOSE CUP PO PRN (13:27)
[2019-05-16] MEDS ORDERED: hydrOXYzine PAMOATE 25 MG CAPSULE (FP) PO PRN (13:27)
[2019-05-16] MEDS ORDERED: MENTHOL/PHENOL 1 EACH UD MM PRN (13:27)
--- NOTE | 2019-05-16 13:41 | PN ---
Teaching Attending Note Name of Resident: Fany Davis ATTENDING PHYSICIAN STATEMENT I saw and evaluated the patient. I reviewed the resident's note and discussed the case with the resident. I agree with the resident's findings and plan as documented. SUBJECTIVE: patient here requesting detox from etoh use , reports latest use this morning, 1 pint /day since d/c from detox , reports tremors if not drinking , denies seizures , + blackouts , etoh use since age 14 . 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 tobacco use : 1 ppd , declines nrt PMHX : DM , HTN , HLD , depression, SAD, bipolar d/o PSHX : appy age 6 OBJECTIVE: wnwd Vital Signs - 24 hr 05/16/19 05/16/19 12:24 12:50 Temperature 97.8 F 97.8 F Pulse Rate 79 79 Respiratory 18 18 Rate Blood Pressure 124/73 124/73 ASSESSMENT AND PLAN: AUD - Valium detox
[2019-05-16] MEDS: diazePAM 5 MG TABLET PO SCH ×2 (15:17→22:17)
[2019-05-16] MEDS ORDERED: guaiFENesin 600 MG TABLET.ER (FP) PO SCH ×2 (15:58→22:00)
[2019-05-16] MEDS: metFORMIN HCL 500 MG TABLET (FP) PO SCH (17:34)
[2019-05-16] MEDS: ATORVASTATIN CA 40 MG TABLET (FP) PO SCH (22:17)
[2019-05-16] MEDS: THIAMINE HCL 100 MG TABLET (FP) PO SCH (22:18)
[2019-05-16] MEDS: METHOCARBAMOL 500 MG TABLET PO PRN (22:18)
[2019-05-17] MEDS: diazePAM 5 MG TABLET PO SCH ×3 (05:15→22:25)
[2019-05-17] MEDS: metFORMIN HCL 500 MG TABLET (FP) PO SCH ×2 (06:21→16:34)
[2019-05-17] MEDS ORDERED: guaiFENesin 200 MG/10 ML 10 ML UNIT-DOSE CUPS PO ONE (09:04)
--- NOTE | 2019-05-17 09:09 | PN ---
[facility] CIWA - CIWA Score Nausea/Vomitin-Mild Nausea/No Vomiting Muscle Tremors: 4-Moderate,w/Arms Extend Anxiety: 3 Agitation: 2 Paroxysmal Sweats: 2 Orientation: 1-Uncertain about Date Tacttile Disturbances: 0-None Auditory Disturbances: 0-None Visual Disturbances: 0-None Headache: 0-None Present CIWA-Ar Total Score: 13 S Progress Note (SOAP) Subjective: patient refuses mucinex discontinue mucinex patient demand robitussin 10ml of robitussin now 59 years old male admitted on 05/16/19 for alcohol withdrawal sx management treated with valium detox regimen patient ate breakfast and lunch resting on bed limited conversation with staff Objective: 05/17/19 14:21 Vital Signs Temperature 98.2 F 05/17/19 13:47 Pulse Rate 72 05/17/19 13:47 Respiratory Rate 18 05/17/19 13:47 Blood Pressure 119/75 05/17/19 13:47 O2 Sat by Pulse Oximetry (%) Vital Signs Laboratory Last Values WBC 7.0 K/mm3 (4.0-10.0) 05/17/19 07:35 RBC 4.19 M/mm3 (4.00-5.60) 05/17/19 07:35 Hgb 13.0 GM/dL (11.7-16.9) 05/17/19 07:35 Hct 37.9 % (35.4-49) 05/17/19 07:35 MCV 90.3 fl (80-96) 05/17/19 07:35 MCH 31.1 pg (25.7-33.7) 05/17/19 07:35 MCHC 34.4 g/dl (32.0-35.9) 05/17/19 07:35 RDW 13.8 % (11.9-15.9) 05/17/19 07:35 Plt Count 226 K/MM3 (134-434) 05/17/19 07:35 MPV 9.5 fl (7.5-11.1) 05/17/19 07:35 Sodium 140 mmol/L (136-145) 05/17/19 07:35 Potassium 4.1 mmol/L (3.5-5.1) 05/17/19 07:35 Chloride 108 mmol/L (98-107) H 05/17/19 07:35 Carbon Dioxide 28 mmol/L (21-32) 05/17/19 07:35 Anion Gap 4 MMOL/L (8-16) L 05/17/19 07:35 BUN 12.1 mg/dL (7-18) 05/17/19 07:35 Creatinine 0.7 mg/dL (0.55-1.3) 05/17/19 07:35 Est GFR (CKD-EPI)AfAm 118.88 05/17/19 07:35 Est GFR (CKD-EPI)NonAf 102.57 05/17/19 07:35 POC Glucometer 110 UNITS (80-120) 05/17/19 05:17 Random Glucose 111 mg/dL (74-106) H 05/17/19 07:35 Calcium 8.3 mg/dL (8.5-10.1) L 05/17/19 07:35 Total Bilirubin 0.2 mg/dL (0.2-1) 05/17/19 07:35 AST 42 U/L (15-37) H 05/17/19 07:35 ALT 51 U/L (13-61) 05/17/19 07:35 Alkaline Phosphatase 106 U/L (45-117) 05/17/19 07:35 Total Protein 6.0 g/dl (6.4-8.2) L 05/17/19 07:35 Albumin 3.2 g/dl (3.4-5.0) L 05/17/19 07:35 RPR Titer Nonreactive (NONREACTIVE) 05/17/19 07:35 lab noted Assessment: 05/17/19 14:25 alcohol withdrawal sx Plan: continue valium detox regimen
[2019-05-17] MEDS: METHOCARBAMOL 500 MG TABLET PO PRN (10:03)
[2019-05-17] MEDS: diazePAM 5 MG TABLET PO PRN ×2 (10:03→16:34)
[2019-05-17] MEDS: ASPIRIN 81 MG CHEWABLE TABLETS PO SCH (10:03)
[2019-05-17] MEDS: LISINOPRIL 10 MG TABLET (FP) PO SCH (10:03)
[2019-05-17] MEDS: PRENATAL VITAMINS W/ FOLIC ACID TABLET (FP) PO SCH (10:03)
[2019-05-17 10:21] LABS: ALBUMIN 3.2 g/dl (3.4-5.0); BILIRUBIN,TOTAL 0.2 mg/dL (0.2-1); BLOOD UREA NITROGEN 12.1 mg/dL (7-18); CALCIUM 8.3 mg/dL (8.5-10.1); CREATININE 0.7 mg/dL (0.55-1.3); POTASSIUM 4.1 mmol/L (3.5-5.1)
[2019-05-17 10:41] LABS: HEMATOCRIT 37.9 % (35.4-49); MCH 31.1 pg (25.7-33.7); MCHC 34.4 g/dl (32.0-35.9); MEAN CELL VOLUME 90.3 fl (80-96); MEAN PLT VOLUME 9.5 fl (7.5-11.1); PLATELET COUNT 226 K/MM3 (134-434); RBC 4.19 M/mm3 (4.00-5.60); RDW 13.8 % (11.9-15.9)
--- NOTE | 2019-05-17 17:47 | CONSULT ---
[facility] Psychiatric Consult - Data Date of interview: 05/17/19 Admission source: [facility] Identifying data: This is one of several admissions to [facility] for this 59 y/ o male, self-referred for detoxification (LOULOU issues : alcohol, cocaine /crack, nicotine). Interviewed at [address] [place] [address]. Patient is single without children, homeless, unemployed and supported on SSI benefits. Substance Abuse History: Discussed with patient. Details in [facility] report as follows : Smoking history: Current every day smoker. Have you smoked in the past 12 months: Yes. Aproximately how many cigarettes per day: 20. Cigars Per Day: 0. Hx Chewing Tobacco Use: No. Initiated information on smoking cessation : Yes. 'Breaking Loose' booklet given: 05/16/19. - Substances abused. Alcohol. Substance route: Oral. Frequency: Daily. Amount used: 2 pint dave. Age of first use: 17. Date of last use: 05/16/19. Cocaine. Substance route: Inhalation. Frequency: Daily. Amount used: 2 gram. Age of first use: 20. Date of last use: 05/15/19. Crack. Substance route: Smoking. Frequency: Daily. Amount used: 2-4 grams. Age of first use: 34. Date of last use: 05/16/19 Medical History: Medical profile is remarkable for seborrheic dermatitis, diabetes mellitus, hypertension, GERD, dyslipidemia, history of appendectomy + orthosurgery for fracture of right ankle. Psychiatric History: Extensive history of mental illness (onset at age 27). Multiple psychiatric hospitalizations ([facility], [facility]). Diagnosed with Bipolar Disorder. Mr Ramos utilizes the [facility] OPD walk-in clinic for psychiatric aftercare. Patient is prescribed seroquel 200 mg po bid + trazodone 100 mg/hs. History of suicide attempts (self-mutilation). Physical/Sexual Abuse/Trauma History: Patient denies. Additional Comment: Urine drug screen results: PALLAVI-Cocaine, BZO- Benzodiazepines. Noted. Mental Status Exam - Mental Status Exam Alert and Oriented to: Time, Place, Person Cognitive Function: Good Patient Appearance: Well Groomed Mood: Withdrawn, Hopeful Affect: Appropriate, Normal Range Patient Behavior: Fatigued, Cooperative Speech Pattern: Clear Voice Loudness: Normal Thought Process: Intact, Goal Oriented Thought Disorder: Not Present Hallucinations: Denies Suicidal Ideation: Denies Homicidal Ideation: Denies Insight/Judgement: Poor Sleep: Poorly, Difficulty falling asleep Appetite: Good Muscle strength/Tone: Normal Gait/Station: Normal Psychiatric Findings - Problem List ([place] 1, 2,3) (1) Alcohol dependence with uncomplicated withdrawal Current Visit: Yes Status: Acute (2) Cocaine dependence Current Visit: Yes Status: Chronic Qualifiers: Substance use status: uncomplicated Qualified Code(s): F14.20 - Cocaine dependence, uncomplicated (3) Nicotine dependence Current Visit: Yes Status: Chronic Qualifiers: Nicotine product type: cigarettes Substance use status: uncomplicated Qualified Code(s): F17.210 - Nicotine dependence, cigarettes, uncomplicated (4) Substance induced mood disorder Current Visit: Yes Status: Chronic (5) Schizoaffective disorder Current Visit: Yes Status: Chronic Qualifiers: Schizoaffective disorder type: unspecified Qualified Code(s): F25.9 - Schizoaffective disorder, unspecified Comment: By history. (6) Insomnia Current Visit: Yes Status: Chronic - Initial Treatment Plan Initial Treatment Plan: Psychoeducation. Sleep hygiene. Detoxification. Medications reconciled : seroquel 200 mg po bid + trazodone 50 mg po hs. Side effects/benefits of both drugs are discussed with the patient. Mr Veliz is in agreement with this plan of care. Gave verbal consent to MD. Walton.
[2019-05-17] MEDS: ATORVASTATIN CA 40 MG TABLET (FP) PO SCH (22:25)
[2019-05-17] MEDS: THIAMINE HCL 100 MG TABLET (FP) PO SCH (22:25)
[2019-05-17] MEDS: QUEtiapine FUMARATE 200 MG TABLET PO SCH (22:29)
[2019-05-17] MEDS: traZODone HCL 50 MG TABLET (FP) PO SCH (22:29)
[2019-05-18] MEDS: diazePAM 5 MG TABLET PO SCH ×2 (06:19→17:41)
[2019-05-18] MEDS: metFORMIN HCL 500 MG TABLET (FP) PO SCH ×2 (07:32→16:58)
[2019-05-18] MEDS: QUEtiapine FUMARATE 200 MG TABLET PO SCH ×2 (10:02→21:37)
[2019-05-18] MEDS: ASPIRIN 81 MG CHEWABLE TABLETS PO SCH (10:02)
[2019-05-18] MEDS: LISINOPRIL 10 MG TABLET (FP) PO SCH (10:02)
[2019-05-18] MEDS: PRENATAL VITAMINS W/ FOLIC ACID TABLET (FP) PO SCH (10:02)
[2019-05-18] MEDS: diazePAM 5 MG TABLET PO PRN (10:04)
--- NOTE | 2019-05-18 11:23 | PN ---
S CIWA - CIWA Score Nausea/Vomitin-Mild Nausea/No Vomiting Muscle Tremors: 2 Anxiety: 2 Agitation: 2 Paroxysmal Sweats: 1-Minimal Palms Moist Orientation: 0-Oriented Tacttile Disturbances: 0-None Auditory Disturbances: 0-None Visual Disturbances: 0-None Headache: 0-None Present CIWA-Ar Total Score: 8 BHS Progress Note (SOAP) Subjective: 59 years old male admitted on 05/16/19 for alcohol withdrawal sx management tretaed with valium detox regimen feeling better less tremor mild anxiety sleep better at night patient agrees to return to his primary care provider for follow up discuss alcohol related insulin imbalance Objective: 05/18/19 11:22 Vital Signs Temperature 98.6 F 05/17/19 19:46 Pulse Rate 56 L 05/18/19 06:24 Respiratory Rate 18 05/18/19 06:24 Blood Pressure 99/69 05/18/19 06:24 O2 Sat by Pulse Oximetry (%) Laboratory Last Values WBC 7.0 K/mm3 (4.0-10.0) 05/17/19 07:35 RBC 4.19 M/mm3 (4.00-5.60) 05/17/19 07:35 Hgb 13.0 GM/dL (11.7-16.9) 05/17/19 07:35 Hct 37.9 % (35.4-49) 05/17/19 07:35 MCV 90.3 fl (80-96) 05/17/19 07:35 MCH 31.1 pg (25.7-33.7) 05/17/19 07:35 MCHC 34.4 g/dl (32.0-35.9) 05/17/19 07:35 RDW 13.8 % (11.9-15.9) 05/17/19 07:35 Plt Count 226 K/MM3 (134-434) 05/17/19 07:35 MPV 9.5 fl (7.5-11.1) 05/17/19 07:35 Sodium 140 mmol/L (136-145) 05/17/19 07:35 Potassium 4.1 mmol/L (3.5-5.1) 05/17/19 07:35 Chloride 108 mmol/L (98-107) H 05/17/19 07:35 Carbon Dioxide 28 mmol/L (21-32) 05/17/19 07:35 Anion Gap 4 MMOL/L (8-16) L 05/17/19 07:35 BUN 12.1 mg/dL (7-18) 05/17/19 07:35 Creatinine 0.7 mg/dL (0.55-1.3) 05/17/19 07:35 Est GFR (CKD-EPI)AfAm 118.88 05/17/19 07:35 Est GFR (CKD-EPI)NonAf 102.57 05/17/19 07:35 POC Glucometer 118 UNITS (80-120) 05/17/19 16:30 Random Glucose 111 mg/dL (74-106) H 05/17/19 07:35 Calcium 8.3 mg/dL (8.5-10.1) L 05/17/19 07:35 Total Bilirubin 0.2 mg/dL (0.2-1) 05/17/19 07:35 AST 42 U/L (15-37) H 05/17/19 07:35 ALT 51 U/L (13-61) 05/17/19 07:35 Alkaline Phosphatase 106 U/L (45-117) 05/17/19 07:35 Total Protein 6.0 g/dl (6.4-8.2) L 05/17/19 07:35 Albumin 3.2 g/dl (3.4-5.0) L 05/17/19 07:35 RPR Titer Nonreactive (NONREACTIVE) 05/17/19 07:35 lab noted Assessment: 05/18/19 11:22 alcohol withdrawal sx management Plan: continue valium detox regimen
[2019-05-18] MEDS: ATORVASTATIN CA 40 MG TABLET (FP) PO SCH (21:37)
[2019-05-18] MEDS: THIAMINE HCL 100 MG TABLET (FP) PO SCH (21:37)
[2019-05-18] MEDS: traZODone HCL 50 MG TABLET (FP) PO SCH (21:37)
[2019-05-19] MEDS ORDERED: diazePAM 5 MG TABLET PO ONE (06:00)
[2019-05-19 06:10] VITALS: BP 133/78; PULSE 71; TEMP 98.6
[2019-05-19] MEDS: metFORMIN HCL 500 MG TABLET (FP) PO SCH (06:58)
--- NOTE | 2019-05-19 08:32 | DS ---
[facility] Detox Discharge Summary Admission Date: 05/16/19 Discharge Date: 05/19/19 - History Present History: Alcohol Dependence, Cocaine Dependence - Physical Exam Results Vital Signs: Vital Signs Temperature 98.6 F 05/19/19 06:10 Pulse Rate 71 05/19/19 06:10 Respiratory Rate 18 05/19/19 06:10 Blood Pressure 133/78 05/19/19 06:10 O2 Sat by Pulse Oximetry (%) - Treatment Hospital Course: Detox Protocol Followed, Detoxed Safely, Responded well, Discharged Condition Good, Rehab Referral Accepted Patient has Accepted a Rehab Referral to: [facility] - Medication Discharge Medications: Ambulatory Orders Aspirin [ASA -] 81 mg PO DAILY 04/18/19 Atorvastatin Ca [Lipitor] 40 mg PO HS 04/18/19 Ibuprofen 600 mg PO DAILY PRN 04/18/19 Lisinopril 10 mg PO DAILY 04/18/19 Quetiapine Fumarate [Seroquel -] 200 mg PO BID 04/18/19 metFORMIN HCL [Metformin HCl] 500 mg PO BID 04/18/19 - Diagnosis (1) Alcohol dependence with uncomplicated withdrawal Current Visit: Yes Status: Acute (2) Cocaine dependence Current Visit: Yes Status: Chronic Qualifiers: Substance use status: uncomplicated Qualified Code(s): F14.20 - Cocaine dependence, uncomplicated (3) Nicotine dependence Current Visit: Yes Status: Chronic Qualifiers: Nicotine product type: cigarettes Substance use status: uncomplicated Qualified Code(s): F17.210 - Nicotine dependence, cigarettes, uncomplicated (4) Schizoaffective disorder Current Visit: Yes Status: Chronic Qualifiers: Schizoaffective disorder type: unspecified Qualified Code(s): F25.9 - Schizoaffective disorder, unspecified (5) Diabetes Current Visit: Yes Status: Chronic Qualifiers: Diabetes mellitus type: type 2 Diabetes mellitus custodial insulin use: with termite control technician use Diabetes mellitus complication status: with other specified complication Qualified Code(s): E11.69 - Type 2 diabetes mellitus with other specified complication; Z79.4 - terminal carman (current) use of insulin - AMA Did Patient Leave Against Medical Advice: No
[2019-05-19] MEDS: LISINOPRIL 10 MG TABLET (FP) PO SCH (09:18)
[2019-05-19] MEDS: PRENATAL VITAMINS W/ FOLIC ACID TABLET (FP) PO SCH (09:18)
[2019-05-19] MEDS: ASPIRIN 81 MG CHEWABLE TABLETS PO SCH (09:18)
[2019-05-19] MEDS: QUEtiapine FUMARATE 200 MG TABLET PO SCH (09:18)
== END 2019-05-19 08:36 | disposition home or self-care (01) | DRG 774 ==
LOC: YASAS 11:24 → Y3N 14:29
PROVIDERS: ADMIT Allergy & Immunology; ATTEND Allergy & Immunology
PROC: HZ2ZZZZ Detoxification Services for Substance Abuse Treatment (ICD-10-PCS; principal; 2019-05-16)
DX: F10.230 Alcohol dependence with withdrawal, uncomplicated (principal); F14.20 Cocaine dependence, uncomplicated; F17.210 Nicotine dependence, cigarettes, uncomplicated; F31.9 Bipolar disorder, unspecified; F25.9 Schizoaffective disorder, unspecified; F19.24 Other psychoactive substance dependence with psychoactive substance-induced mood disorder; G47.00 Insomnia, unspecified; E11.69 Type 2 diabetes mellitus with other specified complication; Z79.4 Long term (current) use of insulin; I10 Essential (primary) hypertension; K21.9 Gastro-esophageal reflux disease without esophagitis; E78.5 Hyperlipidemia, unspecified; L21.9 Seborrheic dermatitis, unspecified; Z88.8 Allergy status to other drugs, medicaments and biological substances; Z91.013 Allergy to seafood
CPT/HCPCS: 36415; 80053; 82962; 85027; 86593

== ENCOUNTER 2019-06-11 10:52 | Inpatient (IN) | payer OTHER ==
[2019-06-11 11:28] VITALS: BMI 27.4
--- NOTE | 2019-06-11 12:59 | HP ---
CIWA Score Nausea/Vomitin Muscle Tremors: 2 Anxiety: 3 Agitation: 3 Paroxysmal Sweats: 1-Minimal Palms Moist Orientation: 0-Oriented Tacttile Disturbances: 1-Very Mild Itch/Numbness Auditory Disturbances: 0-None Visual Disturbances: 0-None Headache: 2-Mild CIWA-Ar Total Score: 15 - Admission Criteria OASAS Guidelines: Admission for Medically Managed Detox: Requires at least one of the followin. CIWA greater than 12 2. Seizures within the past 24 hours 3. Delirium tremens within the past 24 hours 4. Hallucinations within the past 24 hours 5. Acute intervention needed for co occurring medical disorder 6. Acute intervention needed for co occurring psychiatric disorder 7. Severe withdrawal that cannot be handled at a lower level of care (continued vomiting, continued diarrhea, abnormal vital signs) requiring intravenous medication and/or fluids 8. Admitting History and Physical - Admission Chief Complaint: i need help to stop drinking alcohol and cocaine dependence History of Present Illness: this 59 years old male with alcohol and cocaine dependence,seeking detox,need help multiple admissions in detox,but keep relapsing denied seizure syncope History Source: Patient Limitations to Obtaining History: No Limitations - Past Medical History Cardiovascular: Yes: HTN, Hyperlipdemia Gastrointestinal: Yes: GERD Psych: Yes: Bipolar, Depression, Schizophrenia Musculoskeletal: Yes: Chronic low back pain - Past Surgical History Past Surgical History: Yes: Appendectomy Additional Past Surgical History: appendectomy at age of 6 years - Smoking History Smoking history: Current every day smoker Have you smoked in the past 12 months: Yes Aproximately how many cigarettes per day: 20 - Alcohol/Substance Use Hx Alcohol Use: Yes (1.5 pints cognac daily) History of Substance Use: reports: Cocaine - Social History Usual Living Arrangement: Yes: Other (this 59 years old male with alcohol, cocaine and marijuana dependence,homeless,smoke 1 pac/day,htn, hyprcholesterolemia,type 2 dm,homeless, for detox) ADL: Independent Occupation: unemployed History of Recent Travel: No Admission ROS [facility] Chief Complaint: i need help to stop drinking alcohol and cocaine Allergies/Adverse Reactions: Allergies Allergy/AdvReac Type Severity Reaction Status Date / Time tuna oil Allergy Severe Rash Verified 06/11/19 11:18 nitroglycerin AdvReac Intermediate Rash Verified 06/11/19 11:18 TUNA FISH Allergy Severe Rash Uncoded 06/11/19 11:18 History of Present Illness: this 59 years old male with alcohol,cocaine and marijuana abused,seeking detox, withdrawal symptom, multiple admissions to this facility last 05/16/19 to 05/19/19 nicotine dependence denied seizure syncope alcohol related htn,hypercholeserolemia,type 2 dm,gerd longest sobriety 2 years bipolar disorder,anxiety,depression plan for rehab after detox Exam Limitations: No Limitations - Ebola screening Have you traveled outside of the country in the last 21 days: No (N) Have you had contact with anyone from an Ebola affected area: No Do you have a fever: No - Review of Systems Constitutional: Loss of Appetite, Malaise, Night Sweats, Changes in sleep, Weakness EENT: reports: Tearing, Nose Congestion Respiratory: reports: No Symptoms reported (coughing since ) Cardiac: reports: No Symptoms Reported GI: reports: Diarrhea, Nausea, Vomiting, Abdominal cramping : reports: No Symptoms Reported Musculoskeletal: reports: Back Pain, Muscle Pain Neuro: reports: Headache, Tremors Endocrine: reports: No Symptoms Reported Hematology: reports: No Symptoms Reported Psychiatric: reports: No Sypmtoms Reported Other Systems: Reviewed and Negative Patient History - Patient Medical History Hx Anemia: No Hx Asthma: No Hx Chronic Obstructive Pulmonary Disease (COPD): No Hx Cancer: No Hx Cardiac Disorders: No Hx Congestive Heart Failure: No Hx Hypertension: Yes (on meds) Hx Hypercholesterolemia: Yes (on med) Hx Pacemaker: No HX Cerebrovascular Accident: No Hx Seizures: No Hx Dementia: No Hx Diabetes: No Hx Gastrointestinal Disorders: Yes (gerd) Hx Liver Disease: No Hx Genitourinary Disorders: No Hx Sexually Transmitted Disorders: No Hx Renal Disease (ESRD): No Hx Thyroid Disease: No Hx Human Immunodeficiency Virus (HIV): No (hiv 2019 negative) Hx Hepatitis C: No Hx Depression: Yes Hx Suicide Attempt: Yes (cut wrist- 20 yrs ago) Hx Bipolar Disorder: Yes (on meds, sees psych at [facility]) Hx Schizophrenia: Yes - Patient Surgical History Past Surgical History: Yes Hx Neurologic Surgery: No Hx Cataract Extraction: No Hx Cardiac Surgery: No Hx Lung Surgery: No Hx Breast Surgery: No Hx Breast Biopsy: No Hx Abdominal Surgery: No Hx Appendectomy: Yes (at age 6) Hx Cholecystectomy: No Hx Genitourinary Surgery: No Hx Section: No Hx Orthopedic Surgery: No Other Surgical History: DENIES. Anesthesia Reaction: No - PPD History Previous Implant?: Yes Documented Results: Negative w/proof Implanted On Prior [facility] Admission?: Yes Date: 12/04/18 Results: 0 mm. PPD to be Administered?: No - Smoking Cessation Smoking history: Current every day smoker Have you smoked in the past 12 months: Yes Aproximately how many cigarettes per day: 20 Cigars Per Day: 0 Hx Chewing Tobacco Use: No Initiated information on smoking cessation: Yes 'Breaking Loose' booklet given: 06/11/19 - Substance & Tx. History Hx Alcohol Use: Yes Hx Substance Use: Yes Substance Use Type: Alcohol, Cocaine Hx Substance Use Treatment: Yes ([facility] 05/16/19 to 05/19/19) - Substances abused Alcohol Substance route: Oral Frequency: Daily Amount used: 2 pint dave Age of first use: 17 Date of last use: 06/11/19 Cocaine Substance route: Inhalation Frequency: Daily Amount used: 1 gram Age of first use: 20 Date of last use: 06/10/19 Crack Substance route: Smoking Frequency: Daily Amount used: 3-4 grams Age of first use: 34 Date of last use: 06/10/19 Admission Physical Exam BHS - Vital Signs Vital Signs: Vital Signs - 24 hr 06/11/19 06/11/19 11:16 11:30 Temperature 98.6 F 98.6 F Pulse Rate 72 72 Respiratory 18 18 Rate Blood Pressure 129/73 129/73 - Physical General Appearance: Yes: Moderate Distress, Alcohol on Breath, Tremorous, Irritable, Sweating, Anxious HEENTM: Yes: Normal ENT Inspection, BOOGIE, Pharynx Normal Respiratory: Yes: Lungs Clear, Normal Breath Sounds, No Respiratory Distress Neck: Yes: Within Normal Limits, Supple, Trachea in good position Breast: Yes: Within Normal Limits Cardiology: Yes: Within Normal Limits, Regular Rhythm, Regular Rate, S1, S2 Abdominal: Yes: Within Normal Limits, Normal Bowel Sounds, Non Tender, Soft Genitourinary: Yes: Within Normal Limits Back: Yes: Muscle Spasm Musculoskeletal: Yes: Back pain, Muscle Pain Extremities: Yes: Tremors Neurological: Yes: Within Normal Limits, panel edge painter II-XII NML intact, Fully Oriented, Alert, Motor Strength 5/5 Integumentary: Yes: Dry Lymphatic: Yes: Within Normal Limits - Diagnostic (1) Alcohol dependence with uncomplicated withdrawal Current Visit: No Status: Acute (2) Dehydration Current Visit: No Status: Acute (3) Non-compliance Current Visit: No Status: Acute Comment: Non-compliant with aftercare. (4) Syncope Current Visit: No Status: Acute Qualifiers: Syncope type: unspecified Qualified Code(s): R55 - Syncope and collapse (5) Weight loss Current Visit: No Status: Acute (6) Bipolar disorder Current Visit: No Status: Chronic Qualifiers: Active/Remission status: remission status unspecified Qualified Code(s): F31.9 - Bipolar disorder, unspecified (7) HTN (hypertension) Current Visit: No Status: Chronic Qualifiers: Hypertension type: essential hypertension Qualified Code(s): I10 - Essential (primary) hypertension (8) Hyperlipidemia Current Visit: No Status: Chronic Qualifiers: Hyperlipidemia type: pure hypercholesterolemia Qualified Code(s): E78.00 - Pure hypercholesterolemia, unspecified; E78.0 - Pure hypercholesterolemia (9) History of appendectomy Current Visit: No Status: Resolved (10) Bipolar disorder Current Visit: No Status: Ruled-out Cleared for Admission S - Detox or Rehab S Level of Care: Medically Managed Detox Regimen/Protocol: Librium Breathalyzer - Breathalyzer Breathalyzer: 0.005 Urine Drug Screen - Test Device Lot number: [id number] Expiration date: 01/18/21 - Control Is test valid?: Yes - Results Drug screen NEGATIVE: No Urine drug screen results: PALLAVI-Cocaine, BZO-Benzodiazepines Inpatient Rehab Admission - Rehab Decision to Admit Inpatient rehab admission?: No
[2019-06-11] MEDS ORDERED: hydrOXYzine PAMOATE 25 MG CAPSULE (FP) PO PRN (13:18)
[2019-06-11] MEDS ORDERED: MAGNESIUM HYDROX 2400MG/30ML ORAL SUSPENSION 30 ML CUP PO PRN (13:18)
[2019-06-11] MEDS ORDERED: MAGNESIUM CITRATE 300 ML BOTTLE PO PRN (13:18)
[2019-06-11] MEDS ORDERED: METHOCARBAMOL 500 MG TABLET PO PRN (13:18)
[2019-06-11] MEDS ORDERED: BISMUTH SUBSALICYLATE 524 MG/30 ML UD PO PRN (13:18)
[2019-06-11] MEDS ORDERED: MAG HYDROX/AL HYDROX/SIMETH 30 ML UNIT-DOSE CUP PO PRN (13:18)
[2019-06-11] MEDS ORDERED: IBUPROFEN 400 MG TABLET (FP) PO PRN (13:18)
[2019-06-11] MEDS ORDERED: ACETAMINOPHEN 325 MG TABLET (FP) PO PRN ×2 (13:18)
[2019-06-11] MEDS ORDERED: MENTHOL/PHENOL 1 EACH UD MM PRN (13:18)
[2019-06-11] MEDS ORDERED: chlordiazePOXIDE HCL 25 MG CAPSULE PO PRN (13:24)
[2019-06-11] MEDS: chlordiazePOXIDE HCL 25 MG CAPSULE PO SCH ×2 (17:57→23:23)
[2019-06-11] MEDS: metFORMIN HCL 500 MG TABLET (FP) PO SCH (17:58)
[2019-06-11] MEDS ORDERED: MELATONIN 5 MG TABLETS PO PRN (22:00)
[2019-06-11] MEDS: THIAMINE HCL 100 MG TABLET (FP) PO SCH (23:23)
[2019-06-11] MEDS: ATORVASTATIN CA 40 MG TABLET (FP) PO SCH (23:23)
[2019-06-12] MEDS: chlordiazePOXIDE HCL 25 MG CAPSULE PO SCH ×4 (05:45→22:03)
[2019-06-12] MEDS: metFORMIN HCL 500 MG TABLET (FP) PO SCH ×2 (06:10→17:00)
--- NOTE | 2019-06-12 06:47 | CONSULT ---
[facility] Psychiatric Consult - Data Date of interview: 06/12/19 Admission source: Self-referred Identifying data: Mr Ramos is a 59 years old single male, unemployed receiving SSI, homeless seeking detox treatment for alcohol and cocaine Substance Abuse History: Reports history of alcohol, crack cocaine use. Refer to addiction counselor's summary for further information Medical History: Significant for type 2 diabetes mellitus, hypertension, dyslipidemia, GERD, hepatitis C, chronic low back pain, history of appendectomy at age 6 and orthosurgery for fracture of right ankle. Smokes cigarettes 1 ppd Psychiatric History: Patient is known to this facility from multiple previous admissions. Historical narrative remains consistent. He endorses a long- standing history of mental illness with onset at age 27 carrying the diagnosis of Bipolar schizophrenia. Reports multiple psychiatric hospitalizations at various facilities including [facility], [facility] , [facility]. Reports he receiving outpatient psychiatric treatment at [facility] with Dr Mary Cole and he is prescribed Seroquel 200 mg/bid and Trazodone 100 mg/hs. HDuring his most recent admission to this facility, he saw Dr Bolivar and he was prescribed Seroquel 200 mg/hs and Trazadone 50 mg/hs. 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 Reports previous suicide attempts via self-mutilation(wrist cutting) more than 20 years ago. At present, denies experiencing psychotic, manic symptoms, S/ H ideations. However, reports feeling mildly depressed and sleeping poorly without his medications Physical/Sexual Abuse/Trauma History: Denies history of emotional, physical or sexual abuse as well as DV relationship Additional Comment: Denies criminal history Mental Status Exam - Mental Status Exam Alert and Oriented to: Time, Place, Person Patient Appearance: Disheveled Mood: Depressed Affect: Appropriate Patient Behavior: Cooperative Speech Pattern: Clear Voice Loudness: Normal Thought Process: Intact, Goal Oriented Thought Disorder: Not Present Hallucinations: Denies Suicidal Ideation: Denies Homicidal Ideation: Denies Insight/Judgement: Poor Sleep: Poorly Appetite: Good Muscle strength/Tone: Normal Gait/Station: Normal Psychiatric Findings - Problem List ([place] 1, 2,3) (1) Schizoaffective disorder Current Visit: No Status: Chronic Qualifiers: Schizoaffective disorder type: unspecified Qualified Code(s): F25.9 - Schizoaffective disorder, unspecified Comment: By history. (2) Bipolar disorder Current Visit: No Status: Ruled-out (3) Substance induced mood disorder Current Visit: Yes Status: Acute (4) Substance-induced sleep disorder Current Visit: No Status: Acute (5) Alcohol dependence with uncomplicated withdrawal Current Visit: No Status: Acute (6) Cocaine dependence Current Visit: No Status: Acute Qualifiers: Substance use status: uncomplicated Qualified Code(s): F14.20 - Cocaine dependence, uncomplicated (7) Nicotine dependence Current Visit: No Status: Chronic Qualifiers: Nicotine product type: cigarettes Substance use status: uncomplicated Qualified Code(s): F17.210 - Nicotine dependence, cigarettes, uncomplicated (8) DM2 (diabetes mellitus, type 2) Current Visit: No Status: Chronic Qualifiers: Diabetes mellitus terminologist insulin use: without prison use Diabetes mellitus complication status: with other specified complication Qualified Code (s): E11.69 - Type 2 diabetes mellitus with other specified complication (9) GERD (gastroesophageal reflux disease) Current Visit: No Status: Chronic Qualifiers: Esophagitis presence: without esophagitis Qualified Code(s): K21.9 - Gastro -esophageal reflux disease without esophagitis (10) Hepatitis C Current Visit: No Status: Chronic (11) Hyperlipidemia Current Visit: No Status: Chronic Qualifiers: Hyperlipidemia type: pure hypercholesterolemia Qualified Code(s): E78.00 - Pure hypercholesterolemia, unspecified; E78.0 - Pure hypercholesterolemia (12) Low back pain Current Visit: No Status: Chronic (13) History of appendectomy Current Visit: No Status: Resolved - Initial Treatment Plan Initial Treatment Plan: 1) Continue Seroquel 200 mg po BID and Trazadone 100 mg po HS. 2) Continue inpatient detoxification
[2019-06-12] MEDS ORDERED: LISINOPRIL 10 MG TABLET (FP) PO SCH (10:00)
[2019-06-12] MEDS ORDERED: ASPIRIN 81 MG CHEWABLE TABLETS PO SCH (10:00)
[2019-06-12] MEDS ORDERED: PRENATAL VITAMINS W/ FOLIC ACID TABLET (FP) PO SCH (10:00)
--- NOTE | 2019-06-12 10:04 | PN ---
S CIWA - CIWA Score Nausea/Vomitin-Mild Nausea/No Vomiting Muscle Tremors: 4-Moderate,w/Arms Extend Anxiety: 3 Agitation: 2 Paroxysmal Sweats: 2 Orientation: 0-Oriented Tacttile Disturbances: 0-None Auditory Disturbances: 1-Very Mild Visual Disturbances: 0-None Headache: 1-Very Mild CIWA-Ar Total Score: 14 BHS Progress Note (SOAP) Subjective: 59 years old male admitted on 06/11/19 for alcohol withdrawal sx management treating with librium detox regimen c/o coughing at night clear lung bilaterally on auscultation long history of diabetes treated with metforman bgm within acceptable range begin mucinx 600 mg po bid Objective: 06/12/19 10:06 Vital Signs Temperature 97.6 F 06/12/19 09:27 Pulse Rate 75 06/12/19 09:27 Respiratory Rate 18 06/12/19 09:27 Blood Pressure 121/76 06/12/19 09:27 O2 Sat by Pulse Oximetry (%) Laboratory Last Values POC Glucometer 137 UNITS (80-120) 06/12/19 05:49 06/12/19 10:06 lab pending Assessment: 06/12/19 10:06 alcohol withdrawal Plan: librium regimen
[2019-06-12] MEDS: guaiFENesin 600 MG TABLET.ER (FP) PO SCH ×2 (10:17→22:03)
[2019-06-12 10:43] LABS: ALBUMIN 3.4 g/dl (3.4-5.0); BILIRUBIN,TOTAL 0.4 mg/dL (0.2-1); BLOOD UREA NITROGEN 12.5 mg/dL (7-18); CREATININE 0.7 mg/dL (0.55-1.3); HEMATOCRIT 40.9 % (35.4-49); MCH 30.8 pg (25.7-33.7); MCHC 34.1 g/dl (32.0-35.9); MEAN CELL VOLUME 90.3 fl (80-96); MEAN PLT VOLUME 10.2 fl (7.5-11.1); PLATELET COUNT 192 K/MM3 (134-434); POTASSIUM 4.1 mmol/L (3.5-5.1); RBC 4.53 M/mm3 (4.00-5.60); RDW 13.6 % (11.9-15.9); TOT PROT 6.6 g/dl (6.4-8.2); WHITE BLOOD COUNT 8.8 K/mm3 (4.0-10.0)
[2019-06-12] MEDS ORDERED: PNEUMOC 13-VAL CONJ-DIP CRM/PF 0.5 ML DISP.SYRIN IM ONE (12:00)
[2019-06-12] MEDS ORDERED: LORATADINE 10 MG TABLET PO SCH (22:00)
[2019-06-12] MEDS: THIAMINE HCL 100 MG TABLET (FP) PO SCH (22:02)
[2019-06-12] MEDS: ATORVASTATIN CA 40 MG TABLET (FP) PO SCH (22:03)
[2019-06-13] MEDS ORDERED: chlordiazePOXIDE HCL 25 MG CAPSULE PO SCH (05:00)
[2019-06-13 06:21] VITALS: BP 99/60; PULSE 75; TEMP 98
[2019-06-13] MEDS: metFORMIN HCL 500 MG TABLET (FP) PO SCH (07:40)
--- NOTE | 2019-06-13 13:43 | DS ---
[facility] Detox Discharge Summary Admission Date: 06/11/19 Discharge Date: 06/13/19 - History Present History: Alcohol Dependence Additional Comments: 59 years old male admitted on 06/11/19 for alcohol withdrawal sx management treated with librium detox regimen patient prefers to leave the detox unit case discussed with the counselor that [facility] as aftercare facility for recovery patient is alert oriented x 3 speech clearly coherently ambulating steady gait Pertinent Past History: patient insists to leave the detox unit case discussed with the nurse against medical advance is appropriated discharge status - Physical Exam Results Vital Signs: Vital Signs Temperature 98.0 F 06/13/19 06:21 Pulse Rate 75 06/13/19 06:21 Respiratory Rate 18 06/13/19 06:21 Blood Pressure 99/60 06/13/19 06:21 O2 Sat by Pulse Oximetry (%) Pertinent Admission Physical Exam Findings: alcohol withdrawal Laboratory Last Values WBC 8.8 K/mm3 (4.0-10.0) 06/12/19 07:45 RBC 4.53 M/mm3 (4.00-5.60) 06/12/19 07:45 Hgb 14.0 GM/dL (11.7-16.9) 06/12/19 07:45 Hct 40.9 % (35.4-49) 06/12/19 07:45 MCV 90.3 fl (80-96) 06/12/19 07:45 MCH 30.8 pg (25.7-33.7) 06/12/19 07:45 MCHC 34.1 g/dl (32.0-35.9) 06/12/19 07:45 RDW 13.6 % (11.9-15.9) 06/12/19 07:45 Plt Count 192 K/MM3 (134-434) 06/12/19 07:45 MPV 10.2 fl (7.5-11.1) 06/12/19 07:45 Sodium 140 mmol/L (136-145) 06/12/19 07:45 Potassium 4.1 mmol/L (3.5-5.1) 06/12/19 07:45 Chloride 104 mmol/L (98-107) 06/12/19 07:45 Carbon Dioxide 28 mmol/L (21-32) 06/12/19 07:45 Anion Gap 8 MMOL/L (8-16) 06/12/19 07:45 BUN 12.5 mg/dL (7-18) 06/12/19 07:45 Creatinine 0.7 mg/dL (0.55-1.3) 06/12/19 07:45 Est GFR (CKD-EPI)AfAm 118.88 06/12/19 07:45 Est GFR (CKD-EPI)NonAf 102.57 06/12/19 07:45 POC Glucometer 169 UNITS (80-120) 06/13/19 05:08 Random Glucose 126 mg/dL (74-106) H 06/12/19 07:45 Calcium 9.0 mg/dL (8.5-10.1) 06/12/19 07:45 Total Bilirubin 0.4 mg/dL (0.2-1) 06/12/19 07:45 AST 81 U/L (15-37) H 06/12/19 07:45 ALT 73 U/L (13-61) H 06/12/19 07:45 Alkaline Phosphatase 133 U/L (45-117) H 06/12/19 07:45 Total Protein 6.6 g/dl (6.4-8.2) 06/12/19 07:45 Albumin 3.4 g/dl (3.4-5.0) 06/12/19 07:45 RPR Titer Nonreactive (NONREACTIVE) 06/12/19 07:45 lab noted patient agrees to bring in lab report to his primary care provider in the [facility] bgm within acceptable range - Treatment Hospital Course: Detox Protocol Followed, Discharged Condition Good Patient has Accepted a Rehab Referral to: [facility] - Medication Discharge Medications: Ambulatory Orders Aspirin [ASA -] 81 mg PO DAILY 04/18/19 Atorvastatin Ca [Lipitor] 40 mg PO HS 04/18/19 Ibuprofen 600 mg PO DAILY PRN 04/18/19 Lisinopril 10 mg PO DAILY 04/18/19 Quetiapine Fumarate [Seroquel -] 200 mg PO BID 04/18/19 metFORMIN HCL [Metformin HCl] 500 mg PO BID 04/18/19 traZODone HCL [Desyrel -] 100 mg PO HS 06/11/19 - Diagnosis (1) Hepatitis C Status: Chronic Qualifiers: Viral hepatitis chronicity: carrier Qualified Code(s): B18.2 - Chronic viral hepatitis C (2) GERD (gastroesophageal reflux disease) Status: Chronic Qualifiers: Esophagitis presence: without esophagitis Qualified Code(s): K21.9 - Gastro -esophageal reflux disease without esophagitis (3) Substance induced mood disorder Status: Suspected (4) Nicotine dependence Status: Acute Qualifiers: Nicotine product type: cigarettes Substance use status: in withdrawal Qualified Code(s): F17.213 - Nicotine dependence, cigarettes, with withdrawal (5) Diabetes mellitus Status: Chronic Qualifiers: Diabetes mellitus type: type 2 Diabetes mellitus retirement insulin use: without press tender long goods use Diabetes mellitus complication status: without complication Qualified Code(s): E11.9 - Type 2 diabetes mellitus without complications (6) HTN (hypertension) Status: Chronic Qualifiers: Hypertension type: essential hypertension Qualified Code(s): I10 - Essential (primary) hypertension (7) Alcohol dependence with uncomplicated withdrawal Status: Acute (8) Use of cane as ambulatory aid Status: Chronic (9) Nicotine dependence Status: Acute Qualifiers: Nicotine product type: cigarettes Substance use status: in withdrawal Qualified Code(s): F17.213 - Nicotine dependence, cigarettes, with withdrawal (10) Substance induced mood disorder Status: Suspected (11) Alcohol dependence, uncomplicated Status: Acute (12) Substance induced mood disorder Status: Suspected (13) GERD (gastroesophageal reflux disease) Status: Chronic Qualifiers: Esophagitis presence: without esophagitis Qualified Code(s): K21.9 - Gastro -esophageal reflux disease without esophagitis (14) HTN (hypertension) Status: Chronic Qualifiers: Hypertension type: essential hypertension Qualified Code(s): I10 - Essential (primary) hypertension (15) Diabetes Status: Chronic Qualifiers: Diabetes mellitus type: type 2 Diabetes mellitus retirement insulin use: with press tender long goods use Diabetes mellitus complication status: with other specified complication Qualified Code(s): E11.69 - Type 2 diabetes mellitus with other specified complication; Z79.4 - roasterman (current) use of insulin (16) DM2 (diabetes mellitus, type 2) Status: Chronic Qualifiers: Diabetes mellitus press tender long goods insulin use: without press tender long goods use Diabetes mellitus complication status: with other specified complication Qualified Code (s): E11.69 - Type 2 diabetes mellitus with other specified complication - AMA Did Patient Leave Against Medical Advice: Yes
[2019-06-14] MEDS ORDERED: chlordiazePOXIDE HCL 10 MG CAPSULE PO PRN
[2019-06-14] MEDS ORDERED: chlordiazePOXIDE HCL 10 MG CAPSULE PO SCH (05:00)
[2019-06-15] MEDS ORDERED: chlordiazePOXIDE HCL 10 MG CAPSULE PO SCH (05:00)
[2019-06-16] MEDS ORDERED: chlordiazePOXIDE HCL 10 MG CAPSULE PO ONE (05:00)
== END 2019-06-13 09:01 | disposition left against medical advice (07) | DRG 770 ==
LOC: YASAS 10:52 → Y3N 13:42
PROVIDERS: ADMIT Allergy & Immunology; ATTEND Allergy & Immunology
PROC: HZ2ZZZZ Detoxification Services for Substance Abuse Treatment (ICD-10-PCS; principal; 2019-06-11)
DX: F10.230 Alcohol dependence with withdrawal, uncomplicated (principal); F14.20 Cocaine dependence, uncomplicated; F17.213 Nicotine dependence, cigarettes, with withdrawal; F19.24 Other psychoactive substance dependence with psychoactive substance-induced mood disorder; F19.282 Other psychoactive substance dependence with psychoactive substance-induced sleep disorder; F25.9 Schizoaffective disorder, unspecified; I10 Essential (primary) hypertension; E11.9 Type 2 diabetes mellitus without complications; B18.2 Chronic viral hepatitis C; K21.9 Gastro-esophageal reflux disease without esophagitis; E78.5 Hyperlipidemia, unspecified; M54.5 Low back pain; G89.29 Other chronic pain; R26.2 Difficulty in walking, not elsewhere classified; Z99.89 Dependence on other enabling machines and devices; Z91.013 Allergy to seafood; Z88.8 Allergy status to other drugs, medicaments and biological substances; Z91.5 Personal history of self-harm
CPT/HCPCS: 36415; 80053; 82962; 85027; 86593; 90670

== ENCOUNTER 2019-07-22 10:24 | Inpatient (IN) | payer OTHER ==
[2019-07-22 10:59] VITALS: BMI 26.9
--- NOTE | 2019-07-22 11:26 | HP ---
CIWA Score Nausea/Vomitin Muscle Tremors: 2 Anxiety: 3 Agitation: 1-Slight > Activity Paroxysmal Sweats: No Perspiration Orientation: 0-Oriented Tacttile Disturbances: 0-None Auditory Disturbances: 0-None Visual Disturbances: 3-Moderate Sensitivity Headache: 3-Moderate CIWA-Ar Total Score: 15 - Admission Criteria OASAS Guidelines: Admission for Medically Managed Detox: Requires at least one of the followin. CIWA greater than 12 2. Seizures within the past 24 hours 3. Delirium tremens within the past 24 hours 4. Hallucinations within the past 24 hours 5. Acute intervention needed for co occurring medical disorder 6. Acute intervention needed for co occurring psychiatric disorder 7. Severe withdrawal that cannot be handled at a lower level of care (continued vomiting, continued diarrhea, abnormal vital signs) requiring intravenous medication and/or fluids 8. Admitting History and Physical - Past Medical History Cardiovascular: Yes: HTN, Hyperlipdemia Gastrointestinal: Yes: GERD Hepatobiliary: Yes: Hepatitis C Psych: Yes: Bipolar, Depression, Schizophrenia Musculoskeletal: Yes: Chronic low back pain - Past Surgical History Past Surgical History: Yes: Appendectomy - Smoking History Smoking history: Current every day smoker Have you smoked in the past 12 months: Yes Aproximately how many cigarettes per day: 20 - Alcohol/Substance Use Hx Alcohol Use: Yes History of Substance Use: reports: Cocaine - Social History ADL: Independent Occupation: unemployed History of Recent Travel: No Admission ROS [facility] - [facility] Allergies/Adverse Reactions: Allergies Allergy/AdvReac Type Severity Reaction Status Date / Time tuna oil Allergy Severe Rash Verified 07/22/19 10:41 nitroglycerin AdvReac Intermediate Rash Verified 07/22/19 10:41 TUNA FISH Allergy Severe Rash Uncoded 07/22/19 10:41 History of Present Illness: 59 y.o. M patient here requesting detox from etoh use , reports latest use this morning, 2 pint /day , lates tuse today 1/2 pint , reports tremors if not drinking , denies seizures , + blackouts , etoh use since age 14 . 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 tobacco use : 1 ppd , declines nrt PMHX : DM , HTN , HLD , depression, SAD, bipolar d/o PSHX : appy age 6 Exam Limitations: Clinical Condition, Intoxication - Review of Systems Constitutional: No Symptoms Reported EENT: reports: No Symptoms Reported Respiratory: reports: No Symptoms reported Cardiac: reports: No Symptoms Reported GI: reports: Diarrhea : reports: No Symptoms Reported Musculoskeletal: reports: No Symptoms Reported Integumentary: reports: No Symptoms Reported Neuro: reports: Headache Endocrine: reports: See HPI Hematology: reports: No Symptoms Reported Psychiatric: reports: Orientated x3, Anxious Patient History - Patient Medical History Hx Anemia: No Hx Asthma: No Hx Chronic Obstructive Pulmonary Disease (COPD): No Hx Cancer: No Hx Cardiac Disorders: No Hx Congestive Heart Failure: No Hx Hypertension: Yes (on meds) Hx Hypercholesterolemia: Yes (on med) Hx Pacemaker: No HX Cerebrovascular Accident: No Hx Seizures: No Hx Dementia: No Hx Diabetes: Yes Hx Gastrointestinal Disorders: Yes (gerd) Hx Liver Disease: No Hx Genitourinary Disorders: No Hx Sexually Transmitted Disorders: No Hx Renal Disease (ESRD): No Hx Thyroid Disease: No Hx Human Immunodeficiency Virus (HIV): No (hiv 2019 negative) Hx Hepatitis C: No Hx Depression: Yes Hx Suicide Attempt: Yes (cut wrist- 20 yrs ago) Hx Bipolar Disorder: Yes (on meds, sees psych at [facility] [place]) Hx Schizophrenia: Yes - Patient Surgical History Past Surgical History: Yes Hx Neurologic Surgery: No Hx Cataract Extraction: No Hx Cardiac Surgery: No Hx Lung Surgery: No Hx Breast Surgery: No Hx Breast Biopsy: No Hx Abdominal Surgery: No Hx Appendectomy: Yes (at age 6) Hx Cholecystectomy: No Hx Genitourinary Surgery: No Hx Section: No Hx Orthopedic Surgery: No Other Surgical History: DENIES. Anesthesia Reaction: No - PPD History Previous Implant?: Yes Documented Results: Negative w/proof Date: 12/04/18 Results: NEGATIVE - Smoking Cessation Smoking history: Current every day smoker Have you smoked in the past 12 months: Yes Aproximately how many cigarettes per day: 20 Cigars Per Day: 0 Hx Chewing Tobacco Use: No Initiated information on smoking cessation: Yes 'Breaking Loose' booklet given: 07/22/19 - Substances abused Alcohol Substance route: Oral Frequency: Daily Amount used: 1 PINT OF CECI Age of first use: 20 Date of last use: 07/22/19 Cocaine Substance route: Inhalation Frequency: Daily Amount used: 2 GRAMS Age of first use: 34 Date of last use: 07/22/19 Admission Physical Exam BHS - Vital Signs Vital Signs: Vital Signs - 24 hr 07/22/19 10:39 Temperature 98.5 F Pulse Rate 101 H Respiratory 17 Rate Blood Pressure 119/75 - Physical General Appearance: Yes: Mild Distress, Anxious HEENTM: Yes: EOMI, Hearing grossly Normal, Normocephalic, Normal Voice Respiratory: Yes: Chest Non-Tender, Lungs Clear, Normal Breath Sounds, No Respiratory Distress, No Accessory Muscle Use Neck: Yes: No masses,lesions,Nodules, Trachea in good position Cardiology: Yes: Regular Rhythm, Regular Rate, S1, S2 Abdominal: Yes: Non Tender, Soft Musculoskeletal: Yes: Gait Steady Extremities: Yes: Normal Range of Motion, Non-Tender, Tremors Neurological: Yes: Fully Oriented, Alert, Motor Strength 5/5, Normal Mood/Affect Integumentary: Yes: Warm, Other (prateek UE scarring from remote self-inflicted injuries .) - Diagnostic (1) Alcohol dependence with uncomplicated withdrawal Current Visit: Yes Status: Chronic (2) Cocaine dependence Current Visit: Yes Status: Chronic Qualifiers: Substance use status: uncomplicated Qualified Code(s): F14.20 - Cocaine dependence, uncomplicated (3) Nicotine dependence Current Visit: Yes Status: Chronic Qualifiers: Nicotine product type: cigarettes Breathalyzer - Breathalyzer Breathalyzer: 0.011 Urine Drug Screen - Test Device Lot number: [id number] Expiration date: 05/15/21 - Control Is test valid?: No - Results Drug screen NEGATIVE: Yes Urine drug screen results: PALLAVI-Cocaine, BZO-Benzodiazepines Inpatient Rehab Admission - Rehab Decision to Admit Inpatient rehab admission?: No
[2019-07-22] MEDS ORDERED: METOCLOPRAMIDE HCL 10 MG TABLET (FP) PO PRN (11:31)
[2019-07-22] MEDS ORDERED: MAGNESIUM HYDROX 2400MG/30ML ORAL SUSPENSION 30 ML CUP PO PRN (11:33)
[2019-07-22] MEDS ORDERED: MENTHOL/PHENOL 1 EACH UD MM PRN (11:33)
[2019-07-22] MEDS ORDERED: MELATONIN 5 MG TABLETS PO PRN (11:33)
[2019-07-22] MEDS ORDERED: MAG HYDROX/AL HYDROX/SIMETH 30 ML UNIT-DOSE CUP PO PRN (11:33)
[2019-07-22] MEDS ORDERED: BISMUTH SUBSALICYLATE 524 MG/30 ML UD PO PRN (11:33)
[2019-07-22] MEDS ORDERED: hydrOXYzine PAMOATE 25 MG CAPSULE (FP) PO PRN (11:33)
[2019-07-22] MEDS ORDERED: MAGNESIUM CITRATE 300 ML BOTTLE PO PRN (11:33)
[2019-07-22] MEDS ORDERED: IBUPROFEN 400 MG TABLET (FP) PO PRN (11:33)
[2019-07-22] MEDS: diazePAM 5 MG TABLET PO PRN ×2 (12:57→17:47)
[2019-07-22] MEDS: LISINOPRIL 10 MG TABLET (FP) PO SCH (12:58)
[2019-07-22] MEDS: metFORMIN HCL 500 MG TABLET (FP) PO SCH ×2 (12:58→17:29)
[2019-07-22] MEDS: ASPIRIN COATED 81 MG TABLET.EC PO SCH (12:58)
[2019-07-22] MEDS: diazePAM 5 MG TABLET PO SCH ×2 (15:24→21:08)
[2019-07-22] MEDS: FAMOTIDINE 40 MG TABLET PO SCH (21:08)
[2019-07-22] MEDS: ATORVASTATIN CA 10 MG TABLET (FP) PO SCH (21:08)
[2019-07-22] MEDS: THIAMINE HCL 100 MG TABLET (FP) PO SCH (21:08)
[2019-07-23] MEDS: diazePAM 5 MG TABLET PO SCH ×3 (06:57→22:17)
[2019-07-23] MEDS: metFORMIN HCL 500 MG TABLET (FP) PO SCH ×2 (07:00→17:08)
[2019-07-23] MEDS: LISINOPRIL 10 MG TABLET (FP) PO SCH (10:53)
[2019-07-23] MEDS: PRENATAL VITAMINS W/ FOLIC ACID TABLET (FP) PO SCH (10:53)
[2019-07-23] MEDS: ASPIRIN COATED 81 MG TABLET.EC PO SCH (10:53)
--- NOTE | 2019-07-23 11:11 | CONSULT ---
[facility] Psychiatric Consult - Data Date of interview: 07/23/19 Admission source: [facility] Identifying data: Patient is a 59 year old single male, without children , unemployed, homeless, and is supported by [facility]. This is one of multiple admissions for patient. Patient admitted to for alcohol and cocaine dependence. Substance Abuse History: Smoking Cessation. Smoking history: Current every day smoker. Have you smoked in the past 12 months: Yes. Aproximately how many cigarettes per day: 20. Cigars Per Day: 0. Hx Chewing Tobacco Use: No. Initiated information on smoking cessation: Yes. 'Breaking Loose' booklet given : 07/22/19. - Substances abused. Alcohol. Substance route: Oral. Frequency: Daily. Amount used: 1 PINT OF CECI. Age of first use: 20. Date of last use: 07/22/19. Cocaine. Substance route: Inhalation. Frequency: Daily. Amount used: 2 GRAMS. Age of first use: 34. Date of last use: 07/22/19 Medical History: Significant for type 2 diabetes mellitus, hypertension, dyslipidemia, GERD, hepatitis C, chronic low back pain, history of appendectomy at age 6 and orthosurgery for fracture of right ankle. Psychiatric History: Patient reports history of multiple psychiatric hospitalizations most recently at [facility] nine years ago due to suicidal ideation. Diagnosis of schizophrenia, Bipolar disorder. Patient is also known to [facility], [facility], [facility], and [facility]. Patient reports history of multiple suicide attempt by self mutilation (cutting). Mr. Veliz is currently provided with outpatient psychiatric care at [facility] walk in clinic and is prescribed seroquel 200mg BID + Trazodone 100mg. Patient reports medication compliance. At present patient is mildly irritable. He denies auditory/visual hallucinations, suicidal/homicidal ideation. Physical/Sexual Abuse/Trauma History: denies. Mental Status Exam - Mental Status Exam Alert and Oriented to: Time, Place, Person Cognitive Function: Good Patient Appearance: Well Groomed Mood: Irritable Affect: Mood Congruent Patient Behavior: Agitated (agitate when discussing his history. told process description writer " everything is in the computer" ) Speech Pattern: Appropriate Voice Loudness: Normal Thought Process: Goal Oriented Thought Disorder: Not Present Hallucinations: Denies Suicidal Ideation: Denies Homicidal Ideation: Denies Insight/Judgement: Poor Sleep: Poorly Appetite: Fair Muscle strength/Tone: Normal Gait/Station: Normal Psychiatric Findings - Problem List ([place] 1, 2,3) (1) Alcohol dependence with uncomplicated withdrawal Current Visit: Yes Status: Acute (2) Cocaine dependence Current Visit: Yes Status: Chronic Qualifiers: Substance use status: uncomplicated Qualified Code(s): F14.20 - Cocaine dependence, uncomplicated (3) Nicotine dependence Current Visit: Yes Status: Chronic Qualifiers: Nicotine product type: cigarettes (4) Substance-induced sleep disorder Current Visit: Yes Status: Acute (5) Substance induced mood disorder Current Visit: Yes Status: Acute (6) Schizoaffective disorder Current Visit: Yes Status: Chronic Qualifiers: Schizoaffective disorder type: unspecified Qualified Code(s): F25.9 - Schizoaffective disorder, unspecified Comment: By history. (7) Bipolar disorder Current Visit: Yes Status: Suspected - Initial Treatment Plan Initial Treatment Plan: Psychoeducation provided. Detoxification in progress. Will order Seroquel 200mg BID + Trazodone 100mg HS. Benefits and side effects discussed. Verbal consent given.
[2019-07-23] MEDS: QUEtiapine FUMARATE 200 MG TABLET PO SCH ×2 (12:02→22:16)
[2019-07-23 12:07] LABS: HEMATOCRIT 39.3 % (35.4-49); HEMOGLOBIN 13.6 GM/dL (11.7-16.9); MCH 30.9 pg (25.7-33.7); MCHC 34.5 g/dl (32.0-35.9); MEAN CELL VOLUME 89.6 fl (80-96); MEAN PLT VOLUME 9.7 fl (7.5-11.1); PLATELET COUNT 191 K/MM3 (134-434); RBC 4.39 M/mm3 (4.00-5.60); RDW 13.6 % (11.9-15.9); WHITE BLOOD COUNT 5.6 K/mm3 (4.0-10.0)
[2019-07-23 12:17] LABS: ALBUMIN 3.2 g/dl (3.4-5.0); BILIRUBIN,TOTAL 0.9 mg/dL (0.2-1); BLOOD UREA NITROGEN 13.3 mg/dL (7-18); CALCIUM 8.6 mg/dL (8.5-10.1); CREATININE 0.7 mg/dL (0.55-1.3); TOT PROT 6.1 g/dl (6.4-8.2)
[2019-07-23] MEDS: diazePAM 5 MG TABLET PO PRN (17:09)
--- NOTE | 2019-07-23 20:57 | PN ---
S CIWA - CIWA Score Nausea/Vomitin-No Nausea/No Vomiting Muscle Tremors: 3 Anxiety: 4-Mod. Anxious/Guarded Agitation: 3 Paroxysmal Sweats: 2 Orientation: 0-Oriented Tacttile Disturbances: 0-None Auditory Disturbances: 0-None Visual Disturbances: 0-None Headache: 0-None Present CIWA-Ar Total Score: 12 BHS Progress Note (SOAP) Subjective: ADMITTED FOR ETOH W/D SX C/O ANXIETY, RESTLESSNESS, INTERRUPTED SLEEP, SHAKES, SWEATING Objective: 07/23/19 20:55 Laboratory Tests 07/22/19 07/22/19 07/23/19 12:39 16:35 06:59 WBC RBC Hgb Hct MCV MCH MCHC RDW Plt Count MPV Sodium Potassium Chloride Carbon Dioxide Anion Gap BUN Creatinine Est GFR (CKD-EPI)AfAm Est GFR (CKD-EPI)NonAf POC Glucometer 143 116 149 Random Glucose Calcium Total Bilirubin AST ALT Alkaline Phosphatase Total Protein Albumin RPR Titer 07/23/19 07/23/19 07/23/19 07:20 07:20 07:20 WBC 5.6 RBC 4.39 Hgb 13.6 Hct 39.3 MCV 89.6 MCH 30.9 MCHC 34.5 RDW 13.6 Plt Count 191 MPV 9.7 Sodium 138 Potassium 4.0 Chloride 103 Carbon Dioxide 29 Anion Gap 5 L BUN 13.3 Creatinine 0.7 Est GFR (CKD-EPI)AfAm 118.88 Est GFR (CKD-EPI)NonAf 102.57 POC Glucometer Random Glucose 126 H Calcium 8.6 Total Bilirubin 0.9 AST 80 H ALT 71 H Alkaline Phosphatase 110 Total Protein 6.1 L Albumin 3.2 L RPR Titer Nonreactive 07/23/19 16:44 WBC RBC Hgb Hct MCV MCH MCHC RDW Plt Count MPV Sodium Potassium Chloride Carbon Dioxide Anion Gap BUN Creatinine Est GFR (CKD-EPI)AfAm Est GFR (CKD-EPI)NonAf POC Glucometer 114 Random Glucose Calcium Total Bilirubin AST ALT Alkaline Phosphatase Total Protein Albumin RPR Titer Vital Signs (72 hours) 07/22/19 07/22/19 07/22/19 10:39 13:39 18:25 Temperature 98.5 F 98.1 F 97.7 F Pulse Rate 101 H 96 H 77 Respiratory 17 16 18 Rate Blood Pressure 119/75 114/76 105/66 07/22/19 07/23/19 07/23/19 21:49 00:30 03:30 Temperature 98.1 F Pulse Rate 87 Respiratory 18 18 18 Rate Blood Pressure 120/68 07/23/19 07/23/19 07/23/19 07:35 09:52 13:00 Temperature 97.7 F 99.1 F 98.2 F Pulse Rate 69 76 78 Respiratory 18 18 16 Rate Blood Pressure 91/53 L 131/69 112/65 07/23/19 18:35 Temperature 98.6 F Pulse Rate 100 H Respiratory 16 Rate Blood Pressure 139/75 PE ALERT AND ORIENTED X 3 SKIN WARM, +CHILLS +PERRLA EOMS INTACT BL EXT FULL ROM, + TREMORS AMB AD ABEL ANXIOUS/IRRITABLE Assessment: 07/23/19 20:56 ETOH W/D SX Plan: CONTINUE DETOX ENCOURAGE FLUIDS MONITOR
[2019-07-23] MEDS: THIAMINE HCL 100 MG TABLET (FP) PO SCH (22:16)
[2019-07-23] MEDS: ATORVASTATIN CA 10 MG TABLET (FP) PO SCH (22:17)
[2019-07-23] MEDS: traZODone HCL 100 MG TABLET (FP) PO SCH (22:17)
[2019-07-23] MEDS: FAMOTIDINE 40 MG TABLET PO SCH (22:17)
[2019-07-24] MEDS: diazePAM 5 MG TABLET PO SCH ×2 (05:49→17:11)
[2019-07-24] MEDS: metFORMIN HCL 500 MG TABLET (FP) PO SCH ×2 (06:11→16:57)
[2019-07-24] MEDS: QUEtiapine FUMARATE 200 MG TABLET PO SCH ×2 (09:40→22:12)
[2019-07-24] MEDS: ASPIRIN COATED 81 MG TABLET.EC PO SCH (09:40)
[2019-07-24] MEDS: PRENATAL VITAMINS W/ FOLIC ACID TABLET (FP) PO SCH (09:40)
[2019-07-24] MEDS: LISINOPRIL 10 MG TABLET (FP) PO SCH (09:40)
[2019-07-24] MEDS: diazePAM 5 MG TABLET PO PRN ×3 (09:44→22:13)
--- NOTE | 2019-07-24 11:53 | PN ---
S CIWA - CIWA Score Nausea/Vomitin-No Nausea/No Vomiting Muscle Tremors: 3 Anxiety: 2 Agitation: 2 Paroxysmal Sweats: 1-Minimal Palms Moist Orientation: 0-Oriented Tacttile Disturbances: 0-None Auditory Disturbances: 0-None Visual Disturbances: 0-None Headache: 0-None Present CIWA-Ar Total Score: 8 BHS Progress Note (SOAP) Subjective: some sweats feeling better Objective: 07/24/19 11:53 Vital Signs Temperature 97.7 F 07/24/19 09:11 Pulse Rate 88 07/24/19 09:11 Respiratory Rate 18 07/24/19 09:11 Blood Pressure 118/74 07/24/19 09:11 O2 Sat by Pulse Oximetry (%) Laboratory Tests 07/22/19 07/22/19 07/23/19 12:39 16:35 06:59 WBC RBC Hgb Hct MCV MCH MCHC RDW Plt Count MPV Sodium Potassium Chloride Carbon Dioxide Anion Gap BUN Creatinine Est GFR (CKD-EPI)AfAm Est GFR (CKD-EPI)NonAf POC Glucometer 143 116 149 Random Glucose Calcium Total Bilirubin AST ALT Alkaline Phosphatase Total Protein Albumin RPR Titer 07/23/19 07/23/19 07/23/19 07:20 07:20 07:20 WBC 5.6 RBC 4.39 Hgb 13.6 Hct 39.3 MCV 89.6 MCH 30.9 MCHC 34.5 RDW 13.6 Plt Count 191 MPV 9.7 Sodium 138 Potassium 4.0 Chloride 103 Carbon Dioxide 29 Anion Gap 5 L BUN 13.3 Creatinine 0.7 Est GFR (CKD-EPI)AfAm 118.88 Est GFR (CKD-EPI)NonAf 102.57 POC Glucometer Random Glucose 126 H Calcium 8.6 Total Bilirubin 0.9 AST 80 H ALT 71 H Alkaline Phosphatase 110 Total Protein 6.1 L Albumin 3.2 L RPR Titer Nonreactive 07/23/19 07/24/19 16:44 05:46 WBC RBC Hgb Hct MCV MCH MCHC RDW Plt Count MPV Sodium Potassium Chloride Carbon Dioxide Anion Gap BUN Creatinine Est GFR (CKD-EPI)AfAm Est GFR (CKD-EPI)NonAf POC Glucometer 114 165 Random Glucose Calcium Total Bilirubin AST ALT Alkaline Phosphatase Total Protein Albumin RPR Titer aaox3 ambulating no acute distress Assessment: 07/24/19 11:53 mild withdrawals Plan: d/c in am
[2019-07-24] MEDS: traZODone HCL 100 MG TABLET (FP) PO SCH (22:12)
[2019-07-24] MEDS: FAMOTIDINE 40 MG TABLET PO SCH (22:12)
[2019-07-24] MEDS: ATORVASTATIN CA 10 MG TABLET (FP) PO SCH (22:12)
[2019-07-24] MEDS: THIAMINE HCL 100 MG TABLET (FP) PO SCH (22:12)
[2019-07-25] MEDS ORDERED: diazePAM 5 MG TABLET PO ONE (06:00)
[2019-07-25] MEDS: metFORMIN HCL 500 MG TABLET (FP) PO SCH (06:02)
[2019-07-25 06:30] VITALS: BP 105/68; PULSE 73; TEMP 98.1
--- NOTE | 2019-07-25 08:21 | PN ---
S Progress Note Note: Patient is scheduled for discharge today. Scripts for 30 days supply of medications(Trazadone 100 mg/hs, Seroquel 200 mg/bid) are electronically transmitted to [facility] at [address] [place] [id number]
--- NOTE | 2019-07-25 08:44 | DS ---
[facility] Detox Discharge Summary Admission Date: 07/22/19 Discharge Date: 07/25/19 - History Present History: Alcohol Dependence, Cocaine Dependence - Physical Exam Results Vital Signs: Vital Signs Temperature 98.1 F 07/25/19 06:29 Pulse Rate 73 07/25/19 06:29 Respiratory Rate 18 07/25/19 06:39 Blood Pressure 105/68 07/25/19 06:29 O2 Sat by Pulse Oximetry (%) Pertinent Admission Physical Exam Findings: Vital Signs Temperature 98.1 F 07/25/19 06:29 Pulse Rate 73 07/25/19 06:29 Respiratory Rate 18 07/25/19 06:39 Blood Pressure 105/68 07/25/19 06:29 O2 Sat by Pulse Oximetry (%) Laboratory Tests 07/22/19 07/22/19 07/23/19 12:39 16:35 06:59 WBC RBC Hgb Hct MCV MCH MCHC RDW Plt Count MPV Sodium Potassium Chloride Carbon Dioxide Anion Gap BUN Creatinine Est GFR (CKD-EPI)AfAm Est GFR (CKD-EPI)NonAf POC Glucometer 143 116 149 Random Glucose Calcium Total Bilirubin AST ALT Alkaline Phosphatase Total Protein Albumin RPR Titer 07/23/19 07/23/19 07/23/19 07:20 07:20 07:20 WBC 5.6 RBC 4.39 Hgb 13.6 Hct 39.3 MCV 89.6 MCH 30.9 MCHC 34.5 RDW 13.6 Plt Count 191 MPV 9.7 Sodium 138 Potassium 4.0 Chloride 103 Carbon Dioxide 29 Anion Gap 5 L BUN 13.3 Creatinine 0.7 Est GFR (CKD-EPI)AfAm 118.88 Est GFR (CKD-EPI)NonAf 102.57 POC Glucometer Random Glucose 126 H Calcium 8.6 Total Bilirubin 0.9 AST 80 H ALT 71 H Alkaline Phosphatase 110 Total Protein 6.1 L Albumin 3.2 L RPR Titer Nonreactive 07/23/19 07/24/19 07/24/19 16:44 05:46 16:33 WBC RBC Hgb Hct MCV MCH MCHC RDW Plt Count MPV Sodium Potassium Chloride Carbon Dioxide Anion Gap BUN Creatinine Est GFR (CKD-EPI)AfAm Est GFR (CKD-EPI)NonAf POC Glucometer 114 165 167 Random Glucose Calcium Total Bilirubin AST ALT Alkaline Phosphatase Total Protein Albumin RPR Titer 07/25/19 05:38 WBC RBC Hgb Hct MCV MCH MCHC RDW Plt Count MPV Sodium Potassium Chloride Carbon Dioxide Anion Gap BUN Creatinine Est GFR (CKD-EPI)AfAm Est GFR (CKD-EPI)NonAf POC Glucometer 138 Random Glucose Calcium Total Bilirubin AST ALT Alkaline Phosphatase Total Protein Albumin RPR Titer aaox3 ambulating no acute distress - Treatment Hospital Course: Detox Protocol Followed, Detoxed Safely, Responded well, Discharged Condition Good, Rehab Referral Accepted - Medication Discharge Medications: Ambulatory Orders Atorvastatin Ca [Lipitor] 10 mg PO HS 04/18/19 Ibuprofen 600 mg PO DAILY PRN 04/18/19 Lisinopril 10 mg PO DAILY 04/18/19 metFORMIN HCL [Metformin HCl] 500 mg PO BID 04/18/19 Aspirin [Aspirin EC] 81 mg PO DAILY 07/22/19 Famotidine 40 mg PO HS 07/22/19 Metoclopramide HCl 10 mg PO TID PRN 07/22/19 Quetiapine Fumarate [Seroquel -] 200 mg PO BID #60 tablet 07/25/19 traZODone HCL [Desyrel -] 100 mg PO HS PRN #30 tablet 07/25/19 - Diagnosis (1) Alcohol dependence with uncomplicated withdrawal Current Visit: Yes Status: Chronic (2) Substance induced mood disorder Current Visit: Yes Status: Acute (3) Substance-induced sleep disorder Current Visit: Yes Status: Acute (4) Cocaine dependence Current Visit: Yes Status: Chronic Qualifiers: Substance use status: uncomplicated Qualified Code(s): F14.20 - Cocaine dependence, uncomplicated (5) Nicotine dependence Current Visit: Yes Status: Chronic Qualifiers: Nicotine product type: cigarettes Substance use status: uncomplicated Qualified Code(s): F17.210 - Nicotine dependence, cigarettes, uncomplicated (6) Schizoaffective disorder Current Visit: Yes Status: Chronic Qualifiers: Schizoaffective disorder type: unspecified Qualified Code(s): F25.9 - Schizoaffective disorder, unspecified (7) Bipolar disorder Current Visit: Yes Status: Suspected (8) Elevated liver enzymes Current Visit: Yes Status: Chronic (9) Nicotine dependence Current Visit: Yes Status: Chronic Qualifiers: Nicotine product type: cigarettes Substance use status: uncomplicated Qualified Code(s): F17.210 - Nicotine dependence, cigarettes, uncomplicated (10) Bipolar disorder Current Visit: No Status: Chronic Qualifiers: Active/Remission status: remission status unspecified Qualified Code(s): F31.9 - Bipolar disorder, unspecified (11) Cocaine dependence Current Visit: Yes Status: Chronic Qualifiers: Substance use status: uncomplicated Qualified Code(s): F14.20 - Cocaine dependence, uncomplicated (12) DM2 (diabetes mellitus, type 2) Current Visit: No Status: Chronic Qualifiers: Diabetes mellitus continuous churn buttermaker insulin use: without alf use Diabetes mellitus complication status: with other specified complication Qualified Code (s): E11.69 - Type 2 diabetes mellitus with other specified complication (13) Depression Current Visit: No Status: Chronic Qualifiers: Depression Type: major depressive disorder Major depression recurrence: recurrent Psychotic features: without psychotic features (14) GERD (gastroesophageal reflux disease) Current Visit: Yes Status: Chronic Qualifiers: Esophagitis presence: without esophagitis Qualified Code(s): K21.9 - Gastro -esophageal reflux disease without esophagitis (15) GERD (gastroesophageal reflux disease) Current Visit: No Status: Chronic Qualifiers: Esophagitis presence: without esophagitis Qualified Code(s): K21.9 - Gastro -esophageal reflux disease without esophagitis (16) HTN (hypertension) Current Visit: No Status: Chronic Qualifiers: Hypertension type: essential hypertension Qualified Code(s): I10 - Essential (primary) hypertension (17) HTN (hypertension) Current Visit: No Status: Chronic Qualifiers: Hypertension type: essential hypertension Qualified Code(s): I10 - Essential (primary) hypertension (18) Hepatitis C Current Visit: No Status: Chronic Qualifiers: Viral hepatitis chronicity: carrier Qualified Code(s): B18.2 - Chronic viral hepatitis C (19) History of schizophrenia Current Visit: No Status: Chronic (20) Hypercholesterolemia Current Visit: No Status: Chronic (21) Hyperlipidemia Current Visit: No Status: Chronic Qualifiers: Hyperlipidemia type: pure hypercholesterolemia Qualified Code(s): E78.00 - Pure hypercholesterolemia, unspecified; E78.0 - Pure hypercholesterolemia (22) Injury of right foot Current Visit: No Status: Chronic Qualifiers: Encounter type: sequela Qualified Code(s): S99.921S - Unspecified injury of right foot, sequela (23) Insomnia Current Visit: No Status: Chronic Qualifiers: Insomnia type: unspecified Qualified Code(s): G47.00 - Insomnia, unspecified (24) Insomnia Current Visit: No Status: Chronic (25) Low back pain Current Visit: No Status: Chronic (26) Schizoaffective disorder Current Visit: No Status: Chronic Qualifiers: Schizoaffective disorder type: unspecified Qualified Code(s): F25.9 - Schizoaffective disorder, unspecified (27) Substance-induced sleep disorder Current Visit: No Status: Chronic (28) Use of cane as ambulatory aid Current Visit: No Status: Chronic (29) Substance induced mood disorder Current Visit: No Status: Suspected (30) Bipolar disorder Current Visit: Yes Status: Ruled-out (31) Bipolar disorder, curr episode depressed, severe, w/psychotic features Current Visit: No Status: Ruled-out - AMA Did Patient Leave Against Medical Advice: No
== END 2019-07-25 08:45 | disposition home or self-care (01) | DRG 774 ==
LOC: YASAS 10:24 → Y6N 11:58
PROVIDERS: ADMIT Allergy & Immunology; ATTEND Allergy & Immunology
PROC: HZ2ZZZZ Detoxification Services for Substance Abuse Treatment (ICD-10-PCS; principal; 2019-07-22)
DX: F10.230 Alcohol dependence with withdrawal, uncomplicated (principal); F14.20 Cocaine dependence, uncomplicated; F17.210 Nicotine dependence, cigarettes, uncomplicated; F19.282 Other psychoactive substance dependence with psychoactive substance-induced sleep disorder; F19.24 Other psychoactive substance dependence with psychoactive substance-induced mood disorder; F25.9 Schizoaffective disorder, unspecified; F31.9 Bipolar disorder, unspecified; I10 Essential (primary) hypertension; E11.69 Type 2 diabetes mellitus with other specified complication; K21.9 Gastro-esophageal reflux disease without esophagitis; R94.5 Abnormal results of liver function studies; B18.2 Chronic viral hepatitis C; E78.5 Hyperlipidemia, unspecified; G47.00 Insomnia, unspecified; M54.5 Low back pain; G89.29 Other chronic pain; R26.2 Difficulty in walking, not elsewhere classified; Z99.89 Dependence on other enabling machines and devices; S99.921S Unspecified injury of right foot, sequela; X58.XXXS Exposure to other specified factors, sequela; Z91.013 Allergy to seafood; Z88.8 Allergy status to other drugs, medicaments and biological substances; Z91.5 Personal history of self-harm; Z79.84 Long term (current) use of oral hypoglycemic drugs
CPT/HCPCS: 36415; 80053; 82962; 85027; 86593

== ENCOUNTER 2019-08-19 09:16 | Inpatient (IN) | payer OTHER ==
[2019-08-19 09:50] VITALS: BMI 27.7
--- NOTE | 2019-08-19 10:23 | HP ---
CIWA Score Nausea/Vomitin Muscle Tremors: 4-Moderate,w/Arms Extend Anxiety: 3 Agitation: 1-Slight > Activity Paroxysmal Sweats: 1-Minimal Palms Moist Orientation: 1-Uncertain about Date Tacttile Disturbances: 1-Very Mild Itch/Numbness Auditory Disturbances: 0-None Visual Disturbances: 1-Very Mild Sensitivity Headache: 2-Mild CIWA-Ar Total Score: 16 - Admission Criteria OASAS Guidelines: Admission for Medically Managed Detox: Requires at least one of the followin. CIWA greater than 12 2. Seizures within the past 24 hours 3. Delirium tremens within the past 24 hours 4. Hallucinations within the past 24 hours 5. Acute intervention needed for co occurring medical disorder 6. Acute intervention needed for co occurring psychiatric disorder 7. Severe withdrawal that cannot be handled at a lower level of care (continued vomiting, continued diarrhea, abnormal vital signs) requiring intravenous medication and/or fluids 8. 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 Cardiovascular: Yes: HTN, Hyperlipdemia Gastrointestinal: Yes: GERD Hepatobiliary: Yes: Cirrhosis Psych: Yes: Bipolar, Depression, Schizophrenia Musculoskeletal: Yes: Chronic low back pain Endocrine: Yes: Diabetes Mellitus - Past Surgical History Past Surgical History: Yes: Appendectomy - Smoking History Smoking history: Current every day smoker Have you smoked in the past 12 months: Yes Aproximately how many cigarettes per day: 20 - Alcohol/Substance Use Hx Alcohol Use: Yes History of Substance Use: reports: Cocaine - Social History Usual Living Arrangement: Yes: Other (homeless) ADL: Independent Occupation: unemployed History of Recent Travel: No Admission ROS [facility] Chief Complaint: I'm tired, I want to stop, I want rehab after this Allergies/Adverse Reactions: Allergies Allergy/AdvReac Type Severity Reaction Status Date / Time tuna oil Allergy Severe Rash Verified 08/19/19 09:39 nitroglycerin AdvReac Intermediate Rash Verified 08/19/19 09:39 TUNA FISH Allergy Severe Rash Uncoded 08/19/19 09:39 History of Present Illness: 59 yo gentleman here for detox from alcohol. This is one of multiple admissions for detox. He was most recently here 07/23/19 - completed his stay but did not go to rehab as he thought it was too far away but states now he will go. Patient denies any recent ED visits, no seizures but does have black outs. Patient is homeless, states he is on psychiatric disability for schizophrenia/ depression. Exam Limitations: No Limitations - Ebola screening Have you traveled outside of the country in the last 21 days: No Have you had contact with anyone from an Ebola affected area: No Have you been sick,other than usual withdrawal symptoms: No Do you have a fever: No - Review of Systems Constitutional: Loss of Appetite, Malaise, Changes in sleep, Weakness EENT: reports: Blurred Vision Respiratory: reports: No Symptoms reported Cardiac: reports: No Symptoms Reported GI: reports: Diarrhea, Nausea, Poor Appetite, Poor Fluid Intake, Abdominal cramping : reports: Frequency Musculoskeletal: reports: Back Pain, Muscle Pain Integumentary: reports: Dryness, Rash (mild rash on left leg, around nose - slightly itchy, chronic) Neuro: reports: Headache, Tremors, Weakness Endocrine: reports: No Symptoms Reported Hematology: reports: No Symptoms Reported Psychiatric: reports: Judgement Intact, Mood/Affect Appropiate, Anxious Other Systems: Reviewed and Negative Patient History - Patient Medical History Hx Anemia: No Hx Asthma: No Hx Chronic Obstructive Pulmonary Disease (COPD): No Hx Cancer: No Hx Cardiac Disorders: No Hx Congestive Heart Failure: No Hx Hypertension: Yes Hx Hypercholesterolemia: Yes (on med) Hx Pacemaker: No HX Cerebrovascular Accident: No Hx Seizures: No Hx Dementia: No Hx Diabetes: Yes (oral meds) Hx Gastrointestinal Disorders: Yes (GERDS) Hx Liver Disease: Yes (? cirrhosis, elevated LFTs with etoh) Hx Genitourinary Disorders: No Hx Sexually Transmitted Disorders: No Hx Renal Disease (ESRD): No Hx Thyroid Disease: No Hx Human Immunodeficiency Virus (HIV): No (hiv 2019 negative) Hx Hepatitis C: No Hx Depression: Yes Hx Suicide Attempt: Yes (years ago - cutting) Hx Bipolar Disorder: Yes (on meds, sees psych at [facility]) Hx Schizophrenia: Yes - Patient Surgical History Past Surgical History: Yes Hx Neurologic Surgery: No Hx Cataract Extraction: No Hx Cardiac Surgery: No Hx Lung Surgery: No Hx Breast Surgery: No Hx Breast Biopsy: No Hx Abdominal Surgery: No Hx Appendectomy: Yes (at age 6) Hx Cholecystectomy: No Hx Genitourinary Surgery: No Hx Section: No Hx Orthopedic Surgery: No Anesthesia Reaction: No - PPD History Previous Implant?: Yes Documented Results: Negative w/proof Implanted On Prior [facility] Admission?: Yes Date: 12/04/18 Results: NEGATIVE PPD to be Administered?: No - Reproductive History Patient is a Female of Child Bearing Age (11 -55 yrs old): No (male) - Smoking Cessation Smoking history: Current every day smoker Have you smoked in the past 12 months: Yes Aproximately how many cigarettes per day: 20 Cigars Per Day: 0 Hx Chewing Tobacco Use: No Initiated information on smoking cessation: Yes 'Breaking Loose' booklet given: 08/19/19 - Substance & Tx. History Hx Alcohol Use: Yes Hx Substance Use: Yes Substance Use Type: Alcohol, Cocaine Hx Substance Use Treatment: Yes (detox, rehab) - Substances abused Alcohol Substance route: Oral Frequency: Daily Amount used: 1 1/2 pint of vodka Age of first use: 40 Date of last use: 08/19/19 Cocaine Substance route: Inhalation Frequency: Daily Amount used: 2 grams Age of first use: 20 Date of last use: 08/19/19 Crack Substance route: Smoking Frequency: Daily Amount used: 1- 1 1/2 gram Age of first use: 34 Date of last use: 08/18/19 Admission Physical Exam S - Vital Signs Vital Signs: Vital Signs - 24 hr 08/19/19 09:34 Temperature 97.0 F L Pulse Rate 92 H Respiratory 20 Rate Blood Pressure 151/85 - Physical General Appearance: Yes: Nourished, Appropriately Dressed, Moderate Distress, Tremorous, Anxious HEENTM: Yes: EOMI, Hearing grossly Normal, Normocephalic, Normal Voice, Pharynx Normal, Other (poor dentition - missing teeth) Respiratory: Yes: Normal Breath Sounds, No Respiratory Distress Neck: Yes: Within Normal Limits Breast: Yes: Breast Exam Deferred Cardiology: Yes: Regular Rhythm, Regular Rate Abdominal: Yes: Soft Genitourinary: Yes: Frequency, Nocturia Back: Yes: Decreased Range of Motion Musculoskeletal: Yes: Gait Steady, Back pain Extremities: Yes: Normal Inspection, Normal Range of Motion, Non-Tender, Tremors Neurological: Yes: Alert, Normal Mood/Affect, Normal Response Integumentary: Yes: Normal Color, Dry, Warm, Rash (slight erythematous flakey rash over nose; faint erythematous flat rash on left leg) Lymphatic: Yes: Within Normal Limits - Diagnostic (1) Alcohol dependence with uncomplicated withdrawal Current Visit: Yes Status: Chronic (2) GERD (gastroesophageal reflux disease) Current Visit: Yes Status: Chronic Qualifiers: Esophagitis presence: without esophagitis Qualified Code(s): K21.9 - Gastro -esophageal reflux disease without esophagitis (3) Hyperlipidemia Current Visit: Yes Status: Chronic Qualifiers: Hyperlipidemia type: pure hypercholesterolemia Qualified Code(s): E78.00 - Pure hypercholesterolemia, unspecified; E78.0 - Pure hypercholesterolemia (4) Nicotine dependence Current Visit: Yes Status: Chronic Qualifiers: Nicotine product type: cigarettes Substance use status: uncomplicated Qualified Code(s): F17.210 - Nicotine dependence, cigarettes, uncomplicated Comment: declines patch or gum - give him a headache (5) Low back pain Current Visit: Yes Status: Chronic Qualifiers: Chronicity: chronic Back pain laterality: bilateral Sciatica presence: without sciatica Qualified Code(s): M54.5 - Low back pain; G89.29 - Other chronic pain (6) Cocaine dependence Current Visit: Yes Status: Chronic Qualifiers: Substance use status: uncomplicated Qualified Code(s): F14.20 - Cocaine dependence, uncomplicated (7) Hypercholesterolemia Current Visit: Yes Status: Chronic (8) HTN (hypertension) Current Visit: Yes Status: Chronic Qualifiers: Hypertension type: essential hypertension Qualified Code(s): I10 - Essential (primary) hypertension (9) Nicotine dependence Current Visit: Yes Status: Chronic Qualifiers: Nicotine product type: cigarettes Substance use status: uncomplicated Qualified Code(s): F17.210 - Nicotine dependence, cigarettes, uncomplicated (10) Seborrhea Current Visit: Yes Status: Chronic (11) Diabetes mellitus treated with oral medication Current Visit: Yes Status: Chronic Cleared for Admission [facility] - Detox or Rehab S Level of Care: Medically Managed Detox Regimen/Protocol: Librium Breathalyzer - Breathalyzer Breathalyzer: 0.011 Urine Drug Screen - Test Device Lot number: [id number] Expiration date: 05/15/21 - Control Is test valid?: No - Results Drug screen NEGATIVE: Yes Urine drug screen results: PALLAVI-Cocaine, BZO-Benzodiazepines Inpatient Rehab Admission - Rehab Decision to Admit Inpatient rehab admission?: No
[2019-08-19] MEDS ORDERED: MAGNESIUM CITRATE 300 ML BOTTLE PO PRN (10:24)
[2019-08-19] MEDS ORDERED: hydrOXYzine PAMOATE 25 MG CAPSULE (FP) PO PRN (10:24)
[2019-08-19] MEDS ORDERED: chlordiazePOXIDE HCL 25 MG CAPSULE PO ONE (10:24)
[2019-08-19] MEDS ORDERED: MENTHOL/PHENOL 1 EACH UD MM PRN (10:24)
[2019-08-19] MEDS ORDERED: BISMUTH SUBSALICYLATE 524 MG/30 ML UD PO PRN (10:24)
[2019-08-19] MEDS ORDERED: MAG HYDROX/AL HYDROX/SIMETH 30 ML UNIT-DOSE CUP PO PRN (10:24)
[2019-08-19] MEDS ORDERED: MAGNESIUM HYDROX 2400MG/30ML ORAL SUSPENSION 30 ML CUP PO PRN (10:24)
[2019-08-19] MEDS ORDERED: METOCLOPRAMIDE HCL 10 MG TABLET (FP) PO PRN (10:26)
[2019-08-19] MEDS ORDERED: HYDROCORTISONE 1% TOPICAL CREAM 30 GM TUBE TP PRN (10:38)
[2019-08-19] MEDS: ASPIRIN COATED 81 MG TABLET.EC PO SCH (12:17)
[2019-08-19] MEDS: LISINOPRIL 10 MG TABLET (FP) PO SCH (12:17)
[2019-08-19 12:57] LABS: HEMATOCRIT 40.6 % (35.4-49); MCH 31.5 pg (25.7-33.7); MCHC 34.5 g/dl (32.0-35.9); MEAN CELL VOLUME 91.1 fl (80-96); MEAN PLT VOLUME 10.1 fl (7.5-11.1); PLATELET COUNT 232 K/MM3 (134-434); RBC 4.45 M/mm3 (4.00-5.60); RDW 14.1 % (11.9-15.9); WHITE BLOOD COUNT 6.9 K/mm3 (4.0-10.0)
[2019-08-19 13:10] LABS: ALBUMIN 3.9 g/dl (3.4-5.0); BILIRUBIN,TOTAL 0.4 mg/dL (0.2-1); CALCIUM 8.5 mg/dL (8.5-10.1); CREATININE 0.7 mg/dL (0.55-1.3); POTASSIUM 3.6 mmol/L (3.5-5.1); TOT PROT 7.5 g/dl (6.4-8.2)
--- NOTE | 2019-08-19 13:11 | EKG ---
Test Reason : Blood Pressure : / mmHG Vent. Rate : 069 BPM Atrial Rate : 069 BPM P-R Int : 154 ms QRS Dur : 100 ms QT Int : 408 ms P-R-T Axes : 065 -23 045 degrees QTc Int : 437 ms NORMAL SINUS RHYTHM MINIMAL VOLTAGE CRITERIA FOR LVH, MAY BE NORMAL VARIANT WHEN COMPARED WITH ECG OF 07-MAY-2018 12:22, NO SIGNIFICANT CHANGE WAS FOUND Confirmed by GLORIA MIRANDA MD ([id number]) on 08/19/2019 1:11:10 PM Referred By: Confirmed By:GLORIA MIRANDA MD
[2019-08-19] MEDS: metFORMIN HCL 500 MG TABLET (FP) PO SCH (17:01)
[2019-08-19] MEDS: INSULIN SLIDING SCALE (NOVOLOG) 1 VIAL SQ SCH (17:01)
[2019-08-19] MEDS: chlordiazePOXIDE HCL 25 MG CAPSULE PO SCH ×2 (17:01→22:16)
[2019-08-19] MEDS: METHOCARBAMOL 500 MG TABLET PO PRN (20:12)
[2019-08-19] MEDS ORDERED: MELATONIN 5 MG TABLETS PO PRN (22:00)
[2019-08-19] MEDS: ATORVASTATIN CA 40 MG TABLET (FP) PO SCH (22:15)
[2019-08-19] MEDS: FAMOTIDINE 20 MG TABLET PO SCH (22:15)
[2019-08-19] MEDS: THIAMINE HCL 100 MG TABLET (FP) PO SCH (22:16)
[2019-08-20] MEDS: metFORMIN HCL 500 MG TABLET (FP) PO SCH ×2 (06:07→17:02)
[2019-08-20] MEDS: chlordiazePOXIDE HCL 25 MG CAPSULE PO SCH ×4 (06:08→22:17)
[2019-08-20] MEDS: INSULIN SLIDING SCALE (NOVOLOG) 1 VIAL SQ SCH ×2 (07:11→17:02)
[2019-08-20] MEDS: chlordiazePOXIDE HCL 25 MG CAPSULE PO PRN (08:50)
--- NOTE | 2019-08-20 09:40 | CONSULT ---
[facility] Psychiatric Consult - Data Date of interview: 08/20/19 Admission source: [facility] Identifying data: Patient is a 59 year old single male, without children , unemployed, homeless, and is supported by [facility]. This is one of multiple admissions for patient. Patient admitted to for alcohol and cocaine dependence. Substance Abuse History: Smoking Cessation. Smoking history: Current every day smoker. Have you smoked in the past 12 months: Yes. Aproximately how many cigarettes per day: 20. Cigars Per Day: 0. Hx Chewing Tobacco Use: No. Initiated information on smoking cessation: Yes. 'Breaking Loose' booklet given : 07/22/19. - Substances abused. Alcohol. Substance route: Oral. Frequency: Daily. Amount used: 1 PINT OF CECI. Age of first use: 20. Date of last use: 07/22/19. Cocaine. Substance route: Inhalation. Frequency: Daily. Amount used: 2 GRAMS. Age of first use: 34. Date of last use: 07/22/19 Medical History: Significant for type 2 diabetes mellitus, hypertension, dyslipidemia, GERD, hepatitis C, chronic low back pain, history of appendectomy at age 6 and orthosurgery for fracture of right ankle. Psychiatric History: Patient seen by software writer on 07/23/19. History remains consistent. Patient reports history of multiple psychiatric hospitalizations most recently at [facility] nine years ago due to suicidal ideation. Diagnosis of schizophrenia, Bipolar disorder. Patient is also known to [facility], [facility], [facility], and [facility]. Patient reports history of multiple suicide attempt by self mutilation (cutting). Mr. Veliz is currently provided with outpatient psychiatric care at [facility] outpatient walk in clinic and is prescribed seroquel 200mg BID + Trazodone 100mg. While seen on 07/23/19 patient was resumed on seroquel 200mg BID + Trazodone 100mg HS. Patient reports medication compliance. At present patient is mildly irritable. He denies auditory/visual hallucinations, suicidal/homicidal ideation. Physical/Sexual Abuse/Trauma History: denies. Mental Status Exam - Mental Status Exam Alert and Oriented to: Time, Place, Person Cognitive Function: Good Patient Appearance: Well Groomed Mood: Euthymic Affect: Appropriate Patient Behavior: Appropriate, Cooperative Speech Pattern: Appropriate Voice Loudness: Normal Thought Process: Intact, Goal Oriented Thought Disorder: Not Present Hallucinations: Denies Suicidal Ideation: Denies Homicidal Ideation: Denies Insight/Judgement: Poor Sleep: Poorly Appetite: Fair Muscle strength/Tone: Normal Gait/Station: Normal Psychiatric Findings - Problem List ([place] 1, 2,3) (1) Alcohol dependence with uncomplicated withdrawal Current Visit: Yes Status: Chronic (2) Cocaine dependence Current Visit: Yes Status: Chronic Qualifiers: Substance use status: uncomplicated Qualified Code(s): F14.20 - Cocaine dependence, uncomplicated (3) Substance-induced sleep disorder Current Visit: Yes Status: Acute - Initial Treatment Plan Initial Treatment Plan: Psychoeducation provided. Detoxification in progress. Will order Seroquel 200mg BID + Trazodone 100mg HS. Benefits and side effects discussed. Verbal consent given.
[2019-08-20] MEDS: LISINOPRIL 10 MG TABLET (FP) PO SCH (10:04)
[2019-08-20] MEDS: ASPIRIN COATED 81 MG TABLET.EC PO SCH (10:04)
[2019-08-20] MEDS: PRENATAL VITAMINS W/ FOLIC ACID TABLET (FP) PO SCH (10:04)
[2019-08-20] MEDS: QUEtiapine FUMARATE 200 MG TABLET PO SCH ×2 (10:05→22:16)
--- NOTE | 2019-08-20 10:31 | PN ---
S CIWA - CIWA Score Nausea/Vomitin Muscle Tremors: 4-Moderate,w/Arms Extend Anxiety: 4-Mod. Anxious/Guarded Agitation: 1-Slight > Activity Paroxysmal Sweats: 2 Orientation: 0-Oriented Tacttile Disturbances: 1-Very Mild Itch/Numbness Auditory Disturbances: 0-None Visual Disturbances: 1-Very Mild Sensitivity Headache: 0-None Present CIWA-Ar Total Score: 15 BHS Progress Note (SOAP) Subjective: 59 years old male admitted on 08/19/19 for alcohol withdrawal sx management treating with librium detox regiment poor appetite feeling tired requests nutrition supplement glucerna 1 can po daily Objective: 08/20/19 10:33 Vital Signs Temperature 98.0 F 08/20/19 05:59 Pulse Rate 67 08/20/19 05:59 Respiratory Rate 18 08/20/19 05:59 Blood Pressure 111/76 08/20/19 05:59 O2 Sat by Pulse Oximetry (%) Laboratory Last Values WBC 6.9 K/mm3 (4.0-10.0) 08/19/19 10:30 RBC 4.45 M/mm3 (4.00-5.60) 08/19/19 10:30 Hgb 14.0 GM/dL (11.7-16.9) 08/19/19 10:30 Hct 40.6 % (35.4-49) 08/19/19 10:30 MCV 91.1 fl (80-96) 08/19/19 10:30 MCH 31.5 pg (25.7-33.7) 08/19/19 10:30 MCHC 34.5 g/dl (32.0-35.9) 08/19/19 10:30 RDW 14.1 % (11.9-15.9) 08/19/19 10:30 Plt Count 232 K/MM3 (134-434) D 08/19/19 10:30 MPV 10.1 fl (7.5-11.1) 08/19/19 10:30 Sodium 141 mmol/L (136-145) 08/19/19 10:30 Potassium 3.6 mmol/L (3.5-5.1) 08/19/19 10:30 Chloride 108 mmol/L (98-107) H 08/19/19 10:30 Carbon Dioxide 26 mmol/L (21-32) 08/19/19 10:30 Anion Gap 7 MMOL/L (8-16) L 08/19/19 10:30 BUN 15.0 mg/dL (7-18) 08/19/19 10:30 Creatinine 0.7 mg/dL (0.55-1.3) 08/19/19 10:30 Est GFR (CKD-EPI)AfAm 118.88 08/19/19 10:30 Est GFR (CKD-EPI)NonAf 102.57 08/19/19 10:30 POC Glucometer 122 UNITS (80-120) 08/20/19 06:09 Random Glucose 95 mg/dL (74-106) 08/19/19 10:30 Calcium 8.5 mg/dL (8.5-10.1) 08/19/19 10:30 Total Bilirubin 0.4 mg/dL (0.2-1) 08/19/19 10:30 AST 83 U/L (15-37) H 08/19/19 10:30 ALT 94 U/L (13-61) H 08/19/19 10:30 Alkaline Phosphatase 125 U/L (45-117) H 08/19/19 10:30 Total Protein 7.5 g/dl (6.4-8.2) 08/19/19 10:30 Albumin 3.9 g/dl (3.4-5.0) 08/19/19 10:30 RPR Titer Nonreactive (NONREACTIVE) 08/19/19 10:30 Hep C Ab Diagnostic <0.1 s/co ratio (0.0-0.9) 08/19/19 10:39 lab noted 08/20/19 10:33 denies hepatitis c Assessment: 08/20/19 10:33 alcohol withdrawal Plan: librium regiment
[2019-08-20] MEDS: traZODone HCL 100 MG TABLET (FP) PO SCH (22:16)
[2019-08-20] MEDS: THIAMINE HCL 100 MG TABLET (FP) PO SCH (22:17)
[2019-08-20] MEDS: ATORVASTATIN CA 40 MG TABLET (FP) PO SCH (22:17)
[2019-08-20] MEDS: FAMOTIDINE 20 MG TABLET PO SCH (22:19)
[2019-08-20] MEDS: METHOCARBAMOL 500 MG TABLET PO PRN (22:20)
[2019-08-21] MEDS ORDERED: IBUPROFEN 400 MG TABLET (FP) PO ONE ×2 (01:50→08:39)
[2019-08-21] MEDS: chlordiazePOXIDE HCL 25 MG CAPSULE PO SCH ×4 (05:14→22:34)
[2019-08-21] MEDS: metFORMIN HCL 500 MG TABLET (FP) PO SCH ×3 (06:21→19:03)
[2019-08-21] MEDS: INSULIN SLIDING SCALE (NOVOLOG) 1 VIAL SQ SCH ×2 (06:22→16:48)
[2019-08-21] MEDS: METHOCARBAMOL 500 MG TABLET PO PRN (06:55)
[2019-08-21] MEDS ORDERED: ACETAMINOPHEN 325 MG TABLET (FP) PO ONE (07:21)
--- NOTE | 2019-08-21 09:37 | PN ---
S CIWA - CIWA Score Nausea/Vomitin-No Nausea/No Vomiting Muscle Tremors: 2 Anxiety: 4-Mod. Anxious/Guarded Agitation: 1-Slight > Activity Paroxysmal Sweats: 2 Orientation: 0-Oriented Tacttile Disturbances: 0-None Auditory Disturbances: 0-None Visual Disturbances: 0-None Headache: 3-Moderate (right lateral chest wall muscle ache) CIWA-Ar Total Score: 12 BHS Progress Note (SOAP) Subjective: 59 years old male admitted on 08/19/19 for alcohol withdrawal sx management tretaing with librium detox regiment report right lateral chest wall muscle ache raise right arm above head slowly requests motrin 800mg that "I always take motrin 800 at home for pain" discuss adverse effects of motrin motrin 800 mg po x 1 Objective: 08/21/19 09:36 Vital Signs Temperature 98.4 F 08/21/19 09:15 Pulse Rate 74 08/21/19 09:15 Respiratory Rate 18 08/21/19 09:15 Blood Pressure 104/72 08/21/19 09:15 O2 Sat by Pulse Oximetry (%) Laboratory Last Values WBC 6.9 K/mm3 (4.0-10.0) 08/19/19 10:30 RBC 4.45 M/mm3 (4.00-5.60) 08/19/19 10:30 Hgb 14.0 GM/dL (11.7-16.9) 08/19/19 10:30 Hct 40.6 % (35.4-49) 08/19/19 10:30 MCV 91.1 fl (80-96) 08/19/19 10:30 MCH 31.5 pg (25.7-33.7) 08/19/19 10:30 MCHC 34.5 g/dl (32.0-35.9) 08/19/19 10:30 RDW 14.1 % (11.9-15.9) 08/19/19 10:30 Plt Count 232 K/MM3 (134-434) D 08/19/19 10:30 MPV 10.1 fl (7.5-11.1) 08/19/19 10:30 Sodium 141 mmol/L (136-145) 08/19/19 10:30 Potassium 3.6 mmol/L (3.5-5.1) 08/19/19 10:30 Chloride 108 mmol/L (98-107) H 08/19/19 10:30 Carbon Dioxide 26 mmol/L (21-32) 08/19/19 10:30 Anion Gap 7 MMOL/L (8-16) L 08/19/19 10:30 BUN 15.0 mg/dL (7-18) 08/19/19 10:30 Creatinine 0.7 mg/dL (0.55-1.3) 08/19/19 10:30 Est GFR (CKD-EPI)AfAm 118.88 08/19/19 10:30 Est GFR (CKD-EPI)NonAf 102.57 08/19/19 10:30 POC Glucometer 122 UNITS (80-120) 08/21/19 05:13 Random Glucose 95 mg/dL (74-106) 08/19/19 10:30 Calcium 8.5 mg/dL (8.5-10.1) 08/19/19 10:30 Total Bilirubin 0.4 mg/dL (0.2-1) 08/19/19 10:30 AST 83 U/L (15-37) H 08/19/19 10:30 ALT 94 U/L (13-61) H 08/19/19 10:30 Alkaline Phosphatase 125 U/L (45-117) H 08/19/19 10:30 Total Protein 7.5 g/dl (6.4-8.2) 08/19/19 10:30 Albumin 3.9 g/dl (3.4-5.0) 08/19/19 10:30 RPR Titer Nonreactive (NONREACTIVE) 08/19/19 10:30 Hep C Ab Diagnostic <0.1 s/co ratio (0.0-0.9) 08/19/19 10:39 lab oted Assessment: 08/21/19 09:37 alcohol withdrawal Plan: librium regiment
[2019-08-21] MEDS: LISINOPRIL 10 MG TABLET (FP) PO SCH (09:48)
[2019-08-21] MEDS: QUEtiapine FUMARATE 200 MG TABLET PO SCH ×2 (09:48→22:34)
[2019-08-21] MEDS: ASPIRIN COATED 81 MG TABLET.EC PO SCH (09:49)
[2019-08-21] MEDS: PRENATAL VITAMINS W/ FOLIC ACID TABLET (FP) PO SCH (09:50)
[2019-08-21] MEDS: chlordiazePOXIDE HCL 25 MG CAPSULE PO PRN (12:49)
[2019-08-21] MEDS ORDERED: IBUPROFEN 400 MG TABLET (FP) PO PRN (16:53)
[2019-08-21] MEDS: FAMOTIDINE 20 MG TABLET PO SCH (22:33)
[2019-08-21] MEDS: ATORVASTATIN CA 40 MG TABLET (FP) PO SCH (22:33)
[2019-08-21] MEDS: traZODone HCL 100 MG TABLET (FP) PO SCH (22:33)
[2019-08-21] MEDS: THIAMINE HCL 100 MG TABLET (FP) PO SCH (22:34)
[2019-08-22] MEDS ORDERED: chlordiazePOXIDE HCL 10 MG CAPSULE PO PRN
[2019-08-22] MEDS ORDERED: chlordiazePOXIDE HCL 10 MG CAPSULE PO SCH (05:00)
[2019-08-22 05:56] VITALS: BP 105/73; PULSE 70; TEMP 98
[2019-08-22] MEDS: metFORMIN HCL 500 MG TABLET (FP) PO SCH (06:27)
[2019-08-22] MEDS: INSULIN SLIDING SCALE (NOVOLOG) 1 VIAL SQ SCH (06:27)
--- NOTE | 2019-08-22 08:45 | DS ---
[facility] Detox Discharge Summary Admission Date: 08/19/19 Discharge Date: 08/22/19 - History Present History: Alcohol Dependence Additional Comments: 59 years old male admitted on 08/19/19 for alcohol withdrawal sx management treated with librium detox regiment feeling better today prefers to leave the detox unit today patient had phone interview with [facility] today available today as aftercare referral seen by psychiatrist riki trajimenez and seroquel alert oriented x 3 cardiac s1s2 regular rate rhythm respiratory clear lungs bilaterally on auscultation skin warm and dry Pertinent Past History: time for discharge 42 minutes - Physical Exam Results Vital Signs: Vital Signs Temperature 98.0 F 08/22/19 05:55 Pulse Rate 70 08/22/19 05:55 Respiratory Rate 18 08/22/19 05:55 Blood Pressure 105/73 08/22/19 05:55 O2 Sat by Pulse Oximetry (%) Pertinent Admission Physical Exam Findings: alcohol withdrawal Laboratory Last Values WBC 6.9 K/mm3 (4.0-10.0) 08/19/19 10:30 RBC 4.45 M/mm3 (4.00-5.60) 08/19/19 10:30 Hgb 14.0 GM/dL (11.7-16.9) 08/19/19 10:30 Hct 40.6 % (35.4-49) 08/19/19 10:30 MCV 91.1 fl (80-96) 08/19/19 10:30 MCH 31.5 pg (25.7-33.7) 08/19/19 10:30 MCHC 34.5 g/dl (32.0-35.9) 08/19/19 10:30 RDW 14.1 % (11.9-15.9) 08/19/19 10:30 Plt Count 232 K/MM3 (134-434) D 08/19/19 10:30 MPV 10.1 fl (7.5-11.1) 08/19/19 10:30 Sodium 141 mmol/L (136-145) 08/19/19 10:30 Potassium 3.6 mmol/L (3.5-5.1) 08/19/19 10:30 Chloride 108 mmol/L (98-107) H 08/19/19 10:30 Carbon Dioxide 26 mmol/L (21-32) 08/19/19 10:30 Anion Gap 7 MMOL/L (8-16) L 08/19/19 10:30 BUN 15.0 mg/dL (7-18) 08/19/19 10:30 Creatinine 0.7 mg/dL (0.55-1.3) 08/19/19 10:30 Est GFR (CKD-EPI)AfAm 118.88 08/19/19 10:30 Est GFR (CKD-EPI)NonAf 102.57 08/19/19 10:30 POC Glucometer 133 UNITS (80-120) 08/22/19 05:22 Random Glucose 95 mg/dL (74-106) 08/19/19 10:30 Calcium 8.5 mg/dL (8.5-10.1) 08/19/19 10:30 Total Bilirubin 0.4 mg/dL (0.2-1) 08/19/19 10:30 AST 83 U/L (15-37) H 08/19/19 10:30 ALT 94 U/L (13-61) H 08/19/19 10:30 Alkaline Phosphatase 125 U/L (45-117) H 08/19/19 10:30 Total Protein 7.5 g/dl (6.4-8.2) 08/19/19 10:30 Albumin 3.9 g/dl (3.4-5.0) 08/19/19 10:30 RPR Titer Nonreactive (NONREACTIVE) 08/19/19 10:30 Hep C Ab Diagnostic <0.1 s/co ratio (0.0-0.9) 08/19/19 10:39 lab noted - Treatment Hospital Course: Detox Protocol Followed, Detoxed Safely, Responded well, Discharged Condition Good, Rehab Referral Accepted Patient has Accepted a Rehab Referral to: [facility] rehab - Medication Discharge Medications: Ambulatory Orders Atorvastatin Ca [Lipitor] 40 mg PO HS 04/18/19 Lisinopril 10 mg PO DAILY 04/18/19 metFORMIN HCL [Metformin HCl] 500 mg PO BID 04/18/19 Aspirin [Aspirin EC] 81 mg PO DAILY 07/22/19 Famotidine 40 mg PO HS 07/22/19 Metoclopramide HCl 10 mg PO TID PRN 07/22/19 Quetiapine Fumarate [Seroquel -] 200 mg PO BID #60 tablet 07/25/19 traZODone HCL [Desyrel -] 100 mg PO HS PRN #30 tablet 07/25/19 Omeprazole 20 mg PO DAILY 08/19/19 - Diagnosis (1) Substance induced mood disorder Status: Suspected (2) Alcohol dependence with uncomplicated withdrawal Status: Acute (3) GERD (gastroesophageal reflux disease) Status: Chronic Qualifiers: Esophagitis presence: without esophagitis Qualified Code(s): K21.9 - Gastro -esophageal reflux disease without esophagitis (4) HTN (hypertension) Status: Chronic Qualifiers: Hypertension type: essential hypertension Qualified Code(s): I10 - Essential (primary) hypertension (5) Hypercholesterolemia Status: Chronic (6) Nicotine dependence Status: Acute Qualifiers: Nicotine product type: cigarettes Substance use status: in withdrawal Qualified Code(s): F17.213 - Nicotine dependence, cigarettes, with withdrawal (7) Use of cane as ambulatory aid Status: Chronic (8) Substance induced mood disorder Status: Suspected - AMA Did Patient Leave Against Medical Advice: No CIWA Score - CIWA Score Nausea/Vomitin-No Nausea/No Vomiting Muscle Tremors: 1-None Visible, but [place] Anxiety: 0-No Anxiety, at Ease Agitation: 1-Slight > Activity Paroxysmal Sweats: 2 Orientation: 0-Oriented Tacttile Disturbances: 0-None Auditory Disturbances: 0-None Visual Disturbances: 0-None Headache: 3-Moderate (right lateral chest wall muscle ache) CIWA-Ar Total Score: 7
[2019-08-23] MEDS ORDERED: chlordiazePOXIDE HCL 10 MG CAPSULE PO SCH (05:00)
[2019-08-24] MEDS ORDERED: chlordiazePOXIDE HCL 10 MG CAPSULE PO ONE (05:00)
== END 2019-08-22 09:13 | disposition home or self-care (01) | DRG 774 ==
LOC: YASAS 09:16 → Y3N 10:44
PROVIDERS: ADMIT Allergy & Immunology; ATTEND Allergy & Immunology
PROC: HZ2ZZZZ Detoxification Services for Substance Abuse Treatment (ICD-10-PCS; principal; 2019-08-19)
DX: F10.230 Alcohol dependence with withdrawal, uncomplicated (principal); F14.20 Cocaine dependence, uncomplicated; F17.213 Nicotine dependence, cigarettes, with withdrawal; F31.9 Bipolar disorder, unspecified; F20.9 Schizophrenia, unspecified; F19.24 Other psychoactive substance dependence with psychoactive substance-induced mood disorder; F19.280 Other psychoactive substance dependence with psychoactive substance-induced anxiety disorder; I10 Essential (primary) hypertension; E11.9 Type 2 diabetes mellitus without complications; K21.9 Gastro-esophageal reflux disease without esophagitis; E78.5 Hyperlipidemia, unspecified; B18.2 Chronic viral hepatitis C; M54.5 Low back pain; G89.29 Other chronic pain; Z91.013 Allergy to seafood; Z88.8 Allergy status to other drugs, medicaments and biological substances; Z99.89 Dependence on other enabling machines and devices; Z59.0 Homelessness
CPT/HCPCS: 36415; 80053; 82962; 85027; 86593; 86803; 93005; 93010

== ENCOUNTER 2019-08-23 11:52 | Inpatient (IN) | payer OTHER ==
[2019-08-23 12:47] VITALS: BMI 27.9
--- NOTE | 2019-08-23 13:21 | HP ---
CIWA Score - Admission Criteria [facility]ASAS Guidelines: Admission for Medically Managed Detox: Requires at least one of the followin. CIWA greater than 12 2. Seizures within the past 24 hours 3. Delirium tremens within the past 24 hours 4. Hallucinations within the past 24 hours 5. Acute intervention needed for co occurring medical disorder 6. Acute intervention needed for co occurring psychiatric disorder 7. Severe withdrawal that cannot be handled at a lower level of care (continued vomiting, continued diarrhea, abnormal vital signs) requiring intravenous medication and/or fluids 8. Admitting History and Physical - Admission Chief Complaint: Mr. Veliz is a 59 yo gentleman who presents to [facility] for admission to Rehab. He was discharged yesterday after a successful detox from alcohol. History of Present Illness: Mr. Veliz is a 59 yo gentleman who presents to [facility] for admission to Rehab. He was discharged yesterday after a successful detox from alcohol. He went to the ED of [facility] yesterday with complaints of chest pain. Workup including urine culture and coags done: no results in discharge papers. Tx with Haldol at 2 am, ASA given as well as Toradol. Per the patient EKG was done. He states that he was told the EKG was "fine". PMH: diabetic, HTN, HLD Psych: depression, schizophrenia, on Seroquel bid, takes trazadone PSH:appy Substance use history Alcohol: 1.5 pint Qian, daily, last drink: 08/19/19. First drink age 20y. Blackout 2 years ago. No seizures Cocaine: $60 per week, sniff, last used: 08/22/19, first use age 20y. 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 Cardiovascular: Yes: HTN, Hyperlipdemia Gastrointestinal: Yes: GERD Hepatobiliary: Yes: Cirrhosis Psych: Yes: Bipolar, Depression, Schizophrenia Musculoskeletal: Yes: Chronic low back pain Endocrine: Yes: Diabetes Mellitus - Past Surgical History Past Surgical History: Yes: Appendectomy - Smoking History Smoking history: Current every day smoker Have you smoked in the past 12 months: Yes Aproximately how many cigarettes per day: 20 - Alcohol/Substance Use Hx Alcohol Use: Yes History of Substance Use: reports: Cocaine - Social History ADL: Independent Occupation: unemployed History of Recent Travel: No Admission ROS BHS - HPI Allergies/Adverse Reactions: Allergies Allergy/AdvReac Type Severity Reaction Status Date / Time tuna oil Allergy Severe Rash Verified 08/23/19 12:37 nitroglycerin AdvReac Intermediate Rash Verified 08/23/19 12:37 TUNA FISH Allergy Severe Rash Uncoded 08/23/19 12:37 Exam Limitations: No Limitations - Ebola screening Have you traveled outside of the country in the last 21 days: No Have you had contact with anyone from an Ebola affected area: No Have you been sick,other than usual withdrawal symptoms: No Do you have a fever: No - Review of Systems Constitutional: No Symptoms Reported EENT: reports: No Symptoms Reported Respiratory: reports: No Symptoms reported Cardiac: reports: No Symptoms Reported GI: reports: No Symptoms Reported : reports: No Symptoms Reported Musculoskeletal: reports: No Symptoms Reported Integumentary: reports: Dryness, Other (superficial scratches bilaterla leg and right antecubital) Neuro: reports: No Symptoms reported Endocrine: reports: Other (reports glucose today of 129) Hematology: reports: No Symptoms Reported Psychiatric: reports: Depressed (no SI) Patient History - Patient Medical History Hx Anemia: No Hx Asthma: No Hx Chronic Obstructive Pulmonary Disease (COPD): No Hx Cancer: No Hx Cardiac Disorders: No Hx Congestive Heart Failure: No Hx Hypertension: Yes Hx Hypercholesterolemia: Yes (on med) Hx Pacemaker: No HX Cerebrovascular Accident: No Hx Seizures: No Hx Dementia: No Hx Diabetes: Yes (129 @12:33) Hx Gastrointestinal Disorders: Yes (GERDs) Hx Liver Disease: Yes (? cirrhosis, elevated LFTs with etoh) Hx Genitourinary Disorders: No Hx Sexually Transmitted Disorders: No Hx Renal Disease (ESRD): No Hx Thyroid Disease: No Hx Human Immunodeficiency Virus (HIV): No (hiv 2019 negative) Hx Hepatitis C: No Hx Depression: Yes Hx Suicide Attempt: Yes Hx Bipolar Disorder: Yes (on meds, sees psych at [facility]) Hx Schizophrenia: Yes - Patient Surgical History Past Surgical History: Yes Hx Neurologic Surgery: No Hx Cataract Extraction: No Hx Cardiac Surgery: No Hx Lung Surgery: No Hx Breast Surgery: No Hx Breast Biopsy: No Hx Abdominal Surgery: No Hx Appendectomy: Yes (at age 6) Hx Cholecystectomy: No Hx Genitourinary Surgery: No Hx Section: No Hx Orthopedic Surgery: No Other Surgical History: DENIES. Anesthesia Reaction: No - PPD History Previous Implant?: Yes Documented Results: Negative w/proof Implanted On Prior [facility] Admission?: Yes Date: 12/04/18 Results: NEGATIVE - Smoking Cessation Smoking history: Current every day smoker Have you smoked in the past 12 months: Yes Aproximately how many cigarettes per day: 20 Cigars Per Day: 0 Hx Chewing Tobacco Use: No Initiated information on smoking cessation: Yes 'Breaking Loose' booklet given: 08/23/19 (pt states he gets a rash from patch and the gum gives him headache) - Substances abused Alcohol Substance route: Oral Frequency: Daily Amount used: 1 pint of vodka Age of first use: 20 Date of last use: 08/19/19 Cocaine Substance route: Inhalation Frequency: Daily Amount used: 1 gram Age of first use: 20 Date of last use: 08/18/19 Admission Physical Exam [facility] - Vital Signs Vital Signs: Vital Signs - 24 hr 08/23/19 12:39 Temperature 96.8 F L Pulse Rate 75 Respiratory 18 Rate Blood Pressure 133/78 - Physical General Appearance: Yes: Within Normal Limits HEENTM: Yes: Within Normal Limits Respiratory: Yes: Lungs Clear Neck: Yes: Within Normal Limits Breast: Yes: Breast Exam Deferred Cardiology: Yes: S1, S2, Tachycardia Abdominal: Yes: Normal Bowel Sounds, Non Tender, Flat, Soft Genitourinary: Yes: Other (deferred) Back: Yes: Normal Inspection Musculoskeletal: Yes: Joint swelling (enlarged/slightly deformed bilateral ankle joints, right lateral 5th metatarsal bulge/pt attributes to old fracture.) Extremities: Yes: Within Normal Limits Neurological: Yes: Alert, Normal Response Integumentary: Yes: Other (multiple superficial scars on forearm, scratches on right antecubital fossa and bilateral anterior legs. Tattoos bilateral arms. Varicose veins anterior leg) Lymphatic: Yes: Other Cleared for Admission S - Detox or Rehab [facility] Level of Care: Medically Supervised Breathalyzer - Breathalyzer Breathalyzer: 0 Urine Drug Screen - Test Device Lot number: [id number] Expiration date: 05/15/21 - Control Is test valid?: No - Results Drug screen NEGATIVE: Yes Urine drug screen results: PALLAVI-Cocaine, BZO-Benzodiazepines Inpatient Rehab Admission - Rehab Decision to Admit Inpatient rehab admission?: Yes - Initial Determination Are CD services needed?: Yes Free of communicable disease: Yes Not in need of hospitalization: Yes - Rehab Admission Criteria Previous failed treatment: Yes Poor recovery environment: Yes Comorbidities: Yes Lacks judgement: Yes Patient is meeting Inpatient Rehab admission criteria:: Yes
[2019-08-23] MEDS ORDERED: METOCLOPRAMIDE HCL 10 MG TABLET (FP) PO PRN (13:33)
[2019-08-23] MEDS ORDERED: ACETAMINOPHEN 325 MG TABLET (FP) PO PRN (13:36)
[2019-08-23] MEDS ORDERED: MAGNESIUM HYDROX 2400MG/30ML ORAL SUSPENSION 30 ML CUP PO PRN (13:36)
[2019-08-23] MEDS ORDERED: NICOTINE POLACRILEX 2 MG GUM BUC PRN (13:36)
[2019-08-23] MEDS ORDERED: LOPERAMIDE HCL 2 MG CAPSULE PO PRN (13:36)
[2019-08-23] MEDS ORDERED: P-EPHED 60MG/TRIPROLIDI 2.5MG TABLET PO PRN (13:36)
[2019-08-23] MEDS ORDERED: MAG HYDROX/AL HYDROX/SIMETH 30 ML UNIT-DOSE CUP PO PRN (13:36)
[2019-08-23] MEDS ORDERED: MAGNESIUM CITRATE 300 ML BOTTLE PO PRN (13:36)
[2019-08-23] MEDS ORDERED: guaiFENesin 200 MG/10 ML 10 ML UNIT-DOSE CUPS PO PRN (13:36)
[2019-08-23] MEDS: LISINOPRIL 10 MG TABLET (FP) PO SCH (14:17)
[2019-08-23] MEDS: metFORMIN HCL 500 MG TABLET (FP) PO SCH ×2 (14:17→17:25)
[2019-08-23] MEDS: ASPIRIN COATED 81 MG TABLET.EC PO SCH (14:17)
[2019-08-23] MEDS: hydrOXYzine PAMOATE 25 MG CAPSULE (FP) PO SCH ×3 (14:18→21:45)
--- NOTE | 2019-08-23 16:56 | CONSULT ---
[facility] Psychiatric Consult - Data Date of interview: 08/23/19 Admission source: [facility] Identifying data: Readmission to [address] for this 59 y/o male, post-detoxification at [facility] (discharged home on 08/22/19), who presented at [facility] today with request for rehabilitative care aiming at safeguarding sobriety + addressing LOULOU issues (alcohol, cocaine/crack, nicotine) co-morbid with bipolar disorder + insomnia. Patient is single without children, homeless, unemployed and supported on SSI benefits. Substance Abuse History: Re-discussed with the patient. LOULOU profile as follows : Smoking history: Current every day smoker. Have you smoked in the past 12 months: Yes. Aproximately how many cigarettes per day: 20. Cigars Per Day: 0. Hx Chewing Tobacco Use: No. Initiated information on smoking cessation: Yes. 'Breaking Loose' booklet given: 08/23/19 (pt states he gets a rash from patch and the gum gives him headache). - Substances abused. Alcohol. Substance route: Oral. Frequency: Daily. Amount used: 1 pint of vodka. Age of first use: 20. Date of last use: 08/19/19. Cocaine. Substance route: Inhalation. Frequency: Daily. Amount used: 1 gram. Age of first use: 20. Date of last use: 08/18/19 Medical History: Medical profile is remarkable for seborrheic dermatitis, diabetes mellitus, hypertension, GERD, dyslipidemia, history of appendectomy + orthosurgery for fracture of right ankle. Psychiatric History: Patient presents with an extensive history of mental illness (onset at age 27). Multiple psychiatric hospitalizations ([facility], [facility], [facility]). Diagnosed with Bipolar Disorder. Known for sub-optimal adherence to psychiatric OPD care (including medications). Mr Ramos utilizes the [facility] OPD walk-in clinic for psychiatric aftercare. Patient is prescribed seroquel 200 mg po bid + trazodone 100 mg/hs. History of suicide attempts (self-mutilation). Physical/Sexual Abuse/Trauma History: Patient denies. Additional Comment: Urine drug screen results: PALLAVI-Cocaine, BZO-Benzodiazepines. Noted. Mental Status Exam - Mental Status Exam Alert and Oriented to: Time, Place, Person Cognitive Function: Good Patient Appearance: Well Groomed Mood: Withdrawn, Hopeful Affect: Mood Congruent, Constricted Patient Behavior: Fatigued, Appropriate, Cooperative Speech Pattern: Clear, Appropriate Voice Loudness: Normal Thought Process: Intact, Goal Oriented Thought Disorder: Not Present Hallucinations: Denies Suicidal Ideation: Denies Homicidal Ideation: Denies Insight/Judgement: Fair Sleep: Poorly, Difficulty falling asleep Appetite: Good Gait/Station: Normal Psychiatric Findings - Problem List ([place] 1, 2,3) (1) Alcohol use disorder Current Visit: Yes Status: Chronic (2) Cocaine dependence Current Visit: Yes Status: Chronic Qualifiers: Substance use status: uncomplicated Qualified Code(s): F14.20 - Cocaine dependence, uncomplicated (3) Nicotine dependence Current Visit: Yes Status: Chronic Qualifiers: Nicotine product type: cigarettes Substance use status: in withdrawal Qualified Code(s): F17.213 - Nicotine dependence, cigarettes, with withdrawal (4) Substance induced mood disorder Current Visit: Yes Status: Chronic (5) Schizoaffective disorder Current Visit: Yes Status: Chronic Qualifiers: Schizoaffective disorder type: unspecified Qualified Code(s): F25.9 - Schizoaffective disorder, unspecified Comment: By history. (6) Insomnia Current Visit: Yes Status: Chronic Qualifiers: Insomnia type: unspecified Qualified Code(s): G47.00 - Insomnia, unspecified - Initial Treatment Plan Initial Treatment Plan: Psychoeducation. Sleep hygiene. Support. Motivational counseling. Groups. Recreational therapy. Medications resumed as : seroquel 200 mg po bid + trazodone 100 mg po hs. Side effects/benefits of both drugs are discussed with the patient. Made awarein particular, of the potential for metabolic syndrome, sedation/falls, cardiovascular adverse events and priapism. Mr Veliz insists on the resumption of his medications (already prescribed on the detoxification unit). Endorses good response and tolerability. Informed consent (verbal) taken from patient. Observation.
[2019-08-23] MEDS: traZODone HCL 100 MG TABLET (FP) PO SCH (21:44)
[2019-08-23] MEDS: FAMOTIDINE 40 MG TABLET PO SCH (21:45)
[2019-08-23] MEDS: ATORVASTATIN CA 40 MG TABLET (FP) PO SCH (21:45)
[2019-08-23] MEDS: THIAMINE HCL 100 MG TABLET (FP) PO SCH (21:45)
[2019-08-23] MEDS: QUEtiapine FUMARATE 200 MG TABLET PO SCH (21:45)
[2019-08-23] MEDS: MELATONIN 5 MG TABLETS PO SCH (22:00)
[2019-08-24] MEDS: hydrOXYzine PAMOATE 25 MG CAPSULE (FP) PO SCH ×5 (07:42→21:46)
[2019-08-24] MEDS: metFORMIN HCL 500 MG TABLET (FP) PO SCH ×2 (07:47→16:44)
[2019-08-24] MEDS: QUEtiapine FUMARATE 200 MG TABLET PO SCH ×2 (10:51→21:45)
[2019-08-24] MEDS: LISINOPRIL 10 MG TABLET (FP) PO SCH (10:51)
[2019-08-24] MEDS: PRENATAL VITAMINS W/ FOLIC ACID TABLET (FP) PO SCH (10:51)
[2019-08-24] MEDS: ASPIRIN COATED 81 MG TABLET.EC PO SCH (10:51)
--- NOTE | 2019-08-24 13:33 | PN ---
[facility] Progress Note Note: Pt is a 59 y/o male with a hx of LOULOU admitted to rehab through [facility]. Pt completed detox [place] on 08/22/19 and returned to [facility] for rehab on 08/23/19. Today, pt is c/o right shoulder pain, "when I move shoulder or turn around which started 2 days ago in detox" rated at "10/10 and has not change". Pt reports he has a primary care doctor at [facility]("I forgot her name"). Vital Signs - 24 hr 08/23/19 08/24/19 08/24/19 14:30 00:30 07:30 Temperature 97.9 F 97.7 F Pulse Rate 72 75 Respiratory 18 16 16 Rate Blood Pressure 120/70 107/74 Laboratory Tests 08/23/19 08/23/19 08/24/19 12:33 17:17 06:45 POC Glucometer 129 119 132 Alert o x 3 nad oob ambulating with steady gait. extremities/skin:no edema;small dry abrasion on left lower leg. A/P Right shoulder pain Maintain safety analgesic balm apply to right shoulder as directed. Robaxin 500 mg po TID prn
[2019-08-24] MEDS: IBUPROFEN 400 MG TABLET (FP) PO PRN (14:14)
[2019-08-24] MEDS: METHOCARBAMOL 500 MG TABLET PO PRN (14:32)
[2019-08-24] MEDS: METHYL SALICYLATE/MENTHOL OINT 30 GM TUBE TP SCH ×2 (14:33→21:46)
[2019-08-24] MEDS: FAMOTIDINE 40 MG TABLET PO SCH (21:45)
[2019-08-24] MEDS: ATORVASTATIN CA 40 MG TABLET (FP) PO SCH (21:45)
[2019-08-24] MEDS: MELATONIN 5 MG TABLETS PO SCH (21:45)
[2019-08-24] MEDS: traZODone HCL 100 MG TABLET (FP) PO SCH (21:45)
[2019-08-24] MEDS: THIAMINE HCL 100 MG TABLET (FP) PO SCH (21:46)
[2019-08-25] MEDS: metFORMIN HCL 500 MG TABLET (FP) PO SCH ×2 (06:25→16:30)
[2019-08-25] MEDS: hydrOXYzine PAMOATE 25 MG CAPSULE (FP) PO SCH ×5 (06:25→21:02)
[2019-08-25] MEDS: PRENATAL VITAMINS W/ FOLIC ACID TABLET (FP) PO SCH (11:03)
[2019-08-25] MEDS: QUEtiapine FUMARATE 200 MG TABLET PO SCH ×2 (11:03→21:02)
[2019-08-25] MEDS: LISINOPRIL 10 MG TABLET (FP) PO SCH (11:03)
[2019-08-25] MEDS: ASPIRIN COATED 81 MG TABLET.EC PO SCH (11:03)
[2019-08-25] MEDS: METHYL SALICYLATE/MENTHOL OINT 30 GM TUBE TP SCH ×2 (11:04→21:09)
[2019-08-25] MEDS: IBUPROFEN 400 MG TABLET (FP) PO PRN (16:06)
--- NOTE | 2019-08-25 17:23 | PN ---
[facility] Progress Note Note: Psychiatry Attending's note : Approached by patient. Complaint : refractory insomnia. No response on trazodone 100 mg/hs. Intervention : Sleep hygiene. Trazodone 150 mg po hs. Side effects/benefits discussed. Mr Veliz gave verbal consent to
[2019-08-25] MEDS: FAMOTIDINE 40 MG TABLET PO SCH (21:02)
[2019-08-25] MEDS: ATORVASTATIN CA 40 MG TABLET (FP) PO SCH (21:03)
[2019-08-25] MEDS: MELATONIN 5 MG TABLETS PO SCH (21:03)
[2019-08-25] MEDS: THIAMINE HCL 100 MG TABLET (FP) PO SCH (21:03)
[2019-08-25] MEDS ORDERED: traZODone HCL 50 MG TABLET (FP) PO SCH (22:00)
[2019-08-26] MEDS: metFORMIN HCL 500 MG TABLET (FP) PO SCH (06:18)
[2019-08-26 07:28] VITALS: BP 118/75; PULSE 77; TEMP 97.9
[2019-08-26] MEDS: METHOCARBAMOL 500 MG TABLET PO PRN (07:37)
[2019-08-26] MEDS: hydrOXYzine PAMOATE 25 MG CAPSULE (FP) PO SCH ×2 (07:38→09:45)
--- NOTE | 2019-08-26 09:38 | DS ---
[facility] Rehab Discharge Summary - [facility] Rehab Discharge Summary Admission Date: 08/23/19 Discharge Date: 08/26/19 - History Present History: Alcohol dependence, Cocaine dependence Pertinent Past History: HTN, DM, GERD, hyperlipidemia, bipolar disorder, depression and schizophrenia - Discharge Physical Exam Vital Signs: Vital Signs Temperature 97.9 F 08/26/19 07:24 Pulse Rate 77 08/26/19 07:24 Respiratory Rate 18 08/26/19 07:24 Blood Pressure 118/75 08/26/19 07:24 O2 Sat by Pulse Oximetry (%) Pertinent Admission Physical Exam Findings: Laboratory Last Values POC Glucometer 107 UNITS (80-120) 08/26/19 06:18 - Treatment Discharge Condition: Discharge condition good Hospital Course: Patient in no apparent distress, A&Ox 3, adamant on early discharge because he is bored. - Medication Discharge Medications: Ambulatory Orders Atorvastatin Ca [Lipitor] 40 mg PO HS 04/18/19 Lisinopril 10 mg PO DAILY 04/18/19 metFORMIN HCL [Metformin HCl] 500 mg PO BID 04/18/19 Aspirin [Aspirin EC] 81 mg PO DAILY 07/22/19 Famotidine 40 mg PO HS 07/22/19 Metoclopramide HCl 10 mg PO TID PRN 07/22/19 Quetiapine Fumarate [Seroquel -] 200 mg PO BID #60 tablet 07/25/19 traZODone HCL [Desyrel -] 100 mg PO HS PRN #30 tablet 07/25/19 Omeprazole 20 mg PO DAILY 08/19/19 - Medication-Assisted Treatment (MAT) Medication-Assisted Treatment (MAT): No - Discharge Instructions Diet, activity, other medical instructions: Diet: 1800 calorie, RYAN Activity: No restrictions Other medical instructions: - Diagnosis (1) Alcohol use disorder Current Visit: Yes Status: Chronic (2) Cocaine dependence Current Visit: Yes Status: Chronic Qualifiers: Substance use status: uncomplicated Qualified Code(s): F14.20 - Cocaine dependence, uncomplicated (3) Nicotine dependence Current Visit: Yes Status: Chronic Qualifiers: Nicotine product type: cigarettes Substance use status: in withdrawal Qualified Code(s): F17.213 - Nicotine dependence, cigarettes, with withdrawal (4) Bipolar disorder Current Visit: Yes Status: Chronic Qualifiers: Active/Remission status: remission status unspecified Qualified Code(s): F31.9 - Bipolar disorder, unspecified (5) Depression Current Visit: No Status: Chronic Qualifiers: Depression Type: major depressive disorder Major depression recurrence: recurrent Psychotic features: without psychotic features (6) Diabetes mellitus treated with oral medication Current Visit: Yes Status: Chronic (7) GERD (gastroesophageal reflux disease) Current Visit: Yes Status: Chronic Qualifiers: Esophagitis presence: without esophagitis Qualified Code(s): K21.9 - Gastro-esophageal reflux disease without esophagitis (8) Hyperlipidemia Current Visit: Yes Status: Chronic Qualifiers: Hyperlipidemia type: pure hypercholesterolemia Qualified Code(s): E78.00 - Pure hypercholesterolemia, unspecified; E78.0 - Pure hypercholesterolemia - AMA Did Patient Leave Against Medical Advice: No Additional Comments: Patient in treatment 4 days, requests early d/c, he has been accepted to [facility]
[2019-08-26] MEDS: PRENATAL VITAMINS W/ FOLIC ACID TABLET (FP) PO SCH (09:45)
[2019-08-26] MEDS: QUEtiapine FUMARATE 200 MG TABLET PO SCH (09:45)
[2019-08-26] MEDS: LISINOPRIL 10 MG TABLET (FP) PO SCH (09:45)
[2019-08-26] MEDS: ASPIRIN COATED 81 MG TABLET.EC PO SCH (09:45)
[2019-08-26] MEDS: METHYL SALICYLATE/MENTHOL OINT 30 GM TUBE TP SCH (09:45)
== END 2019-08-26 09:55 | disposition home or self-care (01) | DRG 772 ==
LOC: YASAS 11:52 → Y5N 13:10
PROVIDERS: ADMIT Allergy & Immunology; ATTEND Allergy & Immunology
PROC: HZ42ZZZ Group Counseling for Substance Abuse Treatment, Cognitive-Behavioral (ICD-10-PCS; principal; 2019-08-23)
DX: F10.20 Alcohol dependence, uncomplicated (principal); F14.20 Cocaine dependence, uncomplicated; F17.210 Nicotine dependence, cigarettes, uncomplicated; F25.9 Schizoaffective disorder, unspecified; F31.9 Bipolar disorder, unspecified; F19.24 Other psychoactive substance dependence with psychoactive substance-induced mood disorder; I10 Essential (primary) hypertension; K21.9 Gastro-esophageal reflux disease without esophagitis; G47.00 Insomnia, unspecified; E78.5 Hyperlipidemia, unspecified; E11.9 Type 2 diabetes mellitus without complications; Z79.84 Long term (current) use of oral hypoglycemic drugs; M25.511 Pain in right shoulder; L21.8 Other seborrheic dermatitis; Z91.5 Personal history of self-harm; Z59.0 Homelessness
CPT/HCPCS: 82962

== ENCOUNTER 2020-03-25 08:36 | Inpatient (IN) | payer OTHER ==
--- OUTSIDE RECORDS SUMMARY | 2020-03-25 08:42 | XMS ---
:1960 Author Organization [facility] Name Relationship Address Phone UE Unavailable Unavailable Unavailable [employer] [place] [employer] [id number] Re-disclosure Warning The records that you are about to access may contain information from federally- assisted alcohol or drug abuse programs. If such information is present, then the following federally mandated warning applies: This information has been disclosed to you from records protected by federal confidentiality rules (42 CFR part 2). The federal rules prohibit you from making any further disclosure of this information unless further disclosure is expressly permitted by the written consent of the person to whom it pertains or as otherwise permitted by 42 CFR part 2. A general authorization for the release of medical or other information is NOT sufficient for this purpose. The Federal rules restrict any use of the information to criminally investigate or prosecute any alcohol or drug abuse patient.The records that you are about to access may contain highly sensitive health information, the redisclosure of which is protected by Article 27-F of the [facility] Public Health law. If you continue you may haveaccess to information: Regarding HIV / AIDS; Provided by facilities licensed or operated by the [facility] Office of Mental Health; or Provided by the [facility] Office for People With Developmental Disabilities. If such information is present, then the following [facility] mandated warning applies: This information has been disclosed to you from confidential records which are protected by state law. State law prohibits you from making any further disclosure of this information without the specific written consent of the person to whom it pertains, or as otherwise permitted by law. Any unauthorized further disclosure in violation of state law may result in a fine or alf sentence or both. A general authorization for the release of medical or other information is NOT sufficient authorization for further disclosure. Insurance Providers Payer name Policy type Policy ID Covered Covered green party's Policy P ortiz / Coverage green party ID relationship to [employer] Inf ormation type [employer] [id number] SP [id number] [employer] [id number] SP [id number] [employer] [facility] [id number] SP [id number] J Results ID Date Data Source [id number] 10/30/2019 01:38:00 PM EDT [facility] Name Value Range Interpretation Description Data Sup porting Code Source(s) Document(s ) SARS [facility] Coronavirus 2 RNA Presence Respiratory Specimen RODY Probe Detection This lab was ordered by [facility] and reported by [facility]. Procedure
--- NOTE | 2020-03-25 08:48 | BHS.RME ---
Substance Use & Tx History - Substance Use History Alcohol Substance amount: 2 pints Vodka Frequency of use: Daily Substance route: Oral Date of Last Use: 03/25/20 Cocaine- Powder Substance amount: 3-4 grams Frequency of use: Daily Substance route: Inhalation (ex: sniffing or snorting) Date of Last Use: 03/24/20 Cocaine-Crack Substance amount: 2-3 grams Frequency of use: Daily Substance route: Smoking Date of Last Use: 03/25/20 Nicotine Substance amount: one pack Frequency of use: Daily Substance route: Smoking Date of Last Use: 03/25/20 - Last Treatment Date of last treatment: October 23 to October [id number] Treatment type: Substance Use Disorder (LOULOU) Where was last treatment: Detox Physical/Psych/Mental Status - Behavior General Behavior: Decreased activity Eye Contact: Normal - Cooperativeness Cooperativeness: Cooperative - Thinking Thought Processes: Tight Thought content: Future oriented - Physical Health Problems Is patient presently having any pain?: No Does patient presently have any injuries (include location): No Does patient currently have a fever: No CIWA Nausea/Vomitin-Mild Nausea/No Vomiting Muscle Tremors: 4-Moderate,w/Arms Extend Anxiety: 3 Agitation: 2 Paroxysmal Sweats: 2 Orientation: 0-Oriented Tacttile Disturbances: 0-None Auditory Disturbances: 0-None Visual Disturbances: 0-None Headache: 0-None Present CIWA-Ar Total Score: 12
[2020-03-25 08:55] VITALS: BMI 27.4
[2020-03-25] MEDS ORDERED: MAG HYDROX/AL HYDROX/SIMETH 30 ML UNIT-DOSE CUP PO PRN (09:03)
[2020-03-25] MEDS ORDERED: MENTHOL/PHENOL 1 EACH UD MM PRN (09:03)
[2020-03-25] MEDS ORDERED: METHOCARBAMOL 500 MG TABLET PO PRN (09:03)
[2020-03-25] MEDS ORDERED: ONDANSETRON *ODT* 4 MG TABLET SL PRN (09:03)
[2020-03-25] MEDS ORDERED: NICOTINE POLACRILEX 2 MG GUM BUC PRN (09:03)
[2020-03-25] MEDS ORDERED: BISMUTH SUBSALICYLATE 262 MG/15 ML BTL PO PRN (09:03)
[2020-03-25] MEDS ORDERED: MAGNESIUM CITRATE 300 ML BOTTLE PO PRN (09:03)
[2020-03-25] MEDS ORDERED: IBUPROFEN 400 MG TABLET (FP) PO PRN (09:03)
[2020-03-25] MEDS ORDERED: MAGNESIUM HYDROX 2400MG/30ML ORAL SUSPENSION 30 ML CUP PO PRN (09:03)
[2020-03-25] MEDS ORDERED: chlordiazePOXIDE HCL 25 MG CAPSULE PO PRN (09:03)
[2020-03-25] MEDS ORDERED: ACETAMINOPHEN 325 MG TABLET (FP) PO PRN ×2 (09:03)
--- NOTE | 2020-03-25 09:03 | HP ---
CIWA Score Nausea/Vomitin-Mild Nausea/No Vomiting Muscle Tremors: 4-Moderate,w/Arms Extend Anxiety: 3 Agitation: 2 Paroxysmal Sweats: 2 Orientation: 0-Oriented Tacttile Disturbances: 0-None Auditory Disturbances: 0-None Visual Disturbances: 0-None Headache: 0-None Present CIWA-Ar Total Score: 12 - Admission Criteria OASAS Guidelines: Admission for Medically Managed Detox: Requires at least one of the followin. CIWA greater than 12 2. Seizures within the past 24 hours 3. Delirium tremens within the past 24 hours 4. Hallucinations within the past 24 hours 5. Acute intervention needed for co occurring medical disorder 6. Acute intervention needed for co occurring psychiatric disorder 7. Severe withdrawal that cannot be handled at a lower level of care (continued vomiting, continued diarrhea, abnormal vital signs) requiring intravenous medication and/or fluids 8. Admitting History and Physical - Admission Chief Complaint: Mr. Veliz is a 60 yo man who presents to [facility] requesting admission to detox for alcohol use disorder. History of Present Illness: Mr. Veliz is a 60 yo man who presents to [facility] requesting admission to detox for alcohol use disorder. 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 Cocaine- Powder Substance amount: 3-4 grams Frequency of use: Daily Substance route: Inhalation (ex: sniffing or snorting) Date of Last Use: 03/24/20 Cocaine-Crack Substance amount: 2-3 grams Frequency of use: Daily Substance route: Smoking Date of Last Use: 03/25/20 Nicotine Substance amount: one pack Frequency of use: Daily Substance route: Smoking Date of Last Use: 03/25/20 - Last Treatment Date of last treatment: October 23 to October [id number] Treatment type: Substance Use Disorder (LOULOU) Where was last treatment: Detox History Source: Patient Limitations to Obtaining History: No Limitations - Past Medical History 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 Cardiovascular: Yes: HTN, Hyperlipdemia Gastrointestinal: Yes: GERD Hepatobiliary: Yes: Cirrhosis Psych: Yes: Bipolar, Depression, Schizophrenia Musculoskeletal: Yes: Chronic low back pain Endocrine: Yes: Diabetes Mellitus - Past Surgical History Past Surgical History: Yes: Appendectomy - Smoking History Smoking history: Current every day smoker Have you smoked in the past 12 months: Yes Aproximately how many cigarettes per day: 20 - Alcohol/Substance Use Hx Alcohol Use: Yes History of Substance Use: reports: Cocaine - Social History ADL: Independent Occupation: unemployed History of Recent Travel: No Admission ROS S - HPI Allergies/Adverse Reactions: Allergies Allergy/AdvReac Type Severity Reaction Status Date / Time tuna oil Allergy Severe Rash Verified 03/25/20 08:58 nitroglycerin AdvReac Intermediate Rash Verified 03/25/20 08:58 TUNA FISH Allergy Severe Rash Uncoded 03/25/20 08:58 Exam Limitations: No Limitations - Ebola screening Have you traveled outside of the country in the last 21 days: No Have you been sick,other than usual withdrawal symptoms: No Do you have a fever: No - Review of Systems Constitutional: No Symptoms Reported EENT: reports: Blurred Vision (lifelong loss of acuity left eye) Respiratory: reports: No Symptoms reported Cardiac: reports: No Symptoms Reported GI: reports: Nausea, Other (right upper quadrant pain) : reports: No Symptoms Reported Musculoskeletal: reports: Joint Pain (hx right 5th metatarsal fracture with associated deformity and pain, callous formation) Integumentary: reports: No Symptoms Reported Neuro: reports: No Symptoms reported Endocrine: reports: Other (compliant with metformin, last dose today) Hematology: reports: No Symptoms Reported Psychiatric: reports: No Sypmtoms Reported Patient History - Patient Medical History Hx Anemia: No Hx Asthma: No Hx Chronic Obstructive Pulmonary Disease (COPD): No Hx Cancer: No Hx Cardiac Disorders: No Hx Congestive Heart Failure: No Hx Hypertension: Yes (on meds.) Hx Hypercholesterolemia: Yes (on med) Hx Pacemaker: No HX Cerebrovascular Accident: No Hx Seizures: No Hx Dementia: No Hx Diabetes: Yes (Type II) Hx Gastrointestinal Disorders: Yes (acid reflux) Hx Liver Disease: Yes (? cirrhosis, elevated LFTs with etoh) Hx Genitourinary Disorders: No Hx Sexually Transmitted Disorders: No Hx Renal Disease (ESRD): No Hx Thyroid Disease: No Hx Human Immunodeficiency Virus (HIV): No (hiv 2019 negative) Hx Hepatitis C: No Hx Depression: Yes Hx Suicide Attempt: Yes (15yrs ago - cutting) Hx Bipolar Disorder: Yes (on meds, sees psych at [facility]) Hx Schizophrenia: Yes - Patient Surgical History Past Surgical History: Yes Hx Neurologic Surgery: No Hx Cataract Extraction: No Hx Cardiac Surgery: No Hx Lung Surgery: No Hx Breast Surgery: No Hx Breast Biopsy: No Hx Abdominal Surgery: No Hx Appendectomy: Yes (at age 6) Hx Cholecystectomy: No Hx Genitourinary Surgery: No Hx Section: No Hx Orthopedic Surgery: No Other Surgical History: DENIES. Anesthesia Reaction: No - PPD History Date: 12/04/18 Results: NEGATIVE - Smoking Cessation Smoking history: Current every day smoker Have you smoked in the past 12 months: Yes Aproximately how many cigarettes per day: 20 Cigars Per Day: 0 Hx Chewing Tobacco Use: No Initiated information on smoking cessation: Yes 'Breaking Loose' booklet given: 03/25/20 Admission Physical Exam S - Vital Signs Vital Signs: Vital Signs - 24 hr 03/25/20 08:53 Temperature 97.5 F L Pulse Rate 84 Respiratory 20 Rate Blood Pressure 130/86 - Physical General Appearance: Yes: No Apparent Distress, Nourished, Appropriately Dressed HEENTM: Yes: EOMI, Hearing grossly Normal, Normocephalic, Normal Voice Respiratory: Yes: Lungs Clear, No Respiratory Distress, No Accessory Muscle Use Neck: Yes: Within Normal Limits, Supple Breast: Yes: Breast Exam Deferred Cardiology: Yes: Regular Rhythm, Regular Rate Abdominal: Yes: Normal Bowel Sounds, Non Tender, Flat, Soft Genitourinary: Yes: Other (deferred) Back: Yes: Within Normal Limits Musculoskeletal: Yes: Gait Steady Extremities: Yes: Normal Inspection, Non-Tender Integumentary: Yes: Other (multiple linear scars in bilateral forarms, pt states self induced) - Diagnostic (1) Alcohol dependence with uncomplicated withdrawal Current Visit: Yes Status: Acute (2) Cocaine dependence Current Visit: Yes Status: Acute Qualifiers: Substance use status: uncomplicated (3) Diabetes mellitus treated with oral medication Current Visit: Yes Status: Chronic (4) HTN (hypertension) Current Visit: Yes Status: Chronic Qualifiers: Hypertension type: essential hypertension (5) Nicotine dependence Current Visit: Yes Status: Chronic Qualifiers: Nicotine product type: cigarettes Substance use status: uncomplicated Qualified Code(s): F17.210 - Nicotine dependence, cigarettes, uncomplicated (6) Bipolar disorder Current Visit: Yes Status: Chronic Cleared for Admission [facility] - Detox or Rehab [facility] Level of Care: Medically Managed Detox Regimen/Protocol: Librium Breathalyzer - Breathalyzer Breathalyzer: 0 Urine Drug Screen - Test Device Lot number: [id number] Expiration date: 09/26/21 - Control Is test valid?: Yes - Results Drug screen NEGATIVE: No Urine drug screen results: PALLAVI-Cocaine, BZO-Benzodiazepines Inpatient Rehab Admission - Rehab Decision to Admit Inpatient rehab admission?: No
[2020-03-25] MEDS: LISINOPRIL 10 MG TABLET PO SCH (12:34)
[2020-03-25] MEDS: PANTOPRAZOLE 20 MG TABLET PO SCH (12:34)
[2020-03-25] MEDS: amLODIPine BESYLATE 5 MG TABLET (FP) PO SCH (12:34)
[2020-03-25] MEDS: PRENATAL VITAMINS W/ FOLIC ACID TABLET (FP) PO SCH (12:34)
[2020-03-25] MEDS: ASPIRIN COATED 81 MG TABLET.EC PO SCH (12:34)
[2020-03-25] MEDS: BENZTROPINE MESYLATE 1 MG TABLET PO SCH ×2 (12:34→22:08)
[2020-03-25] MEDS: hydrOXYzine PAMOATE 25 MG CAPSULE (FP) PO SCH ×4 (12:34→22:08)
[2020-03-25] MEDS: chlordiazePOXIDE HCL 25 MG CAPSULE PO SCH ×3 (12:36→22:08)
--- NOTE | 2020-03-25 13:19 | CONSULT ---
[facility] Psychiatric Consult - Data Date of interview: 03/25/20 Admission source: Self-referred Identifying data: Mr Ramos is a 60 years old single male, unemployed receiving SSI, homeless seeking detox treatment for alcohol and cocaine Substance Abuse History: Reports history of alcohol, crack cocaine use. Refer to addiction counselor's summary for further information Medical History: Significant for type 2 diabetes mellitus, hypertension, dyslipidemia, GERD, hepatitis C, chronic low back pain, history of appendectomy at age 6 and orthosurgery for fracture of right ankle. Smokes cigarettes 1 ppd Psychiatric History: Patient is known for multiple previous admissionsto this facility. Historical narrative remains consistent. He endorses a long-standing history of mental illness with onset at age 27 carrying the diagnosis of Bipolar schizophrenia. Reports multiple psychiatric hospitalizations at various facilities including [facility], [facility], [facility], [facility], [facility] at [facility] for suicidal ideations. Reports he still receives outpatient psychiatric treatment at [facility] with Dr Mary Cole and he is prescribed Seroquel 200 mg/bid and Trazodone 100 mg/hs. Reports previous suicide attempts via self-mutilation(wrist cutting) more than 20 years ago. At present, denies experiencing psychotic, manic or depressive symptoms, S/H ideations. However, reports sleeping poorly without his medications Physical/Sexual Abuse/Trauma History: Denies history of emotional, physical or sexual abuse as well as DV relationship Mental Status Exam - Mental Status Exam Alert and Oriented to: Time, Place, Person Cognitive Function: Fair Patient Appearance: Well Groomed Mood: Hopeful, Euthymic Patient Behavior: Cooperative Speech Pattern: Clear Voice Loudness: Normal Thought Process: Intact, Goal Oriented Hallucinations: Denies Suicidal Ideation: Denies Homicidal Ideation: Denies Insight/Judgement: Poor Sleep: Poorly Appetite: Good Muscle strength/Tone: Normal Gait/Station: Normal Psychiatric Findings - Problem List ([place] 1, 2,3) (1) Schizoaffective disorder Current Visit: No Status: Chronic Qualifiers: Schizoaffective disorder type: unspecified Qualified Code(s): F25.9 - Schizoaffective disorder, unspecified Comment: By history. (2) Bipolar disorder Current Visit: Yes Status: Ruled-out (3) Substance-induced sleep disorder Current Visit: No Status: Acute (4) Alcohol dependence with uncomplicated withdrawal Current Visit: Yes Status: Acute (5) Cocaine dependence Current Visit: Yes Status: Acute Qualifiers: Substance use status: uncomplicated Qualified Code(s): F14.20 - Cocaine dependence, uncomplicated (6) Nicotine dependence Current Visit: Yes Status: Chronic Qualifiers: Nicotine product type: cigarettes Substance use status: uncomplicated Qualified Code(s): F17.210 - Nicotine dependence, cigarettes, uncomplicated (7) Diabetes mellitus treated with oral medication Current Visit: Yes Status: Chronic (8) HTN (hypertension) Current Visit: Yes Status: Chronic Qualifiers: Hypertension type: essential hypertension Qualified Code(s): I10 - Essential (primary) hypertension (9) GERD (gastroesophageal reflux disease) Current Visit: No Status: Chronic Qualifiers: Esophagitis presence: without esophagitis Qualified Code(s): K21.9 - Gastro-esophageal reflux disease without esophagitis (10) Hypercholesterolemia Current Visit: No Status: Chronic (11) Low back pain Current Visit: No Status: Chronic Qualifiers: Chronicity: chronic Back pain laterality: bilateral Sciatica presence: without sciatica Qualified Code(s): M54.5 - Low back pain; G89.29 - Other chronic pain - Initial Treatment Plan Initial Treatment Plan: 1) Continue Seroquel 200 mg po BID and Trazadone 100mg po HS. 2) Continue inpatient detoxification
[2020-03-25] MEDS: NICOTINE 21 MG/24 HOURS TOPICAL PATCH TD SCH (13:44)
[2020-03-25] MEDS: metFORMIN HCL 500 MG TABLET (FP) PO SCH ×2 (13:44→16:43)
[2020-03-25 14:43] LABS: HEMATOCRIT 43.4 % (35.4-49); MCH 31.6 pg (25.7-33.7); MCHC 34.6 g/dl (32.0-35.9); MEAN CELL VOLUME 91.4 fl (80-96); MEAN PLT VOLUME 9.6 fl (7.5-11.1); PLATELET COUNT 236 K/MM3 (134-434); RBC 4.75 M/mm3 (4.00-5.60); RDW 13.8 % (11.9-15.9)
[2020-03-25 14:52] LABS: ALBUMIN 4.3 g/dl (3.4-5.0); BILIRUBIN,TOTAL 0.6 mg/dL (0.2-1); BLOOD UREA NITROGEN 20.4 mg/dL (7-18); CALCIUM 9.5 mg/dL (8.5-10.1); CREATININE 0.8 mg/dL (0.55-1.3); POTASSIUM 4.2 mmol/L (3.5-5.1); TOT PROT 8.1 g/dl (6.4-8.2)
[2020-03-25] MEDS: QUEtiapine FUMARATE 200 MG TABLET PO SCH (22:08)
[2020-03-25] MEDS: THIAMINE HCL 100 MG TABLET (FP) PO SCH (22:08)
[2020-03-25] MEDS: traZODone HCL 100 MG TABLET (FP) PO PRN (22:08)
[2020-03-25] MEDS: ATORVASTATIN CA 40 MG TABLET (FP) PO SCH (22:08)
[2020-03-25] MEDS: MELATONIN 5 MG TABLETS PO SCH (22:10)
[2020-03-26] MEDS: chlordiazePOXIDE HCL 25 MG CAPSULE PO SCH ×4 (06:58→22:56)
[2020-03-26] MEDS: hydrOXYzine PAMOATE 25 MG CAPSULE (FP) PO SCH ×5 (06:58→22:57)
[2020-03-26] MEDS: metFORMIN HCL 500 MG TABLET (FP) PO SCH ×2 (06:58→18:00)
[2020-03-26] MEDS: PRENATAL VITAMINS W/ FOLIC ACID TABLET (FP) PO SCH (10:10)
[2020-03-26] MEDS: LISINOPRIL 10 MG TABLET PO SCH (10:10)
[2020-03-26] MEDS: BENZTROPINE MESYLATE 1 MG TABLET PO SCH ×2 (10:10→22:55)
[2020-03-26] MEDS: PANTOPRAZOLE 20 MG TABLET PO SCH (10:10)
[2020-03-26] MEDS: QUEtiapine FUMARATE 200 MG TABLET PO SCH ×2 (10:10→22:55)
[2020-03-26] MEDS: amLODIPine BESYLATE 5 MG TABLET (FP) PO SCH (10:10)
[2020-03-26] MEDS: ASPIRIN COATED 81 MG TABLET.EC PO SCH (10:10)
[2020-03-26] MEDS: NICOTINE 21 MG/24 HOURS TOPICAL PATCH TD SCH (10:10)
--- NOTE | 2020-03-26 10:26 | PN ---
S CIWA - CIWA Score Nausea/Vomitin-No Nausea/No Vomiting Muscle Tremors: 3 Anxiety: 2 Agitation: 2 Paroxysmal Sweats: 3 Orientation: 0-Oriented Tacttile Disturbances: 0-None Auditory Disturbances: 0-None Visual Disturbances: 0-None Headache: 0-None Present CIWA-Ar Total Score: 10 BHS Progress Note (SOAP) Subjective: sweats shakes interrupted sleep dry cough Objective: 03/26/20 10:34 Vital Signs Temperature 98.6 F 03/26/20 08:50 Pulse Rate 79 03/26/20 08:50 Respiratory Rate 18 03/26/20 08:50 Blood Pressure 150/73 03/26/20 08:50 O2 Sat by Pulse Oximetry (%) 96 03/26/20 08:50 Laboratory Tests 03/25/20 03/25/20 03/25/20 08:40 09:19 09:40 WBC 12.0 H RBC 4.75 Hgb 15.0 Hct 43.4 MCV 91.4 MCH 31.6 MCHC 34.6 RDW 13.8 Plt Count 236 MPV 9.6 Sodium Potassium Chloride Carbon Dioxide Anion Gap BUN Creatinine Est GFR (CKD-EPI)AfAm Est GFR (CKD-EPI)NonAf POC Glucometer 98 Random Glucose Calcium Total Bilirubin AST ALT Alkaline Phosphatase Total Protein Albumin Syphilis Serology COVID-19 (RODY) Not detected 03/25/20 03/25/20 03/25/20 09:40 09:40 16:23 WBC RBC Hgb Hct MCV MCH MCHC RDW Plt Count MPV Sodium 139 Potassium 4.2 Chloride 104 Carbon Dioxide 28 Anion Gap 8 BUN 20.4 H Creatinine 0.8 Est GFR (CKD-EPI)AfAm 111.74 Est GFR (CKD-EPI)NonAf 96.41 POC Glucometer 107 Random Glucose 84 Calcium 9.5 Total Bilirubin 0.6 AST 56 H ALT 70 H Alkaline Phosphatase 143 H Total Protein 8.1 Albumin 4.3 Syphilis Serology Non-reactive COVID-19 (RODY) 03/26/20 06:56 WBC RBC Hgb Hct MCV MCH MCHC RDW Plt Count MPV Sodium Potassium Chloride Carbon Dioxide Anion Gap BUN Creatinine Est GFR (CKD-EPI)AfAm Est GFR (CKD-EPI)NonAf POC Glucometer 130 Random Glucose Calcium Total Bilirubin AST ALT Alkaline Phosphatase Total Protein Albumin Syphilis Serology COVID-19 (RODY) aaox3 ambulating no acute distress Assessment: 03/26/20 10:39 withdrawal sx lungs cta, no s/s of respiratory distress Plan: continue detox robitussin prn
[2020-03-26] MEDS ORDERED: guaiFENesin 200 MG/10 ML 10 ML UNIT-DOSE CUPS PO PRN (10:43)
[2020-03-26] MEDS: ATORVASTATIN CA 40 MG TABLET (FP) PO SCH (22:54)
[2020-03-26] MEDS: traZODone HCL 100 MG TABLET (FP) PO PRN (22:54)
[2020-03-26] MEDS: THIAMINE HCL 100 MG TABLET (FP) PO SCH (22:54)
[2020-03-26] MEDS: MELATONIN 5 MG TABLETS PO SCH (22:56)
[2020-03-27] MEDS: hydrOXYzine PAMOATE 25 MG CAPSULE (FP) PO SCH ×5 (05:42→22:08)
[2020-03-27] MEDS: chlordiazePOXIDE HCL 25 MG CAPSULE PO SCH ×4 (05:42→22:08)
[2020-03-27] MEDS: metFORMIN HCL 500 MG TABLET (FP) PO SCH ×2 (06:37→18:40)
[2020-03-27] MEDS: NICOTINE 21 MG/24 HOURS TOPICAL PATCH TD SCH (10:17)
[2020-03-27] MEDS: PRENATAL VITAMINS W/ FOLIC ACID TABLET (FP) PO SCH (10:17)
[2020-03-27] MEDS: amLODIPine BESYLATE 5 MG TABLET (FP) PO SCH (10:17)
[2020-03-27] MEDS: ASPIRIN COATED 81 MG TABLET.EC PO SCH (10:17)
[2020-03-27] MEDS: PANTOPRAZOLE 20 MG TABLET PO SCH (10:17)
[2020-03-27] MEDS: QUEtiapine FUMARATE 200 MG TABLET PO SCH ×2 (10:17→22:08)
[2020-03-27] MEDS: BENZTROPINE MESYLATE 1 MG TABLET PO SCH ×2 (10:17→22:08)
--- NOTE | 2020-03-27 11:28 | PN ---
S CIWA - CIWA Score Nausea/Vomitin-No Nausea/No Vomiting Muscle Tremors: 3 Anxiety: 2 Agitation: 2 Paroxysmal Sweats: 1-Minimal Palms Moist Orientation: 0-Oriented Tacttile Disturbances: 0-None Auditory Disturbances: 0-None Visual Disturbances: 0-None Headache: 0-None Present CIWA-Ar Total Score: 8 BHS Progress Note (SOAP) Subjective: sweats pain to right ankle restless Objective: 03/27/20 11:24 Vital Signs Temperature 97.5 F L 03/27/20 09:25 Pulse Rate 83 03/27/20 09:25 Respiratory Rate 18 03/27/20 09:25 Blood Pressure 127/64 03/27/20 09:25 O2 Sat by Pulse Oximetry (%) 95 03/27/20 09:25 Laboratory Tests 03/25/20 03/25/20 03/25/20 08:40 09:19 09:40 WBC 12.0 H RBC 4.75 Hgb 15.0 Hct 43.4 MCV 91.4 MCH 31.6 MCHC 34.6 RDW 13.8 Plt Count 236 MPV 9.6 Sodium Potassium Chloride Carbon Dioxide Anion Gap BUN Creatinine Est GFR (CKD-EPI)AfAm Est GFR (CKD-EPI)NonAf POC Glucometer 98 Random Glucose Calcium Total Bilirubin AST ALT Alkaline Phosphatase Total Protein Albumin Syphilis Serology COVID-19 (RODY) Not detected 03/25/20 03/25/20 03/25/20 09:40 09:40 16:23 WBC RBC Hgb Hct MCV MCH MCHC RDW Plt Count MPV Sodium 139 Potassium 4.2 Chloride 104 Carbon Dioxide 28 Anion Gap 8 BUN 20.4 H Creatinine 0.8 Est GFR (CKD-EPI)AfAm 111.74 Est GFR (CKD-EPI)NonAf 96.41 POC Glucometer 107 Random Glucose 84 Calcium 9.5 Total Bilirubin 0.6 AST 56 H ALT 70 H Alkaline Phosphatase 143 H Total Protein 8.1 Albumin 4.3 Syphilis Serology Non-reactive COVID-19 (RODY) 03/26/20 03/26/20 03/27/20 06:56 16:37 05:42 WBC RBC Hgb Hct MCV MCH MCHC RDW Plt Count MPV Sodium Potassium Chloride Carbon Dioxide Anion Gap BUN Creatinine Est GFR (CKD-EPI)AfAm Est GFR (CKD-EPI)NonAf POC Glucometer 130 160 121 Random Glucose Calcium Total Bilirubin AST ALT Alkaline Phosphatase Total Protein Albumin Syphilis Serology COVID-19 (RODY) labs noted aaox3 ambulating pt will benefit with using a cane no acute distress Assessment: 03/27/20 11:25 withdrawal sx right ankle swelling noted. pt stats he broke his ankle two years ago and never addressed it with going to ED. now pt has a bulging deformed right ankle causing difficulty with walking properly. pt will benefit with applying analgesic balm and apply manish bandage and use a cane. Plan: continue detox
[2020-03-27] MEDS: LISINOPRIL 10 MG TABLET PO SCH (12:18)
[2020-03-27] MEDS: METHYL SALICYLATE/MENTHOL OINT 30 GM TUBE TP SCH ×2 (12:22→22:12)
[2020-03-27] MEDS: ATORVASTATIN CA 40 MG TABLET (FP) PO SCH (22:08)
[2020-03-27] MEDS: traZODone HCL 100 MG TABLET (FP) PO PRN (22:08)
[2020-03-27] MEDS: MELATONIN 5 MG TABLETS PO SCH (22:09)
[2020-03-27] MEDS: THIAMINE HCL 100 MG TABLET (FP) PO SCH (22:09)
[2020-03-28] MEDS ORDERED: chlordiazePOXIDE HCL 10 MG CAPSULE PO PRN
[2020-03-28] MEDS: chlordiazePOXIDE HCL 10 MG CAPSULE PO SCH ×4 (06:49→22:31)
[2020-03-28] MEDS: hydrOXYzine PAMOATE 25 MG CAPSULE (FP) PO SCH ×2 (06:49→10:10)
[2020-03-28] MEDS: metFORMIN HCL 500 MG TABLET (FP) PO SCH ×2 (08:05→18:19)
[2020-03-28] MEDS: QUEtiapine FUMARATE 200 MG TABLET PO SCH ×2 (10:09→21:32)
[2020-03-28] MEDS: BENZTROPINE MESYLATE 1 MG TABLET PO SCH ×2 (10:09→21:30)
[2020-03-28] MEDS: ASPIRIN COATED 81 MG TABLET.EC PO SCH (10:09)
[2020-03-28] MEDS: METHYL SALICYLATE/MENTHOL OINT 30 GM TUBE TP SCH ×2 (10:09→21:30)
[2020-03-28] MEDS: PANTOPRAZOLE 20 MG TABLET PO SCH (10:09)
[2020-03-28] MEDS: amLODIPine BESYLATE 5 MG TABLET (FP) PO SCH (10:10)
[2020-03-28] MEDS: LISINOPRIL 10 MG TABLET PO SCH (10:10)
[2020-03-28] MEDS: NICOTINE 21 MG/24 HOURS TOPICAL PATCH TD SCH (10:13)
[2020-03-28] MEDS: PRENATAL VITAMINS W/ FOLIC ACID TABLET (FP) PO SCH (10:13)
[2020-03-28] MEDS ORDERED: hydrOXYzine PAMOATE 25 MG CAPSULE (FP) PO PRN (11:05)
--- NOTE | 2020-03-28 11:08 | PN ---
S CIWA - CIWA Score Nausea/Vomitin-No Nausea/No Vomiting Muscle Tremors: 1-None Visible, but [place] Anxiety: 1-Mildly Anxious Agitation: 1-Slight > Activity Paroxysmal Sweats: 1-Minimal Palms Moist Orientation: 0-Oriented Tacttile Disturbances: 0-None Auditory Disturbances: 0-None Visual Disturbances: 0-None Headache: 0-None Present CIWA-Ar Total Score: 4 BHS Progress Note (SOAP) Subjective: restless sweats Objective: 03/28/20 11:06 Vital Signs Temperature 97.5 F L 03/28/20 09:52 Pulse Rate 82 03/28/20 09:52 Respiratory Rate 18 03/28/20 09:52 Blood Pressure 137/65 03/28/20 09:52 O2 Sat by Pulse Oximetry (%) 99 03/28/20 09:52 Laboratory Tests 03/25/20 03/25/20 03/25/20 08:40 09:19 09:40 WBC 12.0 H RBC 4.75 Hgb 15.0 Hct 43.4 MCV 91.4 MCH 31.6 MCHC 34.6 RDW 13.8 Plt Count 236 MPV 9.6 Sodium Potassium Chloride Carbon Dioxide Anion Gap BUN Creatinine Est GFR (CKD-EPI)AfAm Est GFR (CKD-EPI)NonAf POC Glucometer 98 Random Glucose Calcium Total Bilirubin AST ALT Alkaline Phosphatase Total Protein Albumin Syphilis Serology COVID-19 (RODY) Not detected 03/25/20 03/25/20 03/25/20 09:40 09:40 16:23 WBC RBC Hgb Hct MCV MCH MCHC RDW Plt Count MPV Sodium 139 Potassium 4.2 Chloride 104 Carbon Dioxide 28 Anion Gap 8 BUN 20.4 H Creatinine 0.8 Est GFR (CKD-EPI)AfAm 111.74 Est GFR (CKD-EPI)NonAf 96.41 POC Glucometer 107 Random Glucose 84 Calcium 9.5 Total Bilirubin 0.6 AST 56 H ALT 70 H Alkaline Phosphatase 143 H Total Protein 8.1 Albumin 4.3 Syphilis Serology Non-reactive COVID-19 (RODY) 03/26/20 03/26/20 03/27/20 06:56 16:37 05:42 WBC RBC Hgb Hct MCV MCH MCHC RDW Plt Count MPV Sodium Potassium Chloride Carbon Dioxide Anion Gap BUN Creatinine Est GFR (CKD-EPI)AfAm Est GFR (CKD-EPI)NonAf POC Glucometer 130 160 121 Random Glucose Calcium Total Bilirubin AST ALT Alkaline Phosphatase Total Protein Albumin Syphilis Serology COVID-19 (RODY) 03/27/20 03/28/20 16:37 06:11 WBC RBC Hgb Hct MCV MCH MCHC RDW Plt Count MPV Sodium Potassium Chloride Carbon Dioxide Anion Gap BUN Creatinine Est GFR (CKD-EPI)AfAm Est GFR (CKD-EPI)NonAf POC Glucometer 139 112 Random Glucose Calcium Total Bilirubin AST ALT Alkaline Phosphatase Total Protein Albumin Syphilis Serology COVID-19 (RODY) aaox3 ambulating no acute distress Assessment: 03/28/20 11:07 withdrawals pt states his ankle feels better with manish bandage when he walks Plan: continue detox increase fluids
[2020-03-28] MEDS: THIAMINE HCL 100 MG TABLET (FP) PO SCH (21:30)
[2020-03-28] MEDS: ATORVASTATIN CA 40 MG TABLET (FP) PO SCH (21:30)
[2020-03-28] MEDS: MELATONIN 5 MG TABLETS PO SCH (21:30)
[2020-03-29] MEDS ORDERED: chlordiazePOXIDE HCL 10 MG CAPSULE PO SCH (05:00)
[2020-03-29 06:28] VITALS: TEMP 97.8
[2020-03-29] MEDS: metFORMIN HCL 500 MG TABLET (FP) PO SCH (07:28)
[2020-03-29 10:08] VITALS: BP 119/64; PULSE 80
[2020-03-29] MEDS: METHYL SALICYLATE/MENTHOL OINT 30 GM TUBE TP SCH (10:38)
[2020-03-29] MEDS: BENZTROPINE MESYLATE 1 MG TABLET PO SCH (10:38)
[2020-03-29] MEDS: amLODIPine BESYLATE 5 MG TABLET (FP) PO SCH (10:39)
[2020-03-29] MEDS: PANTOPRAZOLE 20 MG TABLET PO SCH (10:39)
[2020-03-29] MEDS: QUEtiapine FUMARATE 200 MG TABLET PO SCH (10:39)
[2020-03-29] MEDS: ASPIRIN COATED 81 MG TABLET.EC PO SCH (10:39)
[2020-03-29] MEDS: PRENATAL VITAMINS W/ FOLIC ACID TABLET (FP) PO SCH (10:39)
[2020-03-29] MEDS: NICOTINE 21 MG/24 HOURS TOPICAL PATCH TD SCH (10:40)
--- NOTE | 2020-03-29 11:27 | PN ---
S CIWA - CIWA Score Nausea/Vomitin-No Nausea/No Vomiting Muscle Tremors: None Anxiety: 1-Mildly Anxious Agitation: 0-Normal Activity Paroxysmal Sweats: 1-Minimal Palms Moist Orientation: 0-Oriented Tacttile Disturbances: 0-None Auditory Disturbances: 0-None Visual Disturbances: 0-None Headache: 0-None Present CIWA-Ar Total Score: 2 BHS Progress Note (SOAP) Subjective: feeling better little sweats Objective: 03/29/20 11:26 Vital Signs Temperature 97.8 F 03/29/20 09:04 Pulse Rate 80 03/29/20 09:04 Respiratory Rate 18 03/29/20 09:04 Blood Pressure 119/64 03/29/20 09:04 O2 Sat by Pulse Oximetry (%) 97 03/29/20 09:04 aaoz3 ambulating no acute distress Assessment: 03/29/20 11:27 no withdrawals noted Plan: d/c today.
--- NOTE | 2020-03-29 11:29 | DS ---
[facility] Detox Discharge Summary Admission Date: 03/25/20 Discharge Date: 03/29/20 - History Present History: Alcohol Dependence, Cocaine Dependence - Physical Exam Results Vital Signs: Vital Signs Temperature 97.8 F 03/29/20 09:04 Pulse Rate 80 03/29/20 09:04 Respiratory Rate 18 03/29/20 09:04 Blood Pressure 119/64 03/29/20 09:04 O2 Sat by Pulse Oximetry (%) 97 03/29/20 09:04 Pertinent Admission Physical Exam Findings: Vital Signs Temperature 97.8 F 03/29/20 09:04 Pulse Rate 80 03/29/20 09:04 Respiratory Rate 18 03/29/20 09:04 Blood Pressure 119/64 03/29/20 09:04 O2 Sat by Pulse Oximetry (%) 97 03/29/20 09:04 Laboratory Tests 03/25/20 03/25/20 03/25/20 08:40 09:19 09:40 WBC 12.0 H RBC 4.75 Hgb 15.0 Hct 43.4 MCV 91.4 MCH 31.6 MCHC 34.6 RDW 13.8 Plt Count 236 MPV 9.6 Sodium Potassium Chloride Carbon Dioxide Anion Gap BUN Creatinine Est GFR (CKD-EPI)AfAm Est GFR (CKD-EPI)NonAf POC Glucometer 98 Random Glucose Calcium Total Bilirubin AST ALT Alkaline Phosphatase Total Protein Albumin Syphilis Serology COVID-19 (RODY) Not detected 03/25/20 03/25/20 03/25/20 09:40 09:40 16:23 WBC RBC Hgb Hct MCV MCH MCHC RDW Plt Count MPV Sodium 139 Potassium 4.2 Chloride 104 Carbon Dioxide 28 Anion Gap 8 BUN 20.4 H Creatinine 0.8 Est GFR (CKD-EPI)AfAm 111.74 Est GFR (CKD-EPI)NonAf 96.41 POC Glucometer 107 Random Glucose 84 Calcium 9.5 Total Bilirubin 0.6 AST 56 H ALT 70 H Alkaline Phosphatase 143 H Total Protein 8.1 Albumin 4.3 Syphilis Serology Non-reactive COVID-19 (RODY) 03/26/20 03/26/20 03/27/20 06:56 16:37 05:42 WBC RBC Hgb Hct MCV MCH MCHC RDW Plt Count MPV Sodium Potassium Chloride Carbon Dioxide Anion Gap BUN Creatinine Est GFR (CKD-EPI)AfAm Est GFR (CKD-EPI)NonAf POC Glucometer 130 160 121 Random Glucose Calcium Total Bilirubin AST ALT Alkaline Phosphatase Total Protein Albumin Syphilis Serology COVID-19 (RODY) 03/27/20 03/28/20 03/28/20 16:37 06:11 16:59 WBC RBC Hgb Hct MCV MCH MCHC RDW Plt Count MPV Sodium Potassium Chloride Carbon Dioxide Anion Gap BUN Creatinine Est GFR (CKD-EPI)AfAm Est GFR (CKD-EPI)NonAf POC Glucometer 139 112 115 Random Glucose Calcium Total Bilirubin AST ALT Alkaline Phosphatase Total Protein Albumin Syphilis Serology COVID-19 (RODY) 03/29/20 06:04 WBC RBC Hgb Hct MCV MCH MCHC RDW Plt Count MPV Sodium Potassium Chloride Carbon Dioxide Anion Gap BUN Creatinine Est GFR (CKD-EPI)AfAm Est GFR (CKD-EPI)NonAf POC Glucometer 149 Random Glucose Calcium Total Bilirubin AST ALT Alkaline Phosphatase Total Protein Albumin Syphilis Serology COVID-19 (RODY) aaox3 ambulating no acute distress lungs CTA - Treatment Hospital Course: Detox Protocol Followed, Detoxed Safely, Responded well, Discharged Condition Good, Rehab Referral Accepted - Medication Discharge Medications: Ambulatory Orders Atorvastatin Ca [Lipitor] 40 mg PO HS 04/18/19 Lisinopril 10 mg PO DAILY 04/18/19 metFORMIN HCL [Metformin HCl] 500 mg PO BID 04/18/19 Aspirin [Aspirin EC] 81 mg PO DAILY 07/22/19 traZODone HCL [Desyrel -] 100 mg PO HS PRN #30 tablet 07/25/19 Amlodipine Besylate [Norvasc -] 5 mg PO DAILY 10/24/19 Omeprazole Magnesium 20 mg PO DAILY 10/24/19 Benztropine Mesylate 1 mg PO BID 03/25/20 Ergocalciferol (Vitamin D2) [Vitamin D2] 50,000 unit PO WEEKLY 03/25/20 Ibuprofen 600 mg PO BID PRN 03/25/20 Quetiapine Fumarate [Seroquel -] 100 mg PO DAILY 03/25/20 Quetiapine Fumarate [Seroquel -] 200 mg PO HS 03/25/20 Risperidone [Risperdal] 2 mg PO DAILY 03/25/20 - Diagnosis (1) Alcohol dependence with uncomplicated withdrawal Current Visit: Yes Status: Acute (2) Cocaine dependence Current Visit: Yes Status: Acute Qualifiers: Substance use status: uncomplicated Qualified Code(s): F14.20 - Cocaine dependence, uncomplicated (3) Diabetes mellitus treated with oral medication Current Visit: Yes Status: Chronic (4) HTN (hypertension) Current Visit: Yes Status: Chronic Qualifiers: Hypertension type: essential hypertension Qualified Code(s): I10 - Essential (primary) hypertension (5) Nicotine dependence Current Visit: Yes Status: Chronic Qualifiers: Nicotine product type: cigarettes Substance use status: uncomplicated Qualified Code(s): F17.210 - Nicotine dependence, cigarettes, uncomplicated (6) Bipolar disorder Current Visit: Yes Status: Ruled-out (7) Substance-induced sleep disorder Current Visit: No Status: Acute (8) Bipolar disorder Current Visit: No Status: Chronic Qualifiers: Active/Remission status: remission status unspecified Qualified Code(s): F31.9 - Bipolar disorder, unspecified (9) Depression Current Visit: No Status: Chronic (10) Elevated liver enzymes Current Visit: No Status: Chronic (11) GERD (gastroesophageal reflux disease) Current Visit: No Status: Chronic Qualifiers: Esophagitis presence: without esophagitis Qualified Code(s): K21.9 - Gastro-esophageal reflux disease without esophagitis (12) HTN (hypertension) Current Visit: No Status: Chronic Qualifiers: Hypertension type: essential hypertension Qualified Code(s): I10 - Essential (primary) hypertension (13) History of schizophrenia Current Visit: No Status: Chronic (14) Hypercholesterolemia Current Visit: No Status: Chronic (15) Insomnia Current Visit: No Status: Chronic Qualifiers: Insomnia type: unspecified Qualified Code(s): G47.00 - Insomnia, unspecified (16) Low back pain Current Visit: No Status: Chronic Qualifiers: Chronicity: chronic Back pain laterality: bilateral Sciatica presence: without sciatica Qualified Code(s): M54.5 - Low back pain; G89.29 - Other chronic pain (17) Schizoaffective disorder Current Visit: No Status: Chronic Qualifiers: Schizoaffective disorder type: unspecified Qualified Code(s): F25.9 - Schizoaffective disorder, unspecified (18) Schizoaffective disorder Current Visit: No Status: Chronic Qualifiers: Schizoaffective disorder type: unspecified Qualified Code(s): F25.9 - Schizoaffective disorder, unspecified (19) Substance induced mood disorder Current Visit: No Status: Chronic (20) Substance-induced sleep disorder Current Visit: No Status: Chronic (21) Substance induced mood disorder Current Visit: No Status: Suspected - AMA Did Patient Leave Against Medical Advice: No
[2020-03-29] MEDS: LISINOPRIL 10 MG TABLET PO SCH (11:58)
[2020-03-30] MEDS ORDERED: chlordiazePOXIDE HCL 10 MG CAPSULE PO ONE (05:00)
== END 2020-03-29 12:07 | disposition home or self-care (01) | DRG 774 ==
LOC: YASAS 08:36 → Y6N 09:20
PROVIDERS: ADMIT Allergy & Immunology; ATTEND Allergy & Immunology
PROC: HZ2ZZZZ Detoxification Services for Substance Abuse Treatment (ICD-10-PCS; principal; 2020-03-25)
DX: F10.230 Alcohol dependence with withdrawal, uncomplicated (principal); F14.20 Cocaine dependence, uncomplicated; F17.210 Nicotine dependence, cigarettes, uncomplicated; F25.0 Schizoaffective disorder, bipolar type; F31.9 Bipolar disorder, unspecified; F19.282 Other psychoactive substance dependence with psychoactive substance-induced sleep disorder; F19.24 Other psychoactive substance dependence with psychoactive substance-induced mood disorder; E78.5 Hyperlipidemia, unspecified; E11.9 Type 2 diabetes mellitus without complications; Z79.84 Long term (current) use of oral hypoglycemic drugs; I10 Essential (primary) hypertension; K21.9 Gastro-esophageal reflux disease without esophagitis; M54.5 Low back pain; M25.571 Pain in right ankle and joints of right foot; R26.89 Other abnormalities of gait and mobility; R94.5 Abnormal results of liver function studies; Z99.89 Dependence on other enabling machines and devices; Z91.013 Allergy to seafood; Z91.5 Personal history of self-harm
CPT/HCPCS: 36415; 80053; 82962; 85027; 86780; U0003

== ENCOUNTER 2020-06-28 08:07 | Inpatient (IN) | payer OTHER ==
[2020-06-28 09:00] VITALS: BMI 27.8
[2020-06-28] MEDS ORDERED: chlordiazePOXIDE HCL 25 MG CAPSULE PO PRN (09:32)
[2020-06-28] MEDS ORDERED: METHOCARBAMOL 500 MG TABLET PO PRN (09:32)
[2020-06-28] MEDS ORDERED: ACETAMINOPHEN 325 MG TABLET (FP) PO PRN ×2 (09:32)
[2020-06-28] MEDS ORDERED: BISMUTH SUBSALICYLATE 262 MG/15 ML BTL PO PRN (09:32)
[2020-06-28] MEDS ORDERED: MAGNESIUM HYDROX 2400MG/30ML ORAL SUSPENSION 30 ML CUP PO PRN (09:32)
[2020-06-28] MEDS ORDERED: ONDANSETRON *ODT* 4 MG TABLET SL PRN (09:32)
[2020-06-28] MEDS ORDERED: MAG HYDROX/AL HYDROX/SIMETH 30 ML UNIT-DOSE CUP PO PRN (09:32)
[2020-06-28] MEDS ORDERED: IBUPROFEN 400 MG TABLET (FP) PO PRN (09:32)
[2020-06-28] MEDS ORDERED: MENTHOL/PHENOL 1 EACH UD MM PRN (09:32)
[2020-06-28] MEDS ORDERED: NICOTINE POLACRILEX 2 MG GUM BUC PRN (09:32)
[2020-06-28] MEDS ORDERED: MAGNESIUM CITRATE 300 ML BOTTLE PO PRN (09:32)
[2020-06-28] MEDS: ASPIRIN COATED 81 MG TABLET.EC PO SCH (10:30)
[2020-06-28] MEDS: metFORMIN HCL 500 MG TABLET (FP) PO SCH ×2 (10:30→18:08)
[2020-06-28] MEDS: LISINOPRIL 10 MG TABLET PO SCH (10:30)
[2020-06-28] MEDS: hydrOXYzine PAMOATE 25 MG CAPSULE (FP) PO SCH ×4 (10:30→22:19)
[2020-06-28] MEDS: amLODIPine BESYLATE 5 MG TABLET (FP) PO SCH (10:30)
[2020-06-28] MEDS: chlordiazePOXIDE HCL 25 MG CAPSULE PO SCH ×3 (10:30→22:20)
[2020-06-28] MEDS: PRENATAL VITAMINS W/ FOLIC ACID TABLET (FP) PO SCH (10:30)
[2020-06-28] MEDS: QUEtiapine FUMARATE 100 MG TABLET (FP) PO SCH (10:30)
[2020-06-28 16:10] LABS: HEMATOCRIT 42.5 % (35.4-49); HEMOGLOBIN 14.5 GM/dL (11.7-16.9); MCH 31.9 pg (25.7-33.7); MCHC 34.1 g/dl (32.0-35.9); MEAN CELL VOLUME 93.5 fl (80-96); MEAN PLT VOLUME 9.9 fl (7.5-11.1); PLATELET COUNT 228 K/MM3 (134-434); RBC 4.55 M/mm3 (4.00-5.60); RDW 13.2 % (11.9-15.9); WHITE BLOOD COUNT 10.7 K/mm3 (4.0-10.0)
[2020-06-28 16:26] LABS: CALCIUM 9.1 mg/dL (8.5-10.1)
[2020-06-28 16:27] LABS: ALBUMIN 4.2 g/dl (3.4-5.0); BLOOD UREA NITROGEN 16.8 mg/dL (7-18)
[2020-06-28 16:30] LABS: CREATININE 0.9 mg/dL (0.55-1.3)
[2020-06-28 16:31] LABS: BILIRUBIN,TOTAL 0.6 mg/dL (0.2-1); TOT PROT 7.6 g/dl (6.4-8.2)
[2020-06-28 17:18] LABS: HIV INTERPRETATION NEGATIVE (NEGATIVE)
[2020-06-28] MEDS: ATORVASTATIN CA 40 MG TABLET (FP) PO SCH (22:18)
[2020-06-28] MEDS: QUEtiapine FUMARATE 200 MG TABLET PO SCH (22:19)
[2020-06-28] MEDS: THIAMINE HCL 100 MG TABLET (FP) PO SCH (22:19)
[2020-06-28] MEDS: MELATONIN 5 MG TABLETS PO SCH (22:19)
[2020-06-29] MEDS: chlordiazePOXIDE HCL 25 MG CAPSULE PO SCH ×4 (05:10→22:21)
[2020-06-29] MEDS: hydrOXYzine PAMOATE 25 MG CAPSULE (FP) PO SCH ×6 (05:10→22:21)
[2020-06-29] MEDS: metFORMIN HCL 500 MG TABLET (FP) PO SCH ×2 (06:19→17:36)
[2020-06-29] MEDS: QUEtiapine FUMARATE 100 MG TABLET (FP) PO SCH (10:20)
[2020-06-29] MEDS: PRENATAL VITAMINS W/ FOLIC ACID TABLET (FP) PO SCH (10:20)
[2020-06-29] MEDS: LISINOPRIL 10 MG TABLET PO SCH (10:20)
[2020-06-29] MEDS: ASPIRIN COATED 81 MG TABLET.EC PO SCH (10:20)
[2020-06-29] MEDS: amLODIPine BESYLATE 5 MG TABLET (FP) PO SCH (10:21)
[2020-06-29] MEDS: MELATONIN 5 MG TABLETS PO SCH (22:20)
[2020-06-29] MEDS: ATORVASTATIN CA 40 MG TABLET (FP) PO SCH (22:20)
[2020-06-29] MEDS: QUEtiapine FUMARATE 200 MG TABLET PO SCH (22:21)
[2020-06-29] MEDS: THIAMINE HCL 100 MG TABLET (FP) PO SCH (22:21)
[2020-06-30] MEDS: hydrOXYzine PAMOATE 25 MG CAPSULE (FP) PO SCH ×2 (05:13→09:48)
[2020-06-30] MEDS: chlordiazePOXIDE HCL 25 MG CAPSULE PO SCH ×4 (05:13→22:05)
[2020-06-30] MEDS: metFORMIN HCL 500 MG TABLET (FP) PO SCH ×2 (06:15→16:53)
[2020-06-30] MEDS: PRENATAL VITAMINS W/ FOLIC ACID TABLET (FP) PO SCH (09:48)
[2020-06-30] MEDS: ASPIRIN COATED 81 MG TABLET.EC PO SCH (09:48)
[2020-06-30] MEDS: QUEtiapine FUMARATE 100 MG TABLET (FP) PO SCH (09:48)
[2020-06-30] MEDS: amLODIPine BESYLATE 5 MG TABLET (FP) PO SCH ×2 (09:50→11:27)
[2020-06-30] MEDS: LISINOPRIL 10 MG TABLET PO SCH ×2 (09:51→11:28)
[2020-06-30] MEDS ORDERED: LISINOPRIL 10 MG TABLET PO SCH (10:01)
[2020-06-30] MEDS ORDERED: amLODIPine BESYLATE 5 MG TABLET (FP) PO SCH (10:01)
[2020-06-30] MEDS ORDERED: hydrOXYzine PAMOATE 25 MG CAPSULE (FP) PO PRN (10:03)
[2020-06-30] MEDS: ATORVASTATIN CA 40 MG TABLET (FP) PO SCH (22:05)
[2020-06-30] MEDS: QUEtiapine FUMARATE 200 MG TABLET PO SCH (22:05)
[2020-06-30] MEDS: THIAMINE HCL 100 MG TABLET (FP) PO SCH (22:06)
[2020-06-30] MEDS: MELATONIN 5 MG TABLETS PO SCH (22:07)
[2020-07-01] MEDS ORDERED: chlordiazePOXIDE HCL 10 MG CAPSULE PO PRN
[2020-07-01] MEDS: chlordiazePOXIDE HCL 10 MG CAPSULE PO SCH ×2 (05:09→10:14)
[2020-07-01] MEDS: metFORMIN HCL 500 MG TABLET (FP) PO SCH (06:30)
[2020-07-01] MEDS: ASPIRIN COATED 81 MG TABLET.EC PO SCH (10:14)
[2020-07-01] MEDS: amLODIPine BESYLATE 5 MG TABLET (FP) PO SCH (10:14)
[2020-07-01] MEDS: QUEtiapine FUMARATE 100 MG TABLET (FP) PO SCH (10:15)
[2020-07-01] MEDS: PRENATAL VITAMINS W/ FOLIC ACID TABLET (FP) PO SCH (10:16)
[2020-07-01] MEDS: LISINOPRIL 10 MG TABLET PO SCH (12:05)
[2020-07-01 12:41] VITALS: BP 107/66; PULSE 98; TEMP 98
[2020-07-02] MEDS ORDERED: chlordiazePOXIDE HCL 10 MG CAPSULE PO SCH (05:00)
[2020-07-03] MEDS ORDERED: chlordiazePOXIDE HCL 10 MG CAPSULE PO ONE (05:00)
== END 2020-07-01 15:38 | disposition home or self-care (01) | DRG 774 ==
LOC: YASAS 08:07 → Y6N 09:10
PROVIDERS: ADMIT Allergy & Immunology; ATTEND Allergy & Immunology
PROC: HZ2ZZZZ Detoxification Services for Substance Abuse Treatment (ICD-10-PCS; principal; 2020-06-28)
DX: F10.230 Alcohol dependence with withdrawal, uncomplicated (principal); F14.20 Cocaine dependence, uncomplicated; F17.210 Nicotine dependence, cigarettes, uncomplicated; F19.282 Other psychoactive substance dependence with psychoactive substance-induced sleep disorder; F19.24 Other psychoactive substance dependence with psychoactive substance-induced mood disorder; F25.9 Schizoaffective disorder, unspecified; F31.9 Bipolar disorder, unspecified; G47.00 Insomnia, unspecified; I10 Essential (primary) hypertension; K21.9 Gastro-esophageal reflux disease without esophagitis; K74.60 Unspecified cirrhosis of liver; E78.5 Hyperlipidemia, unspecified; E11.9 Type 2 diabetes mellitus without complications; Z79.84 Long term (current) use of oral hypoglycemic drugs; M54.5 Low back pain; G89.29 Other chronic pain; R74.01 Elevation of levels of liver transaminase levels; R74.8 Abnormal levels of other serum enzymes; Z90.49 Acquired absence of other specified parts of digestive tract; Z87.81 Personal history of (healed) traumatic fracture; Z91.5 Personal history of self-harm; Z88.8 Allergy status to other drugs, medicaments and biological substances; Z91.013 Allergy to seafood; Z56.0 Unemployment, unspecified; Z59.0 Homelessness
CPT/HCPCS: 36415; 80053; 82962; 85027; 86780; 87389; C9803; U0003

== ENCOUNTER 2020-07-11 12:36 | Inpatient (IN) | payer OTHER ==
[2020-07-11] MEDS ORDERED: guaiFENesin 200 MG/10 ML 10 ML UNIT-DOSE CUPS PO PRN (16:55)
[2020-07-11] MEDS ORDERED: P-EPHED 60MG/TRIPROLIDI 2.5MG TABLET PO PRN (16:55)
[2020-07-11] MEDS ORDERED: MAG HYDROX/AL HYDROX/SIMETH 30 ML UNIT-DOSE CUP PO PRN (16:55)
[2020-07-11] MEDS ORDERED: IBUPROFEN 400 MG TABLET (FP) PO PRN (16:55)
[2020-07-11] MEDS ORDERED: MENTHOL/PHENOL 1 EACH UD MM PRN (16:55)
[2020-07-11] MEDS ORDERED: MAGNESIUM HYDROX 2400MG/30ML ORAL SUSPENSION 30 ML CUP PO PRN (16:55)
[2020-07-11] MEDS ORDERED: MAGNESIUM CITRATE 300 ML BOTTLE PO PRN (16:55)
[2020-07-11] MEDS ORDERED: LOPERAMIDE HCL 2 MG CAPSULE PO PRN (16:55)
[2020-07-11] MEDS ORDERED: NICOTINE POLACRILEX 2 MG GUM BUC PRN (16:55)
[2020-07-11] MEDS ORDERED: ACETAMINOPHEN 325 MG TABLET (FP) PO PRN (16:55)
[2020-07-11 17:02] VITALS: BMI 27.4
[2020-07-11] MEDS: BACITRACIN 15 GM TUBE TOPICAL OINTMENT TP SCH (19:40)
[2020-07-11] MEDS: MELATONIN 5 MG TABLETS PO SCH (21:55)
[2020-07-11] MEDS: THIAMINE HCL 100 MG TABLET (FP) PO SCH (21:55)
[2020-07-11] MEDS: metFORMIN HCL 500 MG TABLET (FP) PO SCH (21:55)
[2020-07-11] MEDS: ATORVASTATIN CA 40 MG TABLET (FP) PO SCH (21:55)
[2020-07-12] MEDS: PRENATAL VITAMINS W/ FOLIC ACID TABLET (FP) PO SCH (10:10)
[2020-07-12] MEDS: metFORMIN HCL 500 MG TABLET (FP) PO SCH ×2 (10:10→21:34)
[2020-07-12] MEDS: LISINOPRIL 10 MG TABLET PO SCH (10:10)
[2020-07-12] MEDS: BACITRACIN 15 GM TUBE TOPICAL OINTMENT TP SCH (10:10)
[2020-07-12] MEDS: ASPIRIN COATED 81 MG TABLET.EC PO SCH (10:11)
[2020-07-12] MEDS: NICOTINE 14 MG/24 HOURS TOPICAL PATCH TD SCH (10:11)
[2020-07-12] MEDS: amLODIPine BESYLATE 10 MG TABLET (FP) PO SCH (10:11)
[2020-07-12] MEDS: QUEtiapine FUMARATE 100 MG TABLET (FP) PO SCH (11:07)
[2020-07-12] MEDS: BENZTROPINE MESYLATE 1 MG TABLET PO SCH ×2 (11:07→21:34)
[2020-07-12] MEDS: ATORVASTATIN CA 40 MG TABLET (FP) PO SCH (21:34)
[2020-07-12] MEDS: traZODone HCL 100 MG TABLET (FP) PO PRN (21:35)
[2020-07-12] MEDS: THIAMINE HCL 100 MG TABLET (FP) PO SCH (21:36)
[2020-07-12] MEDS: QUEtiapine FUMARATE 200 MG TABLET PO SCH (21:36)
[2020-07-12] MEDS: MELATONIN 5 MG TABLETS PO SCH (21:36)
[2020-07-13] MEDS: BACITRACIN 15 GM TUBE TOPICAL OINTMENT TP SCH (09:34)
[2020-07-13] MEDS: LISINOPRIL 10 MG TABLET PO SCH (09:34)
[2020-07-13] MEDS: BENZTROPINE MESYLATE 1 MG TABLET PO SCH ×2 (09:34→21:16)
[2020-07-13] MEDS: amLODIPine BESYLATE 10 MG TABLET (FP) PO SCH (09:34)
[2020-07-13] MEDS: NICOTINE 14 MG/24 HOURS TOPICAL PATCH TD SCH (09:34)
[2020-07-13] MEDS: PRENATAL VITAMINS W/ FOLIC ACID TABLET (FP) PO SCH (09:34)
[2020-07-13] MEDS: ASPIRIN COATED 81 MG TABLET.EC PO SCH (09:34)
[2020-07-13] MEDS: metFORMIN HCL 500 MG TABLET (FP) PO SCH ×2 (09:34→17:03)
[2020-07-13] MEDS: QUEtiapine FUMARATE 100 MG TABLET (FP) PO SCH (09:34)
[2020-07-13] MEDS: ATORVASTATIN CA 40 MG TABLET (FP) PO SCH (21:15)
[2020-07-13] MEDS: MELATONIN 5 MG TABLETS PO SCH (21:15)
[2020-07-13] MEDS: THIAMINE HCL 100 MG TABLET (FP) PO SCH (21:15)
[2020-07-13] MEDS: traZODone HCL 100 MG TABLET (FP) PO PRN (21:16)
[2020-07-13] MEDS: QUEtiapine FUMARATE 200 MG TABLET PO SCH (21:16)
[2020-07-14] MEDS: metFORMIN HCL 500 MG TABLET (FP) PO SCH ×2 (07:26→16:27)
[2020-07-14] MEDS: QUEtiapine FUMARATE 100 MG TABLET (FP) PO SCH (10:11)
[2020-07-14] MEDS: ASPIRIN COATED 81 MG TABLET.EC PO SCH (10:11)
[2020-07-14] MEDS: BENZTROPINE MESYLATE 1 MG TABLET PO SCH ×2 (10:11→21:16)
[2020-07-14] MEDS: LISINOPRIL 10 MG TABLET PO SCH (10:11)
[2020-07-14] MEDS: PRENATAL VITAMINS W/ FOLIC ACID TABLET (FP) PO SCH (10:11)
[2020-07-14] MEDS: NICOTINE 14 MG/24 HOURS TOPICAL PATCH TD SCH (10:11)
[2020-07-14] MEDS: BACITRACIN 15 GM TUBE TOPICAL OINTMENT TP SCH (10:12)
[2020-07-14] MEDS: amLODIPine BESYLATE 10 MG TABLET (FP) PO SCH (10:13)
[2020-07-14] MEDS: THIAMINE HCL 100 MG TABLET (FP) PO SCH (21:15)
[2020-07-14] MEDS: MELATONIN 5 MG TABLETS PO SCH (21:16)
[2020-07-14] MEDS: ATORVASTATIN CA 40 MG TABLET (FP) PO SCH (21:16)
[2020-07-14] MEDS: QUEtiapine FUMARATE 200 MG TABLET PO SCH (21:16)
[2020-07-14] MEDS: traZODone HCL 100 MG TABLET (FP) PO PRN (21:16)
[2020-07-15] MEDS: metFORMIN HCL 500 MG TABLET (FP) PO SCH ×2 (06:40→16:29)
[2020-07-15] MEDS: ASPIRIN COATED 81 MG TABLET.EC PO SCH (10:34)
[2020-07-15] MEDS: QUEtiapine FUMARATE 100 MG TABLET (FP) PO SCH (10:34)
[2020-07-15] MEDS: LISINOPRIL 10 MG TABLET PO SCH (10:34)
[2020-07-15] MEDS: PRENATAL VITAMINS W/ FOLIC ACID TABLET (FP) PO SCH (10:34)
[2020-07-15] MEDS: NICOTINE 14 MG/24 HOURS TOPICAL PATCH TD SCH (10:35)
[2020-07-15] MEDS: BENZTROPINE MESYLATE 1 MG TABLET PO SCH ×2 (10:35→21:29)
[2020-07-15] MEDS: BACITRACIN 15 GM TUBE TOPICAL OINTMENT TP SCH (10:36)
[2020-07-15] MEDS ORDERED: amLODIPine BESYLATE 5 MG TABLET (FP) PO SCH (10:42)
[2020-07-15] MEDS: amLODIPine BESYLATE 10 MG TABLET (FP) PO SCH (11:35)
[2020-07-15] MEDS: QUEtiapine FUMARATE 200 MG TABLET PO SCH (21:29)
[2020-07-15] MEDS: ATORVASTATIN CA 40 MG TABLET (FP) PO SCH (21:30)
[2020-07-15] MEDS: MELATONIN 5 MG TABLETS PO SCH (21:30)
[2020-07-15] MEDS: THIAMINE HCL 100 MG TABLET (FP) PO SCH (21:31)
[2020-07-15] MEDS: traZODone HCL 100 MG TABLET (FP) PO PRN (21:31)
[2020-07-16] MEDS: metFORMIN HCL 500 MG TABLET (FP) PO SCH (06:26)
[2020-07-16 06:59] VITALS: TEMP 98.1
[2020-07-16 09:13] VITALS: BP 105/66; PULSE 67
[2020-07-16] MEDS: LISINOPRIL 10 MG TABLET PO SCH (09:55)
[2020-07-16] MEDS: NICOTINE 14 MG/24 HOURS TOPICAL PATCH TD SCH (09:55)
[2020-07-16] MEDS: ASPIRIN COATED 81 MG TABLET.EC PO SCH (09:55)
[2020-07-16] MEDS: PRENATAL VITAMINS W/ FOLIC ACID TABLET (FP) PO SCH (09:55)
[2020-07-16] MEDS: BENZTROPINE MESYLATE 1 MG TABLET PO SCH (09:55)
[2020-07-16] MEDS: QUEtiapine FUMARATE 100 MG TABLET (FP) PO SCH (09:55)
[2020-07-16] MEDS: BACITRACIN 15 GM TUBE TOPICAL OINTMENT TP SCH (09:56)
== END 2020-07-16 13:25 | disposition home or self-care (01) | DRG 772 ==
LOC: YASAS 12:36 → Y3W 17:49
PROVIDERS: ADMIT Allergy & Immunology; ATTEND Allergy & Immunology
PROC: HZ42ZZZ Group Counseling for Substance Abuse Treatment, Cognitive-Behavioral (ICD-10-PCS; principal; 2020-07-11)
DX: F10.20 Alcohol dependence, uncomplicated (principal); F14.20 Cocaine dependence, uncomplicated; F17.210 Nicotine dependence, cigarettes, uncomplicated; F19.282 Other psychoactive substance dependence with psychoactive substance-induced sleep disorder; F25.9 Schizoaffective disorder, unspecified; F31.9 Bipolar disorder, unspecified; F33.9 Major depressive disorder, recurrent, unspecified; I10 Essential (primary) hypertension; E78.5 Hyperlipidemia, unspecified; E11.9 Type 2 diabetes mellitus without complications; B18.2 Chronic viral hepatitis C; K21.9 Gastro-esophageal reflux disease without esophagitis; M54.5 Low back pain; L98.491 Non-pressure chronic ulcer of skin of other sites limited to breakdown of skin; Z79.84 Long term (current) use of oral hypoglycemic drugs; Z98.890 Other specified postprocedural states; Z91.5 Personal history of self-harm; Z91.013 Allergy to seafood; Z88.8 Allergy status to other drugs, medicaments and biological substances; Z59.0 Homelessness; Z56.0 Unemployment, unspecified
CPT/HCPCS: 82962; C9803; U0003

== ENCOUNTER 2020-09-14 08:06 | Inpatient (IN) | payer OTHER ==
[2020-09-14 09:17] VITALS: BMI 27.1
[2020-09-14] MEDS ORDERED: MAGNESIUM HYDROX 2400MG/30ML ORAL SUSPENSION 30 ML CUP PO PRN (13:50)
[2020-09-14] MEDS ORDERED: MAG HYDROX/AL HYDROX/SIMETH 30 ML UNIT-DOSE CUP PO PRN (13:50)
[2020-09-14] MEDS ORDERED: IBUPROFEN 400 MG TABLET (FP) PO PRN (13:50)
[2020-09-14] MEDS ORDERED: NICOTINE POLACRILEX 2 MG GUM BUC PRN (13:50)
[2020-09-14] MEDS ORDERED: ACETAMINOPHEN 325 MG TABLET (FP) PO PRN (13:50)
[2020-09-14] MEDS ORDERED: P-EPHED 60MG/TRIPROLIDI 2.5MG TABLET PO PRN (13:50)
[2020-09-14] MEDS ORDERED: LOPERAMIDE HCL 2 MG CAPSULE PO PRN (13:50)
[2020-09-14] MEDS ORDERED: guaiFENesin 200 MG/10 ML 10 ML UNIT-DOSE CUPS PO PRN (13:50)
[2020-09-14] MEDS ORDERED: MAGNESIUM CITRATE 300 ML BOTTLE PO PRN (13:50)
[2020-09-14] MEDS ORDERED: ERGOCALCIFEROL (VIT D2) 50,000 UNIT (1.25 MG) CAPSULE PO SCH (14:00)
[2020-09-14] MEDS: hydrOXYzine PAMOATE 25 MG CAPSULE (FP) PO SCH ×3 (14:20→22:45)
[2020-09-14] MEDS: metFORMIN HCL 500 MG TABLET (FP) PO SCH (17:28)
[2020-09-14] MEDS: THIAMINE HCL 100 MG TABLET (FP) PO SCH (22:43)
[2020-09-14] MEDS: MELATONIN 5 MG TABLETS PO SCH (22:45)
[2020-09-14] MEDS: ATORVASTATIN CA 40 MG TABLET (FP) PO SCH (22:45)
[2020-09-14] MEDS ORDERED: traZODone HCL 50 MG TABLET (FP) PO ONE (23:00)
[2020-09-14] MEDS ORDERED: QUEtiapine FUMARATE 100 MG TABLET (FP) PO ONE (23:00)
[2020-09-15] MEDS: metFORMIN HCL 500 MG TABLET (FP) PO SCH ×2 (06:11→16:18)
[2020-09-15] MEDS: hydrOXYzine PAMOATE 25 MG CAPSULE (FP) PO SCH ×5 (06:11→21:20)
[2020-09-15] MEDS: PRENATAL VITAMINS W/ FOLIC ACID TABLET (FP) PO SCH (09:40)
[2020-09-15] MEDS: LISINOPRIL 10 MG TABLET PO SCH (09:40)
[2020-09-15] MEDS: PANTOPRAZOLE 20 MG TABLET PO SCH (09:40)
[2020-09-15] MEDS: QUEtiapine FUMARATE 100 MG TABLET (FP) PO SCH (09:40)
[2020-09-15] MEDS: ASPIRIN COATED 81 MG TABLET.EC PO SCH (09:40)
[2020-09-15] MEDS: amLODIPine BESYLATE 10 MG TABLET (FP) PO SCH (09:40)
[2020-09-15] MEDS: NICOTINE 7 MG/24 HOURS TOPICAL PATCH TD SCH (09:40)
[2020-09-15 11:45] LABS: POTASSIUM 3.7 mmol/L (3.5-5.1)
[2020-09-15 11:47] LABS: ALBUMIN 3.4 g/dl (3.4-5.0); BLOOD UREA NITROGEN 12.7 mg/dL (7-18)
[2020-09-15 11:48] LABS: HEMATOCRIT 40.1 % (35.4-49); MCH 31.9 pg (25.7-33.7); MEAN CELL VOLUME 91.1 fl (80-96); MEAN PLT VOLUME 9.3 fl (7.5-11.1); PLATELET COUNT 223 K/MM3 (134-434); RDW 13.4 % (11.9-15.9); WHITE BLOOD COUNT 6.4 K/mm3 (4.0-10.0)
[2020-09-15 11:50] LABS: CREATININE 0.7 mg/dL (0.55-1.3)
[2020-09-15 11:52] LABS: BILIRUBIN,TOTAL 0.4 mg/dL (0.2-1); TOT PROT 6.7 g/dl (6.4-8.2)
[2020-09-15] MEDS: ATORVASTATIN CA 40 MG TABLET (FP) PO SCH (21:19)
[2020-09-15] MEDS: QUEtiapine FUMARATE 200 MG TABLET PO SCH (21:19)
[2020-09-15] MEDS: traZODone HCL 100 MG TABLET (FP) PO SCH (21:19)
[2020-09-15] MEDS: MELATONIN 5 MG TABLETS PO SCH (21:20)
[2020-09-15] MEDS: THIAMINE HCL 100 MG TABLET (FP) PO SCH (21:20)
[2020-09-16 02:08] LABS: PH,URINE 5.5 (5.0-8.0); URINE APPEARANCE CLEAR; URINE BILIRUBIN NEGATIVE (NEGATIVE); URINE COLOR YELLOW; URINE GLUCOSE (UA) NEGATIVE (NEGATIVE); URINE KETONE TRACE (NEGATIVE); URINE LEUK ESTERASE NEGATIVE (NEGATIVE); URINE NITRITE NEGATIVE (NEGATIVE); URINE PROTEIN NEGATIVE (NEGATIVE); URINE UROBILINOGEN 0.2 mg/dL (0.2-1.0)
[2020-09-16] MEDS: metFORMIN HCL 500 MG TABLET (FP) PO SCH ×2 (06:06→16:43)
[2020-09-16] MEDS: hydrOXYzine PAMOATE 25 MG CAPSULE (FP) PO SCH ×5 (06:06→21:12)
[2020-09-16] MEDS: QUEtiapine FUMARATE 100 MG TABLET (FP) PO SCH (10:02)
[2020-09-16] MEDS: amLODIPine BESYLATE 10 MG TABLET (FP) PO SCH (10:02)
[2020-09-16] MEDS: ASPIRIN COATED 81 MG TABLET.EC PO SCH (10:02)
[2020-09-16] MEDS: LISINOPRIL 10 MG TABLET PO SCH (10:02)
[2020-09-16] MEDS: PANTOPRAZOLE 20 MG TABLET PO SCH (10:02)
[2020-09-16] MEDS: PRENATAL VITAMINS W/ FOLIC ACID TABLET (FP) PO SCH (10:02)
[2020-09-16] MEDS: NICOTINE 7 MG/24 HOURS TOPICAL PATCH TD SCH (10:17)
[2020-09-16 20:19] VITALS: TEMP 97.5
[2020-09-16] MEDS: THIAMINE HCL 100 MG TABLET (FP) PO SCH (21:10)
[2020-09-16] MEDS: ATORVASTATIN CA 40 MG TABLET (FP) PO SCH (21:11)
[2020-09-16] MEDS: QUEtiapine FUMARATE 200 MG TABLET PO SCH (21:11)
[2020-09-16] MEDS: traZODone HCL 100 MG TABLET (FP) PO SCH (21:11)
[2020-09-16] MEDS: MELATONIN 5 MG TABLETS PO SCH (21:12)
[2020-09-17] MEDS: metFORMIN HCL 500 MG TABLET (FP) PO SCH (06:04)
[2020-09-17] MEDS: hydrOXYzine PAMOATE 25 MG CAPSULE (FP) PO SCH ×2 (06:04→09:49)
[2020-09-17 07:17] VITALS: BP 106/66; PULSE 78
[2020-09-17] MEDS: PRENATAL VITAMINS W/ FOLIC ACID TABLET (FP) PO SCH (09:48)
[2020-09-17] MEDS: ASPIRIN COATED 81 MG TABLET.EC PO SCH (09:48)
[2020-09-17] MEDS: LISINOPRIL 10 MG TABLET PO SCH (09:48)
[2020-09-17] MEDS: PANTOPRAZOLE 20 MG TABLET PO SCH (09:48)
[2020-09-17] MEDS: QUEtiapine FUMARATE 100 MG TABLET (FP) PO SCH (09:49)
[2020-09-17] MEDS: NICOTINE 7 MG/24 HOURS TOPICAL PATCH TD SCH (09:49)
[2020-09-17] MEDS: amLODIPine BESYLATE 10 MG TABLET (FP) PO SCH (09:49)
== END 2020-09-17 12:54 | disposition left against medical advice (07) | DRG 770 ==
LOC: YASAS 08:06 → Y3W 13:45
PROVIDERS: ADMIT Allergy & Immunology; ATTEND Allergy & Immunology
PROC: HZ42ZZZ Group Counseling for Substance Abuse Treatment, Cognitive-Behavioral (ICD-10-PCS; principal; 2020-09-14)
DX: F10.20 Alcohol dependence, uncomplicated (principal); F14.20 Cocaine dependence, uncomplicated; F17.210 Nicotine dependence, cigarettes, uncomplicated; F25.9 Schizoaffective disorder, unspecified; F31.9 Bipolar disorder, unspecified; I10 Essential (primary) hypertension; E78.5 Hyperlipidemia, unspecified; E11.9 Type 2 diabetes mellitus without complications; Z79.84 Long term (current) use of oral hypoglycemic drugs; B18.2 Chronic viral hepatitis C; K74.60 Unspecified cirrhosis of liver; M54.5 Low back pain; G89.29 Other chronic pain; Z91.013 Allergy to seafood; Z88.8 Allergy status to other drugs, medicaments and biological substances; Z56.0 Unemployment, unspecified; Z59.0 Homelessness
CPT/HCPCS: 36415; 80053; 81003; 82962; 85027; 86780; C9803; U0003; U0005

== ENCOUNTER 2022-07-21 13:58 | Inpatient (IN) | payer OTHER ==
[2022-07-21 14:54] VITALS: BMI 25.0
[2022-07-21] MEDS ORDERED: IBUPROFEN 600 MG TABLET (FP) PO PRN (16:40)
[2022-07-21] MEDS ORDERED: ONDANSETRON *ODT* 4 MG TABLET SL PRN (16:40)
[2022-07-21] MEDS ORDERED: DICYCLOMINE HCL 10 MG CAPSULE PO PRN (16:40)
[2022-07-21] MEDS ORDERED: MAG HYDROX/AL HYDROX/SIMETH 30 ML UNIT-DOSE CUP PO PRN (16:40)
[2022-07-21] MEDS ORDERED: BENZOCAINE/MENTHOL (CHLORASEPTIC ) LOZENGE MM PRN (16:40)
[2022-07-21] MEDS ORDERED: LOPERAMIDE HCL 2 MG CAPSULE PO PRN (16:40)
[2022-07-21] MEDS ORDERED: MELATONIN 5 MG TABLETS PO PRN (16:40)
[2022-07-21] MEDS ORDERED: BISMUTH SUBSALICYLATE 524 MG/30 ML PO PRN (16:40)
[2022-07-21] MEDS ORDERED: ACETAMINOPHEN 325 MG TABLET (FP) PO PRN ×2 (16:40)
[2022-07-21] MEDS ORDERED: MAGNESIUM HYDROX 2400MG/30ML ORAL SUSPENSION 30 ML CUP PO PRN (16:40)
[2022-07-21] MEDS ORDERED: guaiFENesin 200 MG/10 ML 10 ML UNIT-DOSE CUPS PO PRN (16:40)
[2022-07-21] MEDS ORDERED: P-EPHED 60MG/TRIPROLIDI 2.5MG TABLET PO PRN (16:40)
[2022-07-21] MEDS ORDERED: hydrOXYzine PAMOATE 25 MG CAPSULE (FP) PO PRN (16:40)
[2022-07-21] MEDS ORDERED: IBUPROFEN 400 MG TABLET (FP) PO PRN (16:40)
[2022-07-21] MEDS ORDERED: POLYETHYLENE GLYCOL (HEALTHYLAX) 3350 17 GM PACKET PO PRN (16:40)
[2022-07-21] MEDS ORDERED: diazePAM 5 MG TABLET PO PRN (16:43)
[2022-07-21] MEDS ORDERED: cloNIDine HCL 0.1 MG TABLET PO ONE (17:02)
[2022-07-21] MEDS ORDERED: diazePAM 5 MG TABLET ONE (17:10)
[2022-07-21] MEDS ORDERED: cloNIDine HCL 0.1 MG TABLET ONE (17:10)
[2022-07-21] MEDS: diazePAM 5 MG TABLET PO SCH ×2 (17:37→22:19)
[2022-07-21] MEDS ORDERED: ASPIRIN 81 MG CHEWABLE TABLETS ONE (17:41)
[2022-07-21] MEDS: ASPIRIN COATED 81 MG TABLET.EC PO SCH (17:44)
[2022-07-21] MEDS ORDERED: THIAMINE HCL 100 MG TABLET (FP) PO SCH (22:00)
[2022-07-21] MEDS: METHOCARBAMOL 500 MG TABLET PO PRN (22:18)
[2022-07-22] MEDS: diazePAM 5 MG TABLET PO SCH ×2 (05:36→10:28)
[2022-07-22 09:11] VITALS: BP 142/80; PULSE 68; RESP 18; TEMP 97.7
[2022-07-22] MEDS ORDERED: PRENATAL VITAMINS W/ FOLIC ACID TABLET (FP) PO SCH (10:00)
[2022-07-22] MEDS ORDERED: QUEtiapine FUMARATE 100 MG TABLET (FP) PO SCH (10:00)
[2022-07-22] MEDS: METHOCARBAMOL 500 MG TABLET PO PRN (10:28)
[2022-07-22] MEDS: ASPIRIN COATED 81 MG TABLET.EC PO SCH (10:28)
[2022-07-22 11:58] LABS: HEMATOCRIT 42.5 % (35.4-49); MCH 29.8 pg (25.7-33.7); MCHC 32.9 g/dl (32.0-35.9); MEAN CELL VOLUME 90.5 fl (80-96); MEAN PLT VOLUME 9.9 fl (7.5-11.1); PLATELET COUNT 182 10^3/uL (134-434); RBC 4.69 M/mm3 (4.00-5.60); RDW 13.5 % (11.9-15.9); WHITE BLOOD COUNT 6.4 K/mm3 (4.0-10.0)
[2022-07-22 14:03] LABS: ALBUMIN 3.4 g/dl (3.4-5.0); CALCIUM 8.9 mg/dL (8.5-10.1)
[2022-07-22 14:06] LABS: CREATININE 0.7 mg/dL (0.55-1.3)
[2022-07-22 14:08] LABS: TOT PROT 6.2 g/dl (6.4-8.2)
[2022-07-22 14:13] LABS: BILIRUBIN,TOTAL 0.6 mg/dL (0.2-1)
[2022-07-23] MEDS ORDERED: diazePAM 5 MG TABLET PO SCH (06:00)
[2022-07-24] MEDS ORDERED: diazePAM 5 MG TABLET PO SCH (06:00)
[2022-07-25] MEDS ORDERED: diazePAM 5 MG TABLET PO ONE (06:00)
== END 2022-07-22 11:45 | disposition left against medical advice (07) | DRG 770 ==
LOC: YASAS 13:58 → Y6N 16:44
PROVIDERS: ADMIT Allergy & Immunology; ATTEND Family Medicine
PROC: HZ2ZZZZ Detoxification Services for Substance Abuse Treatment (ICD-10-PCS; principal; 2022-07-21)
DX: F10.230 Alcohol dependence with withdrawal, uncomplicated (principal); F14.20 Cocaine dependence, uncomplicated; F17.210 Nicotine dependence, cigarettes, uncomplicated; F25.9 Schizoaffective disorder, unspecified; F19.282 Other psychoactive substance dependence with psychoactive substance-induced sleep disorder; F32.A Depression, unspecified; I10 Essential (primary) hypertension; K21.9 Gastro-esophageal reflux disease without esophagitis; E78.00 Pure hypercholesterolemia, unspecified; E78.5 Hyperlipidemia, unspecified; E11.9 Type 2 diabetes mellitus without complications; Z79.84 Long term (current) use of oral hypoglycemic drugs; M54.50 Low back pain, unspecified; G89.29 Other chronic pain; R74.8 Abnormal levels of other serum enzymes; Z28.310 Unvaccinated for COVID-19; Z28.9 Immunization not carried out for unspecified reason; Z88.0 Allergy status to penicillin; Z88.8 Allergy status to other drugs, medicaments and biological substances
CPT/HCPCS: 36415; 80053; 82962; 85027; 86780; C9803-CS; U0003; U0005

== ENCOUNTER 2022-10-02 11:33 | Inpatient (IN) | payer OTHER ==
[2022-10-02 11:52] VITALS: BMI 24.4
[2022-10-02] MEDS ORDERED: BENZOCAINE/MENTHOL (CHLORASEPTIC ) LOZENGE MM PRN (12:14)
[2022-10-02] MEDS ORDERED: guaiFENesin 600 MG TABLET.ER (FP) PO PRN (12:14)
[2022-10-02] MEDS ORDERED: IBUPROFEN 400 MG TABLET (FP) PO PRN (12:14)
[2022-10-02] MEDS ORDERED: IBUPROFEN 600 MG TABLET (FP) PO PRN (12:14)
[2022-10-02] MEDS ORDERED: POLYETHYLENE GLYCOL (HEALTHYLAX) 3350 17 GM PACKET PO PRN (12:14)
[2022-10-02] MEDS ORDERED: BENZONATATE 200 MG CAPSULE PO PRN (12:14)
[2022-10-02] MEDS ORDERED: BISMUTH SUBSALICYLATE 262 MG/15 ML BTL PO PRN (12:14)
[2022-10-02] MEDS ORDERED: P-EPHED 60MG/TRIPROLIDI 2.5MG TABLET PO PRN (12:14)
[2022-10-02] MEDS ORDERED: DICYCLOMINE HCL 10 MG CAPSULE PO PRN (12:14)
[2022-10-02] MEDS ORDERED: NICOTINE 10 MG CARTRIDGE (INHALER) IH PRN (12:14)
[2022-10-02] MEDS ORDERED: ACETAMINOPHEN 325 MG TABLET (FP) PO PRN (12:14)
[2022-10-02] MEDS ORDERED: NICOTINE POLACRILEX 2 MG GUM BUC PRN (12:14)
[2022-10-02] MEDS ORDERED: MAGNESIUM HYDROX 2400MG/30ML ORAL SUSPENSION 30 ML CUP PO PRN (12:14)
[2022-10-02] MEDS ORDERED: LOPERAMIDE HCL 2 MG CAPSULE PO PRN (12:14)
[2022-10-02] MEDS ORDERED: ONDANSETRON *ODT* 4 MG TABLET SL PRN (12:14)
[2022-10-02] MEDS ORDERED: MAG HYDROX/AL HYDROX/SIMETH 30 ML UNIT-DOSE CUP PO PRN (12:14)
[2022-10-02] MEDS ORDERED: amLODIPine BESYLATE 5 MG TABLET (FP) ONE (13:15)
[2022-10-02] MEDS: ASPIRIN COATED 81 MG TABLET.EC PO SCH (13:32)
[2022-10-02] MEDS: amLODIPine BESYLATE 5 MG TABLET (FP) PO SCH (13:32)
[2022-10-02] MEDS: metFORMIN HCL 500 MG TABLET (FP) PO SCH (17:42)
[2022-10-02] MEDS: diazePAM 5 MG TABLET PO SCH ×2 (17:43→22:53)
[2022-10-02] MEDS: MELATONIN 5 MG TABLETS PO PRN (22:52)
[2022-10-02] MEDS: ATORVASTATIN CA 40 MG TABLET (FP) PO SCH (22:52)
[2022-10-02] MEDS: THIAMINE HCL 100 MG TABLET (FP) PO SCH (22:52)
[2022-10-03] MEDS: diazePAM 5 MG TABLET PO SCH ×4 (06:05→22:29)
[2022-10-03] MEDS: metFORMIN HCL 500 MG TABLET (FP) PO SCH ×2 (06:05→17:13)
[2022-10-03 10:09] LABS: HEMOGLOBIN 13.7 GM/dL (11.7-16.9); MCH 31.7 pg (25.7-33.7); MCHC 35.1 g/dl (32.0-35.9); MEAN CELL VOLUME 90.4 fl (80-96); MEAN PLT VOLUME 9.6 fl (7.5-11.1); PLATELET COUNT 222 10^3/uL (134-434); RBC 4.31 M/mm3 (4.00-5.60); RDW 13.8 % (11.9-15.9); WHITE BLOOD COUNT 5.8 K/mm3 (4.0-10.0)
[2022-10-03] MEDS: ASPIRIN COATED 81 MG TABLET.EC PO SCH (10:13)
[2022-10-03] MEDS: PRENATAL VITAMINS W/ FOLIC ACID TABLET (FP) PO SCH (10:13)
[2022-10-03] MEDS: amLODIPine BESYLATE 5 MG TABLET (FP) PO SCH (10:13)
[2022-10-03 10:17] LABS: CALCIUM 9.3 mg/dL (8.5-10.1)
[2022-10-03 10:18] LABS: ALBUMIN 3.4 g/dl (3.4-5.0); BLOOD UREA NITROGEN 11.7 mg/dL (7-18)
[2022-10-03 10:21] LABS: CREATININE 0.7 mg/dL (0.55-1.3)
[2022-10-03 10:22] LABS: BILIRUBIN,TOTAL 0.7 mg/dL (0.2-1); TOT PROT 6.7 g/dl (6.4-8.2)
[2022-10-03] MEDS: THIAMINE HCL 100 MG TABLET (FP) PO SCH (22:28)
[2022-10-03] MEDS: ATORVASTATIN CA 40 MG TABLET (FP) PO SCH (22:28)
[2022-10-03] MEDS: MELATONIN 5 MG TABLETS PO PRN (22:29)
[2022-10-03] MEDS: QUEtiapine FUMARATE 100 MG TABLET (FP) PO SCH (22:31)
[2022-10-03] MEDS: hydrOXYzine PAMOATE 25 MG CAPSULE (FP) PO PRN (22:31)
[2022-10-04] MEDS ORDERED: INSULIN SLIDING SCALE (NOVOLOG) 1 VIAL SQ ONE (04:18)
[2022-10-04] MEDS: diazePAM 5 MG TABLET PO SCH ×3 (05:44→22:44)
[2022-10-04] MEDS: metFORMIN HCL 500 MG TABLET (FP) PO SCH ×2 (06:17→17:33)
[2022-10-04] MEDS: amLODIPine BESYLATE 5 MG TABLET (FP) PO SCH (10:48)
[2022-10-04] MEDS: ASPIRIN COATED 81 MG TABLET.EC PO SCH (10:48)
[2022-10-04] MEDS: PRENATAL VITAMINS W/ FOLIC ACID TABLET (FP) PO SCH (10:48)
[2022-10-04] MEDS: diazePAM 5 MG TABLET PO PRN (20:48)
[2022-10-04] MEDS: ATORVASTATIN CA 40 MG TABLET (FP) PO SCH (22:43)
[2022-10-04] MEDS: hydrOXYzine PAMOATE 25 MG CAPSULE (FP) PO PRN (22:43)
[2022-10-04] MEDS: THIAMINE HCL 100 MG TABLET (FP) PO SCH (22:43)
[2022-10-04] MEDS: MELATONIN 5 MG TABLETS PO PRN (22:43)
[2022-10-04] MEDS: QUEtiapine FUMARATE 100 MG TABLET (FP) PO SCH (22:43)
[2022-10-05] MEDS: diazePAM 5 MG TABLET PO SCH ×2 (05:47→17:57)
[2022-10-05] MEDS: metFORMIN HCL 500 MG TABLET (FP) PO SCH ×2 (06:16→17:56)
[2022-10-05] MEDS: ASPIRIN COATED 81 MG TABLET.EC PO SCH (10:44)
[2022-10-05] MEDS: amLODIPine BESYLATE 5 MG TABLET (FP) PO SCH (10:44)
[2022-10-05] MEDS: diazePAM 5 MG TABLET PO PRN (10:51)
[2022-10-05] MEDS: PRENATAL VITAMINS W/ FOLIC ACID TABLET (FP) PO SCH (10:52)
[2022-10-05] MEDS: hydrOXYzine PAMOATE 25 MG CAPSULE (FP) PO PRN (14:28)
[2022-10-05] MEDS: QUEtiapine FUMARATE 100 MG TABLET (FP) PO SCH (22:50)
[2022-10-05] MEDS: ATORVASTATIN CA 40 MG TABLET (FP) PO SCH (22:50)
[2022-10-05] MEDS: THIAMINE HCL 100 MG TABLET (FP) PO SCH (22:50)
[2022-10-05] MEDS: MELATONIN 5 MG TABLETS PO PRN (22:50)
[2022-10-06] MEDS ORDERED: INSULIN SLIDING SCALE (NOVOLOG) 1 VIAL SQ ONE (04:18)
[2022-10-06] MEDS ORDERED: diazePAM 5 MG TABLET PO ONE (06:00)
[2022-10-06] MEDS: metFORMIN HCL 500 MG TABLET (FP) PO SCH ×2 (06:21→17:27)
[2022-10-06] MEDS: PRENATAL VITAMINS W/ FOLIC ACID TABLET (FP) PO SCH (09:58)
[2022-10-06] MEDS: ASPIRIN COATED 81 MG TABLET.EC PO SCH (09:58)
[2022-10-06] MEDS: amLODIPine BESYLATE 5 MG TABLET (FP) PO SCH (09:58)
[2022-10-06] MEDS: hydrOXYzine PAMOATE 25 MG CAPSULE (FP) PO PRN (10:00)
[2022-10-06 17:29] VITALS: BP 130/76; PULSE 84; RESP 20; TEMP 97.5
== END 2022-10-06 18:44 | disposition other institution (70) | DRG 775 ==
LOC: YASAS 11:33 → Y3N 13:41
PROVIDERS: ADMIT Allergy & Immunology; ATTEND Surgery
PROC: HZ2ZZZZ Detoxification Services for Substance Abuse Treatment (ICD-10-PCS; principal; 2022-10-02)
DX: F10.230 Alcohol dependence with withdrawal, uncomplicated (principal); F19.282 Other psychoactive substance dependence with psychoactive substance-induced sleep disorder; F19.24 Other psychoactive substance dependence with psychoactive substance-induced mood disorder; F31.9 Bipolar disorder, unspecified; F25.9 Schizoaffective disorder, unspecified; I10 Essential (primary) hypertension; E78.5 Hyperlipidemia, unspecified; K21.9 Gastro-esophageal reflux disease without esophagitis; E11.9 Type 2 diabetes mellitus without complications; Z79.84 Long term (current) use of oral hypoglycemic drugs; Z56.0 Unemployment, unspecified; Z59.00 Homelessness unspecified; Z88.0 Allergy status to penicillin; Z88.8 Allergy status to other drugs, medicaments and biological substances; Z28.310 Unvaccinated for COVID-19; Z28.9 Immunization not carried out for unspecified reason
CPT/HCPCS: 36415; 80053; 82962; 85027; 86780; 87811; C9803-CS; U0003; U0005

== ENCOUNTER 2022-10-06 18:56 | Inpatient (IN) | payer OTHER ==
[2022-10-06] MEDS ORDERED: BENZONATATE 200 MG CAPSULE PO PRN (21:31)
[2022-10-06] MEDS ORDERED: COLLOIDAL OATMEAL 1 BAR EACH TP PRN (21:31)
[2022-10-06] MEDS ORDERED: METHOCARBAMOL 500 MG TABLET PO PRN (21:31)
[2022-10-06] MEDS ORDERED: NALOXONE HCL 0.4 MG/ML VIAL IVPUSH PRN (21:31)
[2022-10-06] MEDS ORDERED: LOPERAMIDE HCL 2 MG CAPSULE PO PRN (21:31)
[2022-10-06] MEDS ORDERED: NALOXONE HCL (KLOXXADO) 8 MG SPRAY NS PRN (21:31)
[2022-10-06] MEDS ORDERED: ACETAMINOPHEN 325 MG TABLET (FP) PO PRN (21:31)
[2022-10-06] MEDS ORDERED: IBUPROFEN 400 MG TABLET (FP) PO PRN (21:31)
[2022-10-06] MEDS ORDERED: MAGNESIUM HYDROX 2400MG/30ML ORAL SUSPENSION 30 ML CUP PO PRN (21:31)
[2022-10-06] MEDS ORDERED: POLYETHYLENE GLYCOL (HEALTHYLAX) 3350 17 GM PACKET PO PRN (21:31)
[2022-10-06] MEDS ORDERED: AMMONIUM LACTATE 12% LOTION 225 GM BOTTLE TP PRN (21:31)
[2022-10-06] MEDS ORDERED: BENZOCAINE/MENTHOL (CHLORASEPTIC ) LOZENGE MM PRN (21:31)
[2022-10-06] MEDS ORDERED: IBUPROFEN 600 MG TABLET (FP) PO PRN (21:31)
[2022-10-06] MEDS ORDERED: guaiFENesin 600 MG TABLET.ER (FP) PO PRN (21:31)
[2022-10-06] MEDS ORDERED: MAG HYDROX/AL HYDROX/SIMETH 30 ML UNIT-DOSE CUP PO PRN (21:31)
[2022-10-06] MEDS ORDERED: NICOTINE 10 MG CARTRIDGE (INHALER) IH PRN (21:31)
[2022-10-06] MEDS: metFORMIN HCL 500 MG TABLET (FP) PO SCH (21:53)
[2022-10-06] MEDS ORDERED: ATORVASTATIN CA 40 MG TABLET (FP) PO SCH (22:00)
[2022-10-06] MEDS ORDERED: THIAMINE HCL 100 MG TABLET (FP) PO SCH (22:00)
[2022-10-06] MEDS ORDERED: MELATONIN 5 MG TABLETS PO SCH (22:00)
[2022-10-06] MEDS ORDERED: QUEtiapine FUMARATE 100 MG TABLET (FP) PO SCH (22:00)
[2022-10-07] MEDS ORDERED: INSULIN SLIDING SCALE (NOVOLOG) 1 VIAL SQ SCH (07:00)
[2022-10-07] MEDS: metFORMIN HCL 500 MG TABLET (FP) PO SCH (07:07)
[2022-10-07 08:06] VITALS: BP 138/78; PULSE 73; RESP 18; TEMP 97.5
[2022-10-07] MEDS ORDERED: amLODIPine BESYLATE 5 MG TABLET (FP) PO SCH (10:00)
[2022-10-07] MEDS ORDERED: PRENATAL VITAMINS W/ FOLIC ACID TABLET (FP) PO SCH (10:00)
[2022-10-07] MEDS ORDERED: ASPIRIN COATED 81 MG TABLET.EC PO SCH (10:00)
== END 2022-10-07 13:56 | disposition left against medical advice (07) | DRG 770 ==
LOC: YASAS 18:56 → Y3W 18:58
PROVIDERS: ADMIT Allergy & Immunology; ATTEND Psychiatry & Neurology Pain Medicine
PROC: HZ42ZZZ Group Counseling for Substance Abuse Treatment, Cognitive-Behavioral (ICD-10-PCS; principal; 2022-10-06)
DX: F10.20 Alcohol dependence, uncomplicated (principal); F17.210 Nicotine dependence, cigarettes, uncomplicated; F19.282 Other psychoactive substance dependence with psychoactive substance-induced sleep disorder; F20.9 Schizophrenia, unspecified; F31.9 Bipolar disorder, unspecified; E78.5 Hyperlipidemia, unspecified; I10 Essential (primary) hypertension; K21.9 Gastro-esophageal reflux disease without esophagitis; E11.9 Type 2 diabetes mellitus without complications; Z79.84 Long term (current) use of oral hypoglycemic drugs; M54.50 Low back pain, unspecified; G89.29 Other chronic pain
CPT/HCPCS: 82962

== ENCOUNTER 2022-10-12 12:47 | Inpatient (IN) | payer OTHER ==
[2022-10-12 13:17] VITALS: BMI 25.6
[2022-10-12] MEDS ORDERED: NICOTINE POLACRILEX 2 MG GUM BUC PRN (17:00)
[2022-10-12] MEDS ORDERED: MAG HYDROX/AL HYDROX/SIMETH 30 ML UNIT-DOSE CUP PO PRN (17:00)
[2022-10-12] MEDS ORDERED: DICYCLOMINE HCL 10 MG CAPSULE PO PRN (17:00)
[2022-10-12] MEDS ORDERED: POLYETHYLENE GLYCOL (HEALTHYLAX) 3350 17 GM PACKET PO PRN (17:00)
[2022-10-12] MEDS ORDERED: IBUPROFEN 400 MG TABLET (FP) PO PRN (17:00)
[2022-10-12] MEDS ORDERED: P-EPHED 60MG/TRIPROLIDI 2.5MG TABLET PO PRN (17:00)
[2022-10-12] MEDS ORDERED: ACETAMINOPHEN 325 MG TABLET (FP) PO PRN (17:00)
[2022-10-12] MEDS ORDERED: LOPERAMIDE HCL 2 MG CAPSULE PO PRN (17:00)
[2022-10-12] MEDS ORDERED: BISMUTH SUBSALICYLATE 524 MG/30 ML PO PRN (17:00)
[2022-10-12] MEDS ORDERED: MAGNESIUM HYDROX 2400MG/30ML ORAL SUSPENSION 30 ML CUP PO PRN (17:00)
[2022-10-12] MEDS ORDERED: IBUPROFEN 600 MG TABLET (FP) PO PRN (17:00)
[2022-10-12] MEDS ORDERED: BENZONATATE 200 MG CAPSULE PO PRN (17:00)
[2022-10-12] MEDS ORDERED: BENZOCAINE/MENTHOL (CHLORASEPTIC ) LOZENGE MM PRN (17:00)
[2022-10-12] MEDS ORDERED: guaiFENesin 600 MG TABLET.ER (FP) PO PRN (17:00)
[2022-10-12] MEDS ORDERED: MELATONIN 5 MG TABLETS PO PRN (17:00)
[2022-10-12] MEDS ORDERED: ONDANSETRON *ODT* 4 MG TABLET SL PRN (17:00)
[2022-10-12] MEDS: metFORMIN HCL 500 MG TABLET (FP) PO SCH (18:46)
[2022-10-12] MEDS ORDERED: ATORVASTATIN CA 40 MG TABLET (FP) PO SCH (22:00)
[2022-10-12] MEDS ORDERED: THIAMINE HCL 100 MG TABLET (FP) PO SCH (22:00)
[2022-10-13] MEDS: metFORMIN HCL 500 MG TABLET (FP) PO SCH ×2 (06:05→17:14)
[2022-10-13] MEDS ORDERED: INSULIN SLIDING SCALE (NOVOLOG) 1 VIAL SQ ONE (06:18)
[2022-10-13] MEDS ORDERED: chlordiazePOXIDE HCL 25 MG CAPSULE PO PRN (08:48)
[2022-10-13] MEDS ORDERED: PANTOPRAZOLE 20 MG TABLET PO SCH (10:00)
[2022-10-13] MEDS ORDERED: ASPIRIN COATED 81 MG TABLET.EC PO SCH (10:00)
[2022-10-13] MEDS ORDERED: amLODIPine BESYLATE 5 MG TABLET (FP) PO SCH (10:00)
[2022-10-13] MEDS ORDERED: PRENATAL VITAMINS W/ FOLIC ACID TABLET (FP) PO SCH (10:00)
[2022-10-13] MEDS ORDERED: chlordiazePOXIDE HCL 25 MG CAPSULE PO SCH (11:00)
[2022-10-13 11:49] LABS: HEMATOCRIT 36.6 % (35.4-49); HEMOGLOBIN 12.8 GM/dL (11.7-16.9); MCH 31.7 pg (25.7-33.7); MCHC 34.9 g/dl (32.0-35.9); MEAN CELL VOLUME 90.7 fl (80-96); MEAN PLT VOLUME 9.5 fl (7.5-11.1); PLATELET COUNT 192 10^3/uL (134-434); RBC 4.03 M/mm3 (4.00-5.60); RDW 13.7 % (11.9-15.9); WHITE BLOOD COUNT 7.3 K/mm3 (4.0-10.0)
[2022-10-13 11:50] LABS: ALBUMIN 3.1 g/dl (3.4-5.0); BLOOD UREA NITROGEN 11.8 mg/dL (7-18)
[2022-10-13 11:51] LABS: CALCIUM 8.4 mg/dL (8.5-10.1)
[2022-10-13 11:52] LABS: CREATININE 0.8 mg/dL (0.55-1.3)
[2022-10-13 11:54] LABS: BILIRUBIN,TOTAL 0.7 mg/dL (0.2-1); TOT PROT 6.2 g/dl (6.4-8.2)
[2022-10-13 12:42] LABS: HIV INTERPRETATION NEGATIVE (NEGATIVE)
[2022-10-13 12:45] VITALS: RESP 18
[2022-10-13 17:04] VITALS: BP 115/74; PULSE 77; TEMP 97.3
[2022-10-13] MEDS ORDERED: QUEtiapine FUMARATE 200 MG TABLET PO SCH (22:00)
[2022-10-13] MEDS ORDERED: traZODone HCL 100 MG TABLET (FP) PO SCH (22:00)
[2022-10-15] MEDS ORDERED: chlordiazePOXIDE HCL 25 MG CAPSULE PO SCH (05:00)
[2022-10-16] MEDS ORDERED: chlordiazePOXIDE HCL 10 MG CAPSULE PO PRN
[2022-10-16] MEDS ORDERED: chlordiazePOXIDE HCL 10 MG CAPSULE PO SCH (05:00)
[2022-10-17] MEDS ORDERED: chlordiazePOXIDE HCL 10 MG CAPSULE PO SCH (05:00)
[2022-10-18] MEDS ORDERED: chlordiazePOXIDE HCL 10 MG CAPSULE PO ONE (05:00)
== END 2022-10-13 17:32 | disposition left against medical advice (07) | DRG 770 ==
LOC: YASAS 12:47 → Y3N 17:00 → UNDOADMIN 18:07
PROVIDERS: ADMIT Allergy & Immunology; ATTEND Surgery
PROC: HZ2ZZZZ Detoxification Services for Substance Abuse Treatment (ICD-10-PCS; principal; 2022-10-12)
DX: F10.230 Alcohol dependence with withdrawal, uncomplicated (principal); F14.20 Cocaine dependence, uncomplicated; F17.210 Nicotine dependence, cigarettes, uncomplicated; F19.24 Other psychoactive substance dependence with psychoactive substance-induced mood disorder; F25.9 Schizoaffective disorder, unspecified; E78.5 Hyperlipidemia, unspecified; I10 Essential (primary) hypertension; K21.9 Gastro-esophageal reflux disease without esophagitis; G47.00 Insomnia, unspecified; E11.9 Type 2 diabetes mellitus without complications; Z79.84 Long term (current) use of oral hypoglycemic drugs; M54.50 Low back pain, unspecified; G89.29 Other chronic pain; Z86.19 Personal history of other infectious and parasitic diseases; Z88.0 Allergy status to penicillin; Z88.8 Allergy status to other drugs, medicaments and biological substances; Z91.199 Patient's noncompliance with other medical treatment and regimen due to unspecified reason; Z28.310 Unvaccinated for COVID-19; Z28.9 Immunization not carried out for unspecified reason
CPT/HCPCS: 36415; 80053; 82140; 82962; 85027; 86780; 87389; C9803-CS; U0003; U0005

== ENCOUNTER 2022-10-16 10:03 | Inpatient (IN) | payer OTHER ==
[2022-10-16 10:35] VITALS: BMI 25.0
[2022-10-16] MEDS ORDERED: MAG HYDROX/AL HYDROX/SIMETH 30 ML UNIT-DOSE CUP PO PRN (11:30)
[2022-10-16] MEDS ORDERED: METHOCARBAMOL 500 MG TABLET PO PRN (11:30)
[2022-10-16] MEDS ORDERED: ACETAMINOPHEN 325 MG TABLET (FP) PO PRN (11:30)
[2022-10-16] MEDS ORDERED: NALOXONE HCL 0.4 MG/ML VIAL IM PRN (11:30)
[2022-10-16] MEDS ORDERED: NALOXONE HCL (KLOXXADO) 8 MG SPRAY NS PRN (11:30)
[2022-10-16] MEDS ORDERED: guaiFENesin 600 MG TABLET.ER (FP) PO PRN (11:30)
[2022-10-16] MEDS ORDERED: BENZOCAINE/MENTHOL (CHLORASEPTIC ) LOZENGE MM PRN (11:30)
[2022-10-16] MEDS ORDERED: LORazepam 2 MG TABLET PO ONE (11:30)
[2022-10-16] MEDS ORDERED: LOPERAMIDE HCL 2 MG CAPSULE PO PRN (11:30)
[2022-10-16] MEDS ORDERED: ONDANSETRON *ODT* 4 MG TABLET SL PRN (11:30)
[2022-10-16] MEDS ORDERED: hydrOXYzine PAMOATE 25 MG CAPSULE (FP) PO PRN (11:30)
[2022-10-16] MEDS ORDERED: LORazepam 1 MG TABLET PO PRN (11:30)
[2022-10-16] MEDS ORDERED: POLYETHYLENE GLYCOL (HEALTHYLAX) 3350 17 GM PACKET PO PRN (11:30)
[2022-10-16] MEDS ORDERED: IBUPROFEN 600 MG TABLET (FP) PO PRN (11:30)
[2022-10-16] MEDS ORDERED: IBUPROFEN 400 MG TABLET (FP) PO PRN (11:30)
[2022-10-16] MEDS ORDERED: BISMUTH SUBSALICYLATE 262 MG/15 ML BTL PO PRN (11:30)
[2022-10-16] MEDS ORDERED: BENZONATATE 200 MG CAPSULE PO PRN (11:30)
[2022-10-16] MEDS ORDERED: NICOTINE 10 MG CARTRIDGE (INHALER) IH PRN (11:30)
[2022-10-16] MEDS ORDERED: MAGNESIUM HYDROX 2400MG/30ML ORAL SUSPENSION 30 ML CUP PO PRN (11:30)
[2022-10-16] MEDS ORDERED: DICYCLOMINE HCL 10 MG CAPSULE PO PRN (11:30)
[2022-10-16] MEDS ORDERED: PRENATAL VITAMINS W/ FOLIC ACID TABLET (FP) PO ONE (11:50)
[2022-10-16] MEDS ORDERED: LORazepam 2 MG TABLET ONE (11:50)
[2022-10-16] MEDS: NICOTINE 14 MG/24 HOURS TOPICAL PATCH TD SCH (11:51)
[2022-10-16] MEDS: PRENATAL VITAMINS W/ FOLIC ACID TABLET (FP) PO SCH (11:52)
[2022-10-16 14:29] LABS: HEMATOCRIT 40.5 % (35.4-49); HEMOGLOBIN 14.2 GM/dL (11.7-16.9); MCH 31.9 pg (25.7-33.7); MCHC 34.9 g/dl (32.0-35.9); MEAN CELL VOLUME 91.2 fl (80-96); MEAN PLT VOLUME 9.2 fl (7.5-11.1); PLATELET COUNT 257 10^3/uL (134-434); RBC 4.44 M/mm3 (4.00-5.60); RDW 13.9 % (11.9-15.9); WHITE BLOOD COUNT 8.5 K/mm3 (4.0-10.0)
[2022-10-16 14:31] LABS: ALBUMIN 3.6 g/dl (3.4-5.0); BILIRUBIN,TOTAL 0.4 mg/dL (0.2-1); CALCIUM 9.4 mg/dL (8.5-10.1); TOT PROT 7.4 g/dl (6.4-8.2)
[2022-10-16] MEDS: INSULIN SLIDING SCALE (NOVOLOG) 1 VIAL SQ SCH (17:01)
[2022-10-16] MEDS: LORazepam 2 MG TABLET PO SCH ×2 (17:27→23:05)
[2022-10-16] MEDS: MELATONIN 5 MG TABLETS PO SCH (23:06)
[2022-10-16] MEDS: QUEtiapine FUMARATE 200 MG TABLET PO SCH (23:07)
[2022-10-16] MEDS: metFORMIN HCL 500 MG TABLET (FP) PO SCH (23:07)
[2022-10-16] MEDS: ATORVASTATIN CA 40 MG TABLET (FP) PO SCH (23:07)
[2022-10-16] MEDS: THIAMINE HCL 100 MG TABLET (FP) PO SCH (23:08)
[2022-10-17] MEDS: LORazepam 2 MG TABLET PO SCH ×4 (05:57→22:34)
[2022-10-17] MEDS: INSULIN SLIDING SCALE (NOVOLOG) 1 VIAL SQ SCH ×3 (08:14→17:17)
[2022-10-17] MEDS: metFORMIN HCL 500 MG TABLET (FP) PO SCH ×2 (08:14→22:34)
[2022-10-17] MEDS: amLODIPine BESYLATE 5 MG TABLET (FP) PO SCH (10:52)
[2022-10-17] MEDS: PRENATAL VITAMINS W/ FOLIC ACID TABLET (FP) PO SCH (10:52)
[2022-10-17] MEDS: PANTOPRAZOLE 20 MG TABLET PO SCH (10:53)
[2022-10-17] MEDS: ASPIRIN COATED 81 MG TABLET.EC PO SCH (10:53)
[2022-10-17] MEDS: LISINOPRIL 10 MG TABLET PO SCH (10:53)
[2022-10-17] MEDS: NICOTINE 14 MG/24 HOURS TOPICAL PATCH TD SCH (11:06)
[2022-10-17] MEDS: ATORVASTATIN CA 40 MG TABLET (FP) PO SCH (22:34)
[2022-10-17] MEDS: QUEtiapine FUMARATE 200 MG TABLET PO SCH (22:34)
[2022-10-17] MEDS: THIAMINE HCL 100 MG TABLET (FP) PO SCH (22:34)
[2022-10-17] MEDS: MELATONIN 5 MG TABLETS PO SCH (22:34)
[2022-10-18] MEDS: LORazepam 1 MG TABLET PO SCH ×4 (05:59→22:38)
[2022-10-18] MEDS: metFORMIN HCL 500 MG TABLET (FP) PO SCH ×2 (06:00→22:38)
[2022-10-18] MEDS ORDERED: INSULIN (NOVOLOG) ASPART 100 UNITS/ML 10ML VIAL ONE ×2 (07:37→17:59)
[2022-10-18] MEDS: INSULIN SLIDING SCALE (NOVOLOG) 1 VIAL SQ SCH ×3 (08:28→17:32)
[2022-10-18] MEDS: ASPIRIN COATED 81 MG TABLET.EC PO SCH (10:59)
[2022-10-18] MEDS: PANTOPRAZOLE 20 MG TABLET PO SCH (10:59)
[2022-10-18] MEDS: amLODIPine BESYLATE 5 MG TABLET (FP) PO SCH (10:59)
[2022-10-18] MEDS: PRENATAL VITAMINS W/ FOLIC ACID TABLET (FP) PO SCH (10:59)
[2022-10-18] MEDS: NICOTINE 14 MG/24 HOURS TOPICAL PATCH TD SCH (10:59)
[2022-10-18] MEDS: LISINOPRIL 10 MG TABLET PO SCH (10:59)
[2022-10-18] MEDS: ATORVASTATIN CA 40 MG TABLET (FP) PO SCH (22:37)
[2022-10-18] MEDS: QUEtiapine FUMARATE 200 MG TABLET PO SCH (22:38)
[2022-10-18] MEDS: THIAMINE HCL 100 MG TABLET (FP) PO SCH (22:38)
[2022-10-18] MEDS: MELATONIN 5 MG TABLETS PO SCH (22:40)
[2022-10-19] MEDS ORDERED: LORazepam 0.5 MG TABLET PO PRN
[2022-10-19] MEDS: LORazepam 0.5 MG TABLET PO SCH ×2 (05:32→10:24)
[2022-10-19 05:53] VITALS: RESP 18
[2022-10-19] MEDS: metFORMIN HCL 500 MG TABLET (FP) PO SCH (06:16)
[2022-10-19] MEDS: INSULIN SLIDING SCALE (NOVOLOG) 1 VIAL SQ SCH ×2 (06:18→11:35)
[2022-10-19] MEDS: NICOTINE 14 MG/24 HOURS TOPICAL PATCH TD SCH (10:23)
[2022-10-19] MEDS: PRENATAL VITAMINS W/ FOLIC ACID TABLET (FP) PO SCH (10:23)
[2022-10-19] MEDS: ASPIRIN COATED 81 MG TABLET.EC PO SCH (10:24)
[2022-10-19] MEDS: LISINOPRIL 10 MG TABLET PO SCH (10:24)
[2022-10-19] MEDS: amLODIPine BESYLATE 5 MG TABLET (FP) PO SCH (10:24)
[2022-10-19] MEDS: PANTOPRAZOLE 20 MG TABLET PO SCH (10:27)
[2022-10-19 12:59] VITALS: BP 140/56; PULSE 94; TEMP 97.2
[2022-10-20] MEDS ORDERED: LORazepam 0.5 MG TABLET PO ONE (05:00)
== END 2022-10-19 13:24 | disposition home or self-care (01) | DRG 774 ==
LOC: YASAS 10:03 → Y3N 12:08 → Y6N 12:14
PROVIDERS: ADMIT Allergy & Immunology; ATTEND Surgery
PROC: HZ2ZZZZ Detoxification Services for Substance Abuse Treatment (ICD-10-PCS; principal; 2022-10-16)
DX: F10.230 Alcohol dependence with withdrawal, uncomplicated (principal); F14.20 Cocaine dependence, uncomplicated; F12.20 Cannabis dependence, uncomplicated; F17.210 Nicotine dependence, cigarettes, uncomplicated; F31.9 Bipolar disorder, unspecified; F25.9 Schizoaffective disorder, unspecified; F19.282 Other psychoactive substance dependence with psychoactive substance-induced sleep disorder; E78.00 Pure hypercholesterolemia, unspecified; I10 Essential (primary) hypertension; K21.9 Gastro-esophageal reflux disease without esophagitis; E11.9 Type 2 diabetes mellitus without complications; Z79.84 Long term (current) use of oral hypoglycemic drugs; M54.50 Low back pain, unspecified; G89.29 Other chronic pain; R26.89 Other abnormalities of gait and mobility; Z99.89 Dependence on other enabling machines and devices; Z88.0 Allergy status to penicillin; Z88.8 Allergy status to other drugs, medicaments and biological substances; Z28.310 Unvaccinated for COVID-19; Z28.9 Immunization not carried out for unspecified reason
CPT/HCPCS: 36415; 80053; 82140; 82962; 85027; 86780; C9803-CS; U0003; U0005

== ENCOUNTER 2022-11-21 13:34 | Inpatient (IN) | payer OTHER ==
[2022-11-21 14:55] VITALS: BMI 25.0
[2022-11-21] MEDS ORDERED: BISMUTH SUBSALICYLATE 524 MG/30 ML PO PRN (19:51)
[2022-11-21] MEDS ORDERED: ACETAMINOPHEN 325 MG TABLET (FP) PO PRN (19:51)
[2022-11-21] MEDS ORDERED: IBUPROFEN 600 MG TABLET (FP) PO PRN (19:51)
[2022-11-21] MEDS ORDERED: BENZONATATE 200 MG CAPSULE PO PRN (19:51)
[2022-11-21] MEDS ORDERED: LOPERAMIDE HCL 2 MG CAPSULE PO PRN (19:51)
[2022-11-21] MEDS ORDERED: guaiFENesin 600 MG TABLET.ER (FP) PO PRN (19:51)
[2022-11-21] MEDS ORDERED: NALOXONE HCL (KLOXXADO) 8 MG SPRAY NS PRN (19:51)
[2022-11-21] MEDS ORDERED: MAG HYDROX/AL HYDROX/SIMETH 30 ML UNIT-DOSE CUP PO PRN (19:51)
[2022-11-21] MEDS ORDERED: IBUPROFEN 400 MG TABLET (FP) PO PRN (19:51)
[2022-11-21] MEDS ORDERED: NALOXONE HCL 0.4 MG/ML VIAL IM PRN (19:51)
[2022-11-21] MEDS ORDERED: NICOTINE 10 MG CARTRIDGE (INHALER) IH PRN (19:51)
[2022-11-21] MEDS ORDERED: BENZOCAINE/MENTHOL (CHLORASEPTIC ) LOZENGE MM PRN (19:51)
[2022-11-21] MEDS ORDERED: POLYETHYLENE GLYCOL (HEALTHYLAX) 3350 17 GM PACKET PO PRN (19:51)
[2022-11-21] MEDS ORDERED: ONDANSETRON *ODT* 4 MG TABLET SL PRN (19:51)
[2022-11-21] MEDS ORDERED: MAGNESIUM HYDROX 2400MG/30ML ORAL SUSPENSION 30 ML CUP PO PRN (19:51)
[2022-11-21] MEDS ORDERED: DICYCLOMINE HCL 10 MG CAPSULE PO PRN (19:51)
[2022-11-21] MEDS: ATORVASTATIN CA 40 MG TABLET (FP) PO SCH (21:06)
[2022-11-21] MEDS: hydrOXYzine PAMOATE 25 MG CAPSULE (FP) PO PRN (21:06)
[2022-11-21] MEDS: THIAMINE HCL 100 MG TABLET (FP) PO SCH (21:06)
[2022-11-21] MEDS: diazePAM 5 MG TABLET PO PRN (21:07)
[2022-11-21] MEDS ORDERED: MELATONIN 5 MG TABLETS PO SCH (22:00)
[2022-11-21] MEDS: diazePAM 5 MG TABLET PO SCH (23:05)
[2022-11-22] MEDS: diazePAM 5 MG TABLET PO SCH ×4 (05:29→22:38)
[2022-11-22] MEDS: metFORMIN HCL 500 MG TABLET (FP) PO SCH ×2 (06:24→17:30)
[2022-11-22] MEDS: PRENATAL VITAMINS W/ FOLIC ACID TABLET (FP) PO SCH (10:34)
[2022-11-22] MEDS: LISINOPRIL 10 MG TABLET PO SCH (10:35)
[2022-11-22] MEDS: ASPIRIN COATED 81 MG TABLET.EC PO SCH (10:35)
[2022-11-22] MEDS: amLODIPine BESYLATE 5 MG TABLET (FP) PO SCH (10:35)
[2022-11-22] MEDS: hydrOXYzine PAMOATE 25 MG CAPSULE (FP) PO PRN (10:36)
[2022-11-22] MEDS: METHOCARBAMOL 500 MG TABLET PO PRN (10:36)
[2022-11-22] MEDS: PANTOPRAZOLE 20 MG TABLET PO SCH (10:38)
[2022-11-22 11:04] LABS: HEMATOCRIT 40.4 % (35.4-49); HEMOGLOBIN 14.2 GM/dL (11.7-16.9); MCH 31.8 pg (25.7-33.7); MEAN CELL VOLUME 90.6 fl (80-96); MEAN PLT VOLUME 9.8 fl (7.5-11.1); PLATELET COUNT 217 10^3/uL (134-434); RBC 4.46 M/mm3 (4.00-5.60); RDW 13.1 % (11.9-15.9); WHITE BLOOD COUNT 8.5 K/mm3 (4.0-10.0)
[2022-11-22 11:09] LABS: POTASSIUM 3.7 mmol/L (3.5-5.1)
[2022-11-22 11:16] LABS: ALBUMIN 3.4 g/dl (3.4-5.0); CALCIUM 8.9 mg/dL (8.5-10.1)
[2022-11-22 11:17] LABS: BLOOD UREA NITROGEN 12.4 mg/dL (7-18); CREATININE 0.8 mg/dL (0.55-1.3)
[2022-11-22 11:19] LABS: BILIRUBIN,TOTAL 0.5 mg/dL (0.2-1); TOT PROT 6.7 g/dl (6.4-8.2)
[2022-11-22] MEDS: ATORVASTATIN CA 40 MG TABLET (FP) PO SCH (22:38)
[2022-11-22] MEDS: QUEtiapine FUMARATE 200 MG TABLET PO SCH (22:38)
[2022-11-22] MEDS: THIAMINE HCL 100 MG TABLET (FP) PO SCH (22:38)
[2022-11-23] MEDS: diazePAM 5 MG TABLET PO SCH ×3 (05:53→22:24)
[2022-11-23] MEDS: metFORMIN HCL 500 MG TABLET (FP) PO SCH ×2 (06:54→17:32)
[2022-11-23] MEDS: METHOCARBAMOL 500 MG TABLET PO PRN (09:26)
[2022-11-23] MEDS: hydrOXYzine PAMOATE 25 MG CAPSULE (FP) PO PRN (09:26)
[2022-11-23] MEDS: PANTOPRAZOLE 20 MG TABLET PO SCH (09:26)
[2022-11-23] MEDS: ASPIRIN COATED 81 MG TABLET.EC PO SCH (09:26)
[2022-11-23] MEDS: PRENATAL VITAMINS W/ FOLIC ACID TABLET (FP) PO SCH (09:26)
[2022-11-23] MEDS: amLODIPine BESYLATE 5 MG TABLET (FP) PO SCH (09:27)
[2022-11-23] MEDS: LISINOPRIL 10 MG TABLET PO SCH (09:27)
[2022-11-23] MEDS: ATORVASTATIN CA 40 MG TABLET (FP) PO SCH (22:25)
[2022-11-23] MEDS: THIAMINE HCL 100 MG TABLET (FP) PO SCH (22:25)
[2022-11-23] MEDS: QUEtiapine FUMARATE 200 MG TABLET PO SCH (22:25)
[2022-11-24] MEDS ORDERED: diazePAM 5 MG TABLET PO SCH (06:00)
[2022-11-24] MEDS: metFORMIN HCL 500 MG TABLET (FP) PO SCH (06:51)
[2022-11-24 10:03] LABS: SGOT/AST 89 U/L (15-37); SGPT/ALT 108 U/L (13-61)
[2022-11-24] MEDS: LISINOPRIL 10 MG TABLET PO SCH (10:14)
[2022-11-24] MEDS: amLODIPine BESYLATE 5 MG TABLET (FP) PO SCH (10:14)
[2022-11-24] MEDS: PRENATAL VITAMINS W/ FOLIC ACID TABLET (FP) PO SCH (10:14)
[2022-11-24] MEDS: PANTOPRAZOLE 20 MG TABLET PO SCH (10:14)
[2022-11-24] MEDS: ASPIRIN COATED 81 MG TABLET.EC PO SCH (10:14)
[2022-11-24] MEDS: diazePAM 5 MG TABLET PO PRN (10:16)
[2022-11-24 17:27] VITALS: BP 101/57; PULSE 74; RESP 18; TEMP 97.5
[2022-11-25] MEDS ORDERED: diazePAM 5 MG TABLET PO ONE (06:00)
== END 2022-11-24 16:45 | disposition home or self-care (01) | DRG 774 ==
LOC: YASAS 13:34 → Y6N 20:23
PROVIDERS: ADMIT Allergy & Immunology; ATTEND Surgery
PROC: HZ2ZZZZ Detoxification Services for Substance Abuse Treatment (ICD-10-PCS; principal; 2022-11-21)
DX: F10.230 Alcohol dependence with withdrawal, uncomplicated (principal); F14.20 Cocaine dependence, uncomplicated; F15.20 Other stimulant dependence, uncomplicated; F17.210 Nicotine dependence, cigarettes, uncomplicated; F25.9 Schizoaffective disorder, unspecified; F31.9 Bipolar disorder, unspecified; I10 Essential (primary) hypertension; K21.9 Gastro-esophageal reflux disease without esophagitis; E78.00 Pure hypercholesterolemia, unspecified; F19.282 Other psychoactive substance dependence with psychoactive substance-induced sleep disorder; M54.50 Low back pain, unspecified; G89.29 Other chronic pain; E11.9 Type 2 diabetes mellitus without complications; Z79.84 Long term (current) use of oral hypoglycemic drugs; Z59.02 Unsheltered homelessness; Z88.0 Allergy status to penicillin; Z88.8 Allergy status to other drugs, medicaments and biological substances; Z91.013 Allergy to seafood; Z86.19 Personal history of other infectious and parasitic diseases; Z28.310 Unvaccinated for COVID-19; Z28.9 Immunization not carried out for unspecified reason
CPT/HCPCS: 36415; 80053; 82962; 84450; 84460; 85027; 86780; 87635

== ENCOUNTER 2022-12-20 11:54 | Inpatient (IN) | payer OTHER ==
[2022-12-20 12:48] VITALS: BMI 23.5
[2022-12-20] MEDS ORDERED: NALOXONE HCL 0.4 MG/ML VIAL IM PRN (17:36)
[2022-12-20] MEDS ORDERED: hydrOXYzine PAMOATE 25 MG CAPSULE (FP) PO PRN (17:36)
[2022-12-20] MEDS ORDERED: DICYCLOMINE HCL 10 MG CAPSULE PO PRN (17:36)
[2022-12-20] MEDS ORDERED: ACETAMINOPHEN 325 MG TABLET (FP) PO PRN (17:36)
[2022-12-20] MEDS ORDERED: MAG HYDROX/AL HYDROX/SIMETH 30 ML UNIT-DOSE CUP PO PRN (17:36)
[2022-12-20] MEDS ORDERED: POLYETHYLENE GLYCOL (HEALTHYLAX) 3350 17 GM PACKET PO PRN (17:36)
[2022-12-20] MEDS ORDERED: NALOXONE HCL (KLOXXADO) 8 MG SPRAY NS PRN (17:36)
[2022-12-20] MEDS ORDERED: IBUPROFEN 400 MG TABLET (FP) PO PRN (17:36)
[2022-12-20] MEDS ORDERED: NICOTINE 10 MG CARTRIDGE (INHALER) IH PRN (17:36)
[2022-12-20] MEDS ORDERED: BENZOCAINE/MENTHOL (CHLORASEPTIC ) LOZENGE MM PRN (17:36)
[2022-12-20] MEDS ORDERED: ONDANSETRON *ODT* 4 MG TABLET SL PRN (17:36)
[2022-12-20] MEDS ORDERED: guaiFENesin 600 MG TABLET.ER (FP) PO PRN (17:36)
[2022-12-20] MEDS ORDERED: LOPERAMIDE HCL 2 MG CAPSULE PO PRN (17:36)
[2022-12-20] MEDS ORDERED: IBUPROFEN 600 MG TABLET (FP) PO PRN (17:36)
[2022-12-20] MEDS ORDERED: BISMUTH SUBSALICYLATE 524 MG/30 ML PO PRN (17:36)
[2022-12-20] MEDS ORDERED: METHOCARBAMOL 500 MG TABLET PO PRN (17:36)
[2022-12-20] MEDS ORDERED: BENZONATATE 200 MG CAPSULE PO PRN (17:36)
[2022-12-20] MEDS ORDERED: MAGNESIUM HYDROX 2400MG/30ML ORAL SUSPENSION 30 ML CUP PO PRN (17:36)
[2022-12-20] MEDS: diazePAM 5 MG TABLET PO PRN (18:25)
[2022-12-20] MEDS: THIAMINE HCL 100 MG TABLET (FP) PO SCH (22:36)
[2022-12-20] MEDS: MELATONIN 5 MG TABLETS PO SCH (22:36)
[2022-12-20] MEDS: diazePAM 5 MG TABLET PO SCH (22:36)
[2022-12-21] MEDS: diazePAM 5 MG TABLET PO SCH ×4 (05:34→22:29)
[2022-12-21] MEDS: PRENATAL VITAMINS W/ FOLIC ACID TABLET (FP) PO SCH (10:18)
[2022-12-21 11:38] LABS: POTASSIUM 4.1 mmol/L (3.5-5.1)
[2022-12-21 11:39] LABS: HEMATOCRIT 40.8 % (35.4-49); HEMOGLOBIN 13.5 GM/dL (11.7-16.9); MCH 30.2 pg (25.7-33.7); MCHC 33.1 g/dl (32.0-35.9); MEAN CELL VOLUME 91.5 fl (80-96); MEAN PLT VOLUME 10.5 fl (7.5-11.1); PLATELET COUNT 173 10^3/uL (134-434); RBC 4.46 M/mm3 (4.00-5.60); RDW 13.1 % (11.9-15.9); WHITE BLOOD COUNT 6.3 K/mm3 (4.0-10.0)
[2022-12-21 12:02] LABS: CALCIUM 9.2 mg/dL (8.5-10.1)
[2022-12-21 12:03] LABS: ALBUMIN 3.2 g/dl (3.4-5.0); BLOOD UREA NITROGEN 12.8 mg/dL (7-18)
[2022-12-21] MEDS: ASPIRIN 81 MG CHEWABLE TABLETS PO SCH (12:03)
[2022-12-21] MEDS: FAMOTIDINE 20 MG TABLET PO SCH (12:03)
[2022-12-21] MEDS: amLODIPine BESYLATE 5 MG TABLET (FP) PO SCH (12:03)
[2022-12-21 12:06] LABS: CREATININE 0.8 mg/dL (0.55-1.3)
[2022-12-21 12:07] LABS: BILIRUBIN,TOTAL 0.4 mg/dL (0.2-1); TOT PROT 6.1 g/dl (6.4-8.2)
[2022-12-21] MEDS: ATORVASTATIN CA 40 MG TABLET (FP) PO SCH (22:28)
[2022-12-21] MEDS: THIAMINE HCL 100 MG TABLET (FP) PO SCH (22:28)
[2022-12-21] MEDS: MELATONIN 5 MG TABLETS PO SCH (22:28)
[2022-12-21] MEDS ORDERED: QUEtiapine FUMARATE 100 MG TABLET (FP) PO ONE (22:49)
[2022-12-22] MEDS: diazePAM 5 MG TABLET PO SCH ×3 (06:01→22:23)
[2022-12-22] MEDS: ASPIRIN 81 MG CHEWABLE TABLETS PO SCH (10:08)
[2022-12-22] MEDS: PRENATAL VITAMINS W/ FOLIC ACID TABLET (FP) PO SCH (10:08)
[2022-12-22] MEDS: FAMOTIDINE 20 MG TABLET PO SCH (10:09)
[2022-12-22] MEDS: amLODIPine BESYLATE 5 MG TABLET (FP) PO SCH (10:09)
[2022-12-22] MEDS: diazePAM 5 MG TABLET PO PRN ×2 (10:11→17:22)
[2022-12-22] MEDS: LISINOPRIL 10 MG TABLET PO SCH (11:48)
[2022-12-22] MEDS ORDERED: QUEtiapine FUMARATE 100 MG TABLET (FP) PO SCH (22:00)
[2022-12-22] MEDS: THIAMINE HCL 100 MG TABLET (FP) PO SCH (22:23)
[2022-12-22] MEDS: ATORVASTATIN CA 40 MG TABLET (FP) PO SCH (22:23)
[2022-12-22] MEDS: MELATONIN 5 MG TABLETS PO SCH (22:24)
[2022-12-23] MEDS ORDERED: diazePAM 5 MG TABLET PO SCH (06:00)
[2022-12-23] MEDS: amLODIPine BESYLATE 5 MG TABLET (FP) PO SCH (09:27)
[2022-12-23] MEDS: ASPIRIN 81 MG CHEWABLE TABLETS PO SCH (09:27)
[2022-12-23] MEDS: FAMOTIDINE 20 MG TABLET PO SCH (09:27)
[2022-12-23] MEDS: LISINOPRIL 10 MG TABLET PO SCH (09:27)
[2022-12-23] MEDS: PRENATAL VITAMINS W/ FOLIC ACID TABLET (FP) PO SCH (09:28)
[2022-12-23 13:58] VITALS: BP 127/87; PULSE 68; RESP 16; TEMP 97.5
[2022-12-24] MEDS ORDERED: diazePAM 5 MG TABLET PO ONE (06:00)
== END 2022-12-23 14:35 | disposition home or self-care (01) | DRG 774 ==
LOC: YASAS 11:54 → Y3N 17:56
PROVIDERS: ADMIT Allergy & Immunology; ATTEND Surgery
PROC: HZ2ZZZZ Detoxification Services for Substance Abuse Treatment (ICD-10-PCS; principal; 2022-12-20)
DX: F10.230 Alcohol dependence with withdrawal, uncomplicated (principal); F14.90 Cocaine use, unspecified, uncomplicated; F17.210 Nicotine dependence, cigarettes, uncomplicated; F25.9 Schizoaffective disorder, unspecified; F19.94 Other psychoactive substance use, unspecified with psychoactive substance-induced mood disorder; I10 Essential (primary) hypertension; E78.5 Hyperlipidemia, unspecified; K21.9 Gastro-esophageal reflux disease without esophagitis; Z28.310 Unvaccinated for COVID-19; Z88.0 Allergy status to penicillin; Z88.8 Allergy status to other drugs, medicaments and biological substances; Z56.0 Unemployment, unspecified; Z59.00 Homelessness unspecified
CPT/HCPCS: 36415; 80053; 82962; 85027; 86780; 87635

== ENCOUNTER 2023-05-21 09:25 | Inpatient (IN) | payer OTHER ==
[2023-05-21 09:57] VITALS: BMI 22.4
[2023-05-21] MEDS ORDERED: POLYETHYLENE GLYCOL (HEALTHYLAX) 3350 17 GM PACKET PO PRN (10:17)
[2023-05-21] MEDS ORDERED: P-EPHED 60MG/TRIPROLIDI 2.5MG TABLET PO PRN (10:17)
[2023-05-21] MEDS ORDERED: DICYCLOMINE HCL 10 MG CAPSULE PO PRN (10:17)
[2023-05-21] MEDS ORDERED: MAGNESIUM HYDROX 2400MG/30ML ORAL SUSPENSION 30 ML CUP PO PRN (10:17)
[2023-05-21] MEDS ORDERED: LOPERAMIDE HCL 2 MG CAPSULE PO PRN (10:17)
[2023-05-21] MEDS ORDERED: BENZOCAINE/MENTHOL (CHLORASEPTIC ) LOZENGE MM PRN (10:17)
[2023-05-21] MEDS ORDERED: BENZONATATE 200 MG CAPSULE PO PRN (10:17)
[2023-05-21] MEDS ORDERED: IBUPROFEN 600 MG TABLET (FP) PO PRN (10:17)
[2023-05-21] MEDS ORDERED: guaiFENesin 600 MG TABLET.ER (FP) PO PRN (10:17)
[2023-05-21] MEDS ORDERED: ACETAMINOPHEN 325 MG TABLET (FP) PO PRN (10:17)
[2023-05-21] MEDS ORDERED: ONDANSETRON *ODT* 4 MG TABLET SL PRN (10:17)
[2023-05-21] MEDS ORDERED: BISMUTH SUBSALICYLATE 262 MG/15 ML BTL PO PRN (10:17)
[2023-05-21] MEDS ORDERED: MAG HYDROX/AL HYDROX/SIMETH 30 ML UNIT-DOSE CUP PO PRN (10:17)
[2023-05-21] MEDS ORDERED: IBUPROFEN 400 MG TABLET (FP) PO PRN (10:17)
[2023-05-21] MEDS ORDERED: ASPIRIN 81 MG CHEWABLE TABLETS ONE (11:08)
[2023-05-21] MEDS ORDERED: amLODIPine BESYLATE 5 MG TABLET (FP) ONE (11:08)
[2023-05-21] MEDS: amLODIPine BESYLATE 5 MG TABLET (FP) PO SCH (11:13)
[2023-05-21] MEDS: ASPIRIN 81 MG CHEWABLE TABLETS PO SCH (11:13)
[2023-05-21] MEDS: metFORMIN HCL 500 MG TABLET (FP) PO SCH (17:00)
[2023-05-21] MEDS ORDERED: MELATONIN 5 MG TABLETS PO SCH (22:00)
[2023-05-21] MEDS: ATORVASTATIN CA 40 MG TABLET (FP) PO SCH (22:16)
[2023-05-21] MEDS: QUEtiapine FUMARATE 200 MG TABLET PO SCH (22:16)
[2023-05-21] MEDS: THIAMINE HCL 100 MG TABLET (FP) PO SCH (22:16)
[2023-05-22] MEDS: metFORMIN HCL 500 MG TABLET (FP) PO SCH ×2 (06:28→16:56)
[2023-05-22] MEDS ORDERED: PRENATAL VITAMINS W/ FOLIC ACID TABLET (FP) PO SCH (10:00)
[2023-05-22] MEDS: ASPIRIN 81 MG CHEWABLE TABLETS PO SCH (10:24)
[2023-05-22] MEDS: amLODIPine BESYLATE 5 MG TABLET (FP) PO SCH (10:24)
[2023-05-22 19:43] LABS: HEMATOCRIT 39.7 % (35.4-49); HEMOGLOBIN 13.4 GM/dL (11.7-16.9); MCH 31.2 pg (25.7-33.7); MCHC 33.8 g/dl (32.0-35.9); MEAN CELL VOLUME 92.3 fl (80-96); MEAN PLT VOLUME 10.1 fl (7.5-11.1); PLATELET COUNT 201 10^3/uL (134-434); RBC 4.31 M/mm3 (4.00-5.60); RDW 14.1 % (11.9-15.9); WHITE BLOOD COUNT 6.6 K/mm3 (4.0-10.0)
[2023-05-22 19:52] LABS: POTASSIUM 3.7 mmol/L (3.5-5.1)
[2023-05-22 20:08] LABS: CALCIUM 8.9 mg/dL (8.5-10.1)
[2023-05-22 20:09] LABS: ALBUMIN 3.4 g/dl (3.4-5.0); BLOOD UREA NITROGEN 10.8 mg/dL (7-18)
[2023-05-22 20:12] LABS: CREATININE 0.8 mg/dL (0.55-1.3)
[2023-05-22 20:13] LABS: BILIRUBIN,TOTAL 0.5 mg/dL (0.2-1); TOT PROT 6.4 g/dl (6.4-8.2)
[2023-05-22] MEDS: QUEtiapine FUMARATE 200 MG TABLET PO SCH (22:17)
[2023-05-22] MEDS: ATORVASTATIN CA 40 MG TABLET (FP) PO SCH (22:17)
[2023-05-22] MEDS: THIAMINE HCL 100 MG TABLET (FP) PO SCH (22:17)
[2023-05-23] MEDS: metFORMIN HCL 500 MG TABLET (FP) PO SCH (07:13)
[2023-05-23 09:09] VITALS: BP 145/85; PULSE 75; RESP 16; TEMP 97.5
== END 2023-05-23 09:51 | disposition home or self-care (01) | DRG 774 ==
LOC: YASAS 09:25 → Y6N 11:01
PROVIDERS: ADMIT Allergy & Immunology; ATTEND Surgery
PROC: HZ2ZZZZ Detoxification Services for Substance Abuse Treatment (ICD-10-PCS; principal; 2023-05-21)
DX: F10.20 Alcohol dependence, uncomplicated (principal); F14.20 Cocaine dependence, uncomplicated; F12.20 Cannabis dependence, uncomplicated; F17.210 Nicotine dependence, cigarettes, uncomplicated; F25.9 Schizoaffective disorder, unspecified; F19.282 Other psychoactive substance dependence with psychoactive substance-induced sleep disorder; F19.24 Other psychoactive substance dependence with psychoactive substance-induced mood disorder; I10 Essential (primary) hypertension; E78.2 Mixed hyperlipidemia; E11.9 Type 2 diabetes mellitus without complications; R16.0 Hepatomegaly, not elsewhere classified; Z79.84 Long term (current) use of oral hypoglycemic drugs; Z86.19 Personal history of other infectious and parasitic diseases; Z88.0 Allergy status to penicillin; Z88.8 Allergy status to other drugs, medicaments and biological substances
CPT/HCPCS: 36415; 80053; 80307; 82962; 85027; 86780; 87635; 87811

== ENCOUNTER 2023-09-22 19:04 | Inpatient (IN) | payer OTHER ==
[2023-09-22 19:41] VITALS: BMI 26.9
[2023-09-22] MEDS ORDERED: LOPERAMIDE HCL 2 MG CAPSULE PO PRN (20:01)
[2023-09-22] MEDS ORDERED: MAG HYDROX/AL HYDROX/SIMETH 30 ML UNIT-DOSE CUP PO PRN (20:01)
[2023-09-22] MEDS ORDERED: NICOTINE POLACRILEX 2 MG LOZENGE BC PRN (20:01)
[2023-09-22] MEDS ORDERED: MAGNESIUM HYDROX 2400MG/30ML ORAL SUSPENSION 30 ML CUP PO PRN (20:01)
[2023-09-22] MEDS ORDERED: DOCUSATE SODIUM 100 MG CAPSULE (FP) PO PRN (20:01)
[2023-09-22] MEDS ORDERED: guaiFENesin 600 MG TABLET.ER (FP) PO PRN (20:01)
[2023-09-22] MEDS ORDERED: IBUPROFEN 400 MG TABLET (FP) PO PRN (20:01)
[2023-09-22] MEDS ORDERED: POLYETHYLENE GLYCOL (HEALTHYLAX) 3350 17 GM PACKET PO PRN (20:01)
[2023-09-22] MEDS ORDERED: ACETAMINOPHEN 325 MG TABLET (FP) PO PRN (20:01)
[2023-09-22] MEDS ORDERED: BENZOCAINE/MENTHOL (CHLORASEPTIC ) LOZENGE MM PRN (20:01)
[2023-09-22] MEDS ORDERED: BENZONATATE 200 MG CAPSULE PO PRN (20:01)
[2023-09-22] MEDS ORDERED: IBUPROFEN 600 MG TABLET (FP) PO PRN (20:01)
[2023-09-22] MEDS ORDERED: NICOTINE POLACRILEX 2 MG GUM BUC PRN (20:01)
[2023-09-22] MEDS: ATORVASTATIN CA 40 MG TABLET (FP) PO SCH (21:42)
[2023-09-22] MEDS: THIAMINE HCL 100 MG TABLET (FP) PO SCH (21:42)
[2023-09-22] MEDS: QUEtiapine FUMARATE 200 MG TABLET PO ONE (21:42)
[2023-09-22] MEDS: MELATONIN 5 MG TABLETS PO SCH (21:42)
[2023-09-23] MEDS: metFORMIN HCL 500 MG TABLET (FP) PO SCH (06:15)
[2023-09-23] MEDS ORDERED: PRENATAL VITAMINS W/ FOLIC ACID TABLET (FP) PO SCH (10:00)
[2023-09-23] MEDS ORDERED: ASPIRIN 81 MG CHEWABLE TABLETS PO SCH (10:00)
[2023-09-23 11:43] LABS: HEMATOCRIT 37.8 % (35.4-49); HEMOGLOBIN 12.7 GM/dL (11.7-16.9); MCH 31.3 pg (25.7-33.7); MCHC 33.6 g/dl (32.0-35.9); MEAN CELL VOLUME 93.2 fl (80-96); MEAN PLT VOLUME 10.1 fl (7.5-11.1); PLATELET COUNT 176 10^3/uL (134-434); RBC 4.06 M/mm3 (4.00-5.60); RDW 15.3 % (11.9-15.9); WHITE BLOOD COUNT 5.3 K/mm3 (4.0-10.0)
[2023-09-23 11:46] LABS: POTASSIUM 3.7 mmol/L (3.5-5.1)
[2023-09-23 11:52] LABS: ALBUMIN 2.9 g/dl (3.4-5.0); BLOOD UREA NITROGEN 13.8 mg/dL (7-18); CALCIUM 8.4 mg/dL (8.5-10.1)
[2023-09-23 11:56] LABS: BILIRUBIN,TOTAL 0.3 mg/dL (0.2-1); CREATININE 0.7 mg/dL (0.55-1.3); TOT PROT 5.7 g/dl (6.4-8.2)
[2023-09-23] MEDS: QUEtiapine FUMARATE 200 MG TABLET PO ONE (16:00)
[2023-09-23] MEDS: traZODone HCL 50 MG TABLET (FP) PO SCH (21:29)
[2023-09-23] MEDS ORDERED: QUEtiapine FUMARATE 200 MG TABLET PO SCH (22:00)
[2023-09-24] MEDS: ASPIRIN COATED 81 MG TABLET.EC PO SCH (07:00)
[2023-09-24] MEDS: amLODIPine BESYLATE 5 MG TABLET (FP) PO SCH (07:00)
[2023-09-24] MEDS: PRENATAL VITAMINS W/ FOLIC ACID TABLET (FP) PO SCH (07:00)
[2023-09-24 07:36] VITALS: TEMP 97.6
[2023-09-24 09:29] VITALS: BP 139/73; PULSE 90; RESP 18
[2023-09-24 12:13] LABS: PH,URINE 5.5 (5.0-8.0); URINE APPEARANCE CLEAR; URINE BILIRUBIN NEGATIVE (NEGATIVE); URINE COLOR YELLOW; URINE GLUCOSE (UA) NEGATIVE (NEGATIVE); URINE KETONE NEGATIVE (NEGATIVE); URINE LEUK ESTERASE NEGATIVE (NEGATIVE); URINE NITRITE NEGATIVE (NEGATIVE); URINE PROTEIN NEGATIVE (NEGATIVE); URINE UROBILINOGEN 0.2 mg/dL (0.2-1.0)
[2023-09-24 12:14] LABS: INR 0.97 (0.83-1.09); PROTHROMBIN TIME (PATIENT) 11.3 SEC (9.7-13.0)
[2023-09-24] MEDS ORDERED: QUEtiapine FUMARATE 200 MG TABLET PO SCH (22:00)
== END 2023-09-24 11:07 | disposition left against medical advice (07) | DRG 770 ==
LOC: YASAS 19:04 → Y3NR 20:51 → Y3E 09-23 11:01
PROVIDERS: ADMIT Allergy & Immunology; ATTEND Psychiatry & Neurology Pain Medicine
PROC: HZ42ZZZ Group Counseling for Substance Abuse Treatment, Cognitive-Behavioral (ICD-10-PCS; principal; 2023-09-22)
DX: F10.20 Alcohol dependence, uncomplicated (principal); F14.20 Cocaine dependence, uncomplicated; F12.20 Cannabis dependence, uncomplicated; F17.210 Nicotine dependence, cigarettes, uncomplicated; F25.9 Schizoaffective disorder, unspecified; F31.9 Bipolar disorder, unspecified; F19.24 Other psychoactive substance dependence with psychoactive substance-induced mood disorder; I10 Essential (primary) hypertension; E78.5 Hyperlipidemia, unspecified; E11.9 Type 2 diabetes mellitus without complications; Z79.84 Long term (current) use of oral hypoglycemic drugs; M54.50 Low back pain, unspecified; G89.29 Other chronic pain; Z28.310 Unvaccinated for COVID-19; Z28.9 Immunization not carried out for unspecified reason; Z88.0 Allergy status to penicillin; Z88.8 Allergy status to other drugs, medicaments and biological substances
CPT/HCPCS: 36415; 80053; 80305; 80307; 81003; 82140; 82652; 82962; 83735; 85027; 85610; 86780; 93005; 93010